=== PATIENT | female | born 1950 | race Caucasian/White ===

== ENCOUNTER → 2017-11-18 13:16 | Outpatient (CLI) | payer MEDICARE, OTHER, SELFPAY ==
--- NOTE | 2017-11-18 13:17 | DI.MRI.S_ITS ---
PROCEDURE: MR LUMBAR SPINE WO CON INDICATIONS: Scoliosis with stenosis with right lower extremity radicular TECHNIQUE: Noncontrast sagittal T1 spin echo and T2 fast echo, sagittal STIR, axial T1 and T2 fast spin echo through the lumbar spine. In cases with scoliosis, additional coronal T2 fast spin echo may be performed. COMPARISON[facility] [place], SPINE LUMB MIN 4VW, 04/08/2015, 15:17. FINDINGS: Image quality: Excellent. Alignment and Curvature: 5 lumbar type vertebral bodies are present by plain film. There is moderate leftward curvature of the lower lumbar spine moderate rightward curvature of the mid/upper lumbar spine. There is mild rightward lateral subluxation of L2 on L3 and L3 on L4. Bone Marrow: Marrow is of normal overall signal. No acute vertebral body compression fractures. There is mild reactive signal within the endplates adjacent to the L2-L3, L3-L4, and L4-L5 intervertebral discs. Spinal Cord: Conus medullaris terminates at the mid L1 level. Visualized cord demonstrates normal signal and size. Paraspinous Soft Tissues: No paravertebral masses. L1-L2: Mild disc desiccation and diffuse disc bulge. Mild facet and ligamentum flavum hypertrophy bilaterally. Mild canal stenosis. No foraminal stenosis. L2-L3: Severe disc and loss and desiccation. Mild diffuse disc bulge with superimposed left far lateral protrusion/osteophyte. Mild facet and ligamentum flavum hypertrophy bilaterally. Mild canal stenosis. Moderate left and mild right foraminal stenosis. L3-L4: Mild disc height loss. Moderate disc desiccation and moderate diffuse disc bulge. Moderate facet and ligamentum hypertrophy bilaterally. Moderate canal stenosis. Moderate right and mild left foraminal stenosis. L4-L5: Mild disc and loss and desiccation. Moderate diffuse disc bulge with superimposed small broad-based right far lateral protrusion/osteophyte. Moderate facet and ligamentum hypertrophy bilaterally. Mild canal stenosis. Moderate right and mild left foraminal stenosis. L5-S1: Mild disc desiccation and diffuse disc bulge. Mild facet and ligamentum hypertrophy. Mild canal stenosis. Mild foraminal stenosis bilaterally. IMPRESSION: 1. Spinal curvature as described above. 2. Multilevel degenerative disc and facet disease, as well as ligamentum flavum hypertrophy. 3. Multilevel canal stenoses, worst at L3-L4, where there is moderate canal stenosis present. 4. Multilevel foraminal stenoses, worst on the left at L2-L3, on the right at L3-L4, and on the right at L4-L5. Dictated by: Julio Cesar Grace M.D. on 11/18/2017 at 14:04 Approved by: Julio Cesar Grace M.D. on 11/18/2017 at 14:09
== END ==
PROVIDERS: Family Provider Family Medicine; PCP Family Medicine; Visit Provider Physical Medicine & Rehabilitation
DX: M51.16 Intervertebral disc disorders with radiculopathy, lumbar region (principal); M51.17 Intervertebral disc disorders with radiculopathy, lumbosacral region; M48.061 Spinal stenosis, lumbar region without neurogenic claudication; M41.86 Other forms of scoliosis, lumbar region
CPT/HCPCS: 72148

== ENCOUNTER → 2017-11-23 11:11 | Outpatient (CLI) | payer MEDICARE, OTHER, SELFPAY ==
--- NOTE | 2017-11-23 11:15 | DI.RAD.S_ITS ---
PROCEDURE: XR LUMBAR SPINE MIN 4V INDICATIONS: Scoliosis with stenosis with right lower extremity radicular TECHNIQUE: 5 views of the lumbar spine acquired. COMPARISON: Lumbar spine MRI from 11/18/2017. FINDINGS: Bones: 5 nonrib-bearing vertebrae are present. Curvature of the lumbar spine convex to the right centered at L2 and to the left centered at L4. Normal vertebral body heights. Multilevel degenerative change greatest at L2-3. Facet joint hypertrophy.. Soft tissues: Overlying bowel gas pattern is normal. No suspicious soft tissue calcifications. IMPRESSION: No acute fractures or dislocations. Multilevel degenerative change. Dictated by: Hiro Fierro M.D. on 11/23/2017 at 11:47 Approved by: Hiro Fierro M.D. on 11/23/2017 at 11:49
== END ==
PROVIDERS: PCP Family Medicine; Visit Provider Physical Medicine & Rehabilitation
DX: M41.26 Other idiopathic scoliosis, lumbar region (principal); M48.061 Spinal stenosis, lumbar region without neurogenic claudication; M51.36 Other intervertebral disc degeneration, lumbar region
CPT/HCPCS: 72110

== ENCOUNTER 2017-11-30 09:46 | Outpatient (CLI) | payer MEDICARE, OTHER, SELFPAY ==
[2017-11-30] VITALS (9 sets, daily range): BP systolic 103–140; BP diastolic 65–77; PULSE 73–82; RESP 14–16; TEMP 36.2; O2SAT 97–100
--- NOTE | 2017-11-30 09:47 | DI.RAD.S_ITS ---
PROCEDURE: PAIN L/S TRANSFORAMINAL INJECT INDICATIONS: SPINAL STENOSIS FINDINGS: Fluoroscopic spot filming was performed to verify placement of spinal needles at the right L4-5 level(s), as labeled on the films. Appropriate location(s) of the needle tip(s) was confirmed by injection of iodinated contrast. IMPRESSION: Successful needle tip localization for right L4-L5 transforaminal epidural steroid injection. Dictated by: Jam Fritz M.D. on 11/30/2017 at 13:14 Approved by: Jam Fritz M.D. on 11/30/2017 at 13:15
[2017-11-30] MEDS: MIDAZOLAM 5 MG/5 ML VIAL IV (10:43)
[2017-11-30] MEDS: BUPIVACAINE 0.25% (PF) VIAL 2 ML INJ (10:47)
[2017-11-30] MEDS: methylPREDNISolone acetate 80 MG/ML VIAL INJ (10:47)
[2017-11-30] MEDS: DEXAMETHASONE 10 MG/ML VIAL 20 MG INJ (10:47)
[2017-11-30] MEDS: IOPAMIDOL 15 ML VIAL 3 ML INJ (10:47)
--- NOTE | 2017-11-30 11:03 | P.PCN_ITS ---
Procedures Date/Time Date of procedure: 11/30/17 Time of procedure: 11:01 General Procedure description: PREOP DIAGNOSIS 1. FORMAINAL STENOSIS WITH LE SYMPTOMS POST OP DIAGNOSIS 1. FORMAINAL STENOSIS WITH LE SYMPTOMS PROCEDURES 1. FLUOROSCOPICALLY GUIDED CONTRAST CONTROLLED TRANSFORAMINAL EPIDURAL STEROID INJECTION - RIGHT L4/5 TFESI PHYSICIAN: Rasta Acosta DO INDICATIONS: Kunal is referred by for treatment of Foraminal Stenosis with Right LE Symptoms FINDINGS Foraminal Nerve Root Compression secondary to disc disease and facet hypertrophy DESCRIPTION OF PROCEDURE: Following denial of allergy and review of potential side effects and complications, including, but not necessarily limited to, infection, allergic reaction, local tissue breakdown, stroke, temporary or permanent nerve injury, paralysis, and possible , the patient indicated that the patient understood and agreed to proceed. An informed consent document was signed by the patient, witnessed by a nurse, and placed in the patient's chart. Additionally, other treatment options including medications, modalities, and physical therapy were reviewed with the patient. After review of previous anaesthesic history and IV conscious sedation the patient was deemed safe to proceed with todays procedure with IV conscious sedation as ASA class II designation. Safety time-out was performed to confirm patient ID, procedure to be performed and site of procedure. IV sedation was accomplished with a combination of 2mg of Versed was administered by the RN after DO order, titrated to patient comfort during the course of the procedure while the patient remained responsive to all verbal commands In the prone position following sterile prep and drape of the lumbar region, the Right L4/5 posterior neuroforamen was identified fluoroscopically. The skin was anesthetized via a 25-gauge 1.5-inch needle with 1% lidocaine solution. At this point, a 25-gauge 3.5-inch spinal needle was atraumatically introduced and advanced under fluoroscopic guidance through the posterior Right L4/5 neuroforamen to approximately the anterior aspect of the canal. Depth was confirmed on lateral view. Following negative aspiration, injection of approximately 1.5 cc of Isovue 200 under live fluoroscopy in the AP view confirmed excellent flow along the nerve root, into the epidural space without vascular or intrathecal uptake observed Radiological data, including multiple fluoroscopic views of the lumbosacral spine, reveal a spinal needle at the right L4/5 posterior neuroforamen. Subsequent views show flow of contrast material flowing superiorly and inferiorly along the nerve root confirming epidural flow. Subsequently, a test dose of 1.5 cc of 1% lidocaine solution was administered and patient was observed for two minutes for signs or symptoms of complications , including abdominal pain, shortness of breath, bilateral upper or lower extremity weakness, nausea and vomiting, prior to steroid injection. At this point, a total of 3 cc or 20 mg of dexamethasone and 80mg Depo Medrol was injected without incident. The procedure tolerated the procedure well without signs or symptoms of complications prior to transfer to the recovery area continued monitoring without incident.The patient was then transferred to the recovery area where they were observed for an appropriate time after the injection. The patient reported a VAS score of 7 prior to the procedure and a post- procedure VAS of 0. Total Fluoroscopy Time: 20.9 seconds Total Conscious Sedation Time: 24min POST OP INSTRUCTIONS The patient was provided a Pain Log to continue to record their response to the target-specific procedure prior to follow-up visit with their referring physician. Additionally, specific post-injection care instructions and a contact number to our office were provided if concerns arise regarding possible complications associated with the procedure are suspected. Rasta Acosta DO Complications: none
== END 2017-11-30 12:42 | disposition home or self-care (01) ==
LOC: RAD 09:47
PROVIDERS: PCP Family Medicine; Visit Provider Physical Medicine & Rehabilitation
DX: M51.16 Intervertebral disc disorders with radiculopathy, lumbar region (principal); M48.061 Spinal stenosis, lumbar region without neurogenic claudication
CPT/HCPCS: 64483; 99152; J1040; J1100; J2250

== ENCOUNTER → 2017-12-21 15:25 | Outpatient (CLI) | payer MEDICARE, OTHER, SELFPAY ==
--- NOTE | 2017-12-21 15:26 | DI.RAD.S_ITS ---
PROCEDURE: XR KNEE RT 3V INDICATIONS: Eval TECHNIQUE: 3 views of the knee were acquired. COMPARISON: None. FINDINGS: Bones: No fractures or dislocations. No suspicious bony lesions. Mild narrowing of the medial joint space. There is mild subchondral sclerosis and spurring Soft tissues: Small joint effusion. No suspicious soft tissue calcifications. IMPRESSION: Mild right knee joint degeneration. Dictated by: Jax Agee M.D. on 12/21/2017 at 16:56 Approved by: Jax Agee M.D. on 12/21/2017 at 16:58
== END ==
PROVIDERS: PCP Family Medicine; Visit Provider Physical Medicine & Rehabilitation
DX: M70.51 Other bursitis of knee, right knee (principal); M17.11 Unilateral primary osteoarthritis, right knee
CPT/HCPCS: 73562

== ENCOUNTER 2018-05-30 14:48 | Outpatient (CLI) | payer MEDICARE, OTHER, SELFPAY ==
[2018-05-30] VITALS (8 sets, daily range): BP systolic 107–131; BP diastolic 57–71; PULSE 73–82; RESP 14–18; TEMP 36.3; O2SAT 96–99
--- NOTE | 2018-05-30 14:52 | DI.RAD.S_ITS ---
PROCEDURE: PAIN SI JOINT INJECTION INDICATIONS: Right sacroiliac joint injection FINDINGS: Fluoroscopic spot filming was performed to verify placement of spinal needles at the right SI joint, as labeled on the films. Appropriate location(s) of the needle tip(s) was confirmed by injection of iodinated contrast. IMPRESSION: Fluoroscopy for pain management. Dictated by: Golden Rodriguez M.D. on 05/30/2018 at 16:22 Approved by: Golden Rodriguez M.D. on 05/30/2018 at 16:22
[2018-05-30] MEDS: MIDAZOLAM 5 MG/5 ML VIAL IV (15:18)
[2018-05-30] MEDS: BUPIVACAINE 0.5% (PF) VIAL 2 ML INJ (15:20)
[2018-05-30] MEDS: IOPAMIDOL 15 ML VIAL 3 ML INJ (15:20)
[2018-05-30] MEDS: BETAMETHASONE 30 MG/5 ML MDV 12 MG INJ (15:20)
--- NOTE | 2018-05-30 15:33 | P.PCN_ITS ---
Procedures Date/Time Date of procedure: 05/30/18 Time of procedure: 15:32 General Procedure description: PREOP Dx: Sacroiliac joint pain/DJD POST OP DX: Sacroiliac Joint Pain/DJD Procedures: Fluoroscopic guided contrast controlled right sacroiliac joint injection Physician: Rasta Acosta D.O. Indications: Ene is referred by Dr. Myers for treatment of right sacroiliac joint DJD Description of procedure Fluoroscopic guided, contrast controlled right sacroiliac joint injection Following denial of allergies and review of potential side effects and complications, including, but not necessarily limited to, infection, allergic r eaction, local tissue breakdown, temporary as well as permanent nerve injury, paralysis, stroke and possible , the patient indicated that they understood and agreed to proceed. An informed consent was signed by the patient, witnessed by a nurse, and placed in the patient's chart. Additionally, other treatment options including modalities, medications, and physical therapy were reviewed with the patient. After review of previous anaesthesic history and IV conscious sedation the patient was deemed safe to proceed with todays procedure with IV conscious sedation as ASA class II designation. Safety time-out was performed to confirm patient ID, procedure to be performed and site of procedure. IV sedation was accomplished with a combination of 2mg of Versed was administered by the RN aft er DO order, titrated to patient comfort during the course of the procedure while the patient remained responsive to all verbal commands In the prone position following sterile prep and drape of the pelvic region, the hyper lucency on in the inferior aspect of the sacroiliac joint was identified fluoroscopically the skin was anesthetized be a 25 gauge 1 eventual with approximately 2 cc of 1% lidocaine solution. At this point, a 22 gauge 3 in spinal needle was atraumatically introduced and advanced under fluoroscopic guidance into the inferior aspect of the right sacroiliac joint. Following negative aspiration, approximately 0.3 cc of Isovue-300 was injected confirming intra-articular placement without vascular uptake. Radiographic data, including multiple fluoroscopic views of the pelvis, reveals a spinal needle in the sacroiliac joint hyper lucent zone. Subsequent view show flow contrast tear superiorly and inferiorly within the joint capsule without vascular intrathecal uptake. At this point a total of 1 cc or 0 8 of 0.5% Marcaine was combined with 1 cc of 6 mg of betamethasone was injected without incident. The procedure tolerated the procedure well without signs or symptoms of complications prior to transfer to the recovery area continued monitoring without incident. The patient was then transferred to the recovery area with a bur observed for an appropriate time after the injection. The patient reverted a vas score of 7 prior to the procedure and postprocedure vas of 1. Total fluoroscopy time: 22.7 sec Total conscious sedation time: 24 min Postop instructions The patient was provided with a pain like to continue to record the patient's response to the target specific procedure prior to the patient's follow-up visit with the referring physician. Additionally, specific post injection care instructions and a contact number to our office were provided if concerns arise regarding the possible complications associated with procedure are suspected. Rasta Acosta D.O. Complications: none
--- NOTE | 2018-05-30 15:34 | PC.NURSE ---
ASSISTED PT OFF TABLE AND TRANSPORTING TO POST PROC AREA IN STABLE CONDITION. TURNED CARE OVER TO GERARDO WEBB, RN
--- NOTE | 2018-05-30 15:45 | PC.NURSE ---
pt returned via wheelchair post procedure. She is awake and alert and able to move from w/c to chair with standby assist. Resumed monitoring from Taylor BRISCOE.
--- NOTE | 2018-05-31 13:21 | PC.NURSE ---
Follow up call made post procedure , SI joint injection. Pt reports doing really good, her only complaint is she is tired.
== END 2018-05-30 15:58 ==
PROVIDERS: PCP Family Medicine; Visit Provider Physical Medicine & Rehabilitation
DX: M53.3 Sacrococcygeal disorders, not elsewhere classified (principal); M47.818 Spondylosis without myelopathy or radiculopathy, sacral and sacrococcygeal region; M41.20 Other idiopathic scoliosis, site unspecified; M48.061 Spinal stenosis, lumbar region without neurogenic claudication
CPT/HCPCS: 27096; 99152; J0702; J2250

== ENCOUNTER → 2018-07-19 15:32 | Outpatient (CLI) | payer MEDICARE, OTHER, SELFPAY ==
--- NOTE | 2018-07-19 | DI.MG.S_ITS ---
BILATERAL DIGITAL SCREENING MAMMOGRAM 3D/2D WITH CAD: 07/19/2018 CLINICAL: Routine screening. Comparison is made to exams dated: 07/16/2017 mammogram, 07/15/2016 mammogram, and 07/14/2015 mammogram - [facility]. The tissue of both breasts is heterogeneously dense. This may lower the sensitivity of mammography. Current study was also evaluated with a Computer Aided Detection (CAD) system. No significant masses, calcifications, or other findings are seen in either breast. There has been no significant interval change. IMPRESSION: NEGATIVE There is no mammographic evidence of malignancy. A 1 year screening mammogram is recommended. This exam was interpreted at Station ID: [id number]. NOTE: For mammograms, a report in lay terms will be sent to the patient. Approximately 15% of breast malignancies will not be visualized mammographically. In the management of a palpable breast mass, a negative mammogram must not discourage biopsy of a clinically suspicious lesion. Electronically Signed By: Arnaldo harper/trupti:07/19/2018 16:36:30 letter sent: Normal Exam ACR BI-RADS Category 1: Negative [id number]
== END ==
PROVIDERS: PCP Family Medicine; Visit Provider Family Medicine
DX: Z12.31 Encounter for screening mammogram for malignant neoplasm of breast (principal)
CPT/HCPCS: 77063; 77067

== ENCOUNTER → 2018-10-27 15:11 | Outpatient (CLI) | payer MEDICARE, OTHER, SELFPAY ==
--- NOTE | 2018-10-27 | DI.RAD.S_ITS ---
PROCEDURE: XR HAND RT MIN 3V INDICATIONS: right hand pain TECHNIQUE: 3 views of the hand(s) acquired. COMPARISON: None. FINDINGS: Bones: No fractures or dislocations. Carpal bones are normally aligned. No suspicious bony lesions. First CMC and triscaphe joint degeneration. DRUJ degeneration also noted. Soft tissues: No suspicious soft tissue calcifications. IMPRESSION: Mild first CMC and triscaphe joint degeneration Dictated by: Jax Agee M.D. on 10/27/2018 at 16:09 Approved by: Jax Agee M.D. on 10/27/2018 at 16:14
== END ==
PROVIDERS: PCP Nurse Practitioner Family; Visit Provider Nurse Practitioner Family
DX: M79.641 Pain in right hand (principal); M18.11 Unilateral primary osteoarthritis of first carpometacarpal joint, right hand; M19.031 Primary osteoarthritis, right wrist
CPT/HCPCS: 73130

== ENCOUNTER → 2019-08-13 13:58 | Outpatient (CLI) | payer MEDICARE, OTHER, SELFPAY ==
[2019-08-14 11:05] LABS: COVID19 Sendout NOT DETECTED
== END ==
PROVIDERS: PCP Nurse Practitioner Family; Visit Provider Registered Nurse
DX: Z01.818 Encounter for other preprocedural examination (principal)
CPT/HCPCS: 87635

== ENCOUNTER 2019-08-16 09:30 | Outpatient (CLI) | payer MEDICARE, OTHER, SELFPAY ==
[2019-08-16] VITALS (10 sets, daily range): BP systolic 109–141; BP diastolic 59–74; PULSE 70–86; RESP 12–16; TEMP 36.6; O2SAT 97–100
--- NOTE | 2019-08-16 09:32 | DI.RAD.S_ITS ---
PROCEDURE: PAIN SI JOINT INJECTION INDICATIONS: SPONDYLOSIS FINDINGS: Fluoroscopic spot filming was performed to verify placement of spinal needles at the inferior sacroiliac joint on the right level(s), as labeled on the films. Appropriate location(s) of the needle tip(s) was confirmed by injection of iodinated contrast. IMPRESSION: Successful needle tip localization for inferior right sacroiliac joint injection. Dictated by: Jam Fritz M.D. on 08/16/2019 at 11:25 Approved by: Jam Fritz M.D. on 08/16/2019 at 11:26
[2019-08-16] MEDS: MIDAZOLAM 5 MG/5 ML VIAL IV (10:39)
[2019-08-16] MEDS: fentaNYL 100 MCG/2 ML INJ 50 MCG IV (10:39)
[2019-08-16] MEDS: BUPIVACAINE 0.5% (PF) VIAL 2 ML INJ (10:44)
[2019-08-16] MEDS: IOPAMIDOL 15 ML VIAL 3 ML INJ (10:44)
[2019-08-16] MEDS: BETAMETHASONE 30 MG/5 ML MDV 6 MG INJ (10:45)
--- NOTE | 2019-08-16 10:47 | PC.NURSE ---
ASSISTING PT OFF TABLE AND TRANSPORTING TO POST PROC AREA IN STABLE CONDITION. PASSING RN CARE OF PT OFF TO RACHNA CALVIN.
--- NOTE | 2019-08-16 10:58 | P.PCN_ITS ---
Procedures Date/Time Date of procedure: 08/16/19 Time of procedure: 10:58 General Procedure description: PREOP Dx: Sacroiliac joint pain/DJD POST OP DX: Sacroiliac Joint Pain/DJD Procedures: Fluoroscopic guided contrast controlled right sacroiliac joint injection Physician: Rasta Acosta D.O. Indications: Ene is referred by SONDRA Almanza for treatment of right sacroiliac joint DJD Description of procedure Fluoroscopic guided, contrast controlled right sacroiliac joint injection Following review of allergies and review of potential side effects and complications, including, but not necessarily limited to, infection, allergic reaction, local tissue breakdown, temporary as well as permanent nerve injury, paralysis, stroke and possible , the patient indicated that they understood and agreed to proceed. An informed consent was signed by the patient, witnessed by a nurse, and placed in the patient's chart. Additionally, other treatment options including modalities, medications, and physical therapy were reviewed w ith the patient. After review of previous anaesthesic history and IV conscious sedation the patient was deemed safe to proceed with todays procedure with IV conscious sedation as ASA class II designation. Safety time-out was performed to confirm patient ID, procedure to be performed and site of procedure. IV sedation was accomplished with a combination of 2mg of Versed and 50mcg of Fentanyl was a dministered by the RN after DO order, titrated to patient comfort during the course of the procedure while the patient remained responsive to all verbal commands In the prone position following sterile prep and drape of the pelvic region, the hyper lucency on in the inferior aspect of the sacroiliac joint was identified fluoroscopically the skin was anesthetized be a 25 gauge 1 eventual with appr oximately 2 cc of 1% lidocaine solution. At this point, a 22 gauge 3 in spinal needle was atraumatically introduced and advanced under fluoroscopic guidance into the inferior aspect of the right sacroiliac joint. Following negative aspiration, approximately 0.3 cc of Isovue-300 was injected confirming intra- articular placement without vascular uptake. Radiographic data, including multiple fluoroscopic views of the pelvis, reveals a spinal needle in the sacroiliac joint hyper lucent zone. Subsequent view show flow contrast tear superiorly and inferiorly within the joint capsule without vascular intrathecal uptake. At this point a total of 1 cc or 0 8 of 0.5% Marcaine was combined with 1 cc of 6 mg of betamethasone was injected without incident. The procedure tolerated the procedure well without signs or symptoms of complications prior to transfer to the recovery area continued monitoring without incident. The patient was then transferred to the recovery area with a bur observed for an appropriate time after the injection. The patient reverted a vas score of 7 prior to the procedure and postprocedure vas of 1. Total fluoroscopy time: 7 sec Total conscious sedation time: 24 min Postop instructions The patient was provided with a pain like to continue to record the patient's response to the target specific procedure prior to the patient's follow-up visit with the referring physician. Additionally, specific post injection care instructions and a contact number to our office were provided if concerns arise regarding the possible complications associated with procedure are suspected. Rasta Acosta D.O. Complications: none
== END 2019-08-16 11:30 | disposition home or self-care (01) ==
PROVIDERS: PCP Nurse Practitioner Family; Referring Provider Physical Medicine & Rehabilitation; Visit Provider Physical Medicine & Rehabilitation
DX: M53.3 Sacrococcygeal disorders, not elsewhere classified (principal); M47.898 Other spondylosis, sacral and sacrococcygeal region
CPT/HCPCS: 27096; 99152; J0702; J2250; J3010

== ENCOUNTER → 2019-09-13 10:43 | Outpatient (CLI) | payer MEDICARE, OTHER, SELFPAY ==
--- NOTE | 2019-09-13 10:45 | DI.RAD.S_ITS ---
PROCEDURE: XR LUMBAR SPINE MIN 4V INDICATIONS: Scoliosis low back pain with right lower extremity pain TECHNIQUE: 5 views of the lumbar spine were acquired. COMPARISON: [facility], , XR LUMBAR SPINE MIN 4V, 11/23/2017, 10:54. FINDINGS: Bones: Dextroscoliosis is noted, which has progressed since prior study. No fracture or focal osseous destruction. Although, diagnostic study sensitivity is severely suboptimal due to advanced degenerative changes. Multilevel degenerative endplate sclerosis and spurring. Diffuse facet arthropathy. Grade 1 retrolisthesis of L2 on L3. Soft tissues: Overlying bowel gas pattern is normal. No suspicious soft tissue calcifications. Oblique images: No pars defects identified however suboptimal evaluation due to advanced degenerative change.. IMPRESSION: Progressive dextroscoliosis since 11/23/17 Severe multilevel lumbar spondylosis and facet arthropathy, progressed since the prior study.. Grade 1 retrolisthesis of L2 on L3, which has progressed since prior study. Dictated by: Jax Agee M.D. on 09/13/2019 at 13:19 Approved by: Jax Agee M.D. on 09/13/2019 at 13:21
== END ==
PROVIDERS: PCP Nurse Practitioner Family; Referring Provider Physical Medicine & Rehabilitation; Visit Provider Physical Medicine & Rehabilitation
DX: M54.5 Low back pain (principal); M47.26 Other spondylosis with radiculopathy, lumbar region; M48.061 Spinal stenosis, lumbar region without neurogenic claudication; M41.20 Other idiopathic scoliosis, site unspecified; M79.604 Pain in right leg; M43.16 Spondylolisthesis, lumbar region; R26.81 Unsteadiness on feet
CPT/HCPCS: 72110

== ENCOUNTER → 2019-11-05 08:58 | Outpatient (CLI) | payer MEDICARE, OTHER, SELFPAY ==
[2019-11-06 07:24] LABS: COVID19 Sendout Not Detected (Not Detect)
== END ==
PROVIDERS: PCP Nurse Practitioner Family; Visit Provider Physician Assistant
DX: Z11.59 Encounter for screening for other viral diseases (principal)
CPT/HCPCS: 87635

== ENCOUNTER 2019-11-08 10:33 | Outpatient (CLI) | payer MEDICARE, OTHER, SELFPAY ==
[2019-11-08] VITALS (7 sets, daily range): BP systolic 112–138; BP diastolic 62–80; PULSE 74–81; RESP 10–18; TEMP 36.1; O2SAT 94–100
--- NOTE | 2019-11-08 10:39 | DI.RAD.S_ITS ---
PROCEDURE: PAIN L/SI FACET INJ/BLK 1STL INDICATIONS: SPONDYLOSIS COMPARISON: None. FINDINGS: Fluoroscopic spot filming was performed to verify placement of spinal needles at the right L4-L5 and L5-S1 level(s), as labeled on the films. Appropriate location(s) of the needle tip(s) was confirmed by injection of iodinated contrast. IMPRESSION: Fluoroscopy for pain management. Dictated by: Golden Rodriguez M.D. on 11/08/2019 at 12:37 Approved by: Golden Rodriguez M.D. on 11/08/2019 at 12:38
--- NOTE | 2019-11-08 11:09 | PC.NURSE ---
Patient is A&O able to make needs known. Green pain log and post injection instructions reviewed. Has no questions or concerns at this time.
[2019-11-08] MEDS: BUPIVACAINE 0.25% (PF) VIAL 2 ML INJ (11:40)
[2019-11-08] MEDS: MIDAZOLAM 5 MG/5 ML VIAL IV (11:40)
[2019-11-08] MEDS: fentaNYL 100 MCG/2 ML INJ 50 MCG IV (11:40)
[2019-11-08] MEDS: IOPAMIDOL 15 ML VIAL 3 ML INJ (11:40)
[2019-11-08] MEDS: BETAMETHASONE 30 MG/5 ML MDV 12 MG INJ (11:55)
--- NOTE | 2019-11-08 11:55 | P.PCN_ITS ---
Date/Time/Diagnoses Date of procedure: 11/08/19 Time of procedure: 11:55 Pre-procedure diagnosis: 1. FACET ARTHROPATHY, 2. AXIAL LBP, 3. MULTILEVEL DDD Post-procedure diagnosis: same Procedure Notes Procedure: 1. FLUOROSCOPICALLY GUIDED CONTRAST CONTROLLED FACET JOINT INJECTIONS RIGHT L4/5, L5/S1 Indications: Ene is referred by for treatment of Axial LBP Physician: Rasta Acosta Total Fluoroscopy time (seconds): 6 Total sedation minutes: 9 Complications: none Procedure in detail & Post-procedure care: FINDINGS Multilevel Facet Arthropathy with Clinically significant axial LBP DESCRIPTION OF PROCEDURE Fluoroscopically guided, contrast-controlled right L4/5, L5/S1 facet joint injections. Following review of allergy and review of potential side effects and complications, including, but not necessarily limited to, infection, allergic reaction, local tissue breakdown, stroke, temporary or permanent nerve injury, paralysis, and possible , the patient indicated that the patient understood and agreed to proceed. An informed consent document was signed by the patient, witnessed by a nurse, and placed in the patient's chart. Additionally, other treatment options including medications, modalities, and physical therapy were reviewed with the patient. After review of previous anaesthesic history and IV conscious sedation the patient was deemed safe to proceed with today?s procedure with IV conscious sedation as ASA class II designation. Safety time-out was performed to confirm patient ID, procedure to be performed and site of procedure. IV sedation was accomplished with a combination of 2mg of Versed and 50mcg of Fentanyl was administered by the RN after DO order, titrated to patient comfort during the course of the procedure while the patient remained responsive to all verbal commands. In the prone position, following sterile prep and drape of the lumbar region, the posterior aspect of the right L4/5, L5/S1 facet joints were identified fluoroscopically. The skin was anesthetized via a 25-gauge 1.5-inch needle with 1% lidocaine solution into the corresponding facet joints. At this point, a 22- gauge 3.5-inch spinal needle was atraumatically introduced and advanced under fluoroscopic guidance into the corresponding facet joints. Following negative aspiration, injections of approximately 0.2-cc of Isovue 200 confirmed interarticular placement without vascular uptake. Radiological data, including multiple fluoroscopic views of the lumbosacral spine, reveal a spinal needle at the right L4/5, L5/S1 facet joints. Subsequent views show flow of contrast material both superiorly and inferiorly within the joint space without vascular or intrathecal uptake. At this point, a total of 0.5 cc including a mixture of 0.25cc Marcaine and 0.25cc betamethasone was injected without complication into each of the corresponding facet joints. The procedure tolerated the procedure well without signs or symptoms of complications prior to transfer to the recovery area continued monitoring without incident. The patient was then transferred to the recovery area where they were observed for an appropriate period of time after the injection. The patient reported a VAS score of 7 prior to the procedure and a post-procedure VAS of 0. POST OP INSTRUCTIONS The patient was provided a Pain Log to continue to record their response to the target-specific procedure prior to follow-up visit with their referring physician. Additionally, specific post-injection care instructions and a contact number to our office were provided if concerns arise regarding possible complications associated with the procedure are suspected.
--- NOTE | 2019-11-08 12:26 | PC.NURSE ---
pt was returned to pre proc room via wc. SBA to transfer from wc to chair, monitoring resumed by this RN
--- NOTE | 2019-11-08 12:27 | PC.NURSE ---
1149: pt tolerated procedure well, 2PA transfer from table to chair, returned to pre proc room for observation and monitoring
== END 2019-11-08 12:28 | disposition home or self-care (01) ==
LOC: RAD 10:38
PROVIDERS: PCP Family Medicine; Referring Provider Physical Medicine & Rehabilitation; Visit Provider Physical Medicine & Rehabilitation
DX: M47.816 Spondylosis without myelopathy or radiculopathy, lumbar region (principal); M47.817 Spondylosis without myelopathy or radiculopathy, lumbosacral region; M54.5 Low back pain; M51.36 Other intervertebral disc degeneration, lumbar region; M51.37 Other intervertebral disc degeneration, lumbosacral region
CPT/HCPCS: 64493; 64494; 99152; J0702; J2250; J3010

== ENCOUNTER 2020-10-09 09:45 | Outpatient (RCR) | payer MEDICARE, OTHER, SELFPAY ==
--- NOTE | 2020-04-22 16:54 | PT.OIE ---
Current Diagnoses Sacrococcygeal disorders, not elsewhere classified (04/22/20) Other dorsalgia (04/22/20) Abnormal posture (04/22/20) Weakness (04/22/20) Past Medical History (Last Reviewed 01/02/20 @ 11:45 by Rasta Acosta DO) Facet arthropathy, lumbar Past Surgical History (Last Reviewed 01/02/20 @ 11:45 by Rasta Acosta DO) Status post surgery (04/13/10) Visit Care Team Role Provider Type SONDRA Santacruz Attending Provider Advanced Hims Manager Family Provider Primary Care Provider Referring Provider Specialty: Family Practice Address: [address] [place] [address], [facility] Email: [email or web address] Physical Therapy Initial Evaluation PT-OP-A Visit Information Start: 04/22/20 08:10 Freq: Status: Active Protocol: Document 04/22/20 10:39 SAK (Rec: 04/22/20 11:35 SAK [id number]) Out-Patient Physical Therapy Visit Information Visit Information Visit Type Initial Evaluation Visit Start Time 10:38 Visit Stop Time 11:40 Total Visit Minutes 62 Visit Number 1 Evaluation Information Evaluation Date 04/22/20 PT-OP-B Current Condition Start: 04/22/20 08:10 Freq: Status: Active Protocol: Document 04/22/20 10:39 SAK (Rec: 04/22/20 11:35 SAK [id number]) Current Condition History of Current Condition Onset Date years Current Complaints pain L45 and SI joint History of Current Condition Long history of LBP and SI pain, scoliosis lumbar right convex L45, left convex upper lumber, spondylosis, spondylolisthesis L2-3, injection SI august 2019, L45 July 2019; neither helpful. Previously injections have been helpful; historically has had injections every year to 1 1/2 years to SI with good results. Denies N/T, legs giving way. Wears [place] brace when gardening but states she doesn't tend to think about using it indoors even though housework increases her pain. Reports unable to take walks anymore due to pain. Doesn't weaR any shoe or heel lift, though reports she remembers PT giving her cork for use in her shoe to even her leg length; hasn't worn for a long time. States she has started doing some exercises; pelvic tilt, lunges, leg lifts , HS stretches, but not consistent. Standing hamstring stretch painful. Can't get down to the floor or lay on her hands and knees. Sleeping generally ok. Spends a lot of time sitting due to pain after self -care and minimal housework. Always sleeps on right side, sometimes wakes in pain, other days can do an hour or two of mild activity and then has to sit rest of day. FEels heat helpful short term, hasn't tried TENS unit that she and her bought; brought to PT today. Prior Treatments and Tests Progressive dextroscoliosis since 11/23/17 Lumbar spine x-ray: Severe multilevel lumbar spondylosis and facet arthropathy, progressed since the prior study.. Grade 1 retrolisthesis of L2 on L3, which has progressed since prior study. Future Testing and Treatments Planned No appointments scheduled at this time. Prior Functional Status Baseline Function- ADL's Modified Independent Baseline Function- Mobility Modified Independent Baseline Function- Gait able to take walks Baseline Function- Work/School retired Baseline Function- Recreation/Hobbies cooking, gardening, baking Current Functional Impairments (Reported) Functional Limitations- ADL's independent but painful Functional Limitations- Mobility/Gait unable to take walks for exercise or recreation due to pain Functional Limitations- Work/School retired Functional Limitations- Recreation/ painful Hobbies Personal Factors Other Personal Factors That May Effect patient has difficult time Therapy/Recovery relaxing. PT-OP-C Subjective Start: 04/22/20 08:10 Freq: Status: Active Protocol: Document 04/22/20 10:39 SAK (Rec: 04/22/20 16:52 [facility] [id number]) OP-PT Pain Assessment Pain Assessment Grid Paper Pain Assessment Grid Completed Yes Location right SI, central lumbar spine Intensity 6 Description Aching,Pressure,Spasm,Tender, Throbbing Frequency Frequent Pain Aggravating Factors Standing,Sitting,Walking, Bending,Lifting Pain Alleviating Factors Heat,Medication,Inactivity PT-OP-F Manual Assessment Start: 04/22/20 08:10 Freq: Status: Active Protocol: Document 04/22/20 10:39 SAK (Rec: 04/22/20 16:52 [facility] [id number]) Manual Assessments Soft Tissue Assessment Soft Tissue Mobility Assessment Increased tightness bilateral lumbar and thoracic paraspinals Joint Mobility Assessment Joint Mobility Assessment lumbar not assessed, unable to lay prone, time constraints PT-OP-G Mobility & Gait Start: 04/22/20 08:10 Freq: Status: Active Protocol: Document 04/22/20 10:39 SAK (Rec: 04/22/20 16:52 SAK [id number]) OP Gait Assessment Gait Distance (Feet) 50 Assistive Devices Orthotic/Prosthetic Devices or Brace: No Factors Limiting Gait Function Factors Limiting Gait Function Pain Comments Gait Comments mild trunk lean right PT-OP-H Neuro Start: 04/22/20 08:10 Freq: Status: Active Protocol: Document 04/22/20 10:39 SAK (Rec: 04/22/20 16:52 SAK [id number]) Sensation Evaluation Gross Sensation Gross Sensation WNL PT-OP-J Posture/Palpation/Skin Start: 04/22/20 08:10 Freq: Status: Active Protocol: Document 04/22/20 10:39 SAK (Rec: 04/22/20 16:52 SAK [id number]) Posture Evaluation Position Standing Head/C-Spine Posture Forward Head T-Spine Posture Increased Kyphosis Thorax Posture (R) Prominent L-Spine Posture Rotation Right Shoulder Posture (L) Rounded,(R) Rounded Scapula Posture (L) Protracted,(R) Protracted Arm Posture (L) Internally Rotated,(R) Internally Rotated Pelvis Posture Posterior Tilted Weight Distribution Decreased Wt.Bear on (L) Palpation Assessment Location SI right Palpation Findings Tenderness PT-OP-K Range of Motion Start: 04/22/20 08:10 Freq: Status: Active Protocol: Document 04/22/20 10:39 SAK (Rec: 04/22/20 16:52 SAK [id number]) Lumbar Spine Range of Motion Lumbar Spine Active Degrees Flexion 40 Extension 0 Rotation Left 25 Rotation Right 20 Lateral Flexion Left 30 Lateral Flexion Right 35 ROM Limitations Soft Tissue Tightness,Pain Hip Goniometric Range of Motion Hip Left Testing Position Supine Flexion w/Knee Flexed 105 Straight Leg Raise 55 Extension 0 Internal Rotation 30 External Rotation 40 Right Testing Position Supine Flexion w/Knee Flexed 100 Straight Leg Raise 65 Extension 0 Internal Rotation 10 External Rotation 40 Hip ROM Limitations Hip ROM Limitations Soft Tissue Tightness,Pain Knee Goniometric Range of Motion Knee FORD Knee ROM WFL Yes Ankle and Foot Goniometric Range of Motion Ankle and Foot FORD Ankle/Foot ROM WFL Yes PT-OP-L Special Tests Start: 04/22/20 08:10 Freq: Status: Active Protocol: Document 04/22/20 10:39 SAK (Rec: 04/22/20 16:52 SAK [id number]) Special Tests Hip Special Tests Leonel Test Results positive for muscle tightness ford Straight Leg Raise Test Results negative ford ALLA Test Results negative ford PT-OP-M Strength Start: 04/22/20 08:10 Freq: Status: Active Protocol: Document 04/22/20 10:39 SAK (Rec: 04/22/20 16:52 SAK [id number]) Trunk Strength Trunk Manual Muscle Testing Testing Position Supine Flexion 3+ Fair+ Core Stabilization poor ability to activate TrA and multifidi Hip Strength Hip Manual Muscle Testing Right Flexion (L2) 4- Good- Abduction 4 Good External Rotation 4- Good- Internal Rotation 4 Good Left Flexion (L2) 3+ Fair+ Abduction 4 Good External Rotation 4- Good- Internal Rotation 4 Good Knee Strength Knee Manual Muscle Testing ford Flexion (S2) 5 Normal Extension (L3) 5 Normal Ankle/Foot Strength Ankle and Foot Manual Muscle Testing ford Dorsiflexion (L4) 5 Normal Plantarflexion (S1) 5 Normal PT-OP-Q Treatments Start: 04/22/20 08:10 Freq: Status: Active Protocol: Document 04/22/20 10:39 SAK (Rec: 04/22/20 16:52 [facility] [id number]) Self-Care/Home Management Treatment Education Patient Education Home Exercise Program,Posture Other Education educated regarding importance of considering habitual postures, positioning including bed; instructed in use of folded towel at side for support Instructed in use of TENS unit PT-OP-R Modalities Start: 04/22/20 08:10 Freq: Status: Active Protocol: Document 04/22/20 10:39 SAK (Rec: 04/22/20 16:52 SAK [id number]) Hot Pack/Cold Pack Treatment Hot Pack Location lumbosacral spine Patient Position Hooklying Treatment Duration (minutes) 15 Patient Tolerance Good PT-OP-T Assessment and Plan Start: 04/22/20 08:10 Freq: Status: Active Protocol: Document 04/22/20 10:39 SAK (Rec: 04/22/20 16:52 SAK [id number]) Physical Therapy Assessment Rehab Potential Rehabilitation Potential Good Evaluation Complexity Number of Personal Factors/Comorbidities 1-2 Number of Body Systems Impaired 3 Impairments Impairments Activity Tolerance,Pain, Posture,Strength Goals Three Impairment weakness throughout trunk Group Home Goal (LTG) Patient to be independent and compliant to HEP and demonstrate improvement in trunk strength to at least 4/5 and and demonstrate good core stabilization ability statically and dynamically with function LTG Duration 07/21/20 Two Impairment postural dysfunction with poor awareness of neutral Silver Spray Worker Goal (LTG) Patient to be independent and compliant with HEP to address postural dysfunction and demonstrate good understanding of neutral posture, and be able to self-identify her unhealthy habitual postures and positioning. LTG Duration 07/21/20 One Impairment activity intolerance with patient unable to take walks Silver Spray Worker Goal (LTG) Patient to report ability to stand and walk for at least 30 min without an increase in pain LTG Duration 07/21/20 Assessment Summary Assessment Patient presents with function -limiting pain in her right SI and bilateral lumbar spine complicated by moderate dextroscoiosis, spondylosis, facet stenosis, osteoarthritis . She demonstrates decrease in her trunk strength and significant muscle imbalances, postural dysfunction, decreased body awareness and decreased awareness of her habitual postures which may be contributory. Additionally her right LE is shorter than her left. She would benefit from physical therapy for patient education, therapeutic exercise, manual techniques, HEP instruction, modalities, manual therapy to decrease her pain and improve her quality of life. She and her recently purchased a TENS unit online but have not tried it; patient was instructed in general use and demonstrated good understnding. Moist heat was provided at end of session for pain management with good tolerance. Physical Therapy Plan Frequency and Duration Frequency of Treatment 2x/Week Duration of Treatment 12 weeks Plan of Care Start Date 04/22/20 Plan of Care End Date 07/21/20 Therapeutic Interventions Therapeutic Interventions Home Exercise Program,Joint Mobilizations Next Visit Focus/Plan Next Note Type Treatment Note Next Visit Plan Review HEP and add core strengthening, discuss habitual posturing, work on neutral alignment, core strengthening, deep breathing techniques. Modalities and manual therapy as needed.
--- NOTE | 2020-04-22 16:54 | PT.OPPOC ---
Physical, Occupational & Speech Therapy At [facility] Current Diagnoses Sacrococcygeal disorders, not elsewhere classified (04/22/20) Other dorsalgia (04/22/20) Abnormal posture (04/22/20) Weakness (04/22/20) Visit Care Team Role Provider Type SONDRA Santacruz Attending Provider Advanced Screw Machine Operator Single Spindle Family Provider Primary Care Provider Referring Provider Specialty: Family Practice Address: [address] [place] [address], [facility] [place], [address] Email: Plan Of Care PT-OP-T Assessment and Plan Start: 04/22/20 08:10 Freq: Status: Active Protocol: Document 04/22/20 10:39 SAK (Rec: 04/22/20 16:52 SAK [id number]) Physical Therapy Assessment Rehab Potential Rehabilitation Potential Good Evaluation Complexity Number of Personal Factors/Comorbidities 1-2 Number of Body Systems Impaired 3 Impairments Impairments Activity Tolerance,Pain, Posture,Strength Goals Three Impairment weakness throughout trunk Fdc Goal (LTG) Patient to be independent and compliant to HEP and demonstrate improvement in trunk strength to at least 4/5 and and demonstrate good core stabilization ability statically and dynamically with function LTG Duration 07/21/20 Two Impairment postural dysfunction with poor awareness of neutral Fdc Goal (LTG) Patient to be independent and compliant with HEP to address postural dysfunction and demonstrate good understanding of neutral posture, and be able to self-identify her unhealthy habitual postures and positioning. LTG Duration 07/21/20 One Impairment activity intolerance with patient unable to take walks Hat Liner Goal (LTG) Patient to report ability to stand and walk for at least 30 min without an increase in pain LTG Duration 07/21/20 Assessment Summary Assessment Patient presents with function -limiting pain in her right SI and bilateral lumbar spine complicated by moderate dextroscoiosis, spondylosis, facet stenosis, osteoarthritis . She demonstrates decrease in her trunk strength and significant muscle imbalances, postural dysfunction, decreased body awareness and decreased awareness of her habitual postures which may be contributory. Additionally her right LE is shorter than her left. She would benefit from physical therapy for patient education, therapeutic exercise, manual techniques, HEP instruction, modalities, manual therapy to decrease her pain and improve her quality of life. She and her recently purchased a TENS unit online but have not tried it; patient was instructed in general use and demonstrated good understnding. Moist heat was provided at end of session for pain management with good tolerance. Physical Therapy Plan Frequency and Duration Frequency of Treatment 2x/Week Duration of Treatment 12 weeks Plan of Care Start Date 04/22/20 Plan of Care End Date 07/21/20 Therapeutic Interventions Therapeutic Interventions Home Exercise Program,Joint Mobilizations Next Visit Focus/Plan Next Note Type Treatment Note Next Visit Plan Review HEP and add core strengthening, discuss habitual posturing, work on neutral alignment, core strengthening, deep breathing techniques. Modalities and manual therapy as needed. Plan of Care Dates Plan of Care Start Date 04/22/20 Plan of Care End Date 07/21/20 Electronically Signed by: Lisa Gonzalez, PT 04/22/20 [id number] Please Sign and Return: I have reviewed this Plan of Care and certify that the skilled therapy services above are required to meet the patient?s needs. Physician Signature Date Printed Name and Credentials Clinical Instructor Signature Printed Name and Credentials
--- NOTE | 2020-04-24 16:23 | PT.OTN ---
Current Diagnoses Sacrococcygeal disorders, not elsewhere classified (04/24/20) Other dorsalgia (04/24/20) Abnormal posture (04/24/20) Weakness (04/24/20) Physical Therapy Treatment Note PT-OP-A Visit Information Start: 04/22/20 08:10 Freq: Status: Active Protocol: Document 04/24/20 09:44 SAK (Rec: 04/24/20 10:31 SAK [id number]) Out-Patient Physical Therapy Visit Information Visit Information Visit Type Treatment Note Visit Note [place] pretty good after PT. Uncertain still about full use of TENS.Was able to go for 6 min walk yesterday. States she is catching herself crossing her legs and getting into odd postures that she had denied previously Visit Start Time 09:45 Visit Stop Time 10:40 Total Visit Minutes 55 Visit Number 2 Evaluation Information Evaluation Date 04/22/20 PT-OP-B Current Condition Start: 04/22/20 08:10 Freq: Status: Active Protocol: Document 04/22/20 10:39 SAK (Rec: 04/22/20 11:35 SAK [id number]) Current Condition History of Current Condition Onset Date years Current Complaints pain L45 and SI joint History of Current Condition Long history of LBP and SI pain, scoliosis lumbar right convex L45, left convex upper lumber, spondylosis, spondylolisthesis L2-3, injection SI august 2019, L45 July 2019; neither helpful. Previously injections have been helpful; historically has had injections every year to 1 1/2 years to SI with good results. Denies N/T, legs giving way. Wears [place] brace when gardening but states she doesn't tend to think about using it indoors even though housework increases her pain. Reports unable to take walks anymore due to pain. Doesn't weaR any shoe or heel lift, though reports she remembers PT giving her cork for use in her shoe to even her leg length; hasn't worn for a long time. States she has started doing some exercises; pelvic tilt, lunges, leg lifts , HS stretches, but not consistent. Standing hamstring stretch painful. Can't get down to the floor or lay on her hands and knees. Sleeping generally ok. Spends a lot of time sitting due to pain after self -care and minimal housework. Always sleeps on right side, sometimes wakes in pain, other days can do an hour or two of mild activity and then has to sit rest of day. FEels heat helpful short term, hasn't tried TENS unit that she and her bought; brought to PT today. Prior Treatments and Tests Progressive dextroscoliosis since 11/23/17 Lumbar spine x-ray: Severe multilevel lumbar spondylosis and facet arthropathy, progressed since the prior study.. Grade 1 retrolisthesis of L2 on L3, which has progressed since prior study. Future Testing and Treatments Planned No appointments scheduled at this time. Prior Functional Status Baseline Function- ADL's Modified Independent Baseline Function- Mobility Modified Independent Baseline Function- Gait able to take walks Baseline Function- Work/School retired Baseline Function- Recreation/Hobbies cooking, gardening, baking Current Functional Impairments (Reported) Functional Limitations- ADL's independent but painful Functional Limitations- Mobility/Gait unable to take walks for exercise or recreation due to pain Functional Limitations- Work/School retired Functional Limitations- Recreation/ painful Hobbies Personal Factors Other Personal Factors That May Effect patient has difficult time Therapy/Recovery relaxing. PT-OP-C Subjective Start: 04/22/20 08:10 Freq: Status: Active Protocol: Document 04/22/20 10:39 SAK (Rec: 04/22/20 16:52 [facility] [id number]) OP-PT Pain Assessment Pain Assessment Grid Paper Pain Assessment Grid Completed Yes Location right SI, central lumbar spine Intensity 6 Description Aching,Pressure,Spasm,Tender, Throbbing Frequency Frequent Pain Aggravating Factors Standing,Sitting,Walking, Bending,Lifting Pain Alleviating Factors Heat,Medication,Inactivity PT-OP-F Manual Assessment Start: 04/22/20 08:10 Freq: Status: Active Protocol: Document 04/22/20 10:39 SAK (Rec: 04/22/20 16:52 SAK [id number]) Manual Assessments Soft Tissue Assessment Soft Tissue Mobility Assessment Increased tightness bilateral lumbar and thoracic paraspinals Joint Mobility Assessment Joint Mobility Assessment lumbar not assessed, unable to lay prone, time constraints PT-OP-G Mobility & Gait Start: 04/22/20 08:10 Freq: Status: Active Protocol: Document 04/22/20 10:39 SAK (Rec: 04/22/20 16:52 SAK [id number]) OP Gait Assessment Gait Distance (Feet) 50 Assistive Devices Orthotic/Prosthetic Devices or Brace: No Factors Limiting Gait Function Factors Limiting Gait Function Pain Comments Gait Comments mild trunk lean right PT-OP-H Neuro Start: 04/22/20 08:10 Freq: Status: Active Protocol: Document 04/22/20 10:39 SAK (Rec: 04/22/20 16:52 SAK [id number]) Sensation Evaluation Gross Sensation Gross Sensation WNL PT-OP-J Posture/Palpation/Skin Start: 04/22/20 08:10 Freq: Status: Active Protocol: Document 04/22/20 10:39 SAK (Rec: 04/22/20 16:52 SAK [id number]) Posture Evaluation Position Standing Head/C-Spine Posture Forward Head T-Spine Posture Increased Kyphosis Thorax Posture (R) Prominent L-Spine Posture Rotation Right Shoulder Posture (L) Rounded,(R) Rounded Scapula Posture (L) Protracted,(R) Protracted Arm Posture (L) Internally Rotated,(R) Internally Rotated Pelvis Posture Posterior Tilted Weight Distribution Decreased Wt.Bear on (L) Palpation Assessment Location SI right Palpation Findings Tenderness PT-OP-K Range of Motion Start: 04/22/20 08:10 Freq: Status: Active Protocol: Document 04/22/20 10:39 SAK (Rec: 04/22/20 16:52 SAK [id number]) Lumbar Spine Range of Motion Lumbar Spine Active Degrees Flexion 40 Extension 0 Rotation Left 25 Rotation Right 20 Lateral Flexion Left 30 Lateral Flexion Right 35 ROM Limitations Soft Tissue Tightness,Pain Hip Goniometric Range of Motion Hip Left Testing Position Supine Flexion w/Knee Flexed 105 Straight Leg Raise 55 Extension 0 Internal Rotation 30 External Rotation 40 Right Testing Position Supine Flexion w/Knee Flexed 100 Straight Leg Raise 65 Extension 0 Internal Rotation 10 External Rotation 40 Hip ROM Limitations Hip ROM Limitations Soft Tissue Tightness,Pain Knee Goniometric Range of Motion Knee FORD Knee ROM WFL Yes Ankle and Foot Goniometric Range of Motion Ankle and Foot FORD Ankle/Foot ROM WFL Yes PT-OP-L Special Tests Start: 04/22/20 08:10 Freq: Status: Active Protocol: Document 04/22/20 10:39 SAK (Rec: 04/22/20 16:52 SAK [id number]) Special Tests Hip Special Tests Leonel Test Results positive for muscle tightness ford Straight Leg Raise Test Results negative ford ALLA Test Results negative ford PT-OP-M Strength Start: 04/22/20 08:10 Freq: Status: Active Protocol: Document 04/22/20 10:39 [facility] (Rec: 04/22/20 16:52 [facility] [id number]) Trunk Strength Trunk Manual Muscle Testing Testing Position Supine Flexion 3+ Fair+ Core Stabilization poor ability to activate TrA and multifidi Hip Strength Hip Manual Muscle Testing Right Flexion (L2) 4- Good- Abduction 4 Good External Rotation 4- Good- Internal Rotation 4 Good Left Flexion (L2) 3+ Fair+ Abduction 4 Good External Rotation 4- Good- Internal Rotation 4 Good Knee Strength Knee Manual Muscle Testing ford Flexion (S2) 5 Normal Extension (L3) 5 Normal Ankle/Foot Strength Ankle and Foot Manual Muscle Testing ford Dorsiflexion (L4) 5 Normal Plantarflexion (S1) 5 Normal PT-OP-Q Treatments Start: 04/22/20 08:10 Freq: Status: Active Protocol: Document 04/24/20 09:44 [facility] (Rec: 04/24/20 10:31 [facility] [id number]) Therapeutic Exercises Supine Exercises lateral sidebend stretch Reps/Minutes 5x arms overhead stretch Reps/Minutes 2x Comments with deep breathing supine clam Resistance L2 Theraband Reps/Minutes 5x pillow squeeze Reps/Minutes 5x TrA Reps/Minutes 5x Standing Exercises shoulder extension Equipment Used L1 TB Reps/Minutes 5x Comments verbal and manual cues for posture, scapular movement row Equipment Used L1 TB Reps/Minutes 5x Comments verbal and manual cues for posture, scapular movement Self-Care/Home Management Treatment Education Patient Education Body Mechanics,Home Exercise Program,Posture Other Education Further instruction in TENS use. Importance of deep breathing during all flexibility exercises Continued discussion of patient's postural and positioning habits. PT-OP-R Modalities Start: 04/22/20 08:10 Freq: Status: Active Protocol: Document 04/24/20 09:44 [facility] (Rec: 04/24/20 16:23 [facility] [id number]) Electric Stimulation Electric Stimulation Interferential Current (IFC) Body Location bilateral lumbar spine Duration (Minutes) 10 Intensity 8 Target/Sweep Sweep Patient Position Hooklying Combined With Heat/Cold Hot Pack PT-OP-T Assessment and Plan Start: 04/22/20 08:10 Freq: Status: Active Protocol: Document 04/24/20 09:44 MARY (Rec: 04/24/20 10:31 MARY [id number]) Physical Therapy Assessment Goals Three Impairment weakness throughout trunk Snow Technician Goal (LTG) Patient to be independent and compliant to HEP and demonstrate improvement in trunk strength to at least 4/5 and and demonstrate good core stabilization ability statically and dynamically with function LTG Duration 07/21/20 Two Impairment postural dysfunction with poor awareness of neutral Snow Technician Goal (LTG) Patient to be independent and compliant with HEP to address postural dysfunction and demonstrate good understanding of neutral posture, and be able to self-identify her unhealthy habitual postures and positioning. LTG Duration 07/21/20 One Impairment activity intolerance with patient unable to take walks Prison Goal (LTG) Patient to report ability to stand and walk for at least 30 min without an increase in pain LTG Duration 07/21/20 Physical Therapy Plan Frequency and Duration Frequency of Treatment 2x/Week Duration of Treatment 12 weeks Plan of Care Start Date 04/22/20 Plan of Care End Date 07/21/20 Therapeutic Interventions Therapeutic Interventions Home Exercise Program,Joint Mobilizations,Manual Therapy, Patient/Caregiver Education, Self-Care/Home Management,Soft Tissue Mobilization,Taping, Therapeutic Activities, Therapeutic Exercises Modalities Electric Stimulation,Hot Packs Next Visit Focus/Plan Next Note Type Treatment Note Next Visit Plan Progress core strengthening, flexibility, postural education, body mechanics education. Emphasize deep breathing.
--- NOTE | 2020-04-30 16:26 | PT.OTN ---
Current Diagnoses Sacrococcygeal disorders, not elsewhere classified (04/30/20) Other dorsalgia (04/30/20) Abnormal posture (04/30/20) Weakness (04/30/20) Physical Therapy Treatment Note PT-OP-A Visit Information Start: 04/22/20 08:10 Freq: Status: Active Protocol: Document 04/30/20 09:48 SAK (Rec: 04/30/20 10:33 SAK [id number]) Out-Patient Physical Therapy Visit Information Visit Information Visit Type Treatment Note Visit Start Time 09:45 Visit Stop Time 10:40 Total Visit Minutes 55 Visit Number 2 Evaluation Information Evaluation Date 04/22/20 PT-OP-B Current Condition Start: 04/22/20 08:10 Freq: Status: Active Protocol: Document 04/22/20 10:39 SAK (Rec: 04/22/20 11:35 SAK [id number]) Current Condition History of Current Condition Onset Date years Current Complaints pain L45 and SI joint History of Current Condition Long history of LBP and SI pain, scoliosis lumbar right convex L45, left convex upper lumber, spondylosis, spondylolisthesis L2-3, injection SI august 2019, L45 July 2019; neither helpful. Previously injections have been helpful; historically has had injections every year to 1 1/2 years to SI with good results. Denies N/T, legs giving way. Wears [place] brace when gardening but states she doesn't tend to think about using it indoors even though housework increases her pain. Reports unable to take walks anymore due to pain. Doesn't weaR any shoe or heel lift, though reports she remembers PT giving her cork for use in her shoe to even her leg length; hasn't worn for a long time. States she has started doing some exercises; pelvic tilt, lunges, leg lifts , HS stretches, but not consistent. Standing hamstring stretch painful. Can't get down to the floor or lay on her hands and knees. Sleeping generally ok. Spends a lot of time sitting due to pain after self -care and minimal housework. Always sleeps on right side, sometimes wakes in pain, other days can do an hour or two of mild activity and then has to sit rest of day. FEels heat helpful short term, hasn't tried TENS unit that she and her bought; brought to PT today. Prior Treatments and Tests Progressive dextroscoliosis since 11/23/17 Lumbar spine x-ray: Severe multilevel lumbar spondylosis and facet arthropathy, progressed since the prior study.. Grade 1 retrolisthesis of L2 on L3, which has progressed since prior study. Future Testing and Treatments Planned No appointments scheduled at this time. Prior Functional Status Baseline Function- ADL's Modified Independent Baseline Function- Mobility Modified Independent Baseline Function- Gait able to take walks Baseline Function- Work/School retired Baseline Function- Recreation/Hobbies cooking, gardening, baking Current Functional Impairments (Reported) Functional Limitations- ADL's independent but painful Functional Limitations- Mobility/Gait unable to take walks for exercise or recreation due to pain Functional Limitations- Work/School retired Functional Limitations- Recreation/ painful Hobbies Personal Factors Other Personal Factors That May Effect patient has difficult time Therapy/Recovery relaxing. PT-OP-C Subjective Start: 04/22/20 08:10 Freq: Status: Active Protocol: Document 04/30/20 09:48 SAK (Rec: 04/30/20 10:33 SAK [id number]) OP-PT Subjective Patient Comments Patient Comments Compliant to HEP, working on posture. Has a couple questions about her exercises. PT-OP-F Manual Assessment Start: 04/22/20 08:10 Freq: Status: Active Protocol: Document 04/22/20 10:39 SAK (Rec: 04/22/20 16:52 SAK [id number]) Manual Assessments Soft Tissue Assessment Soft Tissue Mobility Assessment Increased tightness bilateral lumbar and thoracic paraspinals Joint Mobility Assessment Joint Mobility Assessment lumbar not assessed, unable to lay prone, time constraints PT-OP-G Mobility & Gait Start: 04/22/20 08:10 Freq: Status: Active Protocol: Document 04/22/20 10:39 SAK (Rec: 04/22/20 16:52 SAK [id number]) OP Gait Assessment Gait Distance (Feet) 50 Assistive Devices Orthotic/Prosthetic Devices or Brace: No Factors Limiting Gait Function Factors Limiting Gait Function Pain Comments Gait Comments mild trunk lean right PT-OP-H Neuro Start: 04/22/20 08:10 Freq: Status: Active Protocol: Document 04/22/20 10:39 SAK (Rec: 04/22/20 16:52 SAK [id number]) Sensation Evaluation Gross Sensation Gross Sensation WNL PT-OP-J Posture/Palpation/Skin Start: 04/22/20 08:10 Freq: Status: Active Protocol: Document 04/22/20 10:39 SAK (Rec: 04/22/20 16:52 [facility] [id number]) Posture Evaluation Position Standing Head/C-Spine Posture Forward Head T-Spine Posture Increased Kyphosis Thorax Posture (R) Prominent L-Spine Posture Rotation Right Shoulder Posture (L) Rounded,(R) Rounded Scapula Posture (L) Protracted,(R) Protracted Arm Posture (L) Internally Rotated,(R) Internally Rotated Pelvis Posture Posterior Tilted Weight Distribution Decreased Wt.Bear on (L) Palpation Assessment Location SI right Palpation Findings Tenderness PT-OP-K Range of Motion Start: 04/22/20 08:10 Freq: Status: Active Protocol: Document 04/22/20 10:39 SAK (Rec: 04/22/20 16:52 [facility] [id number]) Lumbar Spine Range of Motion Lumbar Spine Active Degrees Flexion 40 Extension 0 Rotation Left 25 Rotation Right 20 Lateral Flexion Left 30 Lateral Flexion Right 35 ROM Limitations Soft Tissue Tightness,Pain Hip Goniometric Range of Motion Hip Left Testing Position Supine Flexion w/Knee Flexed 105 Straight Leg Raise 55 Extension 0 Internal Rotation 30 External Rotation 40 Right Testing Position Supine Flexion w/Knee Flexed 100 Straight Leg Raise 65 Extension 0 Internal Rotation 10 External Rotation 40 Hip ROM Limitations Hip ROM Limitations Soft Tissue Tightness,Pain Knee Goniometric Range of Motion Knee FORD Knee ROM WFL Yes Ankle and Foot Goniometric Range of Motion Ankle and Foot FORD Ankle/Foot ROM WFL Yes PT-OP-L Special Tests Start: 04/22/20 08:10 Freq: Status: Active Protocol: Document 04/22/20 10:39 SAK (Rec: 04/22/20 16:52 [facility] [id number]) Special Tests Hip Special Tests Leonel Test Results positive for muscle tightness ford Straight Leg Raise Test Results negative ford ALLA Test Results negative ford PT-OP-M Strength Start: 04/22/20 08:10 Freq: Status: Active Protocol: Document 04/22/20 10:39 SAK (Rec: 04/22/20 16:52 SAK [id number]) Trunk Strength Trunk Manual Muscle Testing Testing Position Supine Flexion 3+ Fair+ Core Stabilization poor ability to activate TrA and multifidi Hip Strength Hip Manual Muscle Testing Right Flexion (L2) 4- Good- Abduction 4 Good External Rotation 4- Good- Internal Rotation 4 Good Left Flexion (L2) 3+ Fair+ Abduction 4 Good External Rotation 4- Good- Internal Rotation 4 Good Knee Strength Knee Manual Muscle Testing ford Flexion (S2) 5 Normal Extension (L3) 5 Normal Ankle/Foot Strength Ankle and Foot Manual Muscle Testing ford Dorsiflexion (L4) 5 Normal Plantarflexion (S1) 5 Normal PT-OP-Q Treatments Start: 04/22/20 08:10 Freq: Status: Active Protocol: Document 04/30/20 09:48 [facility] (Rec: 04/30/20 10:33 [facility] [id number]) Cardio Equipment Recumbent Stepper (Sci-Fit) Duration (Minutes) 8 Resistance 1.5 Seat Position 10 Other cues for neutral LE alignment, core activation Therapeutic Exercises Supine Exercises bridge Reps/Minutes 5x Comments modified for smaller motion to eliminate discomfort posture press Reps/Minutes 5x lateral sidebend stretch Reps/Minutes 5x arms overhead stretch Reps/Minutes 2x Comments with deep breathing Standing Exercises sidestepping core Equipment Used L1 TB Reps/Minutes 10x each SLS Reps/Minutes 5x Comments cues for gluteal activation wall posture Reps/Minutes 5x shoulder extension Equipment Used L1 TB Reps/Minutes 5x Comments verbal and manual cues for posture, scapular movement row Equipment Used L1 TB Reps/Minutes 5x Comments verbal and manual cues for posture, scapular movement Self-Care/Home Management Treatment Education Patient Education Body Mechanics,Home Exercise Program,Posture Other Education Continued discussion of patient's postural and positioning habits. PT-OP-R Modalities Start: 04/22/20 08:10 Freq: Status: Active Protocol: Document 04/30/20 09:48 [facility] (Rec: 04/30/20 10:33 [facility] [id number]) Electric Stimulation Electric Stimulation Interferential Current (IFC) Body Location bilateral lumbar spine Duration (Minutes) 10 Intensity 8 Target/Sweep Sweep Patient Position Hooklying Combined With Heat/Cold Hot Pack PT-OP-T Assessment and Plan Start: 04/22/20 08:10 Freq: Status: Active Protocol: Document 04/30/20 09:48 [facility] (Rec: 04/30/20 10:33 [facility] [id number]) Physical Therapy Assessment Goals Three Impairment weakness throughout trunk Fdc Goal (LTG) Patient to be independent and compliant to HEP and demonstrate improvement in trunk strength to at least 4/5 and and demonstrate good core stabilization ability statically and dynamically with function LTG Duration 07/21/20 Two Impairment postural dysfunction with poor awareness of neutral Service Loss Control Consultant Goal (LTG) Patient to be independent and compliant with HEP to address postural dysfunction and demonstrate good understanding of neutral posture, and be able to self-identify her unhealthy habitual postures and positioning. LTG Duration 07/21/20 One Impairment activity intolerance with patient unable to take walks Service Loss Control Consultant Goal (LTG) Patient to report ability to stand and walk for at least 30 min without an increase in pain LTG Duration 07/21/20 Assessment Summary Assessment Patient needs cues for correct exercise performance, alignment, and muscle activation. Added wall posture and SLS to HEP. Physical Therapy Plan Frequency and Duration Frequency of Treatment 2x/Week Duration of Treatment 12 weeks Plan of Care Start Date 04/22/20 Plan of Care End Date 07/21/20 Therapeutic Interventions Therapeutic Interventions Home Exercise Program,Joint Mobilizations,Manual Therapy, Patient/Caregiver Education, Self-Care/Home Management,Soft Tissue Mobilization,Taping, Therapeutic Activities, Therapeutic Exercises Modalities Electric Stimulation,Hot Packs Next Visit Focus/Plan Next Note Type Treatment Note Next Visit Plan Continue to progress core strengthening, flexibility, postural education, body mechanics education. Emphasize deep breathing, slowing down. Add sport cord
--- NOTE | 2020-05-07 13:44 | PT.OTN ---
Current Diagnoses Sacrococcygeal disorders, not elsewhere classified (05/07/20) Other dorsalgia (05/07/20) Abnormal posture (05/07/20) Weakness (05/07/20) Physical Therapy Treatment Note PT-OP-A Visit Information Start: 04/22/20 08:10 Freq: Status: Active Protocol: Document 05/07/20 13:36 SAK (Rec: 05/07/20 13:44 SAK [id number]) Out-Patient Physical Therapy Visit Information Visit Information Visit Type Treatment Note Visit Start Time 09:45 Visit Stop Time 10:40 Total Visit Minutes 55 Visit Number 3 Evaluation Information Evaluation Date 04/22/20 PT-OP-B Current Condition Start: 04/22/20 08:10 Freq: Status: Active Protocol: Document 04/22/20 10:39 SAK (Rec: 04/22/20 11:35 SAK [id number]) Current Condition History of Current Condition Onset Date years Current Complaints pain L45 and SI joint History of Current Condition Long history of LBP and SI pain, scoliosis lumbar right convex L45, left convex upper lumber, spondylosis, spondylolisthesis L2-3, injection SI august 2019, L45 July 2019; neither helpful. Previously injections have been helpful; historically has had injections every year to 1 1/2 years to SI with good results. Denies N/T, legs giving way. Wears [place] brace when gardening but states she doesn't tend to think about using it indoors even though housework increases her pain. Reports unable to take walks anymore due to pain. Doesn't weaR any shoe or heel lift, though reports she remembers PT giving her cork for use in her shoe to even her leg length; hasn't worn for a long time. States she has started doing some exercises; pelvic tilt, lunges, leg lifts , HS stretches, but not consistent. Standing hamstring stretch painful. Can't get down to the floor or lay on her hands and knees. Sleeping generally ok. Spends a lot of time sitting due to pain after self -care and minimal housework. Always sleeps on right side, sometimes wakes in pain, other days can do an hour or two of mild activity and then has to sit rest of day. FEels heat helpful short term, hasn't tried TENS unit that she and her bought; brought to PT today. Prior Treatments and Tests Progressive dextroscoliosis since 11/23/17 Lumbar spine x-ray: Severe multilevel lumbar spondylosis and facet arthropathy, progressed since the prior study.. Grade 1 retrolisthesis of L2 on L3, which has progressed since prior study. Future Testing and Treatments Planned No appointments scheduled at this time. Prior Functional Status Baseline Function- ADL's Modified Independent Baseline Function- Mobility Modified Independent Baseline Function- Gait able to take walks Baseline Function- Work/School retired Baseline Function- Recreation/Hobbies cooking, gardening, baking Current Functional Impairments (Reported) Functional Limitations- ADL's independent but painful Functional Limitations- Mobility/Gait unable to take walks for exercise or recreation due to pain Functional Limitations- Work/School retired Functional Limitations- Recreation/ painful Hobbies Personal Factors Other Personal Factors That May Effect patient has difficult time Therapy/Recovery relaxing. PT-OP-C Subjective Start: 04/22/20 08:10 Freq: Status: Active Protocol: Document 05/07/20 13:36 SAK (Rec: 05/07/20 13:44 SAK [id number]) OP-PT Subjective Patient Comments Patient Comments Pain variable, trying to pay more attention to her posture. Reports SLS exercise is painful. Was able to walk for 17 minutes, mild pain, pleased with that progress. PT-OP-F Manual Assessment Start: 04/22/20 08:10 Freq: Status: Active Protocol: Document 04/22/20 10:39 SAK (Rec: 04/22/20 16:52 SAK [id number]) Manual Assessments Soft Tissue Assessment Soft Tissue Mobility Assessment Increased tightness bilateral lumbar and thoracic paraspinals Joint Mobility Assessment Joint Mobility Assessment lumbar not assessed, unable to lay prone, time constraints PT-OP-G Mobility & Gait Start: 04/22/20 08:10 Freq: Status: Active Protocol: Document 04/22/20 10:39 SAK (Rec: 04/22/20 16:52 SAK [id number]) OP Gait Assessment Gait Distance (Feet) 50 Assistive Devices Orthotic/Prosthetic Devices or Brace: No Factors Limiting Gait Function Factors Limiting Gait Function Pain Comments Gait Comments mild trunk lean right PT-OP-H Neuro Start: 04/22/20 08:10 Freq: Status: Active Protocol: Document 04/22/20 10:39 SAK (Rec: 04/22/20 16:52 SAK [id number]) Sensation Evaluation Gross Sensation Gross Sensation WNL PT-OP-J Posture/Palpation/Skin Start: 04/22/20 08:10 Freq: Status: Active Protocol: Document 04/22/20 10:39 SAK (Rec: 04/22/20 16:52 SAK [id number]) Posture Evaluation Position Standing Head/C-Spine Posture Forward Head T-Spine Posture Increased Kyphosis Thorax Posture (R) Prominent L-Spine Posture Rotation Right Shoulder Posture (L) Rounded,(R) Rounded Scapula Posture (L) Protracted,(R) Protracted Arm Posture (L) Internally Rotated,(R) Internally Rotated Pelvis Posture Posterior Tilted Weight Distribution Decreased Wt.Bear on (L) Palpation Assessment Location SI right Palpation Findings Tenderness PT-OP-K Range of Motion Start: 04/22/20 08:10 Freq: Status: Active Protocol: Document 04/22/20 10:39 SAK (Rec: 04/22/20 16:52 [facility] [id number]) Lumbar Spine Range of Motion Lumbar Spine Active Degrees Flexion 40 Extension 0 Rotation Left 25 Rotation Right 20 Lateral Flexion Left 30 Lateral Flexion Right 35 ROM Limitations Soft Tissue Tightness,Pain Hip Goniometric Range of Motion Hip Left Testing Position Supine Flexion w/Knee Flexed 105 Straight Leg Raise 55 Extension 0 Internal Rotation 30 External Rotation 40 Right Testing Position Supine Flexion w/Knee Flexed 100 Straight Leg Raise 65 Extension 0 Internal Rotation 10 External Rotation 40 Hip ROM Limitations Hip ROM Limitations Soft Tissue Tightness,Pain Knee Goniometric Range of Motion Knee FORD Knee ROM WFL Yes Ankle and Foot Goniometric Range of Motion Ankle and Foot FORD Ankle/Foot ROM WFL Yes PT-OP-L Special Tests Start: 04/22/20 08:10 Freq: Status: Active Protocol: Document 04/22/20 10:39 SAK (Rec: 04/22/20 16:52 SAK [id number]) Special Tests Hip Special Tests Leonel Test Results positive for muscle tightness ford Straight Leg Raise Test Results negative ford ALLA Test Results negative ford PT-OP-M Strength Start: 04/22/20 08:10 Freq: Status: Active Protocol: Document 04/22/20 10:39 SAK (Rec: 04/22/20 16:52 SAK [id number]) Trunk Strength Trunk Manual Muscle Testing Testing Position Supine Flexion 3+ Fair+ Core Stabilization poor ability to activate TrA and multifidi Hip Strength Hip Manual Muscle Testing Right Flexion (L2) 4- Good- Abduction 4 Good External Rotation 4- Good- Internal Rotation 4 Good Left Flexion (L2) 3+ Fair+ Abduction 4 Good External Rotation 4- Good- Internal Rotation 4 Good Knee Strength Knee Manual Muscle Testing ford Flexion (S2) 5 Normal Extension (L3) 5 Normal Ankle/Foot Strength Ankle and Foot Manual Muscle Testing ford Dorsiflexion (L4) 5 Normal Plantarflexion (S1) 5 Normal PT-OP-Q Treatments Start: 04/22/20 08:10 Freq: Status: Active Protocol: Document 05/07/20 13:36 [facility] (Rec: 05/07/20 13:44 [facility] [id number]) Cardio Equipment Recumbent Stepper (Sci-Fit) Duration (Minutes) 6 Resistance 1.5 Seat Position 8 Other stopped at 6 min due to c/o right SI pain Gym Equipment Therapeutic Ball LTR Exercise Details small excursion Ball Size/Color 55 cm Reps/Duration 10x Comments emphasis on core activation for movement Therapeutic Exercises Supine Exercises bridge Reps/Minutes 5x Comments modified for smaller motion to eliminate discomfort posture press Reps/Minutes 5x Comments LE's straight today lateral sidebend stretch Reps/Minutes 5x arms overhead stretch Reps/Minutes 2x Comments with deep breathing Sitting Exercises sit to stand Reps/Minutes 10x Comments emphasis on hip hinge, gluteal activation ball squeeze Reps/Minutes 10x Standing Exercises standing bal Comments feet together, EC, ephasis on core stab Self-Care/Home Management Treatment Education Patient Education Body Mechanics,Home Exercise Program,Posture PT-OP-R Modalities Start: 04/22/20 08:10 Freq: Status: Active Protocol: Document 05/07/20 13:36 [facility] (Rec: 05/07/20 13:44 [facility] [id number]) Hot Pack/Cold Pack Treatment Hot Pack Location lumbar spine Patient Position Hooklying Treatment Duration (minutes) 15 Patient Tolerance Good PT-OP-T Assessment and Plan Start: 04/22/20 08:10 Freq: Status: Active Protocol: Document 05/07/20 13:36 [facility] (Rec: 05/07/20 13:44 [facility] [id number]) Physical Therapy Assessment Rehab Potential Rehabilitation Potential Good Evaluation Complexity Number of Personal Factors/Comorbidities 1-2 Number of Body Systems Impaired 3 Impairments Impairments Activity Tolerance,Pain, Posture,Strength Goals Three Impairment weakness throughout trunk [place] Goal (LTG) Patient to be independent and compliant to HEP and demonstrate improvement in trunk strength to at least 4/5 and and demonstrate good core stabilization ability statically and dynamically with function LTG Duration 07/21/20 Two Impairment postural dysfunction with poor awareness of neutral [employer] Goal (LTG) Patient to be independent and compliant with HEP to address postural dysfunction and demonstrate good understanding of neutral posture, and be able to self-identify her unhealthy habitual postures and positioning. LTG Duration 07/21/20 One Impairment activity intolerance with patient unable to take walks [place] Goal (LTG) Patient to report ability to stand and walk for at least 30 min without an increase in pain LTG Duration 07/21/20 Assessment Summary Assessment Patient advised to discontinue SLS, do wall posture supine on bed, do ball squeeze when pain increases. Physical Therapy Plan Frequency and Duration Frequency of Treatment 2x/Week Duration of Treatment 12 weeks Plan of Care Start Date 04/22/20 Plan of Care End Date 07/21/20 Therapeutic Interventions Therapeutic Interventions Home Exercise Program,Joint Mobilizations,Manual Therapy, Patient/Caregiver Education, Self-Care/Home Management,Soft Tissue Mobilization,Taping, Therapeutic Activities, Therapeutic Exercises Modalities Electric Stimulation,Hot Packs Next Visit Focus/Plan Next Note Type Treatment Note Next Visit Plan shuttle balance for core strengthening, Sport cord (ran out of time today.)
--- NOTE | 2020-05-13 12:02 | PT.OTN ---
Current Diagnoses Sacrococcygeal disorders, not elsewhere classified (05/13/20) Other dorsalgia (05/13/20) Abnormal posture (05/13/20) Weakness (05/13/20) Physical Therapy Treatment Note PT-OP-A Visit Information Start: 04/22/20 08:10 Freq: Status: Active Protocol: Document 05/13/20 09:44 SAK (Rec: 05/13/20 10:33 SAK [id number]) Out-Patient Physical Therapy Visit Information Visit Information Visit Type Treatment Note Visit Start Time 09:45 Visit Stop Time 10:40 Total Visit Minutes 55 Visit Number 4 Evaluation Information Evaluation Date 04/22/20 Precautions Precautions scoliosis PT-OP-B Current Condition Start: 04/22/20 08:10 Freq: Status: Active Protocol: Document 04/22/20 10:39 SAK (Rec: 04/22/20 11:35 SAK [id number]) Current Condition History of Current Condition Onset Date years Current Complaints pain L45 and SI joint History of Current Condition Long history of LBP and SI pain, scoliosis lumbar right convex L45, left convex upper lumber, spondylosis, spondylolisthesis L2-3, injection SI august 2019, L45 July 2019; neither helpful. Previously injections have been helpful; historically has had injections every year to 1 1/2 years to SI with good results. Denies N/T, legs giving way. Wears [place] brace when gardening but states she doesn't tend to think about using it indoors even though housework increases her pain. Reports unable to take walks anymore due to pain. Doesn't weaR any shoe or heel lift, though reports she remembers PT giving her cork for use in her shoe to even her leg length; hasn't worn for a long time. States she has started doing some exercises; pelvic tilt, lunges, leg lifts , HS stretches, but not consistent. Standing hamstring stretch painful. Can't get down to the floor or lay on her hands and knees. Sleeping generally ok. Spends a lot of time sitting due to pain after self -care and minimal housework. Always sleeps on right side, sometimes wakes in pain, other days can do an hour or two of mild activity and then has to sit rest of day. FEels heat helpful short term, hasn't tried TENS unit that she and her bought; brought to PT today. Prior Treatments and Tests Progressive dextroscoliosis since 11/23/17 Lumbar spine x-ray: Severe multilevel lumbar spondylosis and facet arthropathy, progressed since the prior study.. Grade 1 retrolisthesis of L2 on L3, which has progressed since prior study. Future Testing and Treatments Planned No appointments scheduled at this time. Prior Functional Status Baseline Function- ADL's Modified Independent Baseline Function- Mobility Modified Independent Baseline Function- Gait able to take walks Baseline Function- Work/School retired Baseline Function- Recreation/Hobbies cooking, gardening, baking Current Functional Impairments (Reported) Functional Limitations- ADL's independent but painful Functional Limitations- Mobility/Gait unable to take walks for exercise or recreation due to pain Functional Limitations- Work/School retired Functional Limitations- Recreation/ painful Hobbies Personal Factors Other Personal Factors That May Effect patient has difficult time Therapy/Recovery relaxing. PT-OP-C Subjective Start: 04/22/20 08:10 Freq: Status: Active Protocol: Document 05/13/20 09:44 SAK (Rec: 05/13/20 10:33 SAK [id number]) OP-PT Subjective Patient Comments Patient Comments Had a bad weekend with pain, by dinner time has difficulty tolerating standing to make dinner. Has not tried wearing brace. PT-OP-F Manual Assessment Start: 04/22/20 08:10 Freq: Status: Active Protocol: Document 04/22/20 10:39 SAK (Rec: 04/22/20 16:52 SAK [id number]) Manual Assessments Soft Tissue Assessment Soft Tissue Mobility Assessment Increased tightness bilateral lumbar and thoracic paraspinals Joint Mobility Assessment Joint Mobility Assessment lumbar not assessed, unable to lay prone, time constraints PT-OP-G Mobility & Gait Start: 04/22/20 08:10 Freq: Status: Active Protocol: Document 04/22/20 10:39 SAK (Rec: 04/22/20 16:52 SAK [id number]) OP Gait Assessment Gait Distance (Feet) 50 Assistive Devices Orthotic/Prosthetic Devices or Brace: No Factors Limiting Gait Function Factors Limiting Gait Function Pain Comments Gait Comments mild trunk lean right PT-OP-H Neuro Start: 04/22/20 08:10 Freq: Status: Active Protocol: Document 04/22/20 10:39 SAK (Rec: 04/22/20 16:52 SAK [id number]) Sensation Evaluation Gross Sensation Gross Sensation WNL PT-OP-J Posture/Palpation/Skin Start: 04/22/20 08:10 Freq: Status: Active Protocol: Document 04/22/20 10:39 SAK (Rec: 04/22/20 16:52 SAK [id number]) Posture Evaluation Position Standing Head/C-Spine Posture Forward Head T-Spine Posture Increased Kyphosis Thorax Posture (R) Prominent L-Spine Posture Rotation Right Shoulder Posture (L) Rounded,(R) Rounded Scapula Posture (L) Protracted,(R) Protracted Arm Posture (L) Internally Rotated,(R) Internally Rotated Pelvis Posture Posterior Tilted Weight Distribution Decreased Wt.Bear on (L) Palpation Assessment Location SI right Palpation Findings Tenderness PT-OP-K Range of Motion Start: 04/22/20 08:10 Freq: Status: Active Protocol: Document 04/22/20 10:39 SAK (Rec: 04/22/20 16:52 [facility] [id number]) Lumbar Spine Range of Motion Lumbar Spine Active Degrees Flexion 40 Extension 0 Rotation Left 25 Rotation Right 20 Lateral Flexion Left 30 Lateral Flexion Right 35 ROM Limitations Soft Tissue Tightness,Pain Hip Goniometric Range of Motion Hip Left Testing Position Supine Flexion w/Knee Flexed 105 Straight Leg Raise 55 Extension 0 Internal Rotation 30 External Rotation 40 Right Testing Position Supine Flexion w/Knee Flexed 100 Straight Leg Raise 65 Extension 0 Internal Rotation 10 External Rotation 40 Hip ROM Limitations Hip ROM Limitations Soft Tissue Tightness,Pain Knee Goniometric Range of Motion Knee FORD Knee ROM WFL Yes Ankle and Foot Goniometric Range of Motion Ankle and Foot FORD Ankle/Foot ROM WFL Yes PT-OP-L Special Tests Start: 04/22/20 08:10 Freq: Status: Active Protocol: Document 04/22/20 10:39 SAK (Rec: 04/22/20 16:52 SAK [id number]) Special Tests Hip Special Tests Leonel Test Results positive for muscle tightness ford Straight Leg Raise Test Results negative ford ALLA Test Results negative ford PT-OP-M Strength Start: 04/22/20 08:10 Freq: Status: Active Protocol: Document 04/22/20 10:39 SAK (Rec: 04/22/20 16:52 SAK [id number]) Trunk Strength Trunk Manual Muscle Testing Testing Position Supine Flexion 3+ Fair+ Core Stabilization poor ability to activate TrA and multifidi Hip Strength Hip Manual Muscle Testing Right Flexion (L2) 4- Good- Abduction 4 Good External Rotation 4- Good- Internal Rotation 4 Good Left Flexion (L2) 3+ Fair+ Abduction 4 Good External Rotation 4- Good- Internal Rotation 4 Good Knee Strength Knee Manual Muscle Testing ford Flexion (S2) 5 Normal Extension (L3) 5 Normal Ankle/Foot Strength Ankle and Foot Manual Muscle Testing ford Dorsiflexion (L4) 5 Normal Plantarflexion (S1) 5 Normal PT-OP-Q Treatments Start: 04/22/20 08:10 Freq: Status: Active Protocol: Document 05/13/20 09:44 [facility] (Rec: 05/13/20 10:33 [facility] [id number]) Gym Equipment Shuttle Balance chains red Details bal and weight shift Comments fwd/bck tolerated well, side to side not tolerated due to SI pain Therapeutic Ball LTR Exercise Details small excursion Ball Size/Color 55 cm Reps/Duration 10x Comments emphasis on core activation for movement Therapeutic Exercises Supine Exercises posture press Reps/Minutes 10x5 Comments LE's straight Sidelying Exercises side stretch Sidelying Exercise Name on right side with pillow under right thoracolumbar spine, left UE overhead Reps/Minutes 2x30 with deep breathing Comments gentle inferior glide of pelvis Sitting Exercises figure 4 stretch Reps/Minutes 1x30 right, 2x30 left piriformis stretch Reps/Minutes 30x1 right x2 left side bend Reps/Minutes 4x5 Comments deep breathing ball squeeze Reps/Minutes 10x Standing Exercises lateral trunk flex Reps/Minutes 5x2# Manual Therapy Treatment Taping SI Comments I strip: space correction between PSIS with 75% stretch, 50% stretch around to ASIS Other Other Manual Treatments leg length check (after ther ex): equal Neuro Re-Education Treatment Movement Re-Education Movement Re-education Activities use of mirror for visual feedback Self-Care/Home Management Treatment Education Patient Education Body Mechanics,Home Exercise Program,Posture Other Education wear brace when preparing dinner or doing other physically demanding activities. Bring brace for PT evaluation. PT-OP-R Modalities Start: 04/22/20 08:10 Freq: Status: Active Protocol: Document 05/13/20 09:44 MARY (Rec: 05/13/20 12:01 [facility] [id number]) Electric Stimulation Electric Stimulation Interferential Current (IFC) Body Location bilateral lumbar spine Duration (Minutes) 10 Intensity 8 Target/Sweep Sweep Patient Position Hooklying Combined With Heat/Cold Hot Pack PT-OP-T Assessment and Plan Start: 04/22/20 08:10 Freq: Status: Active Protocol: Document 05/13/20 09:44 [facility] (Rec: 05/13/20 10:33 SAK [id number]) Physical Therapy Assessment Goals Three Impairment weakness throughout trunk [facility] Goal (LTG) Patient to be independent and compliant to HEP and demonstrate improvement in trunk strength to at least 4/5 and and demonstrate good core stabilization ability statically and dynamically with function LTG Duration 07/21/20 Two Impairment postural dysfunction with poor awareness of neutral [employer] Specialist Goal (LTG) Patient to be independent and compliant with HEP to address postural dysfunction and demonstrate good understanding of neutral posture, and be able to self-identify her unhealthy habitual postures and positioning. LTG Duration 07/21/20 One Impairment activity intolerance with patient unable to take walks [facility] Goal (LTG) Patient to report ability to stand and walk for at least 30 min without an increase in pain LTG Duration 07/21/20 Assessment Summary Assessment Right SI easily irritated, decreased in sidelying with inferior glide left onnominate . Trial kinesiotape for SI done today. Encouraged HEP 2x/ day, wear brace when preparing dinner, bring brace for PT evaluation. Physical Therapy Plan Frequency and Duration Frequency of Treatment 2x/Week Duration of Treatment 12 weeks Plan of Care Start Date 04/22/20 Plan of Care End Date 07/21/20 Therapeutic Interventions Therapeutic Interventions Home Exercise Program,Joint Mobilizations,Manual Therapy, Patient/Caregiver Education, Self-Care/Home Management,Soft Tissue Mobilization,Taping, Therapeutic Activities, Therapeutic Exercises Modalities Electric Stimulation,Hot Packs Next Visit Focus/Plan Next Note Type Treatment Note Next Visit Plan emphasis on gluteal strengthening, continued core strengthening, postural correction as able.
--- NOTE | 2020-05-15 16:53 | PT.OTN ---
Current Diagnoses Sacrococcygeal disorders, not elsewhere classified (05/15/20) Other dorsalgia (05/15/20) Abnormal posture (05/15/20) Weakness (05/15/20) Physical Therapy Treatment Note PT-OP-A Visit Information Start: 04/22/20 08:10 Freq: Status: Active Protocol: Document 05/15/20 09:49 SAK (Rec: 05/15/20 10:36 SAK [id number]) Out-Patient Physical Therapy Visit Information Visit Information Visit Type Treatment Note Visit Start Time 09:45 Visit Stop Time 10:40 Total Visit Minutes 55 Visit Number 5 PT-OP-B Current Condition Start: 04/22/20 08:10 Freq: Status: Active Protocol: Document 04/22/20 10:39 SAK (Rec: 04/22/20 11:35 SAK [id number]) Current Condition History of Current Condition Onset Date years Current Complaints pain L45 and SI joint History of Current Condition Long history of LBP and SI pain, scoliosis lumbar right convex L45, left convex upper lumber, spondylosis, spondylolisthesis L2-3, injection SI august 2019, L45 July 2019; neither helpful. Previously injections have been helpful; historically has had injections every year to 1 1/2 years to SI with good results. Denies N/T, legs giving way. Wears [place] brace when gardening but states she doesn't tend to think about using it indoors even though housework increases her pain. Reports unable to take walks anymore due to pain. Doesn't weaR any shoe or heel lift, though reports she remembers PT giving her cork for use in her shoe to even her leg length; hasn't worn for a long time. States she has started doing some exercises; pelvic tilt, lunges, leg lifts , HS stretches, but not consistent. Standing hamstring stretch painful. Can't get down to the floor or lay on her hands and knees. Sleeping generally ok. Spends a lot of time sitting due to pain after self -care and minimal housework. Always sleeps on right side, sometimes wakes in pain, other days can do an hour or two of mild activity and then has to sit rest of day. FEels heat helpful short term, hasn't tried TENS unit that she and her bought; brought to PT today. Prior Treatments and Tests Progressive dextroscoliosis since 11/23/17 Lumbar spine x-ray: Severe multilevel lumbar spondylosis and facet arthropathy, progressed since the prior study.. Grade 1 retrolisthesis of L2 on L3, which has progressed since prior study. Future Testing and Treatments Planned No appointments scheduled at this time. Prior Functional Status Baseline Function- ADL's Modified Independent Baseline Function- Mobility Modified Independent Baseline Function- Gait able to take walks Baseline Function- Work/School retired Baseline Function- Recreation/Hobbies cooking, gardening, baking Current Functional Impairments (Reported) Functional Limitations- ADL's independent but painful Functional Limitations- Mobility/Gait unable to take walks for exercise or recreation due to pain Functional Limitations- Work/School retired Functional Limitations- Recreation/ painful Hobbies Personal Factors Other Personal Factors That May Effect patient has difficult time Therapy/Recovery relaxing. PT-OP-C Subjective Start: 04/22/20 08:10 Freq: Status: Active Protocol: Document 05/15/20 09:49 SAK (Rec: 05/15/20 10:36 SAK [id number]) OP-PT Subjective Patient Comments Patient Comments Brought brace obtained about 8 months ago, hasn't been wearing much, forgets. Having a bad day today with pain, tearful. By 11:30 day of last PT treatment was hurting a lot, but states that some days experiences same thing without PT. So far nothing helpful. Stressed about falling and not doing well, had to help him more yesterday, possible reason for more pain today. PT-OP-F Manual Assessment Start: 04/22/20 08:10 Freq: Status: Active Protocol: Document 04/22/20 10:39 SAK (Rec: 04/22/20 16:52 SAK [id number]) Manual Assessments Soft Tissue Assessment Soft Tissue Mobility Assessment Increased tightness bilateral lumbar and thoracic paraspinals Joint Mobility Assessment Joint Mobility Assessment lumbar not assessed, unable to lay prone, time constraints PT-OP-G Mobility & Gait Start: 04/22/20 08:10 Freq: Status: Active Protocol: Document 04/22/20 10:39 SAK (Rec: 04/22/20 16:52 SAK [id number]) OP Gait Assessment Gait Distance (Feet) 50 Assistive Devices Orthotic/Prosthetic Devices or Brace: No Factors Limiting Gait Function Factors Limiting Gait Function Pain Comments Gait Comments mild trunk lean right PT-OP-H Neuro Start: 04/22/20 08:10 Freq: Status: Active Protocol: Document 04/22/20 10:39 SAK (Rec: 04/22/20 16:52 SAK [id number]) Sensation Evaluation Gross Sensation Gross Sensation WNL PT-OP-J Posture/Palpation/Skin Start: 04/22/20 08:10 Freq: Status: Active Protocol: Document 04/22/20 10:39 SAK (Rec: 04/22/20 16:52 SAK [id number]) Posture Evaluation Position Standing Head/C-Spine Posture Forward Head T-Spine Posture Increased Kyphosis Thorax Posture (R) Prominent L-Spine Posture Rotation Right Shoulder Posture (L) Rounded,(R) Rounded Scapula Posture (L) Protracted,(R) Protracted Arm Posture (L) Internally Rotated,(R) Internally Rotated Pelvis Posture Posterior Tilted Weight Distribution Decreased Wt.Bear on (L) Palpation Assessment Location SI right Palpation Findings Tenderness PT-OP-K Range of Motion Start: 04/22/20 08:10 Freq: Status: Active Protocol: Document 04/22/20 10:39 SAK (Rec: 04/22/20 16:52 [facility] [id number]) Lumbar Spine Range of Motion Lumbar Spine Active Degrees Flexion 40 Extension 0 Rotation Left 25 Rotation Right 20 Lateral Flexion Left 30 Lateral Flexion Right 35 ROM Limitations Soft Tissue Tightness,Pain Hip Goniometric Range of Motion Hip Left Testing Position Supine Flexion w/Knee Flexed 105 Straight Leg Raise 55 Extension 0 Internal Rotation 30 External Rotation 40 Right Testing Position Supine Flexion w/Knee Flexed 100 Straight Leg Raise 65 Extension 0 Internal Rotation 10 External Rotation 40 Hip ROM Limitations Hip ROM Limitations Soft Tissue Tightness,Pain Knee Goniometric Range of Motion Knee FORD Knee ROM WFL Yes Ankle and Foot Goniometric Range of Motion Ankle and Foot FORD Ankle/Foot ROM WFL Yes PT-OP-L Special Tests Start: 04/22/20 08:10 Freq: Status: Active Protocol: Document 04/22/20 10:39 SAK (Rec: 04/22/20 16:52 SAK [id number]) Special Tests Hip Special Tests Leonel Test Results positive for muscle tightness ford Straight Leg Raise Test Results negative ford ALLA Test Results negative ford PT-OP-M Strength Start: 04/22/20 08:10 Freq: Status: Active Protocol: Document 04/22/20 10:39 SAK (Rec: 04/22/20 16:52 SAK [id number]) Trunk Strength Trunk Manual Muscle Testing Testing Position Supine Flexion 3+ Fair+ Core Stabilization poor ability to activate TrA and multifidi Hip Strength Hip Manual Muscle Testing Right Flexion (L2) 4- Good- Abduction 4 Good External Rotation 4- Good- Internal Rotation 4 Good Left Flexion (L2) 3+ Fair+ Abduction 4 Good External Rotation 4- Good- Internal Rotation 4 Good Knee Strength Knee Manual Muscle Testing ford Flexion (S2) 5 Normal Extension (L3) 5 Normal Ankle/Foot Strength Ankle and Foot Manual Muscle Testing ford Dorsiflexion (L4) 5 Normal Plantarflexion (S1) 5 Normal PT-OP-Q Treatments Start: 04/22/20 08:10 Freq: Status: Active Protocol: Document 05/15/20 09:49 [facility] (Rec: 05/15/20 10:36 [facility] [id number]) Therapeutic Exercises Supine Exercises pec stretch Reps/Minutes 2x bridge Reps/Minutes 5x Comments modified for smaller motion to eliminate discomfort posture press Reps/Minutes 10x5 Comments LE's straight arms overhead stretch Reps/Minutes 2x Comments with deep breathing pillow squeeze Reps/Minutes 5x TrA Reps/Minutes 10x Comments with Kegel, breathing. Emphasis on doing throughout day, multiple position Manual Therapy Treatment Taping SI Comments not done; didn't find helpful Other Other Manual Treatments leg length check (after ther ex): equal Self-Care/Home Management Treatment Education Patient Education Body Mechanics,Home Exercise Program,Posture Other Education try wearing brace starting in am PT-OP-R Modalities Start: 04/22/20 08:10 Freq: Status: Active Protocol: Document 05/15/20 09:49 [facility] (Rec: 05/15/20 10:36 [facility] [id number]) Electric Stimulation Electric Stimulation Interferential Current (IFC) Body Location bilateral lumbar spine Duration (Minutes) 10 Intensity 8 Target/Sweep Sweep Patient Position Hooklying Combined With Heat/Cold Hot Pack Ultrasound Therapy Treatment right SI Treatment Duration (minutes) 8 Patient Position Sidelying Coupling Medium Ultrasound Gel Mode Setting Pulsed Duty Cycle 50% Intensity Setting (w/cm2) 1.4 Comments good tolerance PT-OP-T Assessment and Plan Start: 04/22/20 08:10 Freq: Status: Active Protocol: Document 05/15/20 09:49 MARY (Rec: 05/15/20 10:36 [facility] [id number]) Physical Therapy Assessment Goals Three Impairment weakness throughout trunk Detention Goal (LTG) Patient to be independent and compliant to HEP and demonstrate improvement in trunk strength to at least 4/5 and and demonstrate good core stabilization ability statically and dynamically with function LTG Duration 07/21/20 Two Impairment postural dysfunction with poor awareness of neutral Land Development Manager Goal (LTG) Patient to be independent and compliant with HEP to address postural dysfunction and demonstrate good understanding of neutral posture, and be able to self-identify her unhealthy habitual postures and positioning. LTG Duration 07/21/20 One Impairment activity intolerance with patient unable to take walks Detention Goal (LTG) Patient to report ability to stand and walk for at least 30 min without an increase in pain LTG Duration 07/21/20 Assessment Summary Assessment No standing exercises today, emphasis on supine core activation and stabilization, modalities for pain management . Patient reported decreased pain after treatment. Physical Therapy Plan Frequency and Duration Frequency of Treatment 2x/Week Duration of Treatment 12 weeks Plan of Care Start Date 04/22/20 Plan of Care End Date 07/21/20 Therapeutic Interventions Therapeutic Interventions Home Exercise Program,Joint Mobilizations,Manual Therapy, Patient/Caregiver Education, Self-Care/Home Management,Soft Tissue Mobilization,Taping, Therapeutic Activities, Therapeutic Exercises Modalities Electric Stimulation,Hot Packs Next Visit Focus/Plan Next Note Type Treatment Note Next Visit Plan Emphasis on core stabilizaiton supine, sidelying, and sitting
--- NOTE | 2020-05-20 09:14 | PT.OTN ---
Current Diagnoses Sacrococcygeal disorders, not elsewhere classified (05/20/20) Other dorsalgia (05/20/20) Abnormal posture (05/20/20) Weakness (05/20/20) Physical Therapy Treatment Note PT-OP-A Visit Information Start: 04/22/20 08:10 Freq: Status: Active Protocol: Document 05/20/20 08:18 SP (Rec: 05/20/20 11:24 SP [id number]) Out-Patient Physical Therapy Visit Information Visit Information Visit Type Treatment Note Visit Start Time 08:18 Visit Stop Time 09:14 Total Visit Minutes 56 Visit Number 6 Number of MOLD PARTER Visits 1 PT-OP-B Current Condition Start: 04/22/20 08:10 Freq: Status: Active Protocol: Document 04/22/20 10:39 SAK (Rec: 04/22/20 11:35 SAK [id number]) Current Condition History of Current Condition Onset Date years Current Complaints pain L45 and SI joint History of Current Condition Long history of LBP and SI pain, scoliosis lumbar right convex L45, left convex upper lumber, spondylosis, spondylolisthesis L2-3, injection SI august 2019, L45 July 2019; neither helpful. Previously injections have been helpful; historically has had injections every year to 1 1/2 years to SI with good results. Denies N/T, legs giving way. Wears [place] brace when gardening but states she doesn't tend to think about using it indoors even though housework increases her pain. Reports unable to take walks anymore due to pain. Doesn't weaR any shoe or heel lift, though reports she remembers PT giving her cork for use in her shoe to even her leg length; hasn't worn for a long time. States she has started doing some exercises; pelvic tilt, lunges, leg lifts , HS stretches, but not consistent. Standing hamstring stretch painful. Can't get down to the floor or lay on her hands and knees. Sleeping generally ok. Spends a lot of time sitting due to pain after self -care and minimal housework. Always sleeps on right side, sometimes wakes in pain, other days can do an hour or two of mild activity and then has to sit rest of day. FEels heat helpful short term, hasn't tried TENS unit that she and her bought; brought to PT today. Prior Treatments and Tests Progressive dextroscoliosis since 11/23/17 Lumbar spine x-ray: Severe multilevel lumbar spondylosis and facet arthropathy, progressed since the prior study.. Grade 1 retrolisthesis of L2 on L3, which has progressed since prior study. Future Testing and Treatments Planned No appointments scheduled at this time. Prior Functional Status Baseline Function- ADL's Modified Independent Baseline Function- Mobility Modified Independent Baseline Function- Gait able to take walks Baseline Function- Work/School retired Baseline Function- Recreation/Hobbies cooking, gardening, baking Current Functional Impairments (Reported) Functional Limitations- ADL's independent but painful Functional Limitations- Mobility/Gait unable to take walks for exercise or recreation due to pain Functional Limitations- Work/School retired Functional Limitations- Recreation/ painful Hobbies Personal Factors Other Personal Factors That May Effect patient has difficult time Therapy/Recovery relaxing. PT-OP-C Subjective Start: 04/22/20 08:10 Freq: Status: Active Protocol: Document 05/20/20 08:18 SP (Rec: 05/20/20 11:24 SP [id number]) OP-PT Subjective Patient Comments Patient Comments Pt stated doing alot better since last tx. Less pain this morning 04/06 knows it's there , using ice and heat. Walked about 17 min few days ago, has been a while. Patient Reported Progress Improving PT-OP-F Manual Assessment Start: 04/22/20 08:10 Freq: Status: Active Protocol: Document 04/22/20 10:39 SAK (Rec: 04/22/20 16:52 SAK [id number]) Manual Assessments Soft Tissue Assessment Soft Tissue Mobility Assessment Increased tightness bilateral lumbar and thoracic paraspinals Joint Mobility Assessment Joint Mobility Assessment lumbar not assessed, unable to lay prone, time constraints PT-OP-G Mobility & Gait Start: 04/22/20 08:10 Freq: Status: Active Protocol: Document 04/22/20 10:39 SAK (Rec: 04/22/20 16:52 SAK [id number]) OP Gait Assessment Gait Distance (Feet) 50 Assistive Devices Orthotic/Prosthetic Devices or Brace: No Factors Limiting Gait Function Factors Limiting Gait Function Pain Comments Gait Comments mild trunk lean right PT-OP-H Neuro Start: 04/22/20 08:10 Freq: Status: Active Protocol: Document 04/22/20 10:39 SAK (Rec: 04/22/20 16:52 SAK [id number]) Sensation Evaluation Gross Sensation Gross Sensation WNL PT-OP-J Posture/Palpation/Skin Start: 04/22/20 08:10 Freq: Status: Active Protocol: Document 04/22/20 10:39 SAK (Rec: 04/22/20 16:52 SAK [id number]) Posture Evaluation Position Standing Head/C-Spine Posture Forward Head T-Spine Posture Increased Kyphosis Thorax Posture (R) Prominent L-Spine Posture Rotation Right Shoulder Posture (L) Rounded,(R) Rounded Scapula Posture (L) Protracted,(R) Protracted Arm Posture (L) Internally Rotated,(R) Internally Rotated Pelvis Posture Posterior Tilted Weight Distribution Decreased Wt.Bear on (L) Palpation Assessment Location SI right Palpation Findings Tenderness PT-OP-K Range of Motion Start: 04/22/20 08:10 Freq: Status: Active Protocol: Document 04/22/20 10:39 SAK (Rec: 04/22/20 16:52 SAK [id number]) Lumbar Spine Range of Motion Lumbar Spine Active Degrees Flexion 40 Extension 0 Rotation Left 25 Rotation Right 20 Lateral Flexion Left 30 Lateral Flexion Right 35 ROM Limitations Soft Tissue Tightness,Pain Hip Goniometric Range of Motion Hip Left Testing Position Supine Flexion w/Knee Flexed 105 Straight Leg Raise 55 Extension 0 Internal Rotation 30 External Rotation 40 Right Testing Position Supine Flexion w/Knee Flexed 100 Straight Leg Raise 65 Extension 0 Internal Rotation 10 External Rotation 40 Hip ROM Limitations Hip ROM Limitations Soft Tissue Tightness,Pain Knee Goniometric Range of Motion Knee FORD Knee ROM WFL Yes Ankle and Foot Goniometric Range of Motion Ankle and Foot FORD Ankle/Foot ROM WFL Yes PT-OP-L Special Tests Start: 04/22/20 08:10 Freq: Status: Active Protocol: Document 04/22/20 10:39 SAK (Rec: 04/22/20 16:52 SAK [id number]) Special Tests Hip Special Tests Leonel Test Results positive for muscle tightness ford Straight Leg Raise Test Results negative ford ALLA Test Results negative ford PT-OP-M Strength Start: 04/22/20 08:10 Freq: Status: Active Protocol: Document 04/22/20 10:39 SAK (Rec: 04/22/20 16:52 SAK [id number]) Trunk Strength Trunk Manual Muscle Testing Testing Position Supine Flexion 3+ Fair+ Core Stabilization poor ability to activate TrA and multifidi Hip Strength Hip Manual Muscle Testing Right Flexion (L2) 4- Good- Abduction 4 Good External Rotation 4- Good- Internal Rotation 4 Good Left Flexion (L2) 3+ Fair+ Abduction 4 Good External Rotation 4- Good- Internal Rotation 4 Good Knee Strength Knee Manual Muscle Testing ford Flexion (S2) 5 Normal Extension (L3) 5 Normal Ankle/Foot Strength Ankle and Foot Manual Muscle Testing ford Dorsiflexion (L4) 5 Normal Plantarflexion (S1) 5 Normal PT-OP-Q Treatments Start: 04/22/20 08:10 Freq: Status: Active Protocol: Document 05/20/20 08:18 SP (Rec: 05/20/20 11:24 SP [id number]) Therapeutic Exercises Supine Exercises sciatic nerve glide Supine Exercise Name w/ ankle DF/PF Reps/Minutes 2x10 ankle pump reps and w/ range as tolerated Comments cued TA and PPT needed, relax neck/ shld pec stretch Supine Exercise Name w/ knees bent Side bilateral Resistance table Reps/Minutes 2x 30 Comments cued PPT awareness and increase range w/ tolerance bridge Supine Exercise Name good PPT Reps/Minutes 5 sec hold x10 Comments modified for smaller motion to eliminate discomfort posture press Supine Exercise Name w/ scap retraction/depression Reps/Minutes 10x5 Comments LE's straight, arms at side arms overhead stretch Side bilateral Equipment Used dowel vs none- no difference Reps/Minutes 10x10 sec Comments with deep breathing, TA/ PPT awareness TrA Reps/Minutes 10x Comments with Kegel, breathing. Emphasis on doing throughout day, multiple position Sitting Exercises HS stretch Side bilateral Reps/Minutes x30 sec Comments cued straight back sciatic nerve glide Reps/Minutes 5 reps Comments cued straight back figure 4 stretch Side bilateral Reps/Minutes 2x30 ball squeeze Reps/Minutes 10x 10 Comments good posture PT-OP-R Modalities Start: 04/22/20 08:10 Freq: Status: Active Protocol: Document 05/20/20 08:18 SP (Rec: 05/20/20 11:24 SP [id number]) Hot Pack/Cold Pack Treatment Hot Pack Location lumbar spine Patient Position Hooklying Treatment Duration (minutes) 10 Patient Tolerance Good PT-OP-T Assessment and Plan Start: 04/22/20 08:10 Freq: Status: Active Protocol: Document 05/20/20 08:18 SP (Rec: 05/20/20 11:24 SP [id number]) Physical Therapy Assessment Goals Three Impairment weakness throughout trunk Offc Spec Goal (LTG) Patient to be independent and compliant to HEP and demonstrate improvement in trunk strength to at least 4/5 and and demonstrate good core stabilization ability statically and dynamically with function LTG Duration 07/21/20 Two Impairment postural dysfunction with poor awareness of neutral Residential Goal (LTG) Patient to be independent and compliant with HEP to address postural dysfunction and demonstrate good understanding of neutral posture, and be able to self-identify her unhealthy habitual postures and positioning. LTG Duration 07/21/20 One Impairment activity intolerance with patient unable to take walks Residential Goal (LTG) Patient to report ability to stand and walk for at least 30 min without an increase in pain LTG Duration 07/21/20 Assessment Summary Assessment Pt requested to review HEP and has modified HS stretch in sitting using strap w/ LS little irritated. MOLD PARTER provided seated hip hinge HS stretch no strap and seated version of initiated sciatic nerve floss to assist decrease tingle/ pin pricks experienced lately in LS with good feedback results and demonstrated proper form post cuing and reps of tolerance. Pt verbalized understanding to add to HEP when needed, no adverse affects. Pt requested MHP end of tx and SI felt alot better when left. Physical Therapy Plan Frequency and Duration Frequency of Treatment 2x/Week Duration of Treatment 12 weeks Plan of Care Start Date 04/22/20 Plan of Care End Date 07/21/20 Therapeutic Interventions Therapeutic Interventions Home Exercise Program,Joint Mobilizations,Manual Therapy, Patient/Caregiver Education, Self-Care/Home Management,Soft Tissue Mobilization,Taping, Therapeutic Activities, Therapeutic Exercises Modalities Electric Stimulation,Hot Packs Next Visit Focus/Plan Next Note Type Treatment Note Next Visit Plan Assess response to manual, HEP review and initiated seated HS vs supine and sciatic nerve glide. Continiue per PT POC: Emphasis on core stabilizaiton supine, sidelying, and sitting
--- NOTE | 2020-05-22 11:20 | PT.OTN ---
Current Diagnoses Sacrococcygeal disorders, not elsewhere classified (05/22/20) Other dorsalgia (05/22/20) Abnormal posture (05/22/20) Weakness (05/22/20) Physical Therapy Treatment Note PT-OP-A Visit Information Start: 04/22/20 08:10 Freq: Status: Active Protocol: Document 05/22/20 10:35 LD (Rec: 05/22/20 12:05 LD [id number]) Out-Patient Physical Therapy Visit Information Visit Information Visit Type Treatment Note Visit Note ERNESTINA Billings co-led tx w/ UTILITY PORTER Kierra. Visit Start Time 10:35 Visit Stop Time 11:20 Total Visit Minutes 45 Visit Number 7 Number of UTILITY PORTER Visits 2 PT-OP-B Current Condition Start: 04/22/20 08:10 Freq: Status: Active Protocol: Document 04/22/20 10:39 SAK (Rec: 04/22/20 11:35 SAK [id number]) Current Condition History of Current Condition Onset Date years Current Complaints pain L45 and SI joint History of Current Condition Long history of LBP and SI pain, scoliosis lumbar right convex L45, left convex upper lumber, spondylosis, spondylolisthesis L2-3, injection SI august 2019, L45 July 2019; neither helpful. Previously injections have been helpful; historically has had injections every year to 1 1/2 years to SI with good results. Denies N/T, legs giving way. Wears [place] brace when gardening but states she doesn't tend to think about using it indoors even though housework increases her pain. Reports unable to take walks anymore due to pain. Doesn't weaR any shoe or heel lift, though reports she remembers PT giving her cork for use in her shoe to even her leg length; hasn't worn for a long time. States she has started doing some exercises; pelvic tilt, lunges, leg lifts , HS stretches, but not consistent. Standing hamstring stretch painful. Can't get down to the floor or lay on her hands and knees. Sleeping generally ok. Spends a lot of time sitting due to pain after self -care and minimal housework. Always sleeps on right side, sometimes wakes in pain, other days can do an hour or two of mild activity and then has to sit rest of day. FEels heat helpful short term, hasn't tried TENS unit that she and her bought; brought to PT today. Prior Treatments and Tests Progressive dextroscoliosis since 11/23/17 Lumbar spine x-ray: Severe multilevel lumbar spondylosis and facet arthropathy, progressed since the prior study.. Grade 1 retrolisthesis of L2 on L3, which has progressed since prior study. Future Testing and Treatments Planned No appointments scheduled at this time. Prior Functional Status Baseline Function- ADL's Modified Independent Baseline Function- Mobility Modified Independent Baseline Function- Gait able to take walks Baseline Function- Work/School retired Baseline Function- Recreation/Hobbies cooking, gardening, baking Current Functional Impairments (Reported) Functional Limitations- ADL's independent but painful Functional Limitations- Mobility/Gait unable to take walks for exercise or recreation due to pain Functional Limitations- Work/School retired Functional Limitations- Recreation/ painful Hobbies Personal Factors Other Personal Factors That May Effect patient has difficult time Therapy/Recovery relaxing. PT-OP-C Subjective Start: 04/22/20 08:10 Freq: Status: Active Protocol: Document 05/22/20 10:35 LD (Rec: 05/22/20 12:05 LD [id number]) OP-PT Subjective Patient Comments Patient Comments Pt reports no increasing pain today and has been performing HEP, w/ HS stretch and sciatic nerve floss when needed. Patient Reported Progress Improving PT-OP-F Manual Assessment Start: 04/22/20 08:10 Freq: Status: Active Protocol: Document 04/22/20 10:39 SAK (Rec: 04/22/20 16:52 SAK [id number]) Manual Assessments Soft Tissue Assessment Soft Tissue Mobility Assessment Increased tightness bilateral lumbar and thoracic paraspinals Joint Mobility Assessment Joint Mobility Assessment lumbar not assessed, unable to lay prone, time constraints PT-OP-G Mobility & Gait Start: 04/22/20 08:10 Freq: Status: Active Protocol: Document 04/22/20 10:39 SAK (Rec: 04/22/20 16:52 SAK [id number]) OP Gait Assessment Gait Distance (Feet) 50 Assistive Devices Orthotic/Prosthetic Devices or Brace: No Factors Limiting Gait Function Factors Limiting Gait Function Pain Comments Gait Comments mild trunk lean right PT-OP-H Neuro Start: 04/22/20 08:10 Freq: Status: Active Protocol: Document 04/22/20 10:39 SAK (Rec: 04/22/20 16:52 SAK [id number]) Sensation Evaluation Gross Sensation Gross Sensation WNL PT-OP-J Posture/Palpation/Skin Start: 04/22/20 08:10 Freq: Status: Active Protocol: Document 04/22/20 10:39 SAK (Rec: 04/22/20 16:52 SAK [id number]) Posture Evaluation Position Standing Head/C-Spine Posture Forward Head T-Spine Posture Increased Kyphosis Thorax Posture (R) Prominent L-Spine Posture Rotation Right Shoulder Posture (L) Rounded,(R) Rounded Scapula Posture (L) Protracted,(R) Protracted Arm Posture (L) Internally Rotated,(R) Internally Rotated Pelvis Posture Posterior Tilted Weight Distribution Decreased Wt.Bear on (L) Palpation Assessment Location SI right Palpation Findings Tenderness PT-OP-K Range of Motion Start: 04/22/20 08:10 Freq: Status: Active Protocol: Document 04/22/20 10:39 SAK (Rec: 04/22/20 16:52 [facility] [id number]) Lumbar Spine Range of Motion Lumbar Spine Active Degrees Flexion 40 Extension 0 Rotation Left 25 Rotation Right 20 Lateral Flexion Left 30 Lateral Flexion Right 35 ROM Limitations Soft Tissue Tightness,Pain Hip Goniometric Range of Motion Hip Left Testing Position Supine Flexion w/Knee Flexed 105 Straight Leg Raise 55 Extension 0 Internal Rotation 30 External Rotation 40 Right Testing Position Supine Flexion w/Knee Flexed 100 Straight Leg Raise 65 Extension 0 Internal Rotation 10 External Rotation 40 Hip ROM Limitations Hip ROM Limitations Soft Tissue Tightness,Pain Knee Goniometric Range of Motion Knee FORD Knee ROM WFL Yes Ankle and Foot Goniometric Range of Motion Ankle and Foot FORD Ankle/Foot ROM WFL Yes PT-OP-L Special Tests Start: 04/22/20 08:10 Freq: Status: Active Protocol: Document 04/22/20 10:39 SAK (Rec: 04/22/20 16:52 SAK [id number]) Special Tests Hip Special Tests Leonel Test Results positive for muscle tightness ford Straight Leg Raise Test Results negative ford ALLA Test Results negative ford PT-OP-M Strength Start: 04/22/20 08:10 Freq: Status: Active Protocol: Document 04/22/20 10:39 SAK (Rec: 04/22/20 16:52 SAK [id number]) Trunk Strength Trunk Manual Muscle Testing Testing Position Supine Flexion 3+ Fair+ Core Stabilization poor ability to activate TrA and multifidi Hip Strength Hip Manual Muscle Testing Right Flexion (L2) 4- Good- Abduction 4 Good External Rotation 4- Good- Internal Rotation 4 Good Left Flexion (L2) 3+ Fair+ Abduction 4 Good External Rotation 4- Good- Internal Rotation 4 Good Knee Strength Knee Manual Muscle Testing ford Flexion (S2) 5 Normal Extension (L3) 5 Normal Ankle/Foot Strength Ankle and Foot Manual Muscle Testing ford Dorsiflexion (L4) 5 Normal Plantarflexion (S1) 5 Normal PT-OP-Q Treatments Start: 04/22/20 08:10 Freq: Status: Active Protocol: Document 05/22/20 10:35 LD (Rec: 05/22/20 12:05 LD [id number]) Cardio Equipment Recumbent Elliptical (SmartProcure) Duration (Minutes) 5 Resistance 3 Seat Position 7 Other 483 SPM, 1.0 MET Therapeutic Exercises Supine Exercises pec stretch Supine Exercise Name w/ knees bent Side bilateral Resistance table Reps/Minutes 2x 30 Comments cued PPT awareness and increase range w/ tolerance bridge Supine Exercise Name good PPT Reps/Minutes 5 sec hold x10 Comments modified for smaller motion to eliminate discomfort posture press Supine Exercise Name w/ scap retraction/depression Reps/Minutes 10x5 Comments LE's straight, arms at side arms overhead stretch Side bilateral Reps/Minutes 10x10 sec Comments with deep breathing, TA/ PPT awareness TrA Reps/Minutes 10x Comments with Kegel, breathing. Emphasis on doing throughout day, multiple position Standing Exercises wall posture Reps/Minutes 3 min Comments Cued TA/PPT awareness, CS neutral shoulder extension Equipment Used L1 TB Reps/Minutes 5x Comments verbal and manual cues for posture, scapular movement row Equipment Used L1 TB Reps/Minutes 5x Comments verbal and manual cues for posture, scapular movement PT-OP-R Modalities Start: 04/22/20 08:10 Freq: Status: Active Protocol: Document 05/20/20 08:18 SP (Rec: 05/20/20 11:24 SP [id number]) Hot Pack/Cold Pack Treatment Hot Pack Location lumbar spine Patient Position Hooklying Treatment Duration (minutes) 10 Patient Tolerance Good PT-OP-T Assessment and Plan Start: 04/22/20 08:10 Freq: Status: Active Protocol: Document 05/22/20 10:35 LD (Rec: 05/22/20 12:05 LD [id number]) Physical Therapy Assessment Goals Three Impairment weakness throughout trunk Pbx Technician Goal (LTG) Patient to be independent and compliant to HEP and demonstrate improvement in trunk strength to at least 4/5 and and demonstrate good core stabilization ability statically and dynamically with function LTG Duration 07/21/20 Two Impairment postural dysfunction with poor awareness of neutral Pbx Technician Goal (LTG) Patient to be independent and compliant with HEP to address postural dysfunction and demonstrate good understanding of neutral posture, and be able to self-identify her unhealthy habitual postures and positioning. LTG Duration 07/21/20 One Impairment activity intolerance with patient unable to take walks Pbx Technician Goal (LTG) Patient to report ability to stand and walk for at least 30 min without an increase in pain LTG Duration 07/21/20 Assessment Summary Assessment Tx focus on posture and core stabilzation. Reviewed HEP, providing cues to maintain good postural alignment. Pt tolerated supine exercises well w/ good TA awarness, challenged by wall posture requiring more cues. Continue to work on wall posture next tx. No increasing pain at the end of tx. Physical Therapy Plan Frequency and Duration Frequency of Treatment 2x/Week Duration of Treatment 12 weeks Plan of Care Start Date 04/22/20 Plan of Care End Date 07/21/20 Therapeutic Interventions Therapeutic Interventions Home Exercise Program,Joint Mobilizations,Manual Therapy, Patient/Caregiver Education, Self-Care/Home Management,Soft Tissue Mobilization,Taping, Therapeutic Activities, Therapeutic Exercises Modalities Electric Stimulation,Hot Packs Next Visit Focus/Plan Next Note Type Treatment Note Next Visit Plan Assess response to HEP review. Continiue per PT POC: Emphasis on core stabilizaiton supine, sidelying, and sitting
--- NOTE | 2020-05-26 11:25 | PT.OTN ---
Current Diagnoses Sacrococcygeal disorders, not elsewhere classified (05/26/20) Other dorsalgia (05/26/20) Abnormal posture (05/26/20) Weakness (05/26/20) Physical Therapy Treatment Note PT-OP-A Visit Information Start: 04/22/20 08:10 Freq: Status: Active Protocol: Document 05/26/20 10:34 LD (Rec: 05/26/20 12:42 LD [id number]) Out-Patient Physical Therapy Visit Information Visit Information Visit Type Treatment Note Visit Note ERNESTINA Billings co-led tx w/ FLATBED STITCHER Kierra. Visit Start Time 10:34 Visit Stop Time 11:25 Total Visit Minutes 54 Visit Number 8 Number of FLATBED STITCHER Visits 3 PT-OP-B Current Condition Start: 04/22/20 08:10 Freq: Status: Active Protocol: Document 04/22/20 10:39 SAK (Rec: 04/22/20 11:35 SAK [id number]) Current Condition History of Current Condition Onset Date years Current Complaints pain L45 and SI joint History of Current Condition Long history of LBP and SI pain, scoliosis lumbar right convex L45, left convex upper lumber, spondylosis, spondylolisthesis L2-3, injection SI august 2019, L45 July 2019; neither helpful. Previously injections have been helpful; historically has had injections every year to 1 1/2 years to SI with good results. Denies N/T, legs giving way. Wears [place] brace when gardening but states she doesn't tend to think about using it indoors even though housework increases her pain. Reports unable to take walks anymore due to pain. Doesn't weaR any shoe or heel lift, though reports she remembers PT giving her cork for use in her shoe to even her leg length; hasn't worn for a long time. States she has started doing some exercises; pelvic tilt, lunges, leg lifts , HS stretches, but not consistent. Standing hamstring stretch painful. Can't get down to the floor or lay on her hands and knees. Sleeping generally ok. Spends a lot of time sitting due to pain after self -care and minimal housework. Always sleeps on right side, sometimes wakes in pain, other days can do an hour or two of mild activity and then has to sit rest of day. FEels heat helpful short term, hasn't tried TENS unit that she and her bought; brought to PT today. Prior Treatments and Tests Progressive dextroscoliosis since 11/23/17 Lumbar spine x-ray: Severe multilevel lumbar spondylosis and facet arthropathy, progressed since the prior study.. Grade 1 retrolisthesis of L2 on L3, which has progressed since prior study. Future Testing and Treatments Planned No appointments scheduled at this time. Prior Functional Status Baseline Function- ADL's Modified Independent Baseline Function- Mobility Modified Independent Baseline Function- Gait able to take walks Baseline Function- Work/School retired Baseline Function- Recreation/Hobbies cooking, gardening, baking Current Functional Impairments (Reported) Functional Limitations- ADL's independent but painful Functional Limitations- Mobility/Gait unable to take walks for exercise or recreation due to pain Functional Limitations- Work/School retired Functional Limitations- Recreation/ painful Hobbies Personal Factors Other Personal Factors That May Effect patient has difficult time Therapy/Recovery relaxing. PT-OP-C Subjective Start: 04/22/20 08:10 Freq: Status: Active Protocol: Document 05/26/20 10:34 LD (Rec: 05/26/20 12:47 LD [id number]) OP-PT Subjective Patient Comments Patient Comments Pt reports tightness in low back today, was weeding this weekend and bent over which caused pain in low back. Continued to weed by being on her knees. Pt also reported tingling in low back last night but stopped after 30 seconds. PT-OP-F Manual Assessment Start: 04/22/20 08:10 Freq: Status: Active Protocol: Document 04/22/20 10:39 SAK (Rec: 04/22/20 16:52 SAK [id number]) Manual Assessments Soft Tissue Assessment Soft Tissue Mobility Assessment Increased tightness bilateral lumbar and thoracic paraspinals Joint Mobility Assessment Joint Mobility Assessment lumbar not assessed, unable to lay prone, time constraints PT-OP-G Mobility & Gait Start: 04/22/20 08:10 Freq: Status: Active Protocol: Document 04/22/20 10:39 SAK (Rec: 04/22/20 16:52 SAK [id number]) OP Gait Assessment Gait Distance (Feet) 50 Assistive Devices Orthotic/Prosthetic Devices or Brace: No Factors Limiting Gait Function Factors Limiting Gait Function Pain Comments Gait Comments mild trunk lean right PT-OP-H Neuro Start: 04/22/20 08:10 Freq: Status: Active Protocol: Document 04/22/20 10:39 SAK (Rec: 04/22/20 16:52 SAK [id number]) Sensation Evaluation Gross Sensation Gross Sensation WNL PT-OP-J Posture/Palpation/Skin Start: 04/22/20 08:10 Freq: Status: Active Protocol: Document 04/22/20 10:39 SAK (Rec: 04/22/20 16:52 SAK [id number]) Posture Evaluation Position Standing Head/C-Spine Posture Forward Head T-Spine Posture Increased Kyphosis Thorax Posture (R) Prominent L-Spine Posture Rotation Right Shoulder Posture (L) Rounded,(R) Rounded Scapula Posture (L) Protracted,(R) Protracted Arm Posture (L) Internally Rotated,(R) Internally Rotated Pelvis Posture Posterior Tilted Weight Distribution Decreased Wt.Bear on (L) Palpation Assessment Location SI right Palpation Findings Tenderness PT-OP-K Range of Motion Start: 04/22/20 08:10 Freq: Status: Active Protocol: Document 04/22/20 10:39 SAK (Rec: 04/22/20 16:52 [facility] [id number]) Lumbar Spine Range of Motion Lumbar Spine Active Degrees Flexion 40 Extension 0 Rotation Left 25 Rotation Right 20 Lateral Flexion Left 30 Lateral Flexion Right 35 ROM Limitations Soft Tissue Tightness,Pain Hip Goniometric Range of Motion Hip Left Testing Position Supine Flexion w/Knee Flexed 105 Straight Leg Raise 55 Extension 0 Internal Rotation 30 External Rotation 40 Right Testing Position Supine Flexion w/Knee Flexed 100 Straight Leg Raise 65 Extension 0 Internal Rotation 10 External Rotation 40 Hip ROM Limitations Hip ROM Limitations Soft Tissue Tightness,Pain Knee Goniometric Range of Motion Knee FORD Knee ROM WFL Yes Ankle and Foot Goniometric Range of Motion Ankle and Foot FORD Ankle/Foot ROM WFL Yes PT-OP-L Special Tests Start: 04/22/20 08:10 Freq: Status: Active Protocol: Document 04/22/20 10:39 SAK (Rec: 04/22/20 16:52 SAK [id number]) Special Tests Hip Special Tests Leonel Test Results positive for muscle tightness ford Straight Leg Raise Test Results negative ford ALLA Test Results negative ford PT-OP-M Strength Start: 04/22/20 08:10 Freq: Status: Active Protocol: Document 04/22/20 10:39 SAK (Rec: 04/22/20 16:52 SAK [id number]) Trunk Strength Trunk Manual Muscle Testing Testing Position Supine Flexion 3+ Fair+ Core Stabilization poor ability to activate TrA and multifidi Hip Strength Hip Manual Muscle Testing Right Flexion (L2) 4- Good- Abduction 4 Good External Rotation 4- Good- Internal Rotation 4 Good Left Flexion (L2) 3+ Fair+ Abduction 4 Good External Rotation 4- Good- Internal Rotation 4 Good Knee Strength Knee Manual Muscle Testing ford Flexion (S2) 5 Normal Extension (L3) 5 Normal Ankle/Foot Strength Ankle and Foot Manual Muscle Testing ford Dorsiflexion (L4) 5 Normal Plantarflexion (S1) 5 Normal PT-OP-Q Treatments Start: 04/22/20 08:10 Freq: Status: Active Protocol: Document 05/26/20 10:34 LD (Rec: 05/26/20 12:42 LD [id number]) Cardio Equipment Recumbent Stepper (Sci-Fit) Duration (Minutes) 5 Resistance 2 Seat Position 7 Therapeutic Exercises Supine Exercises trunk rotation w/ exercise ball Side bilateral Equipment Used exercise ball Reps/Minutes 10x5 sec Comments cued for core facilitation, PPT and breathing bridge Supine Exercise Name good PPT Reps/Minutes 5 sec hold x10 Comments modified for smaller motion to eliminate discomfort posture press Supine Exercise Name w/ scap retraction/depression Reps/Minutes 10x5 Comments LE's straight, arms at side arms overhead stretch Side bilateral Reps/Minutes 10x10 sec Comments with deep breathing, TA/ PPT awareness TrA Reps/Minutes 10x Comments with Kegel, breathing. Emphasis on doing throughout day, multiple position Standing Exercises lateral trunk stretch Side bilateral Reps/Minutes 2x30 sec wall posture Standing Exercise Name Hold for now, continue w/ upper thoracic mobility. Reps/Minutes 3 min Comments Cued TA/PPT awareness, CS neutral PT-OP-R Modalities Start: 04/22/20 08:10 Freq: Status: Active Protocol: Document 05/26/20 10:34 LD (Rec: 05/26/20 12:42 LD [id number]) Hot Pack/Cold Pack Treatment Hot Pack Location lumbar spine Patient Position Hooklying Treatment Duration (minutes) 10 Patient Tolerance Good PT-OP-T Assessment and Plan Start: 04/22/20 08:10 Freq: Status: Active Protocol: Document 03/01/21 10:34 LD (Rec: 05/26/20 12:42 LD [id number]) Physical Therapy Assessment Goals Three Impairment weakness throughout trunk Senior Living Goal (LTG) Patient to be independent and compliant to HEP and demonstrate improvement in trunk strength to at least 4/5 and and demonstrate good core stabilization ability statically and dynamically with function LTG Duration 07/21/20 Two Impairment postural dysfunction with poor awareness of neutral Gizzard Puller Goal (LTG) Patient to be independent and compliant with HEP to address postural dysfunction and demonstrate good understanding of neutral posture, and be able to self-identify her unhealthy habitual postures and positioning. LTG Duration 07/21/20 One Impairment activity intolerance with patient unable to take walks Gizzard Puller Goal (LTG) Patient to report ability to stand and walk for at least 30 min without an increase in pain LTG Duration 07/21/20 Assessment Summary Assessment Pt has good awareness of core stabilization but continues to be challenged with wall posture, upper body stiffens shoulders retract and elevate causing pain in low back. Add open book exercise and gait arms swing to improve upper thoracic mobility next tx. Applied heat on lumbar spine, pt reports feels better post heat at end of tx. Physical Therapy Plan Frequency and Duration Frequency of Treatment 2x/Week Duration of Treatment 12 weeks Plan of Care Start Date 04/22/20 Plan of Care End Date 07/21/20 Therapeutic Interventions Therapeutic Interventions Home Exercise Program,Joint Mobilizations,Manual Therapy, Patient/Caregiver Education, Self-Care/Home Management,Soft Tissue Mobilization,Taping, Therapeutic Activities, Therapeutic Exercises Modalities Electric Stimulation,Hot Packs Next Visit Focus/Plan Next Note Type Treatment Note Next Visit Plan Assess response to HEP review. Add open book and gait with improved arm swing next tx to improve thoracic mobility. Continiue per PT POC: Emphasis on core stabilizaiton supine, sidelying, and sitting.
--- NOTE | 2020-05-29 13:45 | PT.OTN ---
Current Diagnoses Sacrococcygeal disorders, not elsewhere classified (05/29/20) Other dorsalgia (05/29/20) Abnormal posture (05/29/20) Weakness (05/29/20) Physical Therapy Treatment Note PT-OP-A Visit Information Start: 04/22/20 08:10 Freq: Status: Active Protocol: Document 05/29/20 08:15 SAK (Rec: 05/29/20 09:01 SAK [id number]) Out-Patient Physical Therapy Visit Information Visit Information Visit Type Treatment Note Visit Start Time 08:15 Visit Stop Time 09:11 Total Visit Minutes 60 Visit Number 8 Number of PAN PUSHER Visits 0 PT-OP-B Current Condition Start: 04/22/20 08:10 Freq: Status: Active Protocol: Document 04/22/20 10:39 SAK (Rec: 04/22/20 11:35 SAK [id number]) Current Condition History of Current Condition Onset Date years Current Complaints pain L45 and SI joint History of Current Condition Long history of LBP and SI pain, scoliosis lumbar right convex L45, left convex upper lumber, spondylosis, spondylolisthesis L2-3, injection SI august 2019, L45 July 2019; neither helpful. Previously injections have been helpful; historically has had injections every year to 1 1/2 years to SI with good results. Denies N/T, legs giving way. Wears [place] brace when gardening but states she doesn't tend to think about using it indoors even though housework increases her pain. Reports unable to take walks anymore due to pain. Doesn't weaR any shoe or heel lift, though reports she remembers PT giving her cork for use in her shoe to even her leg length; hasn't worn for a long time. States she has started doing some exercises; pelvic tilt, lunges, leg lifts , HS stretches, but not consistent. Standing hamstring stretch painful. Can't get down to the floor or lay on her hands and knees. Sleeping generally ok. Spends a lot of time sitting due to pain after self -care and minimal housework. Always sleeps on right side, sometimes wakes in pain, other days can do an hour or two of mild activity and then has to sit rest of day. FEels heat helpful short term, hasn't tried TENS unit that she and her bought; brought to PT today. Prior Treatments and Tests Progressive dextroscoliosis since 11/23/17 Lumbar spine x-ray: Severe multilevel lumbar spondylosis and facet arthropathy, progressed since the prior study.. Grade 1 retrolisthesis of L2 on L3, which has progressed since prior study. Future Testing and Treatments Planned No appointments scheduled at this time. Prior Functional Status Baseline Function- ADL's Modified Independent Baseline Function- Mobility Modified Independent Baseline Function- Gait able to take walks Baseline Function- Work/School retired Baseline Function- Recreation/Hobbies cooking, gardening, baking Current Functional Impairments (Reported) Functional Limitations- ADL's independent but painful Functional Limitations- Mobility/Gait unable to take walks for exercise or recreation due to pain Functional Limitations- Work/School retired Functional Limitations- Recreation/ painful Hobbies Personal Factors Other Personal Factors That May Effect patient has difficult time Therapy/Recovery relaxing. PT-OP-C Subjective Start: 04/22/20 08:10 Freq: Status: Active Protocol: Document 05/29/20 08:15 SAK (Rec: 05/29/20 09:01 SAK [id number]) OP-PT Subjective Patient Comments Patient Comments Overall improving, compliant to HEP, working hard on my posture. Was able to get Covid vaccination scheduled. PT-OP-F Manual Assessment Start: 04/22/20 08:10 Freq: Status: Active Protocol: Document 04/22/20 10:39 SAK (Rec: 04/22/20 16:52 SAK [id number]) Manual Assessments Soft Tissue Assessment Soft Tissue Mobility Assessment Increased tightness bilateral lumbar and thoracic paraspinals Joint Mobility Assessment Joint Mobility Assessment lumbar not assessed, unable to lay prone, time constraints PT-OP-G Mobility & Gait Start: 04/22/20 08:10 Freq: Status: Active Protocol: Document 04/22/20 10:39 SAK (Rec: 04/22/20 16:52 SAK [id number]) OP Gait Assessment Gait Distance (Feet) 50 Assistive Devices Orthotic/Prosthetic Devices or Brace: No Factors Limiting Gait Function Factors Limiting Gait Function Pain Comments Gait Comments mild trunk lean right PT-OP-H Neuro Start: 04/22/20 08:10 Freq: Status: Active Protocol: Document 04/22/20 10:39 SAK (Rec: 04/22/20 16:52 SAK [id number]) Sensation Evaluation Gross Sensation Gross Sensation WNL PT-OP-J Posture/Palpation/Skin Start: 04/22/20 08:10 Freq: Status: Active Protocol: Document 04/22/20 10:39 SAK (Rec: 04/22/20 16:52 [facility] [id number]) Posture Evaluation Position Standing Head/C-Spine Posture Forward Head T-Spine Posture Increased Kyphosis Thorax Posture (R) Prominent L-Spine Posture Rotation Right Shoulder Posture (L) Rounded,(R) Rounded Scapula Posture (L) Protracted,(R) Protracted Arm Posture (L) Internally Rotated,(R) Internally Rotated Pelvis Posture Posterior Tilted Weight Distribution Decreased Wt.Bear on (L) Palpation Assessment Location SI right Palpation Findings Tenderness PT-OP-K Range of Motion Start: 04/22/20 08:10 Freq: Status: Active Protocol: Document 04/22/20 10:39 SAK (Rec: 04/22/20 16:52 [facility] [id number]) Lumbar Spine Range of Motion Lumbar Spine Active Degrees Flexion 40 Extension 0 Rotation Left 25 Rotation Right 20 Lateral Flexion Left 30 Lateral Flexion Right 35 ROM Limitations Soft Tissue Tightness,Pain Hip Goniometric Range of Motion Hip Left Testing Position Supine Flexion w/Knee Flexed 105 Straight Leg Raise 55 Extension 0 Internal Rotation 30 External Rotation 40 Right Testing Position Supine Flexion w/Knee Flexed 100 Straight Leg Raise 65 Extension 0 Internal Rotation 10 External Rotation 40 Hip ROM Limitations Hip ROM Limitations Soft Tissue Tightness,Pain Knee Goniometric Range of Motion Knee FORD Knee ROM WFL Yes Ankle and Foot Goniometric Range of Motion Ankle and Foot FORD Ankle/Foot ROM WFL Yes PT-OP-L Special Tests Start: 04/22/20 08:10 Freq: Status: Active Protocol: Document 04/22/20 10:39 SAK (Rec: 04/22/20 16:52 [facility] [id number]) Special Tests Hip Special Tests Leonel Test Results positive for muscle tightness ford Straight Leg Raise Test Results negative ford ALLA Test Results negative ford PT-OP-M Strength Start: 04/22/20 08:10 Freq: Status: Active Protocol: Document 04/22/20 10:39 SAK (Rec: 04/22/20 16:52 SAK [id number]) Trunk Strength Trunk Manual Muscle Testing Testing Position Supine Flexion 3+ Fair+ Core Stabilization poor ability to activate TrA and multifidi Hip Strength Hip Manual Muscle Testing Right Flexion (L2) 4- Good- Abduction 4 Good External Rotation 4- Good- Internal Rotation 4 Good Left Flexion (L2) 3+ Fair+ Abduction 4 Good External Rotation 4- Good- Internal Rotation 4 Good Knee Strength Knee Manual Muscle Testing ford Flexion (S2) 5 Normal Extension (L3) 5 Normal Ankle/Foot Strength Ankle and Foot Manual Muscle Testing ford Dorsiflexion (L4) 5 Normal Plantarflexion (S1) 5 Normal PT-OP-Q Treatments Start: 04/22/20 08:10 Freq: Status: Active Protocol: Document 05/29/20 08:15 [facility] (Rec: 05/29/20 09:[address] [facility] [id number]) Cardio Equipment Recumbent Stepper (Sci-Fit) Duration (Minutes) 6 Resistance 2 Seat Position 10 Gym Equipment Sport Cord 1 Exercise Details fwd Cord/Resistance yellow Reps/Duration 6x Comments cues for core activation, postural alignment Therapeutic Exercises Sidelying Exercises open book Reps/Minutes 5x Comments segmental with deep breathing at end-range clamshell Reps/Minutes 10x Standing Exercises squat/sit to stand Equipment Used yardstick Reps/Minutes 10x Comments cues for alignment, hip hinge wall pull aways Reps/Minutes 7x wall posture Reps/Minutes 5 min Comments Cued TA/PPT awareness, CS neutral, shoulders up, down, back Self-Care/Home Management Treatment Education Patient Education Body Mechanics,Home Exercise Program,Posture Other Education body mechanics for household cleaning tasks PT-OP-R Modalities Start: 04/22/20 08:10 Freq: Status: Active Protocol: Document 05/29/20 08:15 [facility] (Rec: 05/29/20 09:01 [facility] [id number]) Hot Pack/Cold Pack Treatment Hot Pack Location lumbar spine Patient Position Hooklying Treatment Duration (minutes) 15 Patient Tolerance Good PT-OP-T Assessment and Plan Start: 04/22/20 08:10 Freq: Status: Active Protocol: Document 05/29/20 08:15 [facility] (Rec: 05/29/20 09:01 [facility] [id number]) Physical Therapy Assessment Goals Three Impairment weakness throughout trunk [place] Goal (LTG) Patient to be independent and compliant to HEP and demonstrate improvement in trunk strength to at least 4/5 and and demonstrate good core stabilization ability statically and dynamically with function LTG Duration 07/21/20 Two Impairment postural dysfunction with poor awareness of neutral [place] Goal (LTG) Patient to be independent and compliant with HEP to address postural dysfunction and demonstrate good understanding of neutral posture, and be able to self-identify her unhealthy habitual postures and positioning. LTG Duration 07/21/20 One Impairment activity intolerance with patient unable to take walks [place] Goal (LTG) Patient to report ability to stand and walk for at least 30 min without an increase in pain LTG Duration 07/21/20 Assessment Summary Assessment Improved performance with wall posture with cues to elevate, retract and depress scapulas. Good tolerance for addition of clamshell and open book. 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 Physical Therapy Plan Frequency and Duration Frequency of Treatment 2x/Week Duration of Treatment 12 weeks Plan of Care Start Date 04/22/20 Plan of Care End Date 07/21/20 Therapeutic Interventions Therapeutic Interventions Home Exercise Program,Joint Mobilizations,Manual Therapy, Patient/Caregiver Education, Self-Care/Home Management,Soft Tissue Mobilization,Taping, Therapeutic Activities, Therapeutic Exercises Modalities Electric Stimulation,Hot Packs Next Visit Focus/Plan Next Note Type Treatment Note Next Visit Plan Continue PT per POC. Review body mechanics with functional activities.
--- NOTE | 2020-06-04 16:57 | PT.OTN ---
Current Diagnoses Sacrococcygeal disorders, not elsewhere classified (06/04/20) Other dorsalgia (06/04/20) Abnormal posture (06/04/20) Weakness (06/04/20) Physical Therapy Treatment Note PT-OP-A Visit Information Start: 04/22/20 08:10 Freq: Status: Active Protocol: Document 06/04/20 11:21 SAK (Rec: 06/04/20 12:07 SAK [id number]) Out-Patient Physical Therapy Visit Information Visit Information Visit Type Treatment Note Visit Start Time 11:15 Visit Stop Time 12:15 Total Visit Minutes 60 Visit Number 9 Number of PHARMACIST AIDE Visits 0 PT-OP-B Current Condition Start: 04/22/20 08:10 Freq: Status: Active Protocol: Document 04/22/20 10:39 SAK (Rec: 04/22/20 11:35 SAK [id number]) Current Condition History of Current Condition Onset Date years Current Complaints pain L45 and SI joint History of Current Condition Long history of LBP and SI pain, scoliosis lumbar right convex L45, left convex upper lumber, spondylosis, spondylolisthesis L2-3, injection SI august 2019, L45 July 2019; neither helpful. Previously injections have been helpful; historically has had injections every year to 1 1/2 years to SI with good results. Denies N/T, legs giving way. Wears [place] brace when gardening but states she doesn't tend to think about using it indoors even though housework increases her pain. Reports unable to take walks anymore due to pain. Doesn't weaR any shoe or heel lift, though reports she remembers PT giving her cork for use in her shoe to even her leg length; hasn't worn for a long time. States she has started doing some exercises; pelvic tilt, lunges, leg lifts , HS stretches, but not consistent. Standing hamstring stretch painful. Can't get down to the floor or lay on her hands and knees. Sleeping generally ok. Spends a lot of time sitting due to pain after self -care and minimal housework. Always sleeps on right side, sometimes wakes in pain, other days can do an hour or two of mild activity and then has to sit rest of day. FEels heat helpful short term, hasn't tried TENS unit that she and her bought; brought to PT today. Prior Treatments and Tests Progressive dextroscoliosis since 11/23/17 Lumbar spine x-ray: Severe multilevel lumbar spondylosis and facet arthropathy, progressed since the prior study.. Grade 1 retrolisthesis of L2 on L3, which has progressed since prior study. Future Testing and Treatments Planned No appointments scheduled at this time. Prior Functional Status Baseline Function- ADL's Modified Independent Baseline Function- Mobility Modified Independent Baseline Function- Gait able to take walks Baseline Function- Work/School retired Baseline Function- Recreation/Hobbies cooking, gardening, baking Current Functional Impairments (Reported) Functional Limitations- ADL's independent but painful Functional Limitations- Mobility/Gait unable to take walks for exercise or recreation due to pain Functional Limitations- Work/School retired Functional Limitations- Recreation/ painful Hobbies Personal Factors Other Personal Factors That May Effect patient has difficult time Therapy/Recovery relaxing. PT-OP-C Subjective Start: 04/22/20 08:10 Freq: Status: Active Protocol: Document 06/04/20 11:21 SAK (Rec: 06/04/20 12:07 SAK [id number]) OP-PT Subjective Patient Comments Patient Comments Feeling better today than at last session. States she is focusing hard on body mechanics, correct movement, lifting. Did a little gardening yesterday. States she feels she is getting stronger. PT-OP-F Manual Assessment Start: 04/22/20 08:10 Freq: Status: Active Protocol: Document 04/22/20 10:39 SAK (Rec: 04/22/20 16:52 SAK [id number]) Manual Assessments Soft Tissue Assessment Soft Tissue Mobility Assessment Increased tightness bilateral lumbar and thoracic paraspinals Joint Mobility Assessment Joint Mobility Assessment lumbar not assessed, unable to lay prone, time constraints PT-OP-G Mobility & Gait Start: 04/22/20 08:10 Freq: Status: Active Protocol: Document 04/22/20 10:39 SAK (Rec: 04/22/20 16:52 SAK [id number]) OP Gait Assessment Gait Distance (Feet) 50 Assistive Devices Orthotic/Prosthetic Devices or Brace: No Factors Limiting Gait Function Factors Limiting Gait Function Pain Comments Gait Comments mild trunk lean right PT-OP-H Neuro Start: 04/22/20 08:10 Freq: Status: Active Protocol: Document 04/22/20 10:39 SAK (Rec: 04/22/20 16:52 SAK [id number]) Sensation Evaluation Gross Sensation Gross Sensation WNL PT-OP-J Posture/Palpation/Skin Start: 04/22/20 08:10 Freq: Status: Active Protocol: Document 04/22/20 10:39 SAK (Rec: 04/22/20 16:52 SAK [id number]) Posture Evaluation Position Standing Head/C-Spine Posture Forward Head T-Spine Posture Increased Kyphosis Thorax Posture (R) Prominent L-Spine Posture Rotation Right Shoulder Posture (L) Rounded,(R) Rounded Scapula Posture (L) Protracted,(R) Protracted Arm Posture (L) Internally Rotated,(R) Internally Rotated Pelvis Posture Posterior Tilted Weight Distribution Decreased Wt.Bear on (L) Palpation Assessment Location SI right Palpation Findings Tenderness PT-OP-K Range of Motion Start: 04/22/20 08:10 Freq: Status: Active Protocol: Document 04/22/20 10:39 SAK (Rec: 04/22/20 16:52 [facility] [id number]) Lumbar Spine Range of Motion Lumbar Spine Active Degrees Flexion 40 Extension 0 Rotation Left 25 Rotation Right 20 Lateral Flexion Left 30 Lateral Flexion Right 35 ROM Limitations Soft Tissue Tightness,Pain Hip Goniometric Range of Motion Hip Left Testing Position Supine Flexion w/Knee Flexed 105 Straight Leg Raise 55 Extension 0 Internal Rotation 30 External Rotation 40 Right Testing Position Supine Flexion w/Knee Flexed 100 Straight Leg Raise 65 Extension 0 Internal Rotation 10 External Rotation 40 Hip ROM Limitations Hip ROM Limitations Soft Tissue Tightness,Pain Knee Goniometric Range of Motion Knee FORD Knee ROM WFL Yes Ankle and Foot Goniometric Range of Motion Ankle and Foot FORD Ankle/Foot ROM WFL Yes PT-OP-L Special Tests Start: 04/22/20 08:10 Freq: Status: Active Protocol: Document 04/22/20 10:39 SAK (Rec: 04/22/20 16:52 SAK [id number]) Special Tests Hip Special Tests Leonel Test Results positive for muscle tightness ford Straight Leg Raise Test Results negative ford ALLA Test Results negative ford PT-OP-M Strength Start: 04/22/20 08:10 Freq: Status: Active Protocol: Document 04/22/20 10:39 SAK (Rec: 04/22/20 16:52 SAK [id number]) Trunk Strength Trunk Manual Muscle Testing Testing Position Supine Flexion 3+ Fair+ Core Stabilization poor ability to activate TrA and multifidi Hip Strength Hip Manual Muscle Testing Right Flexion (L2) 4- Good- Abduction 4 Good External Rotation 4- Good- Internal Rotation 4 Good Left Flexion (L2) 3+ Fair+ Abduction 4 Good External Rotation 4- Good- Internal Rotation 4 Good Knee Strength Knee Manual Muscle Testing ford Flexion (S2) 5 Normal Extension (L3) 5 Normal Ankle/Foot Strength Ankle and Foot Manual Muscle Testing ford Dorsiflexion (L4) 5 Normal Plantarflexion (S1) 5 Normal PT-OP-Q Treatments Start: 04/22/20 08:10 Freq: Status: Active Protocol: Document 06/04/20 11:21 [facility] (Rec: 06/04/20 12:07 [facility] [id number]) Gym Equipment Sport Cord 1 Exercise Details fwd, side Cord/Resistance green Reps/Duration 5x Comments cues for core activation, postural alignment Therapeutic Exercises Standing Exercises squat/sit to stand Equipment Used yardstick Reps/Minutes 10x Comments cues for alignment, hip hinge wall pull aways Reps/Minutes 10x wall posture Standing Exercise Name roll ups Reps/Minutes 5 min Comments Cued TA/PPT awareness, CS neutral, shoulders up, down, back shoulder extension Equipment Used L1 TB Reps/Minutes 10x Comments verbal and manual cues for posture, scapular movement row Equipment Used L1 TB Reps/Minutes 10x Comments verbal and manual cues for posture, scapular movement Neuro Re-Education Treatment Movement Re-Education Movement Re-education Activities Proper body mechanics and lifting techniques for gardening Self-Care/Home Management Treatment Education Patient Education Body Mechanics,Home Exercise Program,Posture Other Education body mechanics for gardening, short lever, holding close to body, weight-shifting, knee bend and hip hinge. PT-OP-R Modalities Start: 04/22/20 08:10 Freq: Status: Active Protocol: Document 06/04/20 11:21 [facility] (Rec: 06/04/20 12:07 [facility] [id number]) Hot Pack/Cold Pack Treatment Hot Pack Location lumbar spine Patient Position Hooklying Treatment Duration (minutes) 15 Patient Tolerance Good PT-OP-T Assessment and Plan Start: 04/22/20 08:10 Freq: Status: Active Protocol: Document 06/04/20 11:21 SAK (Rec: 06/04/20 12:07 SAK [id number]) Physical Therapy Assessment Goals Three Impairment weakness throughout trunk [place] Goal (LTG) Patient to be independent and compliant to HEP and demonstrate improvement in trunk strength to at least 4/5 and and demonstrate good core stabilization ability statically and dynamically with function LTG Duration 07/21/20 Two Impairment postural dysfunction with poor awareness of neutral [place] Goal (LTG) Patient to be independent and compliant with HEP to address postural dysfunction and demonstrate good understanding of neutral posture, and be able to self-identify her unhealthy habitual postures and positioning. LTG Duration 07/21/20 One Impairment activity intolerance with patient unable to take walks [place] Goal (LTG) Patient to report ability to stand and walk for at least 30 min without an increase in pain LTG Duration 07/21/20 Assessment Summary Assessment Continues to improve with body awareness and body mechanics with functional activities, responds well to cues. Able to get down to floor and up again simulating gardening, demnstrated good understanding of corrections to form Physical Therapy Plan Frequency and Duration Frequency of Treatment 2x/Week Duration of Treatment 12 weeks Plan of Care Start Date 04/22/20 Plan of Care End Date 07/21/20 Therapeutic Interventions Therapeutic Interventions Home Exercise Program,Joint Mobilizations,Manual Therapy, Patient/Caregiver Education, Self-Care/Home Management,Soft Tissue Mobilization,Taping, Therapeutic Activities, Therapeutic Exercises Modalities Electric Stimulation,Hot Packs Next Visit Focus/Plan Next Note Type Treatment Note Next Visit Plan Continue PT per POC for core strengthening and stabilization, functional retraining.
--- NOTE | 2020-06-09 16:25 | PT.OPPN ---
Current Diagnoses Sacrococcygeal disorders, not elsewhere classified (06/09/20) Other dorsalgia (06/09/20) Abnormal posture (06/09/20) Weakness (06/09/20) Physical Therapy Progress Note PT-OP-A Visit Information Start: 04/22/20 08:10 Freq: Status: Active Protocol: Document 06/09/20 09:48 SAK (Rec: 06/09/20 10:43 SAK [id number]) Out-Patient Physical Therapy Visit Information Visit Information Visit Type Treatment Note Visit Start Time 09:45 Visit Stop Time 10:45 Total Visit Minutes 60 Visit Number 12 Number of PARKING ASSISTANT Visits 0 PT-OP-B Current Condition Start: 04/22/20 08:10 Freq: Status: Active Protocol: Document 04/22/20 10:39 SAK (Rec: 04/22/20 11:35 SAK [id number]) Current Condition History of Current Condition Onset Date years Current Complaints pain L45 and SI joint History of Current Condition Long history of LBP and SI pain, scoliosis lumbar right convex L45, left convex upper lumber, spondylosis, spondylolisthesis L2-3, injection SI august 2019, L45 July 2019; neither helpful. Previously injections have been helpful; historically has had injections every year to 1 1/2 years to SI with good results. Denies N/T, legs giving way. Wears [place] brace when gardening but states she doesn't tend to think about using it indoors even though housework increases her pain. Reports unable to take walks anymore due to pain. Doesn't weaR any shoe or heel lift, though reports she remembers PT giving her cork for use in her shoe to even her leg length; hasn't worn for a long time. States she has started doing some exercises; pelvic tilt, lunges, leg lifts , HS stretches, but not consistent. Standing hamstring stretch painful. Can't get down to the floor or lay on her hands and knees. Sleeping generally ok. Spends a lot of time sitting due to pain after self -care and minimal housework. Always sleeps on right side, sometimes wakes in pain, other days can do an hour or two of mild activity and then has to sit rest of day. FEels heat helpful short term, hasn't tried TENS unit that she and her bought; brought to PT today. Prior Treatments and Tests Progressive dextroscoliosis since 11/23/17 Lumbar spine x-ray: Severe multilevel lumbar spondylosis and facet arthropathy, progressed since the prior study.. Grade 1 retrolisthesis of L2 on L3, which has progressed since prior study. Future Testing and Treatments Planned No appointments scheduled at this time. Prior Functional Status Baseline Function- ADL's Modified Independent Baseline Function- Mobility Modified Independent Baseline Function- Gait able to take walks Baseline Function- Work/School retired Baseline Function- Recreation/Hobbies cooking, gardening, baking Current Functional Impairments (Reported) Functional Limitations- ADL's independent but painful Functional Limitations- Mobility/Gait unable to take walks for exercise or recreation due to pain Functional Limitations- Work/School retired Functional Limitations- Recreation/ painful Hobbies Personal Factors Other Personal Factors That May Effect patient has difficult time Therapy/Recovery relaxing. PT-OP-C Subjective Start: 04/22/20 08:10 Freq: Status: Active Protocol: Document 06/09/20 09:48 SAK (Rec: 06/09/20 10:43 SAK [id number]) OP-PT Subjective Patient Comments Patient Comments Manly good after PT, did some gardening, reports onset of left SI pain 10/ pain, took Gabapentin, layed down. Next day didn't do much, didn't feel any better. By 2 days after able to do exercises. 3 days later, did gentle exercises. Yesterday did pretty well, on and off pain. This am left side aching. States she has been wearing the belt when gardening and doing housework. States she is trying to remember to watch body mechanics PT-OP-F Manual Assessment Start: 04/22/20 08:10 Freq: Status: Active Protocol: Document 04/22/20 10:39 SAK (Rec: 04/22/20 16:52 SAK [id number]) Manual Assessments Soft Tissue Assessment Soft Tissue Mobility Assessment Increased tightness bilateral lumbar and thoracic paraspinals Joint Mobility Assessment Joint Mobility Assessment lumbar not assessed, unable to lay prone, time constraints PT-OP-G Mobility & Gait Start: 04/22/20 08:10 Freq: Status: Active Protocol: Document 04/22/20 10:39 SAK (Rec: 04/22/20 16:52 SAK [id number]) OP Gait Assessment Gait Distance (Feet) 50 Assistive Devices Orthotic/Prosthetic Devices or Brace: No Factors Limiting Gait Function Factors Limiting Gait Function Pain Comments Gait Comments mild trunk lean right PT-OP-H Neuro Start: 04/22/20 08:10 Freq: Status: Active Protocol: Document 04/22/20 10:39 SAK (Rec: 04/22/20 16:52 SAK [id number]) Sensation Evaluation Gross Sensation Gross Sensation WNL PT-OP-J Posture/Palpation/Skin Start: 04/22/20 08:10 Freq: Status: Active Protocol: Document 04/22/20 10:39 SAK (Rec: 04/22/20 16:52 SAK [id number]) Posture Evaluation Position Standing Head/C-Spine Posture Forward Head T-Spine Posture Increased Kyphosis Thorax Posture (R) Prominent L-Spine Posture Rotation Right Shoulder Posture (L) Rounded,(R) Rounded Scapula Posture (L) Protracted,(R) Protracted Arm Posture (L) Internally Rotated,(R) Internally Rotated Pelvis Posture Posterior Tilted Weight Distribution Decreased Wt.Bear on (L) Palpation Assessment Location SI right Palpation Findings Tenderness PT-OP-K Range of Motion Start: 04/22/20 08:10 Freq: Status: Active Protocol: Document 04/22/20 10:39 SAK (Rec: 04/22/20 16:52 SAK [id number]) Lumbar Spine Range of Motion Lumbar Spine Active Degrees Flexion 40 Extension 0 Rotation Left 25 Rotation Right 20 Lateral Flexion Left 30 Lateral Flexion Right 35 ROM Limitations Soft Tissue Tightness,Pain Hip Goniometric Range of Motion Hip Measured in Degrees Left Testing Position Supine Flexion w/Knee Flexed 105 Straight Leg Raise 55 Extension 0 Internal Rotation 30 External Rotation 40 Right Testing Position Supine Flexion w/Knee Flexed 100 Straight Leg Raise 65 Extension 0 Internal Rotation 10 External Rotation 40 Hip ROM Limitations Hip ROM Limitations Soft Tissue Tightness,Pain Knee Goniometric Range of Motion Knee Measured in Degrees FORD Knee ROM WFL Yes Ankle and Foot Goniometric Range of Motion Ankle and Foot Measured in Degrees FORD Ankle/Foot ROM WFL Yes PT-OP-L Special Tests Start: 04/22/20 08:10 Freq: Status: Active Protocol: Document 04/22/20 10:39 SAK (Rec: 04/22/20 16:52 SAK [id number]) Special Tests Hip Special Tests Leonel Test Results positive for muscle tightness ford Straight Leg Raise Test Results negative ford ALLA Test Results negative ford PT-OP-M Strength Start: 04/22/20 08:10 Freq: Status: Active Protocol: Document 04/22/20 10:39 [facility] (Rec: 04/22/20 16:52 [facility] [id number]) Trunk Strength Trunk Manual Muscle Testing Testing Position Supine Flexion 3+ Fair+ Core Stabilization poor ability to activate TrA and multifidi Hip Strength Hip Manual Muscle Testing Right Flexion (L2) 4- Good- Abduction 4 Good External Rotation 4- Good- Internal Rotation 4 Good Left Flexion (L2) 3+ Fair+ Abduction 4 Good External Rotation 4- Good- Internal Rotation 4 Good Knee Strength Knee Manual Muscle Testing ford Flexion (S2) 5 Normal Extension (L3) 5 Normal Ankle/Foot Strength Ankle and Foot Manual Muscle Testing ford Dorsiflexion (L4) 5 Normal Plantarflexion (S1) 5 Normal PT-OP-T Assessment and Plan Start: 04/22/20 08:10 Freq: Status: Active Protocol: Document 06/09/20 09:48 [facility] (Rec: 06/09/20 10:43 [facility] [id number]) Physical Therapy Assessment Goals Three Impairment weakness throughout trunk [facility] Goal (LTG) Patient to be independent and compliant to HEP and demonstrate improvement in trunk strength to at least 4/5 and and demonstrate good core stabilization ability statically and dynamically with function LTG Duration 07/21/20 Two Impairment postural dysfunction with poor awareness of neutral [facility] Goal (LTG) Patient to be independent and compliant with HEP to address postural dysfunction and demonstrate good understanding of neutral posture, and be able to self-identify her unhealthy habitual postures and positioning. LTG Duration 07/21/20 One Impairment activity intolerance with patient unable to take walks Explosive Operator Goal (LTG) Patient to report ability to stand and walk for at least 30 min without an increase in pain LTG Duration 07/21/20 Assessment Summary Assessment Patient frustrated with how easily her pain is exacerbated , wants to be able to take walks and do more activity. Demonstrated good understanding of modification of ther ex depending on symptoms. Instructed to try heat in am as well as after activity (doesn't tolerate ice ), and do stretching after activity or when feeling sore. Physical Therapy Plan Frequency and Duration Frequency of Treatment 2x/Week Duration of Treatment 12 weeks Plan of Care Start Date 04/22/20 Plan of Care End Date 07/21/20 Therapeutic Interventions Therapeutic Interventions Home Exercise Program,Joint Mobilizations,Manual Therapy, Patient/Caregiver Education, Self-Care/Home Management,Soft Tissue Mobilization,Taping, Therapeutic Activities, Therapeutic Exercises Modalities Electric Stimulation,Hot Packs Next Visit Focus/Plan Next Note Type Treatment Note Next Visit Plan Pelvic realignment exercises, begin with sport cord. Recheck leg length.
--- NOTE | 2020-06-11 16:42 | PT.OTN ---
Current Diagnoses Sacrococcygeal disorders, not elsewhere classified (06/11/20) Other dorsalgia (06/11/20) Abnormal posture (06/11/20) Weakness (06/11/20) Physical Therapy Treatment Note PT-OP-A Visit Information Start: 04/22/20 08:10 Freq: Status: Active Protocol: Document 06/11/20 11:14 SAK (Rec: 06/11/20 12:03 SAK [id number]) Out-Patient Physical Therapy Visit Information Visit Information Visit Type Treatment Note Visit Start Time 11:15 Visit Stop Time 12:02 Total Visit Minutes 47 Visit Number 13 Number of TEACHERS' ASSISTANT Visits 0 PT-OP-B Current Condition Start: 04/22/20 08:10 Freq: Status: Active Protocol: Document 04/22/20 10:39 SAK (Rec: 04/22/20 11:35 SAK [id number]) Current Condition History of Current Condition Onset Date years Current Complaints pain L45 and SI joint History of Current Condition Long history of LBP and SI pain, scoliosis lumbar right convex L45, left convex upper lumber, spondylosis, spondylolisthesis L2-3, injection SI august 2019, L45 July 2019; neither helpful. Previously injections have been helpful; historically has had injections every year to 1 1/2 years to SI with good results. Denies N/T, legs giving way. Wears [place] brace when gardening but states she doesn't tend to think about using it indoors even though housework increases her pain. Reports unable to take walks anymore due to pain. Doesn't weaR any shoe or heel lift, though reports she remembers PT giving her cork for use in her shoe to even her leg length; hasn't worn for a long time. States she has started doing some exercises; pelvic tilt, lunges, leg lifts , HS stretches, but not consistent. Standing hamstring stretch painful. Can't get down to the floor or lay on her hands and knees. Sleeping generally ok. Spends a lot of time sitting due to pain after self -care and minimal housework. Always sleeps on right side, sometimes wakes in pain, other days can do an hour or two of mild activity and then has to sit rest of day. FEels heat helpful short term, hasn't tried TENS unit that she and her bought; brought to PT today. Prior Treatments and Tests Progressive dextroscoliosis since 11/23/17 Lumbar spine x-ray: Severe multilevel lumbar spondylosis and facet arthropathy, progressed since the prior study.. Grade 1 retrolisthesis of L2 on L3, which has progressed since prior study. Future Testing and Treatments Planned No appointments scheduled at this time. Prior Functional Status Baseline Function- ADL's Modified Independent Baseline Function- Mobility Modified Independent Baseline Function- Gait able to take walks Baseline Function- Work/School retired Baseline Function- Recreation/Hobbies cooking, gardening, baking Current Functional Impairments (Reported) Functional Limitations- ADL's independent but painful Functional Limitations- Mobility/Gait unable to take walks for exercise or recreation due to pain Functional Limitations- Work/School retired Functional Limitations- Recreation/ painful Hobbies Personal Factors Other Personal Factors That May Effect patient has difficult time Therapy/Recovery relaxing. PT-OP-C Subjective Start: 04/22/20 08:10 Freq: Status: Active Protocol: Document 06/11/20 11:14 [facility] (Rec: 06/11/20 12:03 [facility] [id number]) OP-PT Subjective Patient Comments Patient Comments States took PT advice, to rest a little more often and stretch when sore. Success good after last PT session, best day in awhile yesterday, able to do more including walked on treadmill for 7 min. PT-OP-F Manual Assessment Start: 04/22/20 08:10 Freq: Status: Active Protocol: Document 04/22/20 10:39 SAK (Rec: 04/22/20 16:52 [facility] [id number]) Manual Assessments Soft Tissue Assessment Soft Tissue Mobility Assessment Increased tightness bilateral lumbar and thoracic paraspinals Joint Mobility Assessment Joint Mobility Assessment lumbar not assessed, unable to lay prone, time constraints PT-OP-G Mobility & Gait Start: 04/22/20 08:10 Freq: Status: Active Protocol: Document 04/22/20 10:39 SAK (Rec: 04/22/20 16:52 [facility] [id number]) OP Gait Assessment Gait Distance (Feet) 50 Assistive Devices Orthotic/Prosthetic Devices or Brace: No Factors Limiting Gait Function Factors Limiting Gait Function Pain Comments Gait Comments mild trunk lean right PT-OP-H Neuro Start: 04/22/20 08:10 Freq: Status: Active Protocol: Document 04/22/20 10:39 SAK (Rec: 04/22/20 16:52 SAK [id number]) Sensation Evaluation Gross Sensation Gross Sensation WNL PT-OP-J Posture/Palpation/Skin Start: 04/22/20 08:10 Freq: Status: Active Protocol: Document 04/22/20 10:39 SAK (Rec: 04/22/20 16:52 SAK [id number]) Posture Evaluation Position Standing Head/C-Spine Posture Forward Head T-Spine Posture Increased Kyphosis Thorax Posture (R) Prominent L-Spine Posture Rotation Right Shoulder Posture (L) Rounded,(R) Rounded Scapula Posture (L) Protracted,(R) Protracted Arm Posture (L) Internally Rotated,(R) Internally Rotated Pelvis Posture Posterior Tilted Weight Distribution Decreased Wt.Bear on (L) Palpation Assessment Location SI right Palpation Findings Tenderness PT-OP-K Range of Motion Start: 04/22/20 08:10 Freq: Status: Active Protocol: Document 04/22/20 10:39 SAK (Rec: 04/22/20 16:52 SAK [id number]) Lumbar Spine Range of Motion Lumbar Spine Active Degrees Flexion 40 Extension 0 Rotation Left 25 Rotation Right 20 Lateral Flexion Left 30 Lateral Flexion Right 35 ROM Limitations Soft Tissue Tightness,Pain Hip Goniometric Range of Motion Hip Left Testing Position Supine Flexion w/Knee Flexed 105 Straight Leg Raise 55 Extension 0 Internal Rotation 30 External Rotation 40 Right Testing Position Supine Flexion w/Knee Flexed 100 Straight Leg Raise 65 Extension 0 Internal Rotation 10 External Rotation 40 Hip ROM Limitations Hip ROM Limitations Soft Tissue Tightness,Pain Knee Goniometric Range of Motion Knee FORD Knee ROM WFL Yes Ankle and Foot Goniometric Range of Motion Ankle and Foot FORD Ankle/Foot ROM WFL Yes PT-OP-L Special Tests Start: 04/22/20 08:10 Freq: Status: Active Protocol: Document 04/22/20 10:39 SAK (Rec: 04/22/20 16:52 SAK [id number]) Special Tests Hip Special Tests Leonel Test Results positive for muscle tightness ford Straight Leg Raise Test Results negative ford ALLA Test Results negative ford PT-OP-M Strength Start: 04/22/20 08:10 Freq: Status: Active Protocol: Document 04/22/20 10:39 SAK (Rec: 04/22/20 16:52 SAK [id number]) Trunk Strength Trunk Manual Muscle Testing Testing Position Supine Flexion 3+ Fair+ Core Stabilization poor ability to activate TrA and multifidi Hip Strength Hip Manual Muscle Testing Right Flexion (L2) 4- Good- Abduction 4 Good External Rotation 4- Good- Internal Rotation 4 Good Left Flexion (L2) 3+ Fair+ Abduction 4 Good External Rotation 4- Good- Internal Rotation 4 Good Knee Strength Knee Manual Muscle Testing ford Flexion (S2) 5 Normal Extension (L3) 5 Normal Ankle/Foot Strength Ankle and Foot Manual Muscle Testing ford Dorsiflexion (L4) 5 Normal Plantarflexion (S1) 5 Normal PT-OP-Q Treatments Start: 04/22/20 08:10 Freq: Status: Active Protocol: Document 06/11/20 11:14 MARY (Rec: 06/11/20 12:03 [facility] [id number]) Cardio Equipment Recumbent Stepper (Sci-Fit) Duration (Minutes) 8 Resistance 2 Seat Position 10 Gym Equipment Sport Cord 1 Exercise Details fwd, side, backward Cord/Resistance green Reps/Duration 5x Comments cues for core activation, postural alignment including foot alignment. Therapeutic Exercises Supine Exercises pelvic realignment series Supine Exercise Name ball squeeze, single leg pelvis lift, press hold ex leg at 90/90 Reps/Minutes 5x ea Sitting Exercises HS stretch Side bilateral Reps/Minutes x30 sec Comments cued straight back figure 4 stretch Side bilateral Reps/Minutes 2x30 Standing Exercises squat/sit to stand Equipment Used yardstick Reps/Minutes 10x Comments cues for alignment, hip hinge wall pull aways Reps/Minutes 10x wall posture Standing Exercise Name roll ups Reps/Minutes 5 min Comments Cued TA/PPT awareness, CS neutral, shoulders up, down, back Neuro Re-Education Treatment Movement Re-Education Movement Re-education Activities Proper body mechanics and lifting techniques for gardening; further review Self-Care/Home Management Treatment Education Patient Education Body Mechanics,Home Exercise Program,Posture PT-OP-R Modalities Start: 04/22/20 08:10 Freq: Status: Active Protocol: Document 06/11/20 11:14 [facility] (Rec: 06/11/20 12:03 [facility] [id number]) Hot Pack/Cold Pack Treatment Hot Pack Comments refused due to time constraints PT-OP-T Assessment and Plan Start: 04/22/20 08:10 Freq: Status: Active Protocol: Document 06/11/20 11:14 [facility] (Rec: 06/11/20 16:39 [facility] [id number]) Physical Therapy Assessment Goals Three Impairment weakness throughout trunk Special Education Instructor Goal (LTG) Patient to be independent and compliant to HEP and demonstrate improvement in trunk strength to at least 4/5 and and demonstrate good core stabilization ability statically and dynamically with function 06/09/20: Goal progress LTG Duration 07/21/20 Two Impairment postural dysfunction with poor awareness of neutral [facility] Goal (LTG) Patient to be independent and compliant with HEP to address postural dysfunction and demonstrate good understanding of neutral posture, and be able to self-identify her unhealthy habitual postures and positioning. 06/09/20: goal progress, has tendency still to have increased weight-bearing left, trunk lean right LTG Duration 07/21/20 One Impairment activity intolerance with patient unable to take walks Special Education Instructor Goal (LTG) Patient to report ability to stand and walk for at least 30 min without an increase in pain 06/09/20: minimal goal progress at this time per patient report LTG Duration 07/21/20 Assessment Summary Assessment Patient with less pain today, though SI still very irritable . Was able to walk x 7 min on treadmill with min to no increase in pain. Good compliance to modification of activity and use of heat and stretching throughout day as recommended. Fair tolerance to pelvic realignment exercises, instructed to discontinue if painful. Patient to continue with HEP and self-care and return for follow-up appointment in 3-4 weeks. Demonstrates good understanding of HEP and body mechanics and posture principles. Physical Therapy Plan Frequency and Duration Frequency of Treatment 2x/Week Duration of Treatment 12 weeks Plan of Care Start Date 04/22/20 Plan of Care End Date 07/21/20 Therapeutic Interventions Therapeutic Interventions Home Exercise Program,Joint Mobilizations,Manual Therapy, Patient/Caregiver Education, Self-Care/Home Management,Soft Tissue Mobilization,Taping, Therapeutic Activities, Therapeutic Exercises Modalities Electric Stimulation,Hot Packs Next Visit Focus/Plan Next Note Type Re-Evaluation Next Visit Plan See patient for follow-up appointment in 3-4 weeks to assess progress and compliance and determine need for any further PT.
--- NOTE | 2020-07-03 17:16 | PT.OTN ---
Current Diagnoses Sacrococcygeal disorders, not elsewhere classified (07/03/20) Other dorsalgia (07/03/20) Abnormal posture (07/03/20) Weakness (07/03/20) Physical Therapy Treatment Note PT-OP-A Visit Information Start: 04/22/20 08:10 Freq: Status: Active Protocol: Document 07/03/20 08:14 SAK (Rec: 07/07/20 17:16 SAK [id number]) Out-Patient Physical Therapy Visit Information Visit Information Visit Type Treatment Note Visit Start Time 08:15 Visit Stop Time 09:15 Total Visit Minutes 60 Visit Number 14 Number of EDGE BONDER Visits 0 PT-OP-B Current Condition Start: 04/22/20 08:10 Freq: Status: Active Protocol: Document 04/22/20 10:39 SAK (Rec: 04/22/20 11:35 SAK [id number]) Current Condition History of Current Condition Onset Date years Current Complaints pain L45 and SI joint History of Current Condition Long history of LBP and SI pain, scoliosis lumbar right convex L45, left convex upper lumber, spondylosis, spondylolisthesis L2-3, injection SI august 2019, L45 July 2019; neither helpful. Previously injections have been helpful; historically has had injections every year to 1 1/2 years to SI with good results. Denies N/T, legs giving way. Wears [place] brace when gardening but states she doesn't tend to think about using it indoors even though housework increases her pain. Reports unable to take walks anymore due to pain. Doesn't weaR any shoe or heel lift, though reports she remembers PT giving her cork for use in her shoe to even her leg length; hasn't worn for a long time. States she has started doing some exercises; pelvic tilt, lunges, leg lifts , HS stretches, but not consistent. Standing hamstring stretch painful. Can't get down to the floor or lay on her hands and knees. Sleeping generally ok. Spends a lot of time sitting due to pain after self -care and minimal housework. Always sleeps on right side, sometimes wakes in pain, other days can do an hour or two of mild activity and then has to sit rest of day. FEels heat helpful short term, hasn't tried TENS unit that she and her bought; brought to PT today. Prior Treatments and Tests Progressive dextroscoliosis since 11/23/17 Lumbar spine x-ray: Severe multilevel lumbar spondylosis and facet arthropathy, progressed since the prior study.. Grade 1 retrolisthesis of L2 on L3, which has progressed since prior study. Future Testing and Treatments Planned No appointments scheduled at this time. Prior Functional Status Baseline Function- ADL's Modified Independent Baseline Function- Mobility Modified Independent Baseline Function- Gait able to take walks Baseline Function- Work/School retired Baseline Function- Recreation/Hobbies cooking, gardening, baking Current Functional Impairments (Reported) Functional Limitations- ADL's independent but painful Functional Limitations- Mobility/Gait unable to take walks for exercise or recreation due to pain Functional Limitations- Work/School retired Functional Limitations- Recreation/ painful Hobbies Personal Factors Other Personal Factors That May Effect patient has difficult time Therapy/Recovery relaxing. PT-OP-C Subjective Start: 04/22/20 08:10 Freq: Status: Active Protocol: Document 07/03/20 08:17 SAK (Rec: 07/03/20 09:01 [facility] [id number]) OP-PT Subjective Patient Comments Patient Comments Good in am, trying to wear SI belt more, use heat, modify activity. Still 3-4 days where nothing helps. About the same frequency of bad days, still uncertain what causes the increase in pain. Had one walk for 17 minutes. Went to orthodox, uncomfortable chairs PT-OP-F Manual Assessment Start: 04/22/20 08:10 Freq: Status: Active Protocol: Document 04/22/20 10:39 SAK (Rec: 04/22/20 16:52 [facility] [id number]) Manual Assessments Soft Tissue Assessment Soft Tissue Mobility Assessment Increased tightness bilateral lumbar and thoracic paraspinals Joint Mobility Assessment Joint Mobility Assessment lumbar not assessed, unable to lay prone, time constraints PT-OP-G Mobility & Gait Start: 04/22/20 08:10 Freq: Status: Active Protocol: Document 04/22/20 10:39 SAK (Rec: 04/22/20 16:52 [facility] [id number]) OP Gait Assessment Gait Distance (Feet) 50 Assistive Devices Orthotic/Prosthetic Devices or Brace: No Factors Limiting Gait Function Factors Limiting Gait Function Pain Comments Gait Comments mild trunk lean right PT-OP-H Neuro Start: 04/22/20 08:10 Freq: Status: Active Protocol: Document 04/22/20 10:39 SAK (Rec: 04/22/20 16:52 SAK [id number]) Sensation Evaluation Gross Sensation Gross Sensation WNL PT-OP-J Posture/Palpation/Skin Start: 04/22/20 08:10 Freq: Status: Active Protocol: Document 04/22/20 10:39 SAK (Rec: 04/22/20 16:52 SAK [id number]) Posture Evaluation Position Standing Head/C-Spine Posture Forward Head T-Spine Posture Increased Kyphosis Thorax Posture (R) Prominent L-Spine Posture Rotation Right Shoulder Posture (L) Rounded,(R) Rounded Scapula Posture (L) Protracted,(R) Protracted Arm Posture (L) Internally Rotated,(R) Internally Rotated Pelvis Posture Posterior Tilted Weight Distribution Decreased Wt.Bear on (L) Palpation Assessment Location SI right Palpation Findings Tenderness PT-OP-K Range of Motion Start: 04/22/20 08:10 Freq: Status: Active Protocol: Document 04/22/20 10:39 SAK (Rec: 04/22/20 16:52 [facility] [id number]) Lumbar Spine Range of Motion Lumbar Spine Active Degrees Flexion 40 Extension 0 Rotation Left 25 Rotation Right 20 Lateral Flexion Left 30 Lateral Flexion Right 35 ROM Limitations Soft Tissue Tightness,Pain Hip Goniometric Range of Motion Hip Left Testing Position Supine Flexion w/Knee Flexed 105 Straight Leg Raise 55 Extension 0 Internal Rotation 30 External Rotation 40 Right Testing Position Supine Flexion w/Knee Flexed 100 Straight Leg Raise 65 Extension 0 Internal Rotation 10 External Rotation 40 Hip ROM Limitations Hip ROM Limitations Soft Tissue Tightness,Pain Knee Goniometric Range of Motion Knee FORD Knee ROM WFL Yes Ankle and Foot Goniometric Range of Motion Ankle and Foot FORD Ankle/Foot ROM WFL Yes PT-OP-L Special Tests Start: 04/22/20 08:10 Freq: Status: Active Protocol: Document 04/22/20 10:39 SAK (Rec: 04/22/20 16:52 SAK [id number]) Special Tests Hip Special Tests Leonel Test Results positive for muscle tightness ford Straight Leg Raise Test Results negative ford ALLA Test Results negative ford PT-OP-M Strength Start: 04/22/20 08:10 Freq: Status: Active Protocol: Document 04/22/20 10:39 SAK (Rec: 04/22/20 16:52 [facility] [id number]) Trunk Strength Trunk Manual Muscle Testing Testing Position Supine Flexion 3+ Fair+ Core Stabilization poor ability to activate TrA and multifidi Hip Strength Hip Manual Muscle Testing Right Flexion (L2) 4- Good- Abduction 4 Good External Rotation 4- Good- Internal Rotation 4 Good Left Flexion (L2) 3+ Fair+ Abduction 4 Good External Rotation 4- Good- Internal Rotation 4 Good Knee Strength Knee Manual Muscle Testing ford Flexion (S2) 5 Normal Extension (L3) 5 Normal Ankle/Foot Strength Ankle and Foot Manual Muscle Testing ford Dorsiflexion (L4) 5 Normal Plantarflexion (S1) 5 Normal PT-OP-Q Treatments Start: 04/22/20 08:10 Freq: Status: Active Protocol: Document 07/03/20 08:17 [facility] (Rec: 07/03/20 09:01 [facility] [id number]) Gym Equipment Sport Cord 1 Exercise Details fwd Cord/Resistance green Reps/Duration 5x Comments cues for core activation, postural alignment including foot alignment. Therapeutic Exercises Supine Exercises pelvic realignment series Supine Exercise Name ball squeeze, single leg pelvis lift, press hold ex leg at 90/90 Reps/Minutes 5x ea trunk rotation w/ exercise ball Side bilateral Equipment Used exercise ball Reps/Minutes 10x5 sec Comments cued for core facilitation, PPT and breathing Sitting Exercises HS stretch Side bilateral Reps/Minutes x30 sec Comments cued straight back figure 4 stretch Side bilateral Reps/Minutes 2x30 Standing Exercises squat/sit to stand Equipment Used yardstick Reps/Minutes 10x Comments cues for alignment, hip hinge wall posture Standing Exercise Name roll ups Reps/Minutes 5 min Comments Cued TA/PPT awareness, CS neutral, shoulders up, down, back Self-Care/Home Management Treatment Education Patient Education Body Mechanics,Home Exercise Program,Pain Management, Posture Other Education option for doing many ther ex sitting instead of standing if needed including wall pull aways in chair if not tolerating standing well. PT-OP-R Modalities Start: 04/22/20 08:10 Freq: Status: Active Protocol: Document 07/03/20 08:14 [facility] (Rec: 07/07/20 17:16 [facility] [id number]) Hot Pack/Cold Pack Treatment Hot Pack Location lumbar spine Patient Position Hooklying Treatment Duration (minutes) 15 Patient Tolerance Good PT-OP-T Assessment and Plan Start: 04/22/20 08:10 Freq: Status: Active Protocol: Document 07/03/20 08:17 MARY (Rec: 07/03/20 09:01 [facility] [id number]) Physical Therapy Assessment Goals Three Impairment weakness throughout trunk Lymphedema Therapist Goal (LTG) Patient to be independent and compliant to HEP and demonstrate improvement in trunk strength to at least 4/5 and and demonstrate good core stabilization ability statically and dynamically with function 06/09/20: Goal progress LTG Duration 07/21/20 Two Impairment postural dysfunction with poor awareness of neutral Lymphedema Therapist Goal (LTG) Patient to be independent and compliant with HEP to address postural dysfunction and demonstrate good understanding of neutral posture, and be able to self-identify her unhealthy habitual postures and positioning. 06/09/20: goal progress, has tendency still to have increased weight-bearing left, trunk lean right LTG Duration 07/21/20 One Impairment activity intolerance with patient unable to take walks Lymphedema Therapist Goal (LTG) Patient to report ability to stand and walk for at least 30 min without an increase in pain 06/09/20: minimal goal progress at this time per patient report LTG Duration 07/21/20 Assessment Summary Assessment Patient highly compliant to HEP, demonstrating some functional improvements and is demonstrating improved awareness of postural alignment and postural habits. Progress is slow due to severity of scoliosis and and compensatory movements and positioning. Patient highly motivated and has potential for further improvement. Physical Therapy Plan Frequency and Duration Frequency of Treatment 2x/Week Duration of Treatment 12 weeks Plan of Care Start Date 04/22/20 Plan of Care End Date 07/21/20 Therapeutic Interventions Therapeutic Interventions Home Exercise Program,Joint Mobilizations,Manual Therapy, Patient/Caregiver Education, Self-Care/Home Management,Soft Tissue Mobilization,Taping, Therapeutic Activities, Therapeutic Exercises Modalities Electric Stimulation,Hot Packs Next Visit Focus/Plan Next Note Type Treatment Note Next Visit Plan Core strengthening as tolerated in all positions, functional standing and walking ex as tolerated.
--- NOTE | 2020-07-08 16:13 | PT.OTN ---
Current Diagnoses Sacrococcygeal disorders, not elsewhere classified (07/08/20) Other dorsalgia (07/08/20) Abnormal posture (07/08/20) Weakness (07/08/20) Physical Therapy Treatment Note PT-OP-A Visit Information Start: 04/22/20 08:10 Freq: Status: Active Protocol: Document 07/08/20 15:12 SAK (Rec: 07/08/20 16:13 SAK [id number]) Out-Patient Physical Therapy Visit Information Visit Information Visit Type Treatment Note Visit Start Time 15:15 Visit Stop Time 16:01 Total Visit Minutes 46 Visit Number 15 Number of DIRECTOR INSTITUTION Visits 0 PT-OP-B Current Condition Start: 04/22/20 08:10 Freq: Status: Active Protocol: Document 04/22/20 10:39 SAK (Rec: 04/22/20 11:35 SAK [id number]) Current Condition History of Current Condition Onset Date years Current Complaints pain L45 and SI joint History of Current Condition Long history of LBP and SI pain, scoliosis lumbar right convex L45, left convex upper lumber, spondylosis, spondylolisthesis L2-3, injection SI august 2019, L45 July 2019; neither helpful. Previously injections have been helpful; historically has had injections every year to 1 1/2 years to SI with good results. Denies N/T, legs giving way. Wears [place] brace when gardening but states she doesn't tend to think about using it indoors even though housework increases her pain. Reports unable to take walks anymore due to pain. Doesn't weaR any shoe or heel lift, though reports she remembers PT giving her cork for use in her shoe to even her leg length; hasn't worn for a long time. States she has started doing some exercises; pelvic tilt, lunges, leg lifts , HS stretches, but not consistent. Standing hamstring stretch painful. Can't get down to the floor or lay on her hands and knees. Sleeping generally ok. Spends a lot of time sitting due to pain after self -care and minimal housework. Always sleeps on right side, sometimes wakes in pain, other days can do an hour or two of mild activity and then has to sit rest of day. FEels heat helpful short term, hasn't tried TENS unit that she and her bought; brought to PT today. Prior Treatments and Tests Progressive dextroscoliosis since 11/23/17 Lumbar spine x-ray: Severe multilevel lumbar spondylosis and facet arthropathy, progressed since the prior study.. Grade 1 retrolisthesis of L2 on L3, which has progressed since prior study. Future Testing and Treatments Planned No appointments scheduled at this time. Prior Functional Status Baseline Function- ADL's Modified Independent Baseline Function- Mobility Modified Independent Baseline Function- Gait able to take walks Baseline Function- Work/School retired Baseline Function- Recreation/Hobbies cooking, gardening, baking Current Functional Impairments (Reported) Functional Limitations- ADL's independent but painful Functional Limitations- Mobility/Gait unable to take walks for exercise or recreation due to pain Functional Limitations- Work/School retired Functional Limitations- Recreation/ painful Hobbies Personal Factors Other Personal Factors That May Effect patient has difficult time Therapy/Recovery relaxing. PT-OP-C Subjective Start: 04/22/20 08:10 Freq: Status: Active Protocol: Document 07/08/20 15:12 SAK (Rec: 07/08/20 16:13 SAK [id number]) OP-PT Subjective Patient Comments Patient Comments No big changes, supine exercise getting easier PT-OP-F Manual Assessment Start: 04/22/20 08:10 Freq: Status: Active Protocol: Document 04/22/20 10:39 SAK (Rec: 04/22/20 16:52 SAK [id number]) Manual Assessments Soft Tissue Assessment Soft Tissue Mobility Assessment Increased tightness bilateral lumbar and thoracic paraspinals Joint Mobility Assessment Joint Mobility Assessment lumbar not assessed, unable to lay prone, time constraints PT-OP-G Mobility & Gait Start: 04/22/20 08:10 Freq: Status: Active Protocol: Document 04/22/20 10:39 SAK (Rec: 04/22/20 16:52 SAK [id number]) OP Gait Assessment Gait Distance (Feet) 50 Assistive Devices Orthotic/Prosthetic Devices or Brace: No Factors Limiting Gait Function Factors Limiting Gait Function Pain Comments Gait Comments mild trunk lean right PT-OP-H Neuro Start: 04/22/20 08:10 Freq: Status: Active Protocol: Document 04/22/20 10:39 SAK (Rec: 04/22/20 16:52 SAK [id number]) Sensation Evaluation Gross Sensation Gross Sensation WNL PT-OP-J Posture/Palpation/Skin Start: 04/22/20 08:10 Freq: Status: Active Protocol: Document 04/22/20 10:39 SAK (Rec: 04/22/20 16:52 SAK [id number]) Posture Evaluation Position Standing Head/C-Spine Posture Forward Head T-Spine Posture Increased Kyphosis Thorax Posture (R) Prominent L-Spine Posture Rotation Right Shoulder Posture (L) Rounded,(R) Rounded Scapula Posture (L) Protracted,(R) Protracted Arm Posture (L) Internally Rotated,(R) Internally Rotated Pelvis Posture Posterior Tilted Weight Distribution Decreased Wt.Bear on (L) Palpation Assessment Location SI right Palpation Findings Tenderness PT-OP-K Range of Motion Start: 04/22/20 08:10 Freq: Status: Active Protocol: Document 04/22/20 10:39 SAK (Rec: 04/22/20 16:52 SAK [id number]) Lumbar Spine Range of Motion Lumbar Spine Active Degrees Flexion 40 Extension 0 Rotation Left 25 Rotation Right 20 Lateral Flexion Left 30 Lateral Flexion Right 35 ROM Limitations Soft Tissue Tightness,Pain Hip Goniometric Range of Motion Hip Left Testing Position Supine Flexion w/Knee Flexed 105 Straight Leg Raise 55 Extension 0 Internal Rotation 30 External Rotation 40 Right Testing Position Supine Flexion w/Knee Flexed 100 Straight Leg Raise 65 Extension 0 Internal Rotation 10 External Rotation 40 Hip ROM Limitations Hip ROM Limitations Soft Tissue Tightness,Pain Knee Goniometric Range of Motion Knee FORD Knee ROM WFL Yes Ankle and Foot Goniometric Range of Motion Ankle and Foot FORD Ankle/Foot ROM WFL Yes PT-OP-L Special Tests Start: 04/22/20 08:10 Freq: Status: Active Protocol: Document 04/22/20 10:39 SAK (Rec: 04/22/20 16:52 SAK [id number]) Special Tests Hip Special Tests Leonel Test Results positive for muscle tightness ford Straight Leg Raise Test Results negative ford ALLA Test Results negative ford PT-OP-M Strength Start: 04/22/20 08:10 Freq: Status: Active Protocol: Document 04/22/20 10:39 SAK (Rec: 04/22/20 16:52 SAK [id number]) Trunk Strength Trunk Manual Muscle Testing Testing Position Supine Flexion 3+ Fair+ Core Stabilization poor ability to activate TrA and multifidi Hip Strength Hip Manual Muscle Testing Right Flexion (L2) 4- Good- Abduction 4 Good External Rotation 4- Good- Internal Rotation 4 Good Left Flexion (L2) 3+ Fair+ Abduction 4 Good External Rotation 4- Good- Internal Rotation 4 Good Knee Strength Knee Manual Muscle Testing ford Flexion (S2) 5 Normal Extension (L3) 5 Normal Ankle/Foot Strength Ankle and Foot Manual Muscle Testing ford Dorsiflexion (L4) 5 Normal Plantarflexion (S1) 5 Normal PT-OP-Q Treatments Start: 04/22/20 08:10 Freq: Status: Active Protocol: Document 07/08/20 15:12 [facility] (Rec: 07/08/20 16:13 [facility] [id number]) Gym Equipment Sport Cord 1 Exercise Details fwd Cord/Resistance green Reps/Duration 5x Comments cues for core activation, postural alignment including foot alignment. Also end- range weight shifts with gluteal activation Therapeutic Exercises Supine Exercises crunch Reps/Minutes 10x Comments hands behind head supine bent knee lowering Reps/Minutes 10x Comments small movement, cues for core activation supine bent knee march Reps/Minutes 10x Comments cues for core activation postural isometric Reps/Minutes 5x Comments manual cues for shoulder depression and retraction, abdominal corseting pelvic realignment series Supine Exercise Name ball squeeze, single leg pelvis lift, press hold ex leg at 90/90 Reps/Minutes 5x ea bridge Reps/Minutes 5 sec hold x10 Comments modified for smaller motion to eliminate discomfort supine clam Resistance L2 Theraband Reps/Minutes 5x Comments ford and unil Sidelying Exercises hip abduction Reps/Minutes 10x Comments both legs straight, cues for core stab clamshell Reps/Minutes 10x Comments cues for core stab, no body rotation Sitting Exercises HS stretch Side bilateral Reps/Minutes x30 sec Comments cued straight back figure 4 stretch Side bilateral Reps/Minutes 2x30 Standing Exercises squat/sit to stand Reps/Minutes 10x Comments cues for alignment, hip hinge PT-OP-R Modalities Start: 04/22/20 08:10 Freq: Status: Active Protocol: Document 07/08/20 15:12 [facility] (Rec: 07/08/20 16:13 [facility] [id number]) Hot Pack/Cold Pack Treatment Hot Pack Comments refused due to time constraints PT-OP-T Assessment and Plan Start: 04/22/20 08:10 Freq: Status: Active Protocol: Document 07/08/20 15:12 SAK (Rec: 07/08/20 16:13 [facility] [id number]) Physical Therapy Assessment Goals Three Impairment weakness throughout trunk Residential Goal (LTG) Patient to be independent and compliant to HEP and demonstrate improvement in trunk strength to at least 4/5 and and demonstrate good core stabilization ability statically and dynamically with function 06/09/20: Goal progress LTG Duration 07/21/20 Two Impairment postural dysfunction with poor awareness of neutral Residential Goal (LTG) Patient to be independent and compliant with HEP to address postural dysfunction and demonstrate good understanding of neutral posture, and be able to self-identify her unhealthy habitual postures and positioning. 06/09/20: goal progress, has tendency still to have increased weight-bearing left, trunk lean right LTG Duration 07/21/20 One Impairment activity intolerance with patient unable to take walks [employer] Goal (LTG) Patient to report ability to stand and walk for at least 30 min without an increase in pain 06/09/20: minimal goal progress at this time per patient report LTG Duration 07/21/20 Progress Towards Goals Progress Towards Goals Progressing Toward Goals Assessment Summary Assessment Good tolerance for supine and sidelying ther ex with mod cues for technique, denied pain after. Onset of pain with sport cord activities. Physical Therapy Plan Frequency and Duration Frequency of Treatment 2x/Week Duration of Treatment 12 weeks Plan of Care Start Date 04/22/20 Plan of Care End Date 07/21/20 Therapeutic Interventions Therapeutic Interventions Home Exercise Program,Joint Mobilizations,Manual Therapy, Patient/Caregiver Education, Self-Care/Home Management,Soft Tissue Mobilization,Taping, Therapeutic Activities, Therapeutic Exercises Modalities Electric Stimulation,Hot Packs Next Visit Focus/Plan Next Note Type Treatment Note Next Visit Plan Core strengthening as tolerated in all positions, functional standing and walking ex as tolerated.
--- NOTE | 2020-07-10 10:20 | PT.OTN ---
Current Diagnoses Sacrococcygeal disorders, not elsewhere classified (07/10/20) Other dorsalgia (07/10/20) Abnormal posture (07/10/20) Weakness (07/10/20) Physical Therapy Treatment Note PT-OP-A Visit Information Start: 04/22/20 08:10 Freq: Status: Active Protocol: Document 07/10/20 08:17 SAK (Rec: 07/10/20 09:01 SAK [id number]) Out-Patient Physical Therapy Visit Information Visit Information Visit Type Treatment Note Visit Start Time 08:15 Visit Stop Time 16:01 Total Visit Minutes 46 Visit Number 15 Number of CORONER/MEDICAL EXAMINER Visits 0 PT-OP-B Current Condition Start: 04/22/20 08:10 Freq: Status: Active Protocol: Document 04/22/20 10:39 SAK (Rec: 04/22/20 11:35 SAK [id number]) Current Condition History of Current Condition Onset Date years Current Complaints pain L45 and SI joint History of Current Condition Long history of LBP and SI pain, scoliosis lumbar right convex L45, left convex upper lumber, spondylosis, spondylolisthesis L2-3, injection SI august 2019, L45 July 2019; neither helpful. Previously injections have been helpful; historically has had injections every year to 1 1/2 years to SI with good results. Denies N/T, legs giving way. Wears [place] brace when gardening but states she doesn't tend to think about using it indoors even though housework increases her pain. Reports unable to take walks anymore due to pain. Doesn't weaR any shoe or heel lift, though reports she remembers PT giving her cork for use in her shoe to even her leg length; hasn't worn for a long time. States she has started doing some exercises; pelvic tilt, lunges, leg lifts , HS stretches, but not consistent. Standing hamstring stretch painful. Can't get down to the floor or lay on her hands and knees. Sleeping generally ok. Spends a lot of time sitting due to pain after self -care and minimal housework. Always sleeps on right side, sometimes wakes in pain, other days can do an hour or two of mild activity and then has to sit rest of day. FEels heat helpful short term, hasn't tried TENS unit that she and her bought; brought to PT today. Prior Treatments and Tests Progressive dextroscoliosis since 11/23/17 Lumbar spine x-ray: Severe multilevel lumbar spondylosis and facet arthropathy, progressed since the prior study.. Grade 1 retrolisthesis of L2 on L3, which has progressed since prior study. Future Testing and Treatments Planned No appointments scheduled at this time. Prior Functional Status Baseline Function- ADL's Modified Independent Baseline Function- Mobility Modified Independent Baseline Function- Gait able to take walks Baseline Function- Work/School retired Baseline Function- Recreation/Hobbies cooking, gardening, baking Current Functional Impairments (Reported) Functional Limitations- ADL's independent but painful Functional Limitations- Mobility/Gait unable to take walks for exercise or recreation due to pain Functional Limitations- Work/School retired Functional Limitations- Recreation/ painful Hobbies Personal Factors Other Personal Factors That May Effect patient has difficult time Therapy/Recovery relaxing. PT-OP-C Subjective Start: 04/22/20 08:10 Freq: Status: Active Protocol: Document 07/10/20 08:17 SAK (Rec: 07/10/20 09:01 [facility] [id number]) OP-PT Subjective Patient Comments Patient Comments [place] ok for about 30 min after last PT session, then reports increase in pain requiring rest and heat. Yesterday didn 't do too much, except stood to do some cutting, [facility] Reports had difficult time walking at [facility]. Wore SI belt. PT-OP-F Manual Assessment Start: 04/22/20 08:10 Freq: Status: Active Protocol: Document 04/22/20 10:39 SAK (Rec: 04/22/20 16:52 [facility] [id number]) Manual Assessments Soft Tissue Assessment Soft Tissue Mobility Assessment Increased tightness bilateral lumbar and thoracic paraspinals Joint Mobility Assessment Joint Mobility Assessment lumbar not assessed, unable to lay prone, time constraints PT-OP-G Mobility & Gait Start: 04/22/20 08:10 Freq: Status: Active Protocol: Document 04/22/20 10:39 SAK (Rec: 04/22/20 16:52 [facility] [id number]) OP Gait Assessment Gait Distance (Feet) 50 Assistive Devices Orthotic/Prosthetic Devices or Brace: No Factors Limiting Gait Function Factors Limiting Gait Function Pain Comments Gait Comments mild trunk lean right PT-OP-H Neuro Start: 04/22/20 08:10 Freq: Status: Active Protocol: Document 04/22/20 10:39 SAK (Rec: 04/22/20 16:52 SAK [id number]) Sensation Evaluation Gross Sensation Gross Sensation WNL PT-OP-J Posture/Palpation/Skin Start: 04/22/20 08:10 Freq: Status: Active Protocol: Document 04/22/20 10:39 SAK (Rec: 04/22/20 16:52 SAK [id number]) Posture Evaluation Position Standing Head/C-Spine Posture Forward Head T-Spine Posture Increased Kyphosis Thorax Posture (R) Prominent L-Spine Posture Rotation Right Shoulder Posture (L) Rounded,(R) Rounded Scapula Posture (L) Protracted,(R) Protracted Arm Posture (L) Internally Rotated,(R) Internally Rotated Pelvis Posture Posterior Tilted Weight Distribution Decreased Wt.Bear on (L) Palpation Assessment Location SI right Palpation Findings Tenderness PT-OP-K Range of Motion Start: 04/22/20 08:10 Freq: Status: Active Protocol: Document 04/22/20 10:39 SAK (Rec: 04/22/20 16:52 [facility] [id number]) Lumbar Spine Range of Motion Lumbar Spine Active Degrees Flexion 40 Extension 0 Rotation Left 25 Rotation Right 20 Lateral Flexion Left 30 Lateral Flexion Right 35 ROM Limitations Soft Tissue Tightness,Pain Hip Goniometric Range of Motion Hip Left Testing Position Supine Flexion w/Knee Flexed 105 Straight Leg Raise 55 Extension 0 Internal Rotation 30 External Rotation 40 Right Testing Position Supine Flexion w/Knee Flexed 100 Straight Leg Raise 65 Extension 0 Internal Rotation 10 External Rotation 40 Hip ROM Limitations Hip ROM Limitations Soft Tissue Tightness,Pain Knee Goniometric Range of Motion Knee FORD Knee ROM WFL Yes Ankle and Foot Goniometric Range of Motion Ankle and Foot FORD Ankle/Foot ROM WFL Yes PT-OP-L Special Tests Start: 04/22/20 08:10 Freq: Status: Active Protocol: Document 04/22/20 10:39 SAK (Rec: 04/22/20 16:52 SAK [id number]) Special Tests Hip Special Tests Leonel Test Results positive for muscle tightness ford Straight Leg Raise Test Results negative ford ALLA Test Results negative ford PT-OP-M Strength Start: 04/22/20 08:10 Freq: Status: Active Protocol: Document 04/22/20 10:39 SAK (Rec: 04/22/20 16:52 [facility] [id number]) Trunk Strength Trunk Manual Muscle Testing Testing Position Supine Flexion 3+ Fair+ Core Stabilization poor ability to activate TrA and multifidi Hip Strength Hip Manual Muscle Testing Right Flexion (L2) 4- Good- Abduction 4 Good External Rotation 4- Good- Internal Rotation 4 Good Left Flexion (L2) 3+ Fair+ Abduction 4 Good External Rotation 4- Good- Internal Rotation 4 Good Knee Strength Knee Manual Muscle Testing ford Flexion (S2) 5 Normal Extension (L3) 5 Normal Ankle/Foot Strength Ankle and Foot Manual Muscle Testing ford Dorsiflexion (L4) 5 Normal Plantarflexion (S1) 5 Normal PT-OP-Q Treatments Start: 04/22/20 08:10 Freq: Status: Active Protocol: Document 07/10/20 08:17 [facility] (Rec: 07/10/20 09:01 [facility] [id number]) Therapeutic Exercises Supine Exercises crunch Reps/Minutes 10x Comments hands behind head, cues for small movement, core activation postural isometric Reps/Minutes 5x Comments manual cues for shoulder depression and retraction, abdominal corseting bridge Reps/Minutes 5 sec hold x10 supine clam Resistance L2 Theraband Reps/Minutes 5x Comments ford pillow squeeze Reps/Minutes 5x TrA Reps/Minutes 10x Comments with Kegel, breathing. Emphasis on doing throughout day, multiple position Sitting Exercises shoulder extension Resistance L2 TB Reps/Minutes 10x row Resistance L2 TB Reps/Minutes 10x Self-Care/Home Management Treatment Education Patient Education Body Mechanics,Home Exercise Program,Pain Management, Posture Other Education trial less unilateral LE ex today, emphasis on core stabilization with symetrical alignment. Encouraged increased use of heat, try ice, wear SI belt, use TENS unit. PT-OP-R Modalities Start: 04/22/20 08:10 Freq: Status: Active Protocol: Document 07/10/20 08:17 [facility] (Rec: 07/10/20 09:01 [facility] [id number]) Hot Pack/Cold Pack Treatment Hot Pack Location lumbar spine Treatment Duration (minutes) 15 Comments 90/90 position PT-OP-T Assessment and Plan Start: 04/22/20 08:10 Freq: Status: Active Protocol: Document 07/10/20 08:17 [facility] (Rec: 07/10/20 09:01 [facility] [id number]) Physical Therapy Assessment Goals Three Impairment weakness throughout trunk Purse Framer Goal (LTG) Patient to be independent and compliant to HEP and demonstrate improvement in trunk strength to at least 4/5 and and demonstrate good core stabilization ability statically and dynamically with function 06/09/20: Goal progress LTG Duration 07/21/20 Two Impairment postural dysfunction with poor awareness of neutral Purse Framer Goal (LTG) Patient to be independent and compliant with HEP to address postural dysfunction and demonstrate good understanding of neutral posture, and be able to self-identify her unhealthy habitual postures and positioning. 06/09/20: goal progress, has tendency still to have increased weight-bearing left, trunk lean right LTG Duration 07/21/20 One Impairment activity intolerance with patient unable to take walks [facility] Goal (LTG) Patient to report ability to stand and walk for at least 30 min without an increase in pain 06/09/20: minimal goal progress at this time per patient report LTG Duration 07/21/20 Assessment Summary Assessment No sport cord or recumbant elliptical. Focus today on sitting and supine exercise in symmetrical alignment with emphasis on core stab to see if better tolerated. Patient instructed to try ice or heat, TENS, and SI belt more at home. Trial 90/90 position during moist heat today. Physical Therapy Plan Frequency and Duration Frequency of Treatment 2x/Week Duration of Treatment 12 weeks Plan of Care Start Date 04/22/20 Plan of Care End Date 07/21/20 Therapeutic Interventions Therapeutic Interventions Home Exercise Program,Joint Mobilizations,Manual Therapy, Patient/Caregiver Education, Self-Care/Home Management,Soft Tissue Mobilization,Taping, Therapeutic Activities, Therapeutic Exercises Modalities Electric Stimulation,Hot Packs Next Visit Focus/Plan Next Note Type Treatment Note Next Visit Plan Assess response to today's treatment, and patient compliance to use of ice and heat, SI belt, modified ther ex, TENS.
--- NOTE | 2020-07-14 17:12 | PT.OTN ---
Current Diagnoses Sacrococcygeal disorders, not elsewhere classified (07/14/20) Other dorsalgia (07/14/20) Abnormal posture (07/14/20) Weakness (07/14/20) Physical Therapy Treatment Note PT-OP-A Visit Information Start: 04/22/20 08:10 Freq: Status: Active Protocol: Document 07/14/20 16:03 SAK (Rec: 07/14/20 17:12 SAK [id number]) Out-Patient Physical Therapy Visit Information Visit Information Visit Type Treatment Note Visit Start Time 16:01 Visit Stop Time 17:01 Total Visit Minutes 60 Visit Number 17 Number of YARD SPOTTER Visits 0 PT-OP-B Current Condition Start: 04/22/20 08:10 Freq: Status: Active Protocol: Document 04/22/20 10:39 SAK (Rec: 04/22/20 11:35 SAK [id number]) Current Condition History of Current Condition Onset Date years Current Complaints pain L45 and SI joint History of Current Condition Long history of LBP and SI pain, scoliosis lumbar right convex L45, left convex upper lumber, spondylosis, spondylolisthesis L2-3, injection SI august 2019, L45 July 2019; neither helpful. Previously injections have been helpful; historically has had injections every year to 1 1/2 years to SI with good results. Denies N/T, legs giving way. Wears [place] brace when gardening but states she doesn't tend to think about using it indoors even though housework increases her pain. Reports unable to take walks anymore due to pain. Doesn't weaR any shoe or heel lift, though reports she remembers PT giving her cork for use in her shoe to even her leg length; hasn't worn for a long time. States she has started doing some exercises; pelvic tilt, lunges, leg lifts , HS stretches, but not consistent. Standing hamstring stretch painful. Can't get down to the floor or lay on her hands and knees. Sleeping generally ok. Spends a lot of time sitting due to pain after self -care and minimal housework. Always sleeps on right side, sometimes wakes in pain, other days can do an hour or two of mild activity and then has to sit rest of day. FEels heat helpful short term, hasn't tried TENS unit that she and her bought; brought to PT today. Prior Treatments and Tests Progressive dextroscoliosis since 11/23/17 Lumbar spine x-ray: Severe multilevel lumbar spondylosis and facet arthropathy, progressed since the prior study.. Grade 1 retrolisthesis of L2 on L3, which has progressed since prior study. Future Testing and Treatments Planned No appointments scheduled at this time. Prior Functional Status Baseline Function- ADL's Modified Independent Baseline Function- Mobility Modified Independent Baseline Function- Gait able to take walks Baseline Function- Work/School retired Baseline Function- Recreation/Hobbies cooking, gardening, baking Current Functional Impairments (Reported) Functional Limitations- ADL's independent but painful Functional Limitations- Mobility/Gait unable to take walks for exercise or recreation due to pain Functional Limitations- Work/School retired Functional Limitations- Recreation/ painful Hobbies Personal Factors Other Personal Factors That May Effect patient has difficult time Therapy/Recovery relaxing. PT-OP-C Subjective Start: 04/22/20 08:10 Freq: Status: Active Protocol: Document 07/14/20 16:03 [facility] (Rec: 07/14/20 17:12 [facility] [id number]) OP-PT Subjective Patient Comments Patient Comments Patient reports felt better after last session; good tolerance. Had massage later in day of last PT session and had increase in pain after that. Pain currently 2-3/10, did some yardwork. Not too bad. Has some qluestions about HEP. PT-OP-F Manual Assessment Start: 04/22/20 08:10 Freq: Status: Active Protocol: Document 04/22/20 10:39 [facility] (Rec: 04/22/20 16:52 [facility] [id number]) Manual Assessments Soft Tissue Assessment Soft Tissue Mobility Assessment Increased tightness bilateral lumbar and thoracic paraspinals Joint Mobility Assessment Joint Mobility Assessment lumbar not assessed, unable to lay prone, time constraints PT-OP-G Mobility & Gait Start: 04/22/20 08:10 Freq: Status: Active Protocol: Document 04/22/20 10:39 [facility] (Rec: 04/22/20 16:52 [facility] [id number]) OP Gait Assessment Gait Distance (Feet) 50 Assistive Devices Orthotic/Prosthetic Devices or Brace: No Factors Limiting Gait Function Factors Limiting Gait Function Pain Comments Gait Comments mild trunk lean right PT-OP-H Neuro Start: 04/22/20 08:10 Freq: Status: Active Protocol: Document 04/22/20 10:39 SAK (Rec: 04/22/20 16:52 SAK [id number]) Sensation Evaluation Gross Sensation Gross Sensation WNL PT-OP-J Posture/Palpation/Skin Start: 04/22/20 08:10 Freq: Status: Active Protocol: Document 04/22/20 10:39 SAK (Rec: 04/22/20 16:52 SAK [id number]) Posture Evaluation Position Standing Head/C-Spine Posture Forward Head T-Spine Posture Increased Kyphosis Thorax Posture (R) Prominent L-Spine Posture Rotation Right Shoulder Posture (L) Rounded,(R) Rounded Scapula Posture (L) Protracted,(R) Protracted Arm Posture (L) Internally Rotated,(R) Internally Rotated Pelvis Posture Posterior Tilted Weight Distribution Decreased Wt.Bear on (L) Palpation Assessment Location SI right Palpation Findings Tenderness PT-OP-K Range of Motion Start: 04/22/20 08:10 Freq: Status: Active Protocol: Document 04/22/20 10:39 SAK (Rec: 04/22/20 16:52 SAK [id number]) Lumbar Spine Range of Motion Lumbar Spine Active Degrees Flexion 40 Extension 0 Rotation Left 25 Rotation Right 20 Lateral Flexion Left 30 Lateral Flexion Right 35 ROM Limitations Soft Tissue Tightness,Pain Hip Goniometric Range of Motion Hip Left Testing Position Supine Flexion w/Knee Flexed 105 Straight Leg Raise 55 Extension 0 Internal Rotation 30 External Rotation 40 Right Testing Position Supine Flexion w/Knee Flexed 100 Straight Leg Raise 65 Extension 0 Internal Rotation 10 External Rotation 40 Hip ROM Limitations Hip ROM Limitations Soft Tissue Tightness,Pain Knee Goniometric Range of Motion Knee FORD Knee ROM WFL Yes Ankle and Foot Goniometric Range of Motion Ankle and Foot FORD Ankle/Foot ROM WFL Yes PT-OP-L Special Tests Start: 04/22/20 08:10 Freq: Status: Active Protocol: Document 04/22/20 10:39 SAK (Rec: 04/22/20 16:52 SAK [id number]) Special Tests Hip Special Tests Leonel Test Results positive for muscle tightness ford Straight Leg Raise Test Results negative ford ALLA Test Results negative ford PT-OP-M Strength Start: 04/22/20 08:10 Freq: Status: Active Protocol: Document 04/22/20 10:39 SAK (Rec: 04/22/20 16:52 [facility] [id number]) Trunk Strength Trunk Manual Muscle Testing Testing Position Supine Flexion 3+ Fair+ Core Stabilization poor ability to activate TrA and multifidi Hip Strength Hip Manual Muscle Testing Right Flexion (L2) 4- Good- Abduction 4 Good External Rotation 4- Good- Internal Rotation 4 Good Left Flexion (L2) 3+ Fair+ Abduction 4 Good External Rotation 4- Good- Internal Rotation 4 Good Knee Strength Knee Manual Muscle Testing ford Flexion (S2) 5 Normal Extension (L3) 5 Normal Ankle/Foot Strength Ankle and Foot Manual Muscle Testing ford Dorsiflexion (L4) 5 Normal Plantarflexion (S1) 5 Normal PT-OP-Q Treatments Start: 04/22/20 08:10 Freq: Status: Active Protocol: Document 07/14/20 16:03 [facility] (Rec: 07/14/20 17:12 [facility] [id number]) Therapeutic Exercises Supine Exercises crunch Reps/Minutes 10x Comments hands behind head, cues for small movement, core activation supine bent knee lowering Reps/Minutes 10x Comments small movement, cues for core activation supine bent knee march Reps/Minutes 10x Comments cues for core activation postural isometric Reps/Minutes 5x Comments manual cues for shoulder depression and retraction, abdominal corseting pec stretch Supine Exercise Name w/ knees bent Side bilateral Resistance table Reps/Minutes 2x 30 Comments cued PPT awareness and increase range w/ tolerance bridge Reps/Minutes 5 sec hold x10 lateral sidebend stretch Reps/Minutes 3x10 Sitting Exercises posture correction and isometric Resistance manual Comments mirror for visual feedback, some with eyes closed Self-Care/Home Management Treatment Education Patient Education Body Mechanics,Home Exercise Program,Pain Management, Posture PT-OP-R Modalities Start: 04/22/20 08:10 Freq: Status: Active Protocol: Document 07/14/20 16:03 [facility] (Rec: 07/14/20 17:12 [facility] [id number]) Hot Pack/Cold Pack Treatment Hot Pack Location lumbar spine Treatment Duration (minutes) 15 Comments 90/90 position PT-OP-T Assessment and Plan Start: 04/22/20 08:10 Freq: Status: Active Protocol: Document 07/14/20 16:03 [facility] (Rec: 07/14/20 17:12 [facility] [id number]) Physical Therapy Assessment Goals Three Impairment weakness throughout trunk Typecasting Machine Operator Goal (LTG) Patient to be independent and compliant to HEP and demonstrate improvement in trunk strength to at least 4/5 and and demonstrate good core stabilization ability statically and dynamically with function 06/09/20: Goal progress LTG Duration 07/21/20 Two Impairment postural dysfunction with poor awareness of neutral Typecasting Machine Operator Goal (LTG) Patient to be independent and compliant with HEP to address postural dysfunction and demonstrate good understanding of neutral posture, and be able to self-identify her unhealthy habitual postures and positioning. 06/09/20: goal progress, has tendency still to have increased weight-bearing left, trunk lean right LTG Duration 07/21/20 One Impairment activity intolerance with patient unable to take walks Typecasting Machine Operator Goal (LTG) Patient to report ability to stand and walk for at least 30 min without an increase in pain 06/09/20: minimal goal progress at this time per patient report LTG Duration 07/21/20 Assessment Summary Assessment Patient demonstrating improvement in postural alignment and technique with HEP. Needed occasional cues for postural correction of habitual left sidebending of head and trunk into left lumbar convexity Physical Therapy Plan Frequency and Duration Frequency of Treatment 2x/Week Duration of Treatment 12 weeks Plan of Care Start Date 04/22/20 Plan of Care End Date 07/21/20 Therapeutic Interventions Therapeutic Interventions Home Exercise Program,Joint Mobilizations,Manual Therapy, Patient/Caregiver Education, Self-Care/Home Management,Soft Tissue Mobilization,Taping, Therapeutic Activities, Therapeutic Exercises Modalities Electric Stimulation,Hot Packs Next Visit Focus/Plan Next Note Type Treatment Note Next Visit Plan Anticipate next visit last session, review HEP, answer further questions, give information on progressing HEP as tolerates.
--- NOTE | 2020-07-16 16:53 | PT.OTN ---
Current Diagnoses Sacrococcygeal disorders, not elsewhere classified (07/16/20) Other dorsalgia (07/16/20) Abnormal posture (07/16/20) Weakness (07/16/20) Physical Therapy Treatment Note PT-OP-A Visit Information Start: 04/22/20 08:10 Freq: Status: Active Protocol: Document 07/16/20 11:16 SAK (Rec: 07/16/20 12:07 SAK [id number]) Out-Patient Physical Therapy Visit Information Visit Information Visit Type Treatment Note Visit Start Time 11:17 Visit Stop Time 12:17 Total Visit Minutes 60 Visit Number 18 Number of WOOD PATTERNMAKER Visits 0 PT-OP-B Current Condition Start: 04/22/20 08:10 Freq: Status: Active Protocol: Document 04/22/20 10:39 SAK (Rec: 04/22/20 11:35 SAK [id number]) Current Condition History of Current Condition Onset Date years Current Complaints pain L45 and SI joint History of Current Condition Long history of LBP and SI pain, scoliosis lumbar right convex L45, left convex upper lumber, spondylosis, spondylolisthesis L2-3, injection SI august 2019, L45 July 2019; neither helpful. Previously injections have been helpful; historically has had injections every year to 1 1/2 years to SI with good results. Denies N/T, legs giving way. Wears [place] brace when gardening but states she doesn't tend to think about using it indoors even though housework increases her pain. Reports unable to take walks anymore due to pain. Doesn't weaR any shoe or heel lift, though reports she remembers PT giving her cork for use in her shoe to even her leg length; hasn't worn for a long time. States she has started doing some exercises; pelvic tilt, lunges, leg lifts , HS stretches, but not consistent. Standing hamstring stretch painful. Can't get down to the floor or lay on her hands and knees. Sleeping generally ok. Spends a lot of time sitting due to pain after self -care and minimal housework. Always sleeps on right side, sometimes wakes in pain, other days can do an hour or two of mild activity and then has to sit rest of day. FEels heat helpful short term, hasn't tried TENS unit that she and her bought; brought to PT today. Prior Treatments and Tests Progressive dextroscoliosis since 11/23/17 Lumbar spine x-ray: Severe multilevel lumbar spondylosis and facet arthropathy, progressed since the prior study.. Grade 1 retrolisthesis of L2 on L3, which has progressed since prior study. Future Testing and Treatments Planned No appointments scheduled at this time. Prior Functional Status Baseline Function- ADL's Modified Independent Baseline Function- Mobility Modified Independent Baseline Function- Gait able to take walks Baseline Function- Work/School retired Baseline Function- Recreation/Hobbies cooking, gardening, baking Current Functional Impairments (Reported) Functional Limitations- ADL's independent but painful Functional Limitations- Mobility/Gait unable to take walks for exercise or recreation due to pain Functional Limitations- Work/School retired Functional Limitations- Recreation/ painful Hobbies Personal Factors Other Personal Factors That May Effect patient has difficult time Therapy/Recovery relaxing. PT-OP-C Subjective Start: 04/22/20 08:10 Freq: Status: Active Protocol: Document 07/16/20 11:16 SAK (Rec: 07/16/20 12:07 SAK [id number]) OP-PT Subjective Patient Comments Patient Comments Painful after got home fron last PT session. Tried to go for a walk this am but after 4 min right side pain increasd in SI. Able to vacuum carefully this am without an increase in pain. PT-OP-F Manual Assessment Start: 04/22/20 08:10 Freq: Status: Active Protocol: Document 04/22/20 10:39 SAK (Rec: 04/22/20 16:52 SAK [id number]) Manual Assessments Soft Tissue Assessment Soft Tissue Mobility Assessment Increased tightness bilateral lumbar and thoracic paraspinals Joint Mobility Assessment Joint Mobility Assessment lumbar not assessed, unable to lay prone, time constraints PT-OP-G Mobility & Gait Start: 04/22/20 08:10 Freq: Status: Active Protocol: Document 04/22/20 10:39 SAK (Rec: 04/22/20 16:52 SAK [id number]) OP Gait Assessment Gait Distance (Feet) 50 Assistive Devices Orthotic/Prosthetic Devices or Brace: No Factors Limiting Gait Function Factors Limiting Gait Function Pain Comments Gait Comments mild trunk lean right PT-OP-H Neuro Start: 04/22/20 08:10 Freq: Status: Active Protocol: Document 04/22/20 10:39 SAK (Rec: 04/22/20 16:52 SAK [id number]) Sensation Evaluation Gross Sensation Gross Sensation WNL PT-OP-J Posture/Palpation/Skin Start: 04/22/20 08:10 Freq: Status: Active Protocol: Document 04/22/20 10:39 SAK (Rec: 04/22/20 16:52 SAK [id number]) Posture Evaluation Position Standing Head/C-Spine Posture Forward Head T-Spine Posture Increased Kyphosis Thorax Posture (R) Prominent L-Spine Posture Rotation Right Shoulder Posture (L) Rounded,(R) Rounded Scapula Posture (L) Protracted,(R) Protracted Arm Posture (L) Internally Rotated,(R) Internally Rotated Pelvis Posture Posterior Tilted Weight Distribution Decreased Wt.Bear on (L) Palpation Assessment Location SI right Palpation Findings Tenderness PT-OP-K Range of Motion Start: 04/22/20 08:10 Freq: Status: Active Protocol: Document 04/22/20 10:39 SAK (Rec: 04/22/20 16:52 [facility] [id number]) Lumbar Spine Range of Motion Lumbar Spine Active Degrees Flexion 40 Extension 0 Rotation Left 25 Rotation Right 20 Lateral Flexion Left 30 Lateral Flexion Right 35 ROM Limitations Soft Tissue Tightness,Pain Hip Goniometric Range of Motion Hip Left Testing Position Supine Flexion w/Knee Flexed 105 Straight Leg Raise 55 Extension 0 Internal Rotation 30 External Rotation 40 Right Testing Position Supine Flexion w/Knee Flexed 100 Straight Leg Raise 65 Extension 0 Internal Rotation 10 External Rotation 40 Hip ROM Limitations Hip ROM Limitations Soft Tissue Tightness,Pain Knee Goniometric Range of Motion Knee FORD Knee ROM WFL Yes Ankle and Foot Goniometric Range of Motion Ankle and Foot FORD Ankle/Foot ROM WFL Yes PT-OP-L Special Tests Start: 04/22/20 08:10 Freq: Status: Active Protocol: Document 04/22/20 10:39 SAK (Rec: 04/22/20 16:52 SAK [id number]) Special Tests Hip Special Tests Leonel Test Results positive for muscle tightness ford Straight Leg Raise Test Results negative ford ALLA Test Results negative ford PT-OP-M Strength Start: 04/22/20 08:10 Freq: Status: Active Protocol: Document 04/22/20 10:39 SAK (Rec: 04/22/20 16:52 SAK [id number]) Trunk Strength Trunk Manual Muscle Testing Testing Position Supine Flexion 3+ Fair+ Core Stabilization poor ability to activate TrA and multifidi Hip Strength Hip Manual Muscle Testing Right Flexion (L2) 4- Good- Abduction 4 Good External Rotation 4- Good- Internal Rotation 4 Good Left Flexion (L2) 3+ Fair+ Abduction 4 Good External Rotation 4- Good- Internal Rotation 4 Good Knee Strength Knee Manual Muscle Testing ford Flexion (S2) 5 Normal Extension (L3) 5 Normal Ankle/Foot Strength Ankle and Foot Manual Muscle Testing ford Dorsiflexion (L4) 5 Normal Plantarflexion (S1) 5 Normal PT-OP-Q Treatments Start: 04/22/20 08:10 Freq: Status: Active Protocol: Document 07/16/20 11:17 SAK (Rec: 07/16/20 16:53 [facility] [id number]) Self-Care/Home Management Treatment Education Patient Education Body Mechanics,Home Exercise Program,Pain Management, Posture,Safety Other Education HEP, rest in 90/90 position, use of heat, wear SI belt during activity, be aware of and correct habitual positioning and movement patterns which included today more observation of right LE and left head and trunk sidebending during discussion with patient , self gentle spinal alignment correction and stretch in sitting. [place] agreement for patient to return to PT in 3 weeks to assess progress, further PT if indicated which may include more manual techniques and seeing women's health PT. PT-OP-R Modalities Start: 04/22/20 08:10 Freq: Status: Active Protocol: Document 07/16/20 11:17 SAK (Rec: 07/16/20 16:53 [facility] [id number]) Hot Pack/Cold Pack Treatment Hot Pack Location lumbar spine Treatment Duration (minutes) 15 Comments 90/90 position PT-OP-T Assessment and Plan Start: 04/22/20 08:10 Freq: Status: Active Protocol: Document 07/16/20 11:16 SAK (Rec: 07/16/20 12:07 [facility] [id number]) Physical Therapy Assessment Goals Three Impairment weakness throughout trunk Care Home Goal (LTG) Patient to be independent and compliant to HEP and demonstrate improvement in trunk strength to at least 4/5 and and demonstrate good core stabilization ability statically and dynamically with function 06/09/20: Goal progress LTG Duration 07/21/20 Two Impairment postural dysfunction with poor awareness of neutral Care Home Goal (LTG) Patient to be independent and compliant with HEP to address postural dysfunction and demonstrate good understanding of neutral posture, and be able to self-identify her unhealthy habitual postures and positioning. 06/09/20: goal progress, has tendency still to have increased weight-bearing left, trunk lean right LTG Duration 07/21/20 One Impairment activity intolerance with patient unable to take walks Care Home Goal (LTG) Patient to report ability to stand and walk for at least 30 min without an increase in pain 06/09/20: minimal goal progress at this time per patient report LTG Duration 07/21/20 Assessment Summary Assessment Today's visit spent with patient education regarding activity modification, further education on her observed habitual postures and movements which may be contributory to her pain , emphasized use of heat, SI belt, doing HEP, working stretches into her day, activation of core with all activities. Her pain continues to be variable, related to activity. She is improving with her performance of HEP, and core activation and stabilization. Her scoliosis contributes highly to her postural asymmetry both statically and dynamically. She demonstrates improved understanding of importance of posture and correct muscle activation. At this time we have decided to have her continue HEP independently for 3 weeks then return for follow-up appointments. May consider increase in manual techniques and further progression of her HEP at that time depending on progress with home management. Physical Therapy Plan Frequency and Duration Frequency of Treatment 2x/Week Duration of Treatment 12 weeks Plan of Care Start Date 04/22/20 Plan of Care End Date 07/21/20 Therapeutic Interventions Therapeutic Interventions Home Exercise Program,Joint Mobilizations,Manual Therapy, Patient/Caregiver Education, Self-Care/Home Management,Soft Tissue Mobilization,Taping, Therapeutic Activities, Therapeutic Exercises Modalities Electric Stimulation,Hot Packs Next Visit Focus/Plan Next Note Type Treatment Note Next Visit Plan Follow-up in 3 weeks. Progression and modification of HEP and self management as needed. Manual techniques for SI.
--- NOTE | 2020-07-16 16:59 | PT.OPPOC ---
Physical, Occupational & Speech Therapy At [facility] Current Diagnoses Sacrococcygeal disorders, not elsewhere classified (07/16/20) Other dorsalgia (07/16/20) Abnormal posture (07/16/20) Weakness (07/16/20) Visit Care Team Role Provider Type SONDRA Santacruz Attending Provider Advanced Process Artist Family Provider Primary Care Provider Referring Provider Specialty: Family Practice Address: [address] [place] [address], [facility] [place], [address] Email: [email or web address] Plan Of Care PT-OP-T Assessment and Plan Start: 04/22/20 08:10 Freq: Status: Active Protocol: Document 07/16/20 11:16 SAK (Rec: 07/16/20 12:07 SAK [id number]) Physical Therapy Assessment Goals Three Impairment weakness throughout trunk Plastic Surgery Nurse Goal (LTG) Patient to be independent and compliant to HEP and demonstrate improvement in trunk strength to at least 4/5 and and demonstrate good core stabilization ability statically and dynamically with function 06/09/20: Goal progress 07/16/20: improving strength, compliant to HEP LTG Duration 07/21/20 Two Impairment postural dysfunction with poor awareness of neutral Plastic Surgery Nurse Goal (LTG) Patient to be independent and compliant with HEP to address postural dysfunction and demonstrate good understanding of neutral posture, and be able to self-identify her unhealthy habitual postures and positioning. 06/09/20: goal progress, has tendency still to have increased weight-bearing left, trunk lean right LTG Duration 07/21/20 One Impairment activity intolerance with patient unable to take walks [facility]dc Goal (LTG) Patient to report ability to stand and walk for at least 30 min without an increase in pain 06/09/20: minimal goal progress at this time per patient report LTG Duration 07/21/20 Assessment Summary Assessment Today's visit spent with patient education regarding activity modification, further education on her observed habitual postures and movements which may be contributory to her pain , emphasized use of heat, SI belt, doing HEP, working stretches into her day, activation of core with all activities. Her pain continues to be variable, related to activity. She is improving with her performance of HEP, and core activation and stabilization. Her scoliosis contributes highly to her postural asymmetry both statically and dynamically. She demonstrates improved understanding of importance of posture and correct muscle activation. At this time we have decided to have her continue HEP independently for 3 weeks then return for follow-up appointments. May consider increase in manual techniques and further progression of her HEP at that time depending on progress with home management. Physical Therapy Plan Frequency and Duration Frequency of Treatment 2x/Week Duration of Treatment 12 weeks Plan of Care Start Date 07/16/20 Plan of Care End Date 09/14/20 Therapeutic Interventions Therapeutic Interventions Home Exercise Program,Joint Mobilizations,Manual Therapy, Patient/Caregiver Education, Self-Care/Home Management,Soft Tissue Mobilization,Taping, Therapeutic Activities, Therapeutic Exercises Modalities Electric Stimulation,Hot Packs ,Iontophoresis,Ultrasound Next Visit Focus/Plan Next Note Type Treatment Note Next Visit Plan Follow-up in 3 weeks. Progression and modification of HEP and self management as needed. Manual techniques for SI. Plan of Care Dates Plan of Care Start Date 07/16/20 Plan of Care End Date 09/14/20 Electronically Signed by: Lisa Gonzalez, PT 07/16/20 2398 Please Sign and Return: I have reviewed this Plan of Care and certify that the skilled therapy services above are required to meet the patient?s needs. Physician Signature Date Printed Name and Credentials Clinical Instructor Signature Printed Name and Credentials
--- NOTE | 2020-07-16 16:59 | PT.OTRE ---
Current Diagnoses Sacrococcygeal disorders, not elsewhere classified (07/16/20) Other dorsalgia (07/16/20) Abnormal posture (07/16/20) Weakness (07/16/20) Past Medical History (Last Reviewed 01/02/20 @ 11:45 by Rasta Acosta DO) Facet arthropathy, lumbar Surgical History (Last Reviewed 01/02/20 @ 11:45 by Rasta Acosta DO) Status post surgery (04/13/10) Visit Care Team Role Provider Type SONDRA Santacruz Attending Provider Advanced [facility] Family Provider Primary Care Provider Referring Provider Specialty: Family Practice Address: [address] [place] [address], [facility] Email: [email or web address] Physical Therapy Re-Evaluation PT-OP-A Visit Information Start: 04/22/20 08:10 Freq: Status: Active Protocol: Document 07/16/20 11:16 SAK (Rec: 07/16/20 12:07 SAK [id number]) Out-Patient Physical Therapy Visit Information Visit Information Visit Type Treatment Note Visit Start Time 11:17 Visit Stop Time 12:17 Total Visit Minutes 60 Visit Number 18 Number of YOUTUBER Visits 0 PT-OP-B Current Condition Start: 04/22/20 08:10 Freq: Status: Active Protocol: Document 04/22/20 10:39 SAK (Rec: 04/22/20 11:35 SAK [id number]) Current Condition History of Current Condition Onset Date years Current Complaints pain L45 and SI joint History of Current Condition Long history of LBP and SI pain, scoliosis lumbar right convex L45, left convex upper lumber, spondylosis, spondylolisthesis L2-3, injection SI august 2019, L45 July 2019; neither helpful. Previously injections have been helpful; historically has had injections every year to 1 1/2 years to SI with good results. Denies N/T, legs giving way. Wears [place] brace when gardening but states she doesn't tend to think about using it indoors even though housework increases her pain. Reports unable to take walks anymore due to pain. Doesn't weaR any shoe or heel lift, though reports she remembers PT giving her cork for use in her shoe to even her leg length; hasn't worn for a long time. States she has started doing some exercises; pelvic tilt, lunges, leg lifts , HS stretches, but not consistent. Standing hamstring stretch painful. Can't get down to the floor or lay on her hands and knees. Sleeping generally ok. Spends a lot of time sitting due to pain after self -care and minimal housework. Always sleeps on right side, sometimes wakes in pain, other days can do an hour or two of mild activity and then has to sit rest of day. FEels heat helpful short term, hasn't tried TENS unit that she and her bought; brought to PT today. Prior Treatments and Tests Progressive dextroscoliosis since 11/23/17 Lumbar spine x-ray: Severe multilevel lumbar spondylosis and facet arthropathy, progressed since the prior study.. Grade 1 retrolisthesis of L2 on L3, which has progressed since prior study. Future Testing and Treatments Planned No appointments scheduled at this time. Prior Functional Status Baseline Function- ADL's Modified Independent Baseline Function- Mobility Modified Independent Baseline Function- Gait able to take walks Baseline Function- Work/School retired Baseline Function- Recreation/Hobbies cooking, gardening, baking Current Functional Impairments (Reported) Functional Limitations- ADL's independent but painful Functional Limitations- Mobility/Gait unable to take walks for exercise or recreation due to pain Functional Limitations- Work/School retired Functional Limitations- Recreation/ painful Hobbies Personal Factors Other Personal Factors That May Effect patient has difficult time Therapy/Recovery relaxing. PT-OP-C Subjective Start: 04/22/20 08:10 Freq: Status: Active Protocol: Document 07/16/20 11:16 SAK (Rec: 07/16/20 12:07 [facility] [id number]) OP-PT Subjective Patient Comments Patient Comments Painful after got home fron last PT session. Tried to go for a walk this am but after 4 min right side pain increasd in SI. Able to vacuum carefully this am without an increase in pain. PT-OP-F Manual Assessment Start: 04/22/20 08:10 Freq: Status: Active Protocol: Document 04/22/20 10:39 SAK (Rec: 04/22/20 16:52 SAK [id number]) Manual Assessments Soft Tissue Assessment Soft Tissue Mobility Assessment Increased tightness bilateral lumbar and thoracic paraspinals Joint Mobility Assessment Joint Mobility Assessment lumbar not assessed, unable to lay prone, time constraints PT-OP-G Mobility & Gait Start: 04/22/20 08:10 Freq: Status: Active Protocol: Document 04/22/20 10:39 SAK (Rec: 04/22/20 16:52 SAK [id number]) OP Gait Assessment Gait Distance (Feet) 50 Assistive Devices Orthotic/Prosthetic Devices or Brace: No Factors Limiting Gait Function Factors Limiting Gait Function Pain Comments Gait Comments mild trunk lean right PT-OP-H Neuro Start: 04/22/20 08:10 Freq: Status: Active Protocol: Document 04/22/20 10:39 SAK (Rec: 04/22/20 16:52 SAK [id number]) Sensation Evaluation Gross Sensation Gross Sensation WNL PT-OP-J Posture/Palpation/Skin Start: 04/22/20 08:10 Freq: Status: Active Protocol: Document 04/22/20 10:39 SAK (Rec: 04/22/20 16:52 SAK [id number]) Posture Evaluation Position Standing Head/C-Spine Posture Forward Head T-Spine Posture Increased Kyphosis Thorax Posture (R) Prominent L-Spine Posture Rotation Right Shoulder Posture (L) Rounded,(R) Rounded Scapula Posture (L) Protracted,(R) Protracted Arm Posture (L) Internally Rotated,(R) Internally Rotated Pelvis Posture Posterior Tilted Weight Distribution Decreased Wt.Bear on (L) Palpation Assessment Location SI right Palpation Findings Tenderness PT-OP-K Range of Motion Start: 04/22/20 08:10 Freq: Status: Active Protocol: Document 04/22/20 10:39 SAK (Rec: 04/22/20 16:52 SAK [id number]) Lumbar Spine Range of Motion Lumbar Spine Active Degrees Flexion 40 Extension 0 Rotation Left 25 Rotation Right 20 Lateral Flexion Left 30 Lateral Flexion Right 35 ROM Limitations Soft Tissue Tightness,Pain Hip Goniometric Range of Motion Hip Measured in Degrees Left Testing Position Supine Flexion w/Knee Flexed 105 Straight Leg Raise 55 Extension 0 Internal Rotation 30 External Rotation 40 Right Testing Position Supine Flexion w/Knee Flexed 100 Straight Leg Raise 65 Extension 0 Internal Rotation 10 External Rotation 40 Hip ROM Limitations Hip ROM Limitations Soft Tissue Tightness,Pain Knee Goniometric Range of Motion Knee Measured in Degrees FORD Knee ROM WFL Yes Ankle and Foot Goniometric Range of Motion Ankle and Foot Measured in Degrees FORD Ankle/Foot ROM WFL Yes PT-OP-L Special Tests Start: 04/22/20 08:10 Freq: Status: Active Protocol: Document 04/22/20 10:39 SAK (Rec: 04/22/20 16:52 [facility] [id number]) Special Tests Hip Special Tests Leonel Test Results positive for muscle tightness ford Straight Leg Raise Test Results negative ford ALLA Test Results negative ford PT-OP-M Strength Start: 04/22/20 08:10 Freq: Status: Active Protocol: Document 04/22/20 10:39 SAK (Rec: 04/22/20 16:52 [facility] [id number]) Trunk Strength Trunk Manual Muscle Testing Testing Position Supine Flexion 3+ Fair+ Core Stabilization poor ability to activate TrA and multifidi Hip Strength Hip Manual Muscle Testing Right Flexion (L2) 4- Good- Abduction 4 Good External Rotation 4- Good- Internal Rotation 4 Good Left Flexion (L2) 3+ Fair+ Abduction 4 Good External Rotation 4- Good- Internal Rotation 4 Good Knee Strength Knee Manual Muscle Testing ford Flexion (S2) 5 Normal Extension (L3) 5 Normal Ankle/Foot Strength Ankle and Foot Manual Muscle Testing ford Dorsiflexion (L4) 5 Normal Plantarflexion (S1) 5 Normal PT-OP-Q Treatments Start: 04/22/20 08:10 Freq: Status: Active Protocol: Document 07/16/20 11:17 [facility] (Rec: 07/16/20 16:53 [facility] [id number]) Self-Care/Home Management Treatment Education Patient Education Body Mechanics,Home Exercise Program,Pain Management, Posture,Safety Other Education HEP, rest in 90/90 position, use of heat, wear SI belt during activity, be aware of and correct habitual positioning and movement patterns which included today more observation of right LE and left head and trunk sidebending during discussion with patient , self gentle spinal alignment correction and stretch in sitting. Gustine agreement for patient to return to PT in 3 weeks to assess progress, further PT if indicated which may include more manual techniques and seeing women's health PT. PT-OP-R Modalities Start: 04/22/20 08:10 Freq: Status: Active Protocol: Document 07/16/20 11:17 [facility] (Rec: 07/16/20 16:53 [facility] [id number]) Hot Pack/Cold Pack Treatment Hot Pack Location lumbar spine Treatment Duration (minutes) 15 Comments 90/90 position PT-OP-T Assessment and Plan Start: 04/22/20 08:10 Freq: Status: Active Protocol: Document 07/16/20 11:16 MARY (Rec: 07/16/20 12:07 MARY [id number]) Physical Therapy Assessment Goals Three Impairment weakness throughout trunk Wood Finisher Goal (LTG) Patient to be independent and compliant to HEP and demonstrate improvement in trunk strength to at least 4/5 and and demonstrate good core stabilization ability statically and dynamically with function 06/09/20: Goal progress 07/16/20: improving strength, compliant to HEP LTG Duration 07/21/20 Two Impairment postural dysfunction with poor awareness of neutral Wood Finisher Goal (LTG) Patient to be independent and compliant with HEP to address postural dysfunction and demonstrate good understanding of neutral posture, and be able to self-identify her unhealthy habitual postures and positioning. 06/09/20: goal progress, has tendency still to have increased weight-bearing left, trunk lean right LTG Duration 07/21/20 One Impairment activity intolerance with patient unable to take walks Residential Goal (LTG) Patient to report ability to stand and walk for at least 30 min without an increase in pain 06/09/20: minimal goal progress at this time per patient report LTG Duration 07/21/20 Assessment Summary Assessment Today's visit spent with patient education regarding activity modification, further education on her observed habitual postures and movements which may be contributory to her pain , emphasized use of heat, SI belt, doing HEP, working stretches into her day, activation of core with all activities. Her pain continues to be variable, related to activity. She is improving with her performance of HEP, and core activation and stabilization. Her scoliosis contributes highly to her postural asymmetry both statically and dynamically. She demonstrates improved understanding of importance of posture and correct muscle activation. At this time we have decided to have her continue HEP independently for 3 weeks then return for follow-up appointments. May consider increase in manual techniques and further progression of her HEP at that time depending on progress with home management. Physical Therapy Plan Frequency and Duration Frequency of Treatment 2x/Week Duration of Treatment 12 weeks Plan of Care Start Date 07/16/20 Plan of Care End Date 09/14/20 Therapeutic Interventions Therapeutic Interventions Home Exercise Program,Joint Mobilizations,Manual Therapy, Patient/Caregiver Education, Self-Care/Home Management,Soft Tissue Mobilization,Taping, Therapeutic Activities, Therapeutic Exercises Modalities Electric Stimulation,Hot Packs ,Iontophoresis,Ultrasound Next Visit Focus/Plan Next Note Type Treatment Note Next Visit Plan Follow-up in 3 weeks. Progression and modification of HEP and self management as needed. Manual techniques for SI.
--- NOTE | 2020-08-11 16:38 | PT.OTN ---
Current Diagnoses Sacrococcygeal disorders, not elsewhere classified (08/11/20) Other dorsalgia (08/11/20) Abnormal posture (08/11/20) Weakness (08/11/20) Physical Therapy Treatment Note PT-OP-A Visit Information Start: 04/22/20 08:10 Freq: Status: Active Protocol: Document 08/11/20 16:18 SAK (Rec: 08/11/20 16:38 SAK [id number]) Out-Patient Physical Therapy Visit Information Visit Information Visit Type Treatment Note Visit Start Time 15:24 Visit Stop Time 16:16 Total Visit Minutes 54 Visit Number 19 Precautions Precautions scoliosis PT-OP-B Current Condition Start: 04/22/20 08:10 Freq: Status: Active Protocol: Document 04/22/20 10:39 SAK (Rec: 04/22/20 11:35 SAK [id number]) Current Condition History of Current Condition Onset Date years Current Complaints pain L45 and SI joint History of Current Condition Long history of LBP and SI pain, scoliosis lumbar right convex L45, left convex upper lumber, spondylosis, spondylolisthesis L2-3, injection SI august 2019, L45 July 2019; neither helpful. Previously injections have been helpful; historically has had injections every year to 1 1/2 years to SI with good results. Denies N/T, legs giving way. Wears [place] brace when gardening but states she doesn't tend to think about using it indoors even though housework increases her pain. Reports unable to take walks anymore due to pain. Doesn't weaR any shoe or heel lift, though reports she remembers PT giving her cork for use in her shoe to even her leg length; hasn't worn for a long time. States she has started doing some exercises; pelvic tilt, lunges, leg lifts , HS stretches, but not consistent. Standing hamstring stretch painful. Can't get down to the floor or lay on her hands and knees. Sleeping generally ok. Spends a lot of time sitting due to pain after self -care and minimal housework. Always sleeps on right side, sometimes wakes in pain, other days can do an hour or two of mild activity and then has to sit rest of day. FEels heat helpful short term, hasn't tried TENS unit that she and her bought; brought to PT today. Prior Treatments and Tests Progressive dextroscoliosis since 11/23/17 Lumbar spine x-ray: Severe multilevel lumbar spondylosis and facet arthropathy, progressed since the prior study.. Grade 1 retrolisthesis of L2 on L3, which has progressed since prior study. Future Testing and Treatments Planned No appointments scheduled at this time. Prior Functional Status Baseline Function- ADL's Modified Independent Baseline Function- Mobility Modified Independent Baseline Function- Gait able to take walks Baseline Function- Work/School retired Baseline Function- Recreation/Hobbies cooking, gardening, baking Current Functional Impairments (Reported) Functional Limitations- ADL's independent but painful Functional Limitations- Mobility/Gait unable to take walks for exercise or recreation due to pain Functional Limitations- Work/School retired Functional Limitations- Recreation/ painful Hobbies Personal Factors Other Personal Factors That May Effect patient has difficult time Therapy/Recovery relaxing. PT-OP-C Subjective Start: 04/22/20 08:10 Freq: Status: Active Protocol: Document 08/11/20 16:18 [facility] (Rec: 08/11/20 16:38 [facility] [id number]) OP-PT Subjective Patient Comments Patient Comments Patient she was able to go for 18 min walk recently, afterwards pain increased and she wasn't able to get it under control the rest of the day. Pain continues to be variable, she is trying to pace her activity more as recommended and do HEP and use heat. Has worn SI belt some. PT-OP-F Manual Assessment Start: 04/22/20 08:10 Freq: Status: Active Protocol: Document 04/22/20 10:39 SAK (Rec: 04/22/20 16:52 [facility] [id number]) Manual Assessments Soft Tissue Assessment Soft Tissue Mobility Assessment Increased tightness bilateral lumbar and thoracic paraspinals Joint Mobility Assessment Joint Mobility Assessment lumbar not assessed, unable to lay prone, time constraints PT-OP-G Mobility & Gait Start: 04/22/20 08:10 Freq: Status: Active Protocol: Document 04/22/20 10:39 SAK (Rec: 04/22/20 16:52 [facility] [id number]) OP Gait Assessment Gait Distance (Feet) 50 Assistive Devices Orthotic/Prosthetic Devices or Brace: No Factors Limiting Gait Function Factors Limiting Gait Function Pain Comments Gait Comments mild trunk lean right PT-OP-H Neuro Start: 04/22/20 08:10 Freq: Status: Active Protocol: Document 04/22/20 10:39 SAK (Rec: 04/22/20 16:52 SAK [id number]) Sensation Evaluation Gross Sensation Gross Sensation WNL PT-OP-J Posture/Palpation/Skin Start: 04/22/20 08:10 Freq: Status: Active Protocol: Document 04/22/20 10:39 SAK (Rec: 04/22/20 16:52 SAK [id number]) Posture Evaluation Position Standing Head/C-Spine Posture Forward Head T-Spine Posture Increased Kyphosis Thorax Posture (R) Prominent L-Spine Posture Rotation Right Shoulder Posture (L) Rounded,(R) Rounded Scapula Posture (L) Protracted,(R) Protracted Arm Posture (L) Internally Rotated,(R) Internally Rotated Pelvis Posture Posterior Tilted Weight Distribution Decreased Wt.Bear on (L) Palpation Assessment Location SI right Palpation Findings Tenderness PT-OP-K Range of Motion Start: 04/22/20 08:10 Freq: Status: Active Protocol: Document 04/22/20 10:39 SAK (Rec: 04/22/20 16:52 [facility] [id number]) Lumbar Spine Range of Motion Lumbar Spine Active Degrees Flexion 40 Extension 0 Rotation Left 25 Rotation Right 20 Lateral Flexion Left 30 Lateral Flexion Right 35 ROM Limitations Soft Tissue Tightness,Pain Hip Goniometric Range of Motion Hip Left Testing Position Supine Flexion w/Knee Flexed 105 Straight Leg Raise 55 Extension 0 Internal Rotation 30 External Rotation 40 Right Testing Position Supine Flexion w/Knee Flexed 100 Straight Leg Raise 65 Extension 0 Internal Rotation 10 External Rotation 40 Hip ROM Limitations Hip ROM Limitations Soft Tissue Tightness,Pain Knee Goniometric Range of Motion Knee FORD Knee ROM WFL Yes Ankle and Foot Goniometric Range of Motion Ankle and Foot FORD Ankle/Foot ROM WFL Yes PT-OP-L Special Tests Start: 04/22/20 08:10 Freq: Status: Active Protocol: Document 04/22/20 10:39 SAK (Rec: 04/22/20 16:52 SAK [id number]) Special Tests Hip Special Tests Leonel Test Results positive for muscle tightness ford Straight Leg Raise Test Results negative ford ALLA Test Results negative ford PT-OP-M Strength Start: 04/22/20 08:10 Freq: Status: Active Protocol: Document 04/22/20 10:39 SAK (Rec: 04/22/20 16:52 [facility] [id number]) Trunk Strength Trunk Manual Muscle Testing Testing Position Supine Flexion 3+ Fair+ Core Stabilization poor ability to activate TrA and multifidi Hip Strength Hip Manual Muscle Testing Right Flexion (L2) 4- Good- Abduction 4 Good External Rotation 4- Good- Internal Rotation 4 Good Left Flexion (L2) 3+ Fair+ Abduction 4 Good External Rotation 4- Good- Internal Rotation 4 Good Knee Strength Knee Manual Muscle Testing ford Flexion (S2) 5 Normal Extension (L3) 5 Normal Ankle/Foot Strength Ankle and Foot Manual Muscle Testing ford Dorsiflexion (L4) 5 Normal Plantarflexion (S1) 5 Normal PT-OP-Q Treatments Start: 04/22/20 08:10 Freq: Status: Active Protocol: Document 08/11/20 16:18 [facility] (Rec: 08/11/20 16:33 [facility] [id number]) Therapeutic Exercises Supine Exercises crunch Reps/Minutes 10x Comments hands behind head, cues for small movement, core activation supine bent knee march Reps/Minutes 10x Comments cues for core activation postural isometric Reps/Minutes 5x Comments manual cues for shoulder depression and retraction, abdominal corseting pelvic realignment series Supine Exercise Name ball squeeze, single leg pelvis lift, press hold ex leg at 90/90 Reps/Minutes 5x ea supine clam Resistance L2 Theraband Reps/Minutes 10x Comments ford only, unil painful pillow squeeze Equipment Used towel roll Reps/Minutes 10x Comments patient in 90/90 position Self-Care/Home Management Treatment Education Patient Education Body Mechanics,Home Exercise Program,Pain Management, Posture,Safety Other Education HEP, rest in 90/90 position, use of heat, wear SI belt during activity, be aware of and correct habitual positioning and movement patterns. Cued for asymmetrical muscle activation patterns with HEP. PT-OP-R Modalities Start: 04/22/20 08:10 Freq: Status: Active Protocol: Document 08/11/20 16:18 [facility] (Rec: 08/11/20 16:33 [facility] [id number]) Hot Pack/Cold Pack Treatment Hot Pack Location lumbar spine Treatment Duration (minutes) 15 Comments 90/90 position (during self-care education and HEP review/instruction) PT-OP-T Assessment and Plan Start: 04/22/20 08:10 Freq: Status: Active Protocol: Document 08/11/20 16:18 [facility] (Rec: 08/11/20 16:33 [facility] [id number]) Physical Therapy Assessment Goals Three Impairment weakness throughout trunk Snf Goal (LTG) Patient to be independent and compliant to HEP and demonstrate improvement in trunk strength to at least 4/5 and and demonstrate good core stabilization ability statically and dynamically with function 06/09/20: Goal progress 07/16/20: improving strength, compliant to HEP LTG Duration 07/21/20 Two Impairment postural dysfunction with poor awareness of neutral Snf Goal (LTG) Patient to be independent and compliant with HEP to address postural dysfunction and demonstrate good understanding of neutral posture, and be able to self-identify her unhealthy habitual postures and positioning. 06/09/20: goal progress, has tendency still to have increased weight-bearing left, trunk lean right LTG Duration 07/21/20 One Impairment activity intolerance with patient unable to take walks Snf Goal (LTG) Patient to report ability to stand and walk for at least 30 min without an increase in pain 06/09/20: minimal goal progress at this time per patient report LTG Duration 07/21/20 Assessment Summary Assessment Further patient education regarding pacing of activity and self-management when symptoms are exacerbated, continued emphasis on habitual movements and postures. Patient came in with pain / cause uncertain. Patient put on moist heat in 90/90 position initially during patient education, HEP was reviewed with correction for asymmetrical muscle activation and cues to pull rib-cage in during postural isometric. At end of session patient reported feeling no pain. She appears to be highly compliant to her HEP, but tends to push too hard and also was activating left hip adductors more than right with ball squeeze, and left hip extensors more than right with gluteal set; able to correct to symmetrical with cues. Only supine exercises done today; may benefit from review of standing and sitting exercises as well. Recommended previously patient may benefit from seeing women 's health PT to see if pelvic muscle asymmetry possibly contributing to her symptoms; patient has scheduled 2 visits with Honey Vazquez next week and we will then determine need for further PT. Physical Therapy Plan Frequency and Duration Frequency of Treatment 2x/Week Duration of Treatment 12 weeks Plan of Care Start Date 07/16/20 Plan of Care End Date 09/14/20 Therapeutic Interventions Therapeutic Interventions Home Exercise Program,Joint Mobilizations,Manual Therapy, Patient/Caregiver Education, Self-Care/Home Management,Soft Tissue Mobilization,Taping, Therapeutic Activities, Therapeutic Exercises Modalities Electric Stimulation,Hot Packs ,Iontophoresis,Ultrasound Next Visit Focus/Plan Next Note Type Treatment Note Next Visit Plan Patient to see women's health PT for next 2 sessions for further assessment and treatment for her chronic LB and SI pain.
--- NOTE | 2020-08-20 13:12 | PT.OTN ---
Current Diagnoses Sacrococcygeal disorders, not elsewhere classified (08/20/20) Other dorsalgia (08/20/20) Abnormal posture (08/20/20) Weakness (08/20/20) Physical Therapy Treatment Note PT-OP-A Visit Information Start: 04/22/20 08:10 Freq: Status: Active Protocol: Document 08/20/20 11:20 [facility] (Rec: 08/20/20 11:30 [facility] [id number]) Out-Patient Physical Therapy Visit Information Visit Information Visit Type Treatment Note Visit Start Time 11:15 Visit Stop Time 12:00 Total Visit Minutes 45 Visit Number 20 Number of ACUTE SPECIALIST Visits 0 PT-OP-B Current Condition Start: 04/22/20 08:10 Freq: Status: Active Protocol: Document 04/22/20 10:39 SAK (Rec: 04/22/20 11:35 SAK [id number]) Current Condition History of Current Condition Onset Date years Current Complaints pain L45 and SI joint History of Current Condition Long history of LBP and SI pain, scoliosis lumbar right convex L45, left convex upper lumber, spondylosis, spondylolisthesis L2-3, injection SI august 2019, L45 July 2019; neither helpful. Previously injections have been helpful; historically has had injections every year to 1 1/2 years to SI with good results. Denies N/T, legs giving way. Wears [place] brace when gardening but states she doesn't tend to think about using it indoors even though housework increases her pain. Reports unable to take walks anymore due to pain. Doesn't weaR any shoe or heel lift, though reports she remembers PT giving her cork for use in her shoe to even her leg length; hasn't worn for a long time. States she has started doing some exercises; pelvic tilt, lunges, leg lifts , HS stretches, but not consistent. Standing hamstring stretch painful. Can't get down to the floor or lay on her hands and knees. Sleeping generally ok. Spends a lot of time sitting due to pain after self -care and minimal housework. Always sleeps on right side, sometimes wakes in pain, other days can do an hour or two of mild activity and then has to sit rest of day. FEels heat helpful short term, hasn't tried TENS unit that she and her bought; brought to PT today. Prior Treatments and Tests Progressive dextroscoliosis since 11/23/17 Lumbar spine x-ray: Severe multilevel lumbar spondylosis and facet arthropathy, progressed since the prior study.. Grade 1 retrolisthesis of L2 on L3, which has progressed since prior study. Future Testing and Treatments Planned No appointments scheduled at this time. Prior Functional Status Baseline Function- ADL's Modified Independent Baseline Function- Mobility Modified Independent Baseline Function- Gait able to take walks Baseline Function- Work/School retired Baseline Function- Recreation/Hobbies cooking, gardening, baking Current Functional Impairments (Reported) Functional Limitations- ADL's independent but painful Functional Limitations- Mobility/Gait unable to take walks for exercise or recreation due to pain Functional Limitations- Work/School retired Functional Limitations- Recreation/ painful Hobbies Personal Factors Other Personal Factors That May Effect patient has difficult time Therapy/Recovery relaxing. PT-OP-C Subjective Start: 04/22/20 08:10 Freq: Status: Active Protocol: Document 08/20/20 11:20 [facility] (Rec: 08/20/20 11:30 [facility] [id number]) OP-PT Subjective Patient Comments Patient Comments pt reports her SI joint is better and she finally feels like she is getting stronger. Up until yesterday she couldn't stand to get her pants on. Today it feels getter, she went for a walk for 20 minutes she states her pain is a 2/10 now after her walk. SHe does her stretches every morning. She denies any complaints of urinary leakage, she does have occasional bowel symptoms. Patient Reported Progress Improving PT-OP-F Manual Assessment Start: 04/22/20 08:10 Freq: Status: Active Protocol: Document 04/22/20 10:39 SAK (Rec: 04/22/20 16:52 SAK [id number]) Manual Assessments Soft Tissue Assessment Soft Tissue Mobility Assessment Increased tightness bilateral lumbar and thoracic paraspinals Joint Mobility Assessment Joint Mobility Assessment lumbar not assessed, unable to lay prone, time constraints PT-OP-G Mobility & Gait Start: 04/22/20 08:10 Freq: Status: Active Protocol: Document 04/22/20 10:39 SAK (Rec: 04/22/20 16:52 SAK [id number]) OP Gait Assessment Gait Distance (Feet) 50 Assistive Devices Orthotic/Prosthetic Devices or Brace: No Factors Limiting Gait Function Factors Limiting Gait Function Pain Comments Gait Comments mild trunk lean right PT-OP-H Neuro Start: 04/22/20 08:10 Freq: Status: Active Protocol: Document 04/22/20 10:39 SAK (Rec: 04/22/20 16:52 SAK [id number]) Sensation Evaluation Gross Sensation Gross Sensation WNL PT-OP-J Posture/Palpation/Skin Start: 04/22/20 08:10 Freq: Status: Active Protocol: Document 04/22/20 10:39 SAK (Rec: 04/22/20 16:52 SAK [id number]) Posture Evaluation Position Standing Head/C-Spine Posture Forward Head T-Spine Posture Increased Kyphosis Thorax Posture (R) Prominent L-Spine Posture Rotation Right Shoulder Posture (L) Rounded,(R) Rounded Scapula Posture (L) Protracted,(R) Protracted Arm Posture (L) Internally Rotated,(R) Internally Rotated Pelvis Posture Posterior Tilted Weight Distribution Decreased Wt.Bear on (L) Palpation Assessment Location SI right Palpation Findings Tenderness PT-OP-K Range of Motion Start: 04/22/20 08:10 Freq: Status: Active Protocol: Document 04/22/20 10:39 SAK (Rec: 04/22/20 16:52 SAK [id number]) Lumbar Spine Range of Motion Lumbar Spine Active Degrees Flexion 40 Extension 0 Rotation Left 25 Rotation Right 20 Lateral Flexion Left 30 Lateral Flexion Right 35 ROM Limitations Soft Tissue Tightness,Pain Hip Goniometric Range of Motion Hip Left Testing Position Supine Flexion w/Knee Flexed 105 Straight Leg Raise 55 Extension 0 Internal Rotation 30 External Rotation 40 Right Testing Position Supine Flexion w/Knee Flexed 100 Straight Leg Raise 65 Extension 0 Internal Rotation 10 External Rotation 40 Hip ROM Limitations Hip ROM Limitations Soft Tissue Tightness,Pain Knee Goniometric Range of Motion Knee FORD Knee ROM WFL Yes Ankle and Foot Goniometric Range of Motion Ankle and Foot FORD Ankle/Foot ROM WFL Yes PT-OP-L Special Tests Start: 04/22/20 08:10 Freq: Status: Active Protocol: Document 04/22/20 10:39 SAK (Rec: 04/22/20 16:52 SAK [id number]) Special Tests Hip Special Tests Leonel Test Results positive for muscle tightness ford Straight Leg Raise Test Results negative ford ALLA Test Results negative ford PT-OP-M Strength Start: 04/22/20 08:10 Freq: Status: Active Protocol: Document 04/22/20 10:39 SAK (Rec: 04/22/20 16:52 SAK [id number]) Trunk Strength Trunk Manual Muscle Testing Testing Position Supine Flexion 3+ Fair+ Core Stabilization poor ability to activate TrA and multifidi Hip Strength Hip Manual Muscle Testing Right Flexion (L2) 4- Good- Abduction 4 Good External Rotation 4- Good- Internal Rotation 4 Good Left Flexion (L2) 3+ Fair+ Abduction 4 Good External Rotation 4- Good- Internal Rotation 4 Good Knee Strength Knee Manual Muscle Testing ford Flexion (S2) 5 Normal Extension (L3) 5 Normal Ankle/Foot Strength Ankle and Foot Manual Muscle Testing ford Dorsiflexion (L4) 5 Normal Plantarflexion (S1) 5 Normal PT-OP-Q Treatments Start: 04/22/20 08:10 Freq: Status: Active Protocol: Document 08/20/20 11:15 [facility] (Rec: 08/20/20 13:12 [facility] [id number]) Therapeutic Exercises Supine Exercises wind shield wipers Reps/Minutes x 10 reps pelvic floor muscle isolation Reps/Minutes 10 reps holding 5 seconds each Comments pelvic floor muscle isolation TrA Comments worked on TA isolations Other Exercises modified irasema pose Reps/Minutes 2 reps holding 30-60 seconds Comments use pillows under bum cat cow Reps/Minutes x 10 PT-OP-R Modalities Start: 04/22/20 08:10 Freq: Status: Active Protocol: Document 08/11/20 16:18 SAK (Rec: 08/11/20 16:33 [facility] [id number]) Hot Pack/Cold Pack Treatment Hot Pack Location lumbar spine Treatment Duration (minutes) 15 Comments 90/90 position (during self-care education and HEP review/instruction) PT-OP-T Assessment and Plan Start: 04/22/20 08:10 Freq: Status: Active Protocol: Document 08/20/20 11:15 [facility] (Rec: 08/20/20 13:12 [facility] [id number]) Physical Therapy Assessment Assessment Summary Assessment pt was shown today how to activate her pelvic floor and she did really well with this. She is realizing the importance of both her core exercises as well as stretches for her SI joint. Her right low back is much more guarded compared to her left due to her scoloisis. I did try getting her into a modified irasema pose today to see if we could stretch this out some and she seemed to respond well to this. Will see pt for one additional visit to review exercises Physical Therapy Plan Frequency and Duration Frequency of Treatment 2x/Week Duration of Treatment 12 weeks Plan of Care Start Date 07/16/20 Plan of Care End Date 09/14/20 Therapeutic Interventions Therapeutic Interventions Home Exercise Program,Joint Mobilizations,Manual Therapy, Patient/Caregiver Education, Self-Care/Home Management,Soft Tissue Mobilization,Taping, Therapeutic Activities, Therapeutic Exercises Modalities Electric Stimulation,Hot Packs ,Iontophoresis,Ultrasound Next Visit Focus/Plan Next Note Type Treatment Note Next Visit Plan pt to be seen again for pelvic floor stabilization and to have exercises reviewed from this visit today
--- NOTE | 2020-08-28 10:03 | PT.OTN ---
Current Diagnoses Sacrococcygeal disorders, not elsewhere classified (08/28/20) Other dorsalgia (08/28/20) Abnormal posture (08/28/20) Weakness (08/28/20) Physical Therapy Treatment Note PT-OP-A Visit Information Start: 04/22/20 08:10 Freq: Status: Active Protocol: Document 08/28/20 09:00 [facility] (Rec: 08/28/20 09:08 [facility] [id number]) Out-Patient Physical Therapy Visit Information Visit Information Visit Type Progress Note Visit Start Time 09:00 Visit Stop Time 09:45 Total Visit Minutes 45 Visit Number 21 Number of SPECIAL AGENT Visits 0 PT-OP-B Current Condition Start: 04/22/20 08:10 Freq: Status: Active Protocol: Document 04/22/20 10:39 SAK (Rec: 04/22/20 11:35 SAK [id number]) Current Condition History of Current Condition Onset Date years Current Complaints pain L45 and SI joint History of Current Condition Long history of LBP and SI pain, scoliosis lumbar right convex L45, left convex upper lumber, spondylosis, spondylolisthesis L2-3, injection SI august 2019, L45 July 2019; neither helpful. Previously injections have been helpful; historically has had injections every year to 1 1/2 years to SI with good results. Denies N/T, legs giving way. Wears [place] brace when gardening but states she doesn't tend to think about using it indoors even though housework increases her pain. Reports unable to take walks anymore due to pain. Doesn't weaR any shoe or heel lift, though reports she remembers PT giving her cork for use in her shoe to even her leg length; hasn't worn for a long time. States she has started doing some exercises; pelvic tilt, lunges, leg lifts , HS stretches, but not consistent. Standing hamstring stretch painful. Can't get down to the floor or lay on her hands and knees. Sleeping generally ok. Spends a lot of time sitting due to pain after self -care and minimal housework. Always sleeps on right side, sometimes wakes in pain, other days can do an hour or two of mild activity and then has to sit rest of day. FEels heat helpful short term, hasn't tried TENS unit that she and her bought; brought to PT today. Prior Treatments and Tests Progressive dextroscoliosis since 11/23/17 Lumbar spine x-ray: Severe multilevel lumbar spondylosis and facet arthropathy, progressed since the prior study.. Grade 1 retrolisthesis of L2 on L3, which has progressed since prior study. Future Testing and Treatments Planned No appointments scheduled at this time. Prior Functional Status Baseline Function- ADL's Modified Independent Baseline Function- Mobility Modified Independent Baseline Function- Gait able to take walks Baseline Function- Work/School retired Baseline Function- Recreation/Hobbies cooking, gardening, baking Current Functional Impairments (Reported) Functional Limitations- ADL's independent but painful Functional Limitations- Mobility/Gait unable to take walks for exercise or recreation due to pain Functional Limitations- Work/School retired Functional Limitations- Recreation/ painful Hobbies Personal Factors Other Personal Factors That May Effect patient has difficult time Therapy/Recovery relaxing. PT-OP-C Subjective Start: 04/22/20 08:10 Freq: Status: Active Protocol: Document 08/28/20 09:00 [facility] (Rec: 08/28/20 09:08 [facility] [id number]) OP-PT Subjective Patient Comments Patient Comments pt reports her left SI wants to act up again, her right side is pretty much the same. She was able to work out side the last two days. She still gets flared up easily as Tuesday she lifted some yard chairs and then next day was really sore. She is working on her exercises and reports they do help to calm it down once tight Patient Reported Progress Same PT-OP-F Manual Assessment Start: 04/22/20 08:10 Freq: Status: Active Protocol: Document 04/22/20 10:39 SAK (Rec: 04/22/20 16:52 SAK [id number]) Manual Assessments Soft Tissue Assessment Soft Tissue Mobility Assessment Increased tightness bilateral lumbar and thoracic paraspinals Joint Mobility Assessment Joint Mobility Assessment lumbar not assessed, unable to lay prone, time constraints PT-OP-G Mobility & Gait Start: 04/22/20 08:10 Freq: Status: Active Protocol: Document 04/22/20 10:39 SAK (Rec: 04/22/20 16:52 SAK [id number]) OP Gait Assessment Gait Distance (Feet) 50 Assistive Devices Orthotic/Prosthetic Devices or Brace: No Factors Limiting Gait Function Factors Limiting Gait Function Pain Comments Gait Comments mild trunk lean right PT-OP-H Neuro Start: 04/22/20 08:10 Freq: Status: Active Protocol: Document 04/22/20 10:39 SAK (Rec: 04/22/20 16:52 SAK [id number]) Sensation Evaluation Gross Sensation Gross Sensation WNL PT-OP-J Posture/Palpation/Skin Start: 04/22/20 08:10 Freq: Status: Active Protocol: Document 04/22/20 10:39 [facility]AK (Rec: 04/22/20 16:52 SAK [id number]) Posture Evaluation Position Standing Head/C-Spine Posture Forward Head T-Spine Posture Increased Kyphosis Thorax Posture (R) Prominent L-Spine Posture Rotation Right Shoulder Posture (L) Rounded,(R) Rounded Scapula Posture (L) Protracted,(R) Protracted Arm Posture (L) Internally Rotated,(R) Internally Rotated Pelvis Posture Posterior Tilted Weight Distribution Decreased Wt.Bear on (L) Palpation Assessment Location SI right Palpation Findings Tenderness PT-OP-K Range of Motion Start: 04/22/20 08:10 Freq: Status: Active Protocol: Document 04/22/20 10:39 SAK (Rec: 04/22/20 16:52 [facility] [id number]) Lumbar Spine Range of Motion Lumbar Spine Active Degrees Flexion 40 Extension 0 Rotation Left 25 Rotation Right 20 Lateral Flexion Left 30 Lateral Flexion Right 35 ROM Limitations Soft Tissue Tightness,Pain Hip Goniometric Range of Motion Hip Left Testing Position Supine Flexion w/Knee Flexed 105 Straight Leg Raise 55 Extension 0 Internal Rotation 30 External Rotation 40 Right Testing Position Supine Flexion w/Knee Flexed 100 Straight Leg Raise 65 Extension 0 Internal Rotation 10 External Rotation 40 Hip ROM Limitations Hip ROM Limitations Soft Tissue Tightness,Pain Knee Goniometric Range of Motion Knee FORD Knee ROM WFL Yes Ankle and Foot Goniometric Range of Motion Ankle and Foot FORD Ankle/Foot ROM WFL Yes PT-OP-L Special Tests Start: 04/22/20 08:10 Freq: Status: Active Protocol: Document 04/22/20 10:39 SAK (Rec: 04/22/20 16:52 SAK [id number]) Special Tests Hip Special Tests Leonel Test Results positive for muscle tightness ford Straight Leg Raise Test Results negative ford ALLA Test Results negative ford PT-OP-M Strength Start: 04/22/20 08:10 Freq: Status: Active Protocol: Document 04/22/20 10:39 SAK (Rec: 04/22/20 16:52 SAK [id number]) Trunk Strength Trunk Manual Muscle Testing Testing Position Supine Flexion 3+ Fair+ Core Stabilization poor ability to activate TrA and multifidi Hip Strength Hip Manual Muscle Testing Right Flexion (L2) 4- Good- Abduction 4 Good External Rotation 4- Good- Internal Rotation 4 Good Left Flexion (L2) 3+ Fair+ Abduction 4 Good External Rotation 4- Good- Internal Rotation 4 Good Knee Strength Knee Manual Muscle Testing ford Flexion (S2) 5 Normal Extension (L3) 5 Normal Ankle/Foot Strength Ankle and Foot Manual Muscle Testing ford Dorsiflexion (L4) 5 Normal Plantarflexion (S1) 5 Normal PT-OP-Q Treatments Start: 04/22/20 08:10 Freq: Status: Active Protocol: Document 08/28/20 09:00 [facility] (Rec: 08/28/20 09:43 [facility] [id number]) Therapeutic Exercises Supine Exercises wind shield wipers Reps/Minutes x 10 reps pelvic floor muscle isolation Reps/Minutes 10 reps holding 5 seconds each Comments pelvic floor muscle isolation Other Exercises modified irasema pose Reps/Minutes 2 reps holding 30-60 seconds Comments use pillows under bum cat cow Reps/Minutes x 10 Manual Therapy Treatment Soft Tissue Mobilization lumbar paraspinals MFR Body Location MFR lumbar paraspinals Comments prone on the body pillow PT-OP-R Modalities Start: 04/22/20 08:10 Freq: Status: Active Protocol: Document 08/11/20 16:18 [facility] (Rec: 08/11/20 16:33 [facility] [id number]) Hot Pack/Cold Pack Treatment Hot Pack Location lumbar spine Treatment Duration (minutes) 15 Comments 90/90 position (during self-care education and HEP review/instruction) PT-OP-T Assessment and Plan Start: 04/22/20 08:10 Freq: Status: Active Protocol: Document 08/28/20 09:00 [facility] (Rec: 08/28/20 10:02 [facility] [id number]) Physical Therapy Assessment Goals Three Impairment weakness throughout trunk Director Of Hotel Goal (LTG) Patient to be independent and compliant to HEP and demonstrate improvement in trunk strength to at least 4/5 and and demonstrate good core stabilization ability statically and dynamically with function 06/09/20: Goal progress 08/28/20: improving strength, compliant to HEP LTG Duration 10/22/20 Two Impairment postural dysfunction with poor awareness of neutral [facility] Goal (LTG) Patient to be independent and compliant with HEP to address postural dysfunction and demonstrate good understanding of neutral posture, and be able to self-identify her unhealthy habitual postures and positioning. 08/28/20: good goal progress LTG Duration 10/22/20 One Impairment activity intolerance with patient unable to take walks [facility] Goal (LTG) Patient to report ability to stand and walk for at least 30 min without an increase in pain 08/28/20: good goal progress at this time as pt is walking 2- 3 days per week now LTG Duration 10/22/20 Assessment Summary Assessment Today I worked on soft tissue release first prior to exercises and this did help Ene to find her inner core muscles better than when her back is tight. She is able to tolerate modified irasema pose and stretches for her low back with modifications. Today was Ene's last scheduled visit however she would benefit from a recheck in 4-6 weeks to review her HEP with the new stretches and stabilization exercises added in last visit. Physical Therapy Plan Frequency and Duration Frequency of Treatment 1x/Week Duration of Treatment 8 Plan of Care Start Date 08/28/20 Plan of Care End Date 10/30/20 Therapeutic Interventions Therapeutic Interventions Home Exercise Program,Joint Mobilizations,Manual Therapy, Patient/Caregiver Education, Self-Care/Home Management,Soft Tissue Mobilization,Taping, Therapeutic Activities, Therapeutic Exercises Modalities Electric Stimulation,Hot Packs ,Iontophoresis,Ultrasound Next Visit Focus/Plan Next Note Type Treatment Note Next Visit Plan pt to be seen again for pelvic floor stabilization and to have exercises reviewed from this visit today
--- NOTE | 2020-08-28 10:03 | PT.OPPOC ---
Physical, Occupational & Speech Therapy At [facility] Current Diagnoses Sacrococcygeal disorders, not elsewhere classified (08/28/20) Other dorsalgia (08/28/20) Abnormal posture (08/28/20) Weakness (08/28/20) Visit Care Team Role Provider Type SONDRA Santacruz Attending Provider Advanced Space Control Supervisor Family Provider Primary Care Provider Referring Provider Specialty: Family Practice Address: [address] [place] [address], [facility] [place], [address] Email: Plan Of Care PT-OP-T Assessment and Plan Start: 04/22/20 08:10 Freq: Status: Active Protocol: Document 08/28/20 09:00 [facility] (Rec: 08/28/20 10:02 [facility] [id number]) Physical Therapy Assessment Goals Three Impairment weakness throughout trunk Skilled Nursing Goal (LTG) Patient to be independent and compliant to HEP and demonstrate improvement in trunk strength to at least 4/5 and and demonstrate good core stabilization ability statically and dynamically with function 06/09/20: Goal progress 08/28/20: improving strength, compliant to HEP LTG Duration 10/22/20 Two Impairment postural dysfunction with poor awareness of neutral [employer] Installer Goal (LTG) Patient to be independent and compliant with HEP to address postural dysfunction and demonstrate good understanding of neutral posture, and be able to self-identify her unhealthy habitual postures and positioning. 08/28/20: good goal progress LTG Duration 10/22/20 One Impairment activity intolerance with patient unable to take walks [employer] Hydrant Installer Goal (LTG) Patient to report ability to stand and walk for at least 30 min without an increase in pain 08/28/20: good goal progress at this time as pt is walking 2- 3 days per week now LTG Duration 10/22/20 Assessment Summary Assessment Today I worked on soft tissue release first prior to exercises and this did help Ene to find her inner core muscles better than when her back is tight. She is able to tolerate modified child's pose and stretches for her low back with modifications. Today was Ene's last scheduled visit however she would benefit from a recheck in 4-6 weeks to review her HEP with the new stretches and stabilization exercises added in last visit. Physical Therapy Plan Frequency and Duration Frequency of Treatment 1x/Week Duration of Treatment 8 Plan of Care Start Date 08/28/20 Plan of Care End Date 10/30/20 Therapeutic Interventions Therapeutic Interventions Home Exercise Program,Joint Mobilizations,Manual Therapy, Patient/Caregiver Education, Self-Care/Home Management,Soft Tissue Mobilization,Taping, Therapeutic Activities, Therapeutic Exercises Modalities Electric Stimulation,Hot Packs ,Iontophoresis,Ultrasound Next Visit Focus/Plan Next Note Type Treatment Note Next Visit Plan pt to be seen again for pelvic floor stabilization and to have exercises reviewed from this visit today Plan of Care Dates Plan of Care Start Date 08/28/20 Plan of Care End Date 10/30/20 Electronically Signed by: Honey Vazquez, PT 08/28/20 1003 Please Sign and Return: I have reviewed this Plan of Care and certify that the skilled therapy services above are required to meet the patient?s needs. Physician Signature Date Printed Name and Credentials Clinical Instructor Signature Printed Name and Credentials
--- NOTE | 2020-10-09 13:09 | PT.OTN ---
Current Diagnoses Sacrococcygeal disorders, not elsewhere classified (10/09/20) Other dorsalgia (10/09/20) Abnormal posture (10/09/20) Weakness (10/09/20) Physical Therapy Treatment Note PT-OP-A Visit Information Start: 04/22/20 08:10 Freq: Status: Active Protocol: Document 10/09/20 09:50 [facility] (Rec: 10/09/20 10:37 [facility] [id number]) Out-Patient Physical Therapy Visit Information Visit Information Visit Type Treatment Note Visit Start Time 09:50 Visit Stop Time 10:30 Total Visit Minutes 40 Visit Number 22 Number of ANALYSIS EVALUATOR Visits 0 PT-OP-B Current Condition Start: 04/22/20 08:10 Freq: Status: Active Protocol: Document 04/22/20 10:39 SAK (Rec: 04/22/20 11:35 SAK [id number]) Current Condition History of Current Condition Onset Date years Current Complaints pain L45 and SI joint History of Current Condition Long history of LBP and SI pain, scoliosis lumbar right convex L45, left convex upper lumber, spondylosis, spondylolisthesis L2-3, injection SI august 2019, L45 July 2019; neither helpful. Previously injections have been helpful; historically has had injections every year to 1 1/2 years to SI with good results. Denies N/T, legs giving way. Wears [place] brace when gardening but states she doesn't tend to think about using it indoors even though housework increases her pain. Reports unable to take walks anymore due to pain. Doesn't weaR any shoe or heel lift, though reports she remembers PT giving her cork for use in her shoe to even her leg length; hasn't worn for a long time. States she has started doing some exercises; pelvic tilt, lunges, leg lifts , HS stretches, but not consistent. Standing hamstring stretch painful. Can't get down to the floor or lay on her hands and knees. Sleeping generally ok. Spends a lot of time sitting due to pain after self -care and minimal housework. Always sleeps on right side, sometimes wakes in pain, other days can do an hour or two of mild activity and then has to sit rest of day. FEels heat helpful short term, hasn't tried TENS unit that she and her bought; brought to PT today. Prior Treatments and Tests Progressive dextroscoliosis since 11/23/17 Lumbar spine x-ray: Severe multilevel lumbar spondylosis and facet arthropathy, progressed since the prior study.. Grade 1 retrolisthesis of L2 on L3, which has progressed since prior study. Future Testing and Treatments Planned No appointments scheduled at this time. Prior Functional Status Baseline Function- ADL's Modified Independent Baseline Function- Mobility Modified Independent Baseline Function- Gait able to take walks Baseline Function- Work/School retired Baseline Function- Recreation/Hobbies cooking, gardening, baking Current Functional Impairments (Reported) Functional Limitations- ADL's independent but painful Functional Limitations- Mobility/Gait unable to take walks for exercise or recreation due to pain Functional Limitations- Work/School retired Functional Limitations- Recreation/ painful Hobbies Personal Factors Other Personal Factors That May Effect patient has difficult time Therapy/Recovery relaxing. PT-OP-C Subjective Start: 04/22/20 08:10 Freq: Status: Active Protocol: Document 10/09/20 09:50 [facility] (Rec: 10/09/20 10:37 [facility] [id number]) OP-PT Subjective Patient Comments Patient Comments t reports the stretches are doing fine, she has difficulty with the diaphragmatic breathing and windshield wipers. She gets a injection the 23 of October. She still is not walking but overall is doing a little better. PT-OP-F Manual Assessment Start: 04/22/20 08:10 Freq: Status: Active Protocol: Document 04/22/20 10:39 SAK (Rec: 04/22/20 16:52 SAK [id number]) Manual Assessments Soft Tissue Assessment Soft Tissue Mobility Assessment Increased tightness bilateral lumbar and thoracic paraspinals Joint Mobility Assessment Joint Mobility Assessment lumbar not assessed, unable to lay prone, time constraints PT-OP-G Mobility & Gait Start: 04/22/20 08:10 Freq: Status: Active Protocol: Document 04/22/20 10:39 SAK (Rec: 04/22/20 16:52 SAK [id number]) OP Gait Assessment Gait Distance (Feet) 50 Assistive Devices Orthotic/Prosthetic Devices or Brace: No Factors Limiting Gait Function Factors Limiting Gait Function Pain Comments Gait Comments mild trunk lean right PT-OP-H Neuro Start: 04/22/20 08:10 Freq: Status: Active Protocol: Document 04/22/20 10:39 SAK (Rec: 04/22/20 16:52 SAK [id number]) Sensation Evaluation Gross Sensation Gross Sensation WNL PT-OP-J Posture/Palpation/Skin Start: 04/22/20 08:10 Freq: Status: Active Protocol: Document 04/22/20 10:39 SAK (Rec: 04/22/20 16:52 SAK [id number]) Posture Evaluation Position Standing Head/C-Spine Posture Forward Head T-Spine Posture Increased Kyphosis Thorax Posture (R) Prominent L-Spine Posture Rotation Right Shoulder Posture (L) Rounded,(R) Rounded Scapula Posture (L) Protracted,(R) Protracted Arm Posture (L) Internally Rotated,(R) Internally Rotated Pelvis Posture Posterior Tilted Weight Distribution Decreased Wt.Bear on (L) Palpation Assessment Location SI right Palpation Findings Tenderness PT-OP-K Range of Motion Start: 04/22/20 08:10 Freq: Status: Active Protocol: Document 04/22/20 10:39 SAK (Rec: 04/22/20 16:52 [facility] [id number]) Lumbar Spine Range of Motion Lumbar Spine Active Degrees Flexion 40 Extension 0 Rotation Left 25 Rotation Right 20 Lateral Flexion Left 30 Lateral Flexion Right 35 ROM Limitations Soft Tissue Tightness,Pain Hip Goniometric Range of Motion Hip Left Testing Position Supine Flexion w/Knee Flexed 105 Straight Leg Raise 55 Extension 0 Internal Rotation 30 External Rotation 40 Right Testing Position Supine Flexion w/Knee Flexed 100 Straight Leg Raise 65 Extension 0 Internal Rotation 10 External Rotation 40 Hip ROM Limitations Hip ROM Limitations Soft Tissue Tightness,Pain Knee Goniometric Range of Motion Knee FORD Knee ROM WFL Yes Ankle and Foot Goniometric Range of Motion Ankle and Foot FORD Ankle/Foot ROM WFL Yes PT-OP-L Special Tests Start: 04/22/20 08:10 Freq: Status: Active Protocol: Document 04/22/20 10:39 SAK (Rec: 04/22/20 16:52 SAK [id number]) Special Tests Hip Special Tests Leonel Test Results positive for muscle tightness ford Straight Leg Raise Test Results negative ford ALLA Test Results negative ford PT-OP-M Strength Start: 04/22/20 08:10 Freq: Status: Active Protocol: Document 04/22/20 10:39 SAK (Rec: 04/22/20 16:52 SAK [id number]) Trunk Strength Trunk Manual Muscle Testing Testing Position Supine Flexion 3+ Fair+ Core Stabilization poor ability to activate TrA and multifidi Hip Strength Hip Manual Muscle Testing Right Flexion (L2) 4- Good- Abduction 4 Good External Rotation 4- Good- Internal Rotation 4 Good Left Flexion (L2) 3+ Fair+ Abduction 4 Good External Rotation 4- Good- Internal Rotation 4 Good Knee Strength Knee Manual Muscle Testing ford Flexion (S2) 5 Normal Extension (L3) 5 Normal Ankle/Foot Strength Ankle and Foot Manual Muscle Testing ford Dorsiflexion (L4) 5 Normal Plantarflexion (S1) 5 Normal PT-OP-Q Treatments Start: 04/22/20 08:10 Freq: Status: Active Protocol: Document 10/09/20 09:50 AMH (Rec: 10/09/20 10:37 AMH [id number]) Therapeutic Exercises Supine Exercises wind shield wipers Reps/Minutes x 10 reps pelvic floor muscle isolation Reps/Minutes 10 reps holding 5 seconds each Comments pelvic floor muscle isolation crunch Reps/Minutes 10x Comments hands behind head, cues for small movement, core activation supine bent knee lowering Reps/Minutes 10x Comments small movement, cues for core activation supine bent knee march Reps/Minutes 10x Comments cues for core activation postural isometric Reps/Minutes 5x Comments manual cues for shoulder depression and retraction, abdominal corseting pelvic realignment series Supine Exercise Name ball squeeze, single leg pelvis lift, press hold ex leg at 90/90 Reps/Minutes 5x ea trunk rotation w/ exercise ball Side bilateral Equipment Used exercise ball Reps/Minutes 10x5 sec Comments cued for core facilitation, PPT and breathing sciatic nerve glide Supine Exercise Name w/ ankle DF/PF Reps/Minutes 2x10 ankle pump reps and w/ range as tolerated Comments cued TA and PPT needed, relax neck/ shld pec stretch Supine Exercise Name w/ knees bent Side bilateral Resistance table Reps/Minutes 2x 30 Comments cued PPT awareness and increase range w/ tolerance bridge Reps/Minutes 5 sec hold x10 posture press Supine Exercise Name w/ scap retraction/depression Reps/Minutes 10x5 Comments LE's straight, arms at side lateral sidebend stretch Reps/Minutes 3x10 arms overhead stretch Side bilateral Reps/Minutes 10x10 sec Comments with deep breathing, TA/ PPT awareness supine clam Resistance L2 Theraband Reps/Minutes 10x Comments ford only, unil painful pillow squeeze Equipment Used towel roll Reps/Minutes 10x Comments patient in 90/90 position TrA Comments worked on TA isolations PT-OP-R Modalities Start: 04/22/20 08:10 Freq: Status: Active Protocol: Document 08/11/20 16:18 SAK (Rec: 08/11/20 16:33 SAK [id number]) Hot Pack/Cold Pack Treatment Hot Pack Location lumbar spine Treatment Duration (minutes) 15 Comments 90/90 position (during self-care education and HEP review/instruction) PT-OP-T Assessment and Plan Start: 04/22/20 08:10 Freq: Status: Active Protocol: Document 10/09/20 13:07 AMH (Rec: 10/09/20 13:08 AMH [id number]) Physical Therapy Assessment Assessment Summary Assessment pt had her last visit today in PT. She has been working hard on her exercises and is doing a little better. She has a injection scheduled the end of September. At this point she is I with her HEP and will be discharged from PT Physical Therapy Plan Discharge Physical Therapy Discharge Reasons No Longer Attending PT
== END 2020-10-09 13:19 | disposition home or self-care (01) ==
LOC: PHYS 09:45
PROVIDERS: Family Provider Internal Medicine; PCP Internal Medicine; Referring Provider Internal Medicine; Visit Provider Internal Medicine
DX: M54.89 Other dorsalgia (principal); M53.3 Sacrococcygeal disorders, not elsewhere classified; R53.1 Weakness; R29.3 Abnormal posture
CPT/HCPCS: 97010; 97014; 97035; 97110; 97140; 97162; 97530; 97535; G0283

== ENCOUNTER → 2020-10-15 09:38 | Outpatient (CLI) | payer MEDICARE, OTHER, SELFPAY | PROVIDERS: Family Provider Internal Medicine; PCP Internal Medicine; Referring Provider Internal Medicine; Visit Provider Internal Medicine | DX: Z78.0 Asymptomatic menopausal state (principal); M85.852 Other specified disorders of bone density and structure, left thigh; M85.851 Other specified disorders of bone density and structure, right thigh | CPT/HCPCS: 77080 ==

== ENCOUNTER → 2020-10-21 08:21 | Outpatient (CLI) | payer MEDICARE, OTHER, SELFPAY ==
[2020-10-21 11:33] LABS: COVID19 -Nasal RAPID Negative (Negative)
== END ==
PROVIDERS: Family Provider Internal Medicine; PCP Internal Medicine; Visit Provider Physical Medicine & Rehabilitation
DX: Z20.822 Contact with and (suspected) exposure to COVID-19 (principal)
CPT/HCPCS: 87635; C9803

== ENCOUNTER 2020-10-23 10:43 | Outpatient (CLI) | payer MEDICARE, OTHER, SELFPAY ==
[2020-10-23] VITALS (9 sets, daily range): BP systolic 108–146; BP diastolic 61–77; PULSE 72–90; RESP 13–22; TEMP 35.9; O2SAT 94–100
--- NOTE | 2020-10-23 10:44 | DI.RAD.S_ITS ---
PROCEDURE: PAIN L INTERLAMINAR/CAUDAL INJ INDICATIONS: SPONDYLOSIS COMPARISON: None. FINDINGS: Fluoroscopic spot filming was performed to verify placement of spinal needles at the L2-L3 level(s), as labeled on the films. Appropriate location(s) of the needle tip(s) was confirmed by injection of iodinated contrast. Dictated by: Jax Agee M.D. on 10/23/2020 at 14:16 Approved by: Jax Agee M.D. on 10/23/2020 at 14:16
[2020-10-23] MEDS: MIDAZOLAM 5 MG/5 ML VIAL IV (11:51)
[2020-10-23] MEDS: fentaNYL 100 MCG/2 ML INJ 50 MCG IV (11:51)
[2020-10-23] MEDS: IOPAMIDOL 15 ML VIAL 3 ML INJ (11:54)
[2020-10-23] MEDS: BUPIVACAINE 0.25% (PF) VIAL 2 ML INJ (11:54)
[2020-10-23] MEDS: BETAMETHASONE 30 MG/5 ML MDV 6 MG INJ (11:54)
[2020-10-23] MEDS: DEXAMETHASONE 10 MG/ML VIAL 20 MG INJ (11:55)
--- NOTE | 2020-10-23 12:03 | P.PCN_ITS ---
Date/Time/Diagnoses Date of procedure: 10/23/20 Time of procedure: 12:03 Pre-procedure diagnosis: 1. HNP WITH RADICULAR FEATURES, 2. MULTILEVEL CENTRAL STENOSIS, Post-procedure diagnosis: same Procedure Notes Procedure: 1. FLUOROSCOPICALLY GUIDED CONTRAST CONTROLLED INTERLAMINAR EPIDURAL STEROID INJECTION - L2/3 Indications: Ene is referred by SONDRA Ernst for treatment of Bilateral Foraminal Stenosis L>R LE symptoms. Physician: Rasta Acosta Total Fluoroscopy time (seconds): 8 Total sedation minutes: 9 Complications: none Procedure in detail & Post-procedure care: FINDINGS Multilevel Central Spinal Stenosis with Nerve Root Compression DESCRIPTION OF PROCEDURE Fluoroscopically guided, contrast-controlled L2/3 translaminar epidural steroid injection. Following review of allergy and review of potential side effects and complications, including, but not necessarily limited to, infection, allergic reaction, local tissue breakdown, temporary as well as permanent nerve injury, paralysis, stroke and possible , the patient indicated that the patient understood and agreed to proceed. An informed consent document was signed by the patient, witnessed by a nurse, and placed in the patient's chart. Additionally, other treatment options including modalities, medications, and physical therapy were reviewed with the patient. After review of previous anaesthesic history and IV conscious sedation the patient was deemed safe to proceed with today?s procedure with IV conscious sedation as ASA class II designation. Safety time-out was performed to confirm patient ID, procedure to be performed and site of procedure. IV sedation was accomplished with a combination of 2mg Versed and 50mcg of Fentanyl administered by the RN after DO order, titrated to patient comfort during the course of the procedure while the patient remained responsive to all verbal commands. In the prone position, following sterile prep and drape of the lumbar region,the L2/3 translaminar space was identified fluoroscopically. The skin was anesthetized via a 25-gauge, 1.5-inch needle with 1% lidocaine solution. At this point, a 22-gauge short bevel spinal needle was atraumatically introduced and advanced under fluoroscopic guidance into the region of the L2/3 translaminar space. Depth was confirmed on lateral view. Radiological data, including multiple fluoroscopic views of the lumbar spine, reveal a spinal needle at the L2/3 translaminar space. Lateral views then show placement of the needle in the epidural space. Subsequent views show contrast material flowing superiorly and inferiorly in the epidural space. No vascular or intrathecal uptake is observed. At this point, using loss of resistance technique with saline and air, the epidural space was entered. This was confirmed following negative aspiration with injection of approximately 1.5 cc of Isovue 200, showing excellent epidural flow without vascular or intrathecal uptake. At this point, 1 cc of 1% lidocaine solution combined with 3cc or 20mg of dexamethasone and 6mg of betamethasone was injected without incident. The patient tolerated the procedure well without signs or symptoms of complic ations prior to transfer to the recovery area continued monitoring without incident. The patient was then transferred to the recovery area where they were observed for an appropriate period of time after the injection. The patient reported a VAS score of 6 prior to the procedure and a post-procedure VAS of 0. POST OP INSTRUCTIONS The patient was provided a Pain Log to continue to record their response to the target-specific procedure prior to follow-up visit with their referring physician. Additionally, specific post-injection care instructions and a contact number to our office were provided if concerns arise regarding possible complications associated with the procedure are suspected.
== END 2020-10-23 12:36 | disposition home or self-care (01) ==
LOC: RAD 10:44
PROVIDERS: Family Provider Internal Medicine; PCP Internal Medicine; Referring Provider Physical Medicine & Rehabilitation; Visit Provider Physical Medicine & Rehabilitation
DX: M51.16 Intervertebral disc disorders with radiculopathy, lumbar region (principal); M48.061 Spinal stenosis, lumbar region without neurogenic claudication
CPT/HCPCS: 62323; J0702; J1100; J2250; J3010

== ENCOUNTER → 2020-11-15 08:57 | Outpatient (CLI) | payer MEDICARE, OTHER, SELFPAY ==
--- NOTE | 2020-11-15 08:58 | DI.MG.S_ITS ---
BILATERAL DIGITAL SCREENING MAMMOGRAM 3D/2D WITH CAD: 11/15/2020 CLINICAL: Routine screening. Comparison is made to exams dated: 07/19/2018 mammogram, 07/16/2017 mammogram, and 07/15/2016 mammogram - [facility]. The tissue of both breasts is heterogeneously dense. This may lower the sensitivity of mammography. Current study was also evaluated with a Computer Aided Detection (CAD) system. No significant masses, calcifications, or other findings are seen in either breast. There has been no significant interval change. IMPRESSION: NEGATIVE There is no mammographic evidence of malignancy. A 1 year screening mammogram is recommended. This exam was interpreted at Station ID: [id number]. NOTE: For mammograms, a report in lay terms will be sent to the patient. Approximately 15% of breast malignancies will not be visualized mammographically. In the management of a palpable breast mass, a negative mammogram must not discourage biopsy of a clinically suspicious lesion. Electronically Signed By: Shari spaulding/trupti:11/17/2020 08:51:08 letter sent: Normal Exam ACR BI-RADS Category 1: Negative [id number]
== END ==
PROVIDERS: Family Provider Internal Medicine; PCP Internal Medicine; Referring Provider Internal Medicine; Visit Provider Internal Medicine
DX: Z12.31 Encounter for screening mammogram for malignant neoplasm of breast (principal)
CPT/HCPCS: 77063; 77067

== ENCOUNTER → 2020-12-02 08:50 | Outpatient (CLI) | payer MEDICARE, OTHER, SELFPAY ==
[2020-12-02 11:36] LABS: COVID19 -Nasal RAPID Negative (Negative)
== END ==
PROVIDERS: Family Provider Internal Medicine; PCP Internal Medicine; Visit Provider Physical Medicine & Rehabilitation
DX: Z20.822 Contact with and (suspected) exposure to COVID-19 (principal)
CPT/HCPCS: 87635; C9803

== ENCOUNTER 2020-12-04 12:58 | Outpatient (CLI) | payer MEDICARE, OTHER, SELFPAY ==
[2020-12-04] VITALS (8 sets, daily range): BP systolic 111–145; BP diastolic 57–71; PULSE 78–96; RESP 11–20; TEMP 36.9; O2SAT 95–100
--- NOTE | 2020-12-04 13:02 | DI.RAD.S_ITS ---
PROCEDURE: PAIN L/SI FACET INJ/BLK 1STL INDICATIONS: SPONDYLOSIS COMPARISON: [facility], , PAIN L/SI FACET INJ/BLK 1STL, 11/08/2019, 10:36. FINDINGS: Fluoroscopic spot filming was performed to verify placement of spinal needles at the L2-L3 and L3-L4 level(s), as labeled on the films. Appropriate location(s) of the needle tip(s) was confirmed by injection of iodinated contrast. IMPRESSION: Intraprocedural examination within normal limits. Dictated by: Roberto Steele M.D. on 12/04/2020 at 13:43 Approved by: Roberto Steele M.D. on 12/04/2020 at 13:43
[2020-12-04] MEDS: MIDAZOLAM 5 MG/5 ML VIAL IV (13:47)
[2020-12-04] MEDS: fentaNYL 100 MCG/2 ML INJ 50 MCG IV (13:47)
[2020-12-04] MEDS: BUPIVACAINE 0.5% (PF) VIAL 2 ML INJ (13:52)
[2020-12-04] MEDS: IOPAMIDOL 15 ML VIAL 3 ML INJ (13:52)
[2020-12-04] MEDS: BETAMETHASONE 30 MG/5 ML MDV 12 MG INJ (13:53)
--- NOTE | 2020-12-04 14:01 | P.PCN_ITS ---
Date/Time/Diagnoses Date of procedure: 12/04/20 Time of procedure: 14:01 Pre-procedure diagnosis: 1. FACET ARTHROPATHY, 2. AXIAL LBP, 3. MULTILEVEL DDD Post-procedure diagnosis: same Procedure Notes Procedure: 1. FLUOROSCOPICALLY GUIDED CONTRAST CONTROLLED FACET JOINT INJECTIONS RIGHT L2/3, L3/4 Indications: Ene is referred by SONDRA Ernst for treatment of Axial LBP Physician: Rasta Acosta Total Fluoroscopy time (seconds): 7 Total sedation minutes: 10 Complications: none Procedure in detail & Post-procedure care: FINDINGS Multilevel Facet Arthropathy with Clinically significant axial LBP DESCRIPTION OF PROCEDURE Fluoroscopically guided, contrast-controlled right L2/3, L3/4 facet joint injections. Following review of allergy and review of potential side effects and complications, including, but not necessarily limited to, infection, allergic reaction, local tissue breakdown, stroke, temporary or permanent nerve injury, paralysis, and possible , the patient indicated that the patient understood and agreed to proceed. An informed consent document was signed by the patient, witnessed by a nurse, and placed in the patient's chart. Additionally, other treatment options including medications, modalities, and physical therapy were reviewed with the patient. After review of previous anaesthesic history and IV conscious sedation the patient was deemed safe to proceed with today?s procedure with IV conscious sedation as ASA class II designation. Safety time-out was performed to confirm patient ID, procedure to be performed and site of procedure. IV sedation was accomplished with a combination of 2mg of Versed and 50mcg of Fentanyl administered by the RN after DO order, titrated to patient comfort during the course of the procedure while the patient remained responsive to all verbal commands. In the prone position, following sterile prep and drape of the lumbar region, the posterior aspect of the right L2/3, L3/4 facet joints were identified fluoroscopically. The skin was anesthetized via a 25-gauge 1.5-inch needle with 1% lidocaine solution into the corresponding facet joints. At this point, a 22- gauge 3.5-inch spinal needle was atraumatically introduced and advanced under fluoroscopic guidance into the corresponding facet joints. Following negative aspiration, injections of approximately 0.2-cc of Isovue 200 confirmed interart icular placement without vascular uptake. Radiological data, including multiple fluoroscopic views of the lumbosacral spine, reveal a spinal needle at the right L2/3, L3/4 facet joints. Subsequent views show flow of contrast material both superiorly and inferiorly within the joint space without vascular or intrathecal uptake. At this point, a total of 0.5cc including a mixture of 0.25 cc Marcaine and 0.25cc betamethasone was injected without complication into each of the corresponding facet joints. The patient tolerated the procedure well without signs or symptoms of complications prior to transfer to the recovery area for further monitoring. The patient was then transferred to the recovery area where they were observed for an appropriate period of time after the injection. The patient reported a VAS score of 7 prior to the procedure and a post-procedure VAS of 0. POST OP INSTRUCTIONS The patient was provided a Pain Log to continue to record their response to the target-specific procedure prior to follow-up visit with their referring physician. Additionally, specific post-injection care instructions and a contact number to our office were provided if concerns arise regarding possible complications associated with the procedure are suspected.
== END 2020-12-04 14:30 | disposition home or self-care (01) ==
PROVIDERS: Family Provider Internal Medicine; PCP Internal Medicine; Referring Provider Physical Medicine & Rehabilitation; Visit Provider Physical Medicine & Rehabilitation
DX: M47.816 Spondylosis without myelopathy or radiculopathy, lumbar region (principal); M51.36 Other intervertebral disc degeneration, lumbar region; M54.5 Low back pain
CPT/HCPCS: 64493; 64494; 99152; J0702; J2250; J3010

== ENCOUNTER → 2021-01-06 09:59 | Outpatient (CLI) | payer MEDICARE, OTHER, SELFPAY ==
--- NOTE | 2021-01-06 10:00 | DI.RAD.S_ITS ---
PROCEDURE: XR LUMBAR SPINE MIN 4V INDICATIONS: BACK PAIN TECHNIQUE: 5 views of the lumbar spine were acquired, including bilateral oblique views. COMPARISON: [facility], CR, XR LUMBAR SPINE MIN 4V, 09/13/2019, 10:45. FINDINGS: Bones: 5 nonrib-bearing vertebrae are present. There is rightward scoliotic curvature with apex L1-2. Multilevel disc space narrowing most severe at L2-3 is present. Multilevel foraminal narrowing is present severe at L4-5, L5-S1, moderate at L1-L2, L3-4. Multilevel facet hypertrophy is present. No vertebral body compression fractures. No suspicious bony lesions. Soft tissues: Overlying bowel gas pattern is normal. No suspicious soft tissue calcifications. Oblique images: No pars defects. IMPRESSION: Multilevel disc and foraminal narrowing as above, progressive compared to prior exam. Further evaluation with MRI is recommended. Dictated by: Marci Mckinnon M.D. on 01/06/2021 at 11:41 Approved by: Marci Mckinnon M.D. on 01/06/2021 at 11:55
== END ==
PROVIDERS: Family Provider Internal Medicine; PCP Internal Medicine; Referring Provider Physical Medicine & Rehabilitation; Visit Provider Physical Medicine & Rehabilitation
DX: M54.17 Radiculopathy, lumbosacral region (principal); M48.061 Spinal stenosis, lumbar region without neurogenic claudication; M48.07 Spinal stenosis, lumbosacral region
CPT/HCPCS: 72110

== ENCOUNTER → 2021-01-13 08:40 | Outpatient (CLI) | payer MEDICARE, OTHER, SELFPAY ==
[2021-01-13 16:03] LABS: COVID19 -Nasal RAPID Negative (Negative)
== END ==
PROVIDERS: Family Provider Internal Medicine; PCP Internal Medicine; Visit Provider Physical Medicine & Rehabilitation
DX: Z20.822 Contact with and (suspected) exposure to COVID-19 (principal)
CPT/HCPCS: 87635; C9803

== ENCOUNTER 2021-01-15 09:52 | Outpatient (CLI) | payer MEDICARE, OTHER, SELFPAY ==
[2021-01-15] VITALS (8 sets, daily range): BP systolic 113–155; BP diastolic 58–79; PULSE 84–91; RESP 12–20; TEMP 37.1; O2SAT 97–100
--- NOTE | 2021-01-15 09:54 | DI.RAD.S_ITS ---
PROCEDURE: PAIN L/SI FACET INJ/BLK 1STL INDICATIONS: SPONDYLOSIS COMPARISON: [facility], XA, PAIN L/SI FACET INJ/BLK 1STL, 12/04/2020, 13:53. FINDINGS: Fluoroscopic spot filming was performed to verify placement of spinal needles at the right L2-L3, L3-L4, L4-L5, L5-S1 and S1-S2 level(s), as labeled on the films. Appropriate location(s) of the needle tip(s) was confirmed by injection of iodinated contrast. IMPRESSION: Access needles in appropriate location for right L2, L3, L4, L5 and S1 medial nerve branch block. Dictated by: Katia Anderson MD, PhD on 01/15/2021 at 12:37 Approved by: Katia Anderson MD, PhD on 01/15/2021 at 12:38
[2021-01-15] MEDS: MIDAZOLAM 5 MG/5 ML VIAL IV (10:45)
[2021-01-15] MEDS: fentaNYL 100 MCG/2 ML INJ (10:45)
[2021-01-15] MEDS: IOPAMIDOL 15 ML VIAL INJ (10:49)
[2021-01-15] MEDS: BUPIVACAINE 0.5% (PF) VIAL 30 ML (10:49)
[2021-01-15] MEDS: LIDOCAINE 1% 20 ML 10 ML INJ (10:53)
--- NOTE | 2021-01-15 11:08 | PM.PROC.IR.1 ---
Date/Time/Diagnoses Date of procedure: 01/15/21 Time of procedure: 11:09 Pre-procedure diagnosis: 1. FACET ARTHROPATHY Post-procedure diagnosis: same Procedure Notes Procedure: 1. Right L2, L3, L4, L5 and S1 MB BLOCKS Indications: Ene is referred by SONDRA Ernst for treatment of Right Axial LBP. Physician: Rasta Acosta Total Fluoroscopy time (seconds): 6 Total sedation minutes: 13 Complications: none Procedure in detail & Post-procedure care: DESCRIPTION OF PROCEDURE Fluoroscopically guided, contrast-controlled right L2, L3, L4, L5 and S1 medial branch blocks with 0.5cc of 0.5% Marcaine. Following review of allergy and review of potential side effects and complications, including, but not necessarily limited to, infection, allergic reaction, local tissue breakdown, nerve injury, paralysis, stroke and possible , the patient indicated that the patient understood and agreed to proceed. An informed consent document was signed by the patient, witnessed by a nurse, and placed in the patient's chart. After review of previous anaesthesic history and IV conscious sedation the patient was deemed safe to proceed with today?s procedure with IV conscious sedation as ASA class II designation. Safety time-out was performed to confirm patient ID, procedure to be performed and site of procedure. IV sedation was accomplished with a combination of 2mg of Versed and 50mcg of Fentanyl was administered by the RN after DO order, titrated to patient comfort during the course of the procedure while the patient remained responsive to all verbal commands In the prone position, following sterile prep and drape of the lumbar region, the right L2, L3, L4, L5 and S1 anatomical location of the medial branch of the dorsal ramus was identified fluoroscopically. Subsequently an anesthetic skin wheal using 1% lidocaine solution was initiated at each of the anatomical spots. Subsequently then a 22-gauge 3.5-inch spinal needle was atraumatically introduced and advanced under fluoroscopic guidance at each of the corresponding sites at the right L2, L3, L4, L5 and S1 MB. After negative aspiration, 0.2 cc of Isovue 200 was injected, confirming placement without vascular or intrathecal uptake. Subsequently then 0.5 cc of 0.5% Marcaine solution was injected at each of the corresponding sites at the right L2, L3, L4, L5 and S1 medial branch locations. The patient tolerated the procedure well without signs or symptoms of complications. The procedure tolerated the procedure well without signs or symptoms of complications prior to transfer to the recovery area continued monitoring without incident. Post-procedure, the patient was monitored initiating provocative activities to measure the amount of relief from block of the facetogenic pain. The patient reported a VAS of 7 prior to the procedure and a post-procedure VAS of 1. It has been a pleasure to assist in the diagnostic and therapeutic care of your patient. POST OP INSTRUCTIONS The patient was provided with a Pain Log to complete over the next several hours and subsequent days prior to the patient's follow up with the ordering physician. 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 The patient is aware, was provided, once again, with a Pain Log and will follow up with the referring physician for review and clinical correlation.
== END 2021-01-15 11:20 | disposition home or self-care (01) ==
LOC: RAD 09:53
PROVIDERS: Family Provider Internal Medicine; PCP Internal Medicine; Referring Provider Physical Medicine & Rehabilitation; Visit Provider Physical Medicine & Rehabilitation
DX: M47.816 Spondylosis without myelopathy or radiculopathy, lumbar region (principal); M47.817 Spondylosis without myelopathy or radiculopathy, lumbosacral region; M54.59 Other low back pain
CPT/HCPCS: 64493; 64494; 64495; 99152; J2250; J3010

== ENCOUNTER → 2021-03-30 10:54 | Outpatient (CLI) | payer MEDICARE, OTHER, SELFPAY ==
[2021-03-30 13:49] LABS: COVID19 -Nasal RAPID Negative (Negative)
== END ==
PROVIDERS: Family Provider Internal Medicine; PCP Internal Medicine; Referring Provider Physical Medicine & Rehabilitation; Visit Provider Physical Medicine & Rehabilitation
DX: Z20.822 Contact with and (suspected) exposure to COVID-19 (principal)
CPT/HCPCS: 87635; C9803

== ENCOUNTER 2021-03-31 10:45 | Outpatient (CLI) | payer MEDICARE, OTHER, SELFPAY ==
[2021-03-31] VITALS (11 sets, daily range): BP systolic 117–151; BP diastolic 58–78; PULSE 82–92; RESP 10–17; TEMP 36.8; O2SAT 96–100
--- NOTE | 2021-03-31 10:47 | DI.RAD.S_ITS ---
PROCEDURE: PAIN L/S MED/LAT N RFA INDICATIONS: SPONDYLOSIS COMPARISON: [facility], , PAIN L/SI FACET INJ/BLK 1STL, 01/15/2021, 10:51. FINDINGS: Fluoroscopic spot filming was performed to verify placement of spinal needles on the right at the L2, L3, L4, L5, and S1 levels as labeled on the films. IMPRESSION: Intraprocedural examination within normal limits. Dictated by: Roberto Steele M.D. on 03/31/2021 at 12:51 Approved by: Roberto Steele M.D. on 03/31/2021 at 12:52
[2021-03-31] MEDS: MIDAZOLAM 5 MG/5 ML VIAL IV (12:00)
[2021-03-31] MEDS: fentaNYL 100 MCG/2 ML INJ 50 MCG IV (12:00)
[2021-03-31] MEDS: BUPIVACAINE 0.5% (PF) VIAL 5 ML INJ (12:07)
[2021-03-31] MEDS: LIDOCAINE 1% 20 ML INJ (12:07)
--- NOTE | 2021-03-31 12:48 | P.PCN_ITS ---
Date/Time/Diagnoses Date of procedure: 03/31/21 Time of procedure: 12:48 Pre-procedure diagnosis: 1. RECALCITRANT FACET ARTHROPATHY Post-procedure diagnosis: same Procedure Notes Procedure: 1. RIGHT L2, L3, L4 AND L5 MEDIAL BRANCH RADIOFREQUENCY NEUROTOMY AND RIGHT S1 DORSAL RAMUS BRANCH RADIOFREQUENCY NEUROTOMY Indications: Ene is referred by SONDRA Ernst for treatment of facet arthropathy. Physician: Rasta Acosta Total Fluoroscopy time (seconds): 20 Total sedation minutes: 33 Complications: none Procedure in detail & Post-procedure care: DESCRIPTION OF PROCEDURE Right L2, L3, L4 and L5 medial branch radiofrequency neurotomy and right S1 dorsal ramus branch radiofrequency neurotomy under fluoroscopy with conscious sedation. The patient is well known to this clinic having undergone previous facet injections with good but temporary relief. The patient has experienced appropriate, concordant relief with previous facet and median branch blocks but the patient's pain has been recalcitrant to further conservative measures. Therefore, based upon the patient's relief and persistent symptoms, the patient is considered an appropriate candidate for facet rhizotomy. All of the patient's questions regarding the risks versus benefits of the procedure, including, but not limited to, bleeding, infection, temporary as well as lasting nerve injury, paralysis, stroke, and , as well treatment alternatives were answered to satisfaction. After review of previous anaesthesic history and IV conscious sedation the patient was deemed safe to proceed with today?s procedure with IV conscious sedation as ASA class II designation. Safety time-out was performed to confirm patient ID, procedure to be performed and site of procedure. IV sedation was accomplished with a combination of 3mg of Versed and 50mcg of Fentanyl was administered by the RN after DO order, titrated to patient comfort during the course of the procedure while the patient remained responsive to all verbal commands. After obtaining informed consent, denial of pertinent drug allergies, as well as being made aware of the potential risks of bleeding, infection, spinal cord trauma, paralysis, temporary and permanent nerve damage, seizure, stroke, and possible , the patient was brought to the fluoroscopy suite and positioned prone on the fluoroscopy table. The lumbar region was prepped with Betadine and covered with a fenestrated drape in the usual sterile fashion. Appropriate monitors applied including pulse oximeter, pulse, and blood pressure for regular monitoring throughout the procedure. After local infiltration using 1% lidocaine, under fluoroscopic guidance, a 10- cm RF insulated needle with a 10-mm active tip was positioned parallel to the junction of the right sacral ala and the superior articulating process where the S1 dorsal ramus resides. Needle placement was confirmed with sensory stimulation at 50 Hz, with motor stimulation of .5v on the right which produced local stimulation without radicular component. The stimulation was then increased to 2v with, once again, only local multifidus stimulation without radicular component. This was then followed by two discreet lesions performed at 80 degrees Celsius for 90 seconds each. The needle was then removed and the identical procedure was performed along the length of the right L5 medial branch with motor stimulation at .7v on the right. The identical procedure was once again performed along the length of the right L4 medial branch with motor stimulation of .7v on the right. The identical procedure was once again performed along the length of the right L3 medial branch with motor stimulation of .5v on the right. The identical procedure was once again performed along the length of the right L2 medial branch with motor stimulation of .6v on the right The patient tolerated the procedure well without signs or symptoms of complications prior to transfer to the recovery area continued monitoring without incident. The patient was then transferred to the recovery area where they were observed for an appropriate period of time after the injection. The patient was then transferred to the recovery area where they were observed for an appropriate period of time after the injection. The patient reported a VAS score of 8 prior to the procedure and a post- procedure VAS of 0. POST OP INSTRUCTIONS The patient was provided a Pain Log to continue to record the patient's response to the target-specific procedure prior to the patient's follow-up visit with the referring physician. Additionally, specific post-injection care instructions and a contact number to our office were provided if concerns arise regarding possible complications associated with the procedure are suspected.
== END 2021-03-31 12:50 | disposition home or self-care (01) ==
LOC: RAD 10:46
PROVIDERS: Family Provider Internal Medicine; PCP Internal Medicine; Referring Provider Physical Medicine & Rehabilitation; Visit Provider Physical Medicine & Rehabilitation
DX: M47.816 Spondylosis without myelopathy or radiculopathy, lumbar region (principal); M47.817 Spondylosis without myelopathy or radiculopathy, lumbosacral region
CPT/HCPCS: 64635; 64636; 99152; 99153; J2250; J3010

== ENCOUNTER → 2021-05-13 11:00 | Outpatient (CLI) | payer MEDICARE, OTHER, SELFPAY ==
[2021-05-13 13:25] LABS: COVID19 -Nasal RAPID Negative (Negative)
== END ==
PROVIDERS: Family Provider Internal Medicine; PCP Internal Medicine; Visit Provider Physical Medicine & Rehabilitation
DX: Z20.822 Contact with and (suspected) exposure to COVID-19 (principal); M47.816 Spondylosis without myelopathy or radiculopathy, lumbar region; R26.81 Unsteadiness on feet; M99.04 Segmental and somatic dysfunction of sacral region; M48.061 Spinal stenosis, lumbar region without neurogenic claudication; M41.20 Other idiopathic scoliosis, site unspecified
CPT/HCPCS: 87635; 99214

== ENCOUNTER 2021-05-14 07:30 | Outpatient (CLI) | payer MEDICARE, OTHER, SELFPAY ==
[2021-05-14] VITALS (8 sets, daily range): BP systolic 112–159; BP diastolic 55–72; PULSE 74–86; RESP 12–19; TEMP 37.1; O2SAT 94–100
--- NOTE | 2021-05-14 08:05 | DI.RAD.S_ITS ---
PROCEDURE: PAIN SI JOINT INJECTION INDICATIONS: SACROILIAC DISORDER COMPARISON: [facility], , PAIN SI JOINT INJECTION, 08/16/2019, 9:40. FINDINGS: On these intraprocedural images, there is a spinal needle seen overlying the inferior aspect of the right sacroiliac joint. Appropriate position of the tip of the needle was confirmed by injection of a small amount of iodinated contrast. IMPRESSION: Successful sacroiliac joint injection. Dictated by: Roberto Setele M.D. on 05/14/2021 at 8:54 Approved by: Roberto Steele M.D. on 05/14/2021 at 8:54
[2021-05-14] MEDS: fentaNYL 100 MCG/2 ML INJ 50 MCG IV (08:34)
[2021-05-14] MEDS: MIDAZOLAM 5 MG/5 ML VIAL IV (08:34)
[2021-05-14] MEDS: IOPAMIDOL 15 ML VIAL 3 ML INJ (08:36)
[2021-05-14] MEDS: BETAMETHASONE 30 MG/5 ML MDV 12 MG INJ (08:36)
[2021-05-14] MEDS: BUPIVACAINE 0.5% (PF) VIAL 2 ML INJ (08:37)
--- NOTE | 2021-05-14 08:49 | PM.PROC.IR.1 ---
Date/Time/Diagnoses Date of procedure: 05/14/21 Time of procedure: 08:49 Pre-procedure diagnosis: Sacroiliac joint pain/DJD This procedure is found to meet the Governor's proclamation 20-24.2 regarding non urgent procedures. This patient meets multiple criteria for the procedure including continuing or worsening of significant or severe pain, combined with further deterioration of the patient's condition or overall health as well as delay in treatment would be expected to result in less positive ultimate medical outcome. Therefore the decision to perform the procedure in an outpatient hospital setting is found to be in accordance with guidelines of the proclamation. Post-procedure diagnosis: same Procedure Notes Procedure: Fluoroscopically guided contrast controlled right sacroiliac joint injection Indications: Ene is referred by for treatment of right sacroiliac joint DJD Physician: Rasta Acosta Total Fluoroscopy time (seconds): 10 Total sedation minutes: 11 Complications: none Procedure in detail & Post-procedure care: DESCRIPTION OF PROCEDURE Fluoroscopically guided, contrast controlled right sacroiliac joint injection Following review of allergies and review of potential side effects and complications, including, but not necessarily limited to, infection, allergic reaction, local tissue breakdown, temporary as well as permanent nerve injury, paralysis, stroke and possible , the patient indicated that they understood and agreed to proceed. An informed consent was signed by the patient, witnessed by a nurse, and placed in the patient's chart. Additionally, other treatment options including modalities, medications, and physical therapy were reviewed with the patient. After review of previous anaesthesic history and IV conscious sedation the patient was deemed safe to proceed with today?s procedure with IV conscious sedation as ASA class II designation. Safety time-out was performed to confirm patient ID, procedure to be performed and site of procedure. IV sedation was accomplished with a combination of 2mg of Versed and 50mcg of Fentanyl was administered by the RN after DO order, titrated to patient comfort during the course of the procedure while the patient remained responsive to all verbal commands In the prone position following sterile prep and drape of the pelvic region, the hyper lucency on in the inferior aspect of the sacroiliac joint was identified fluoroscopically the skin was anesthetized be a 25 gauge 1 eventual with approximately 2 cc of 1% lidocaine solution. At this point, a 22 gauge 3 in spinal needle was atraumatically introduced and advanced under fluoroscopic guidance into the inferior aspect of the right sacroiliac joint. Following negative aspiration, approximately 0.3cc of Isovue-300 was injected confirming intra-articular placement without vascular uptake. Radiographic data, including multiple fluoroscopic views of the pelvis, reveals a spinal needle in the sacroiliac joint hyper lucent zone. Subsequent view show flow contrast tear superiorly and inferiorly within the joint capsule without vascular intrathecal uptake. At this point a total of 1 of 0.5% Marcaine was combined with 1cc of 6 mg of betamethasone was injected without incident. The procedure tolerated the procedure well without signs or symptoms of complications prior to transfer to the recovery area continued monitoring without incident. The patient was then transferred to the recovery area with a bur observed for an appropriate time after the injection. The patient reverted a vas score of 7 prior to the procedure and post-procedure vas of 1. POSTOP INSTRUCTIONS The patient was provided with a pain like to continue to record the patient's response to the target specific procedure prior to the patient's follow-up visit with the referring physician. Additionally, specific post injection care instructions and a contact number to our office were provided if concerns arise regarding the possible complications associated with procedure are suspected.
== END 2021-05-14 09:07 | disposition home or self-care (01) ==
LOC: RAD 07:32
PROVIDERS: Family Provider Internal Medicine; PCP Internal Medicine; Referring Provider Physical Medicine & Rehabilitation; Visit Provider Physical Medicine & Rehabilitation
DX: M53.3 Sacrococcygeal disorders, not elsewhere classified (principal); M46.1 Sacroiliitis, not elsewhere classified
CPT/HCPCS: 27096; 99152; J0702; J2250; J3010

== ENCOUNTER → 2021-08-13 13:11 | Outpatient (CLI) | payer MEDICARE, OTHER, SELFPAY ==
--- NOTE | 2021-08-13 13:14 | DI.MRI.S_ITS ---
PROCEDURE: MR LUMBAR SPINE WO CON INDICATIONS: scoliosis TECHNIQUE: Noncontrast sagittal T1 spin echo and T2 fast echo, sagittal STIR, and T2 fast spin echo through the lumbar spine. In cases with scoliosis, additional coronal T2 fast spin echo may be performed. COMPARISON: [facility], MR, MR LUMBAR SPINE WO CON, 11/18/2017, 13:30. FINDINGS: Image quality: Excellent. Alignment and Curvature: Convex right thoracolumbar scoliosis present. Bone Marrow: Marrow is of normal overall signal. No acute vertebral body compression fractures. Spinal Cord: Conus medullaris terminates at the L1 level. Visualized cord demonstrates normal signal and size. Paraspinous Soft Tissues: No paravertebral masses. T12-L1: Disc space narrowing present. Hypertrophic facet joints noted. No central stenosis. No foraminal stenosis. L1-L2: Normal appearance. L2-L3: Disc space narrowing and circumferential disc bulge with hypertrophic facet joints and ligamentum flavum laxity results in moderate central stenosis. Severe left and moderate right foraminal stenosis. L3-L4: Disc space narrowing and circumferential disc bulge with hypertrophic facet joints and ligamentum flavum laxity results in severe central stenosis. There is severe right and moderate left foraminal stenosis. L4-L5: Disc space narrowing and circumferential disc bulge with hypertrophic facet joints results in moderate to severe central stenosis. Severe right and moderate left foraminal stenosis. L5-S1: Disc space narrowing and circumferential disc bulge with hypertrophic facet joints results in mild central stenosis. No foraminal stenosis. IMPRESSION: 1. Multilevel degenerative disc disease, arthropathy and thoracolumbar dextroscoliosis results in varying degrees of central and foraminal stenosis including severe central and right foraminal stenosis at L3-4 Approved by: Blayne Jarvis M.D. on 08/13/2021 at 15:38
--- NOTE | 2021-08-13 13:14 | DI.RAD.S_ITS ---
PROCEDURE: XR LUMBAR SPINE MIN 4V INDICATIONS: scoliosis TECHNIQUE: 5 views of the lumbar spine were acquired, including bilateral oblique views. COMPARISON: None. FINDINGS: Bones: 5 nonrib-bearing vertebrae are present. There is 6 millimeters of L1-L2 retrolisthesis. There is severe convex right thoracolumbar spine scoliosis. No vertebral body compression fractures. No suspicious bony lesions. Moderate L2-L3 and L3-L4 degenerative disc disease. Mild L1-L2 , L4-L5 and L5-S1 degenerative disc disease. Moderate L2-L3, L3-L4 and L4-L5 facet arthropathy. Mild L5-S1 facet arthropathy. Soft tissues: Overlying bowel gas pattern is normal. No suspicious soft tissue calcifications. Oblique images: No pars defects. IMPRESSION: 1. Multilevel degenerative disc disease. 2. Multilevel facet arthropathy. 3. No fracture. No acute osseous lesion. If symptoms and/or clinical suspicion for pathology persists, evaluation with MRI should be considered for further assessment. 4. Convex right scoliosis. Dictated by: Katia Anderson MD, PhD on 08/13/2021 at 16:02 Approved by: Katia Anderson MD, PhD on 08/13/2021 at 16:04
== END ==
PROVIDERS: Family Provider Internal Medicine; PCP Internal Medicine; Referring Provider Physical Medicine & Rehabilitation; Visit Provider Physical Medicine & Rehabilitation
DX: M48.061 Spinal stenosis, lumbar region without neurogenic claudication (principal); M51.36 Other intervertebral disc degeneration, lumbar region; M51.37 Other intervertebral disc degeneration, lumbosacral region; M47.816 Spondylosis without myelopathy or radiculopathy, lumbar region; M47.817 Spondylosis without myelopathy or radiculopathy, lumbosacral region; M41.85 Other forms of scoliosis, thoracolumbar region
CPT/HCPCS: 72110; 72148

== ENCOUNTER → 2021-11-26 15:16 | Outpatient (CLI) | payer MEDICARE, OTHER, SELFPAY ==
--- NOTE | 2021-11-26 15:18 | DI.MG.S_ITS ---
BILATERAL DIGITAL SCREENING MAMMOGRAM 3D/2D WITH CAD: 11/26/2021 CLINICAL: Routine screening. Comparison is made to exams dated: 11/15/2020 mammogram, 07/19/2018 mammogram, and 07/16/2017 mammogram - [facility]. Both breasts are heterogeneously dense, which may obscure small masses (category c / 51-75% glandular tissue). Current study was also evaluated with a Computer Aided Detection (CAD) system. No significant masses, calcifications, or other findings are seen in either breast. There has been no significant interval change. IMPRESSION: NEGATIVE There is no mammographic evidence of malignancy. A 1 year screening mammogram is recommended. Based on the Tyrer Cuzick model (a risk assessment model) the patient's lifetime risk is 7.1% and her 10 year risk is 5.8%. According to the ACR, ACS, and NCCN guidelines, an annual breast MRI exam along with mammogram is recommended if the patient's lifetime risk is 20% or greater. This exam was interpreted at Station ID: [id number]. NOTE: For mammograms, a report in lay terms will be sent to the patient. Approximately 15% of breast malignancies will not be visualized mammographically. In the management of a palpable breast mass, a negative mammogram must not discourage biopsy of a clinically suspicious lesion. Electronically Signed By: Avtar Camp M.D., jr/trupti:11/27/2021 15:12:21 letter sent: Normal Exam ACR BI-RADS Category 1: Negative [id number]
== END ==
PROVIDERS: Family Provider Internal Medicine; PCP Internal Medicine; Referring Provider Internal Medicine; Visit Provider Internal Medicine
DX: Z12.31 Encounter for screening mammogram for malignant neoplasm of breast (principal)
CPT/HCPCS: 77063; 77067

== ENCOUNTER 2022-05-20 07:30 | Outpatient (CLI) | payer MEDICARE, OTHER, SELFPAY ==
[2022-05-20] VITALS (9 sets, daily range): BP systolic 105–150; BP diastolic 54–71; PULSE 74–81; RESP 12–19; O2SAT 97–99
--- NOTE | 2022-05-20 07:32 | DI.RAD.S_ITS ---
PROCEDURE: PAIN L/S TRANSFORAMINAL INJECT INDICATIONS: SPONDYLOSIS COMPARISON: , , PAIN L/S TRANSFORAMINAL INJECT, 11/30/2017, 10:48. FINDINGS: 4 images. Fluoroscopic spot filming was performed to verify placement of spinal needles at the right L3-L4 transforaminal level(s), as labeled on the films. Appropriate location(s) of the needle tip(s) was confirmed by injection of iodinated contrast. IMPRESSION: Intraoperative guidance provided. Dictated by: Jordin Iqbal M.D. on 05/20/2022 at 10:39 Approved by: Jordin Iqbal M.D. on 05/20/2022 at 10:40
[2022-05-20] MEDS: MIDAZOLAM 2 MG/2 ML VIAL IV (08:18)
[2022-05-20] MEDS: IOPAMIDOL 15 ML VIAL 3 ML INJ (08:23)
[2022-05-20] MEDS: BETAMETHASONE 30 MG/5 ML MDV 6 MG INJ (08:23)
[2022-05-20] MEDS: BUPIVACAINE 0.25% (PF) VIAL 2 ML INJ (08:23)
[2022-05-20] MEDS: DEXAMETHASONE 10 MG/ML VIAL 20 MG INJ (08:24)
--- NOTE | 2022-05-20 08:35 | P.PCN_ITS ---
Date/Time/Diagnoses Date of procedure: 05/20/22 Time of procedure: 08:35 Pre-procedure diagnosis: 1. FORAMINAL STENOSIS WITH LE SYMPTOMS Post-procedure diagnosis: same Procedure Notes Procedure: 1. FLUOROSCOPICALLY GUIDED CONTRAST CONTROLLED TRANSFORAMINAL EPIDURAL STEROID INJECTION - RIGHT L3/4 TFESI Indications: Lianne is referred by Dr. Ernst for treatment of Foraminal Stenosis with right LE Symptoms Physician: Rasta Acosta Total Fluoroscopy time (seconds): 10 Total sedation minutes: 14 Complications: none Procedure in detail & Post-procedure care: FINDINGS Foraminal Nerve Root Compression secondary to disc disease and facet hypertrophy DESCRIPTION OF PROCEDURE Following review of allergy and review of potential side effects and complications, including, but not necessarily limited to, infection, allergic reaction, local tissue breakdown, stroke, temporary or permanent nerve injury, paralysis, and possible , the patient indicated that the patient understood and agreed to proceed. An informed consent document was signed by the patient, witnessed by a nurse, and placed in the patient's chart. Additionally, other treatment options including medications, modalities, and physical therapy were reviewed with the patient. After review of previous anaesthesic history and IV conscious sedation the patient was deemed safe to proceed with today?s procedure with IV conscious sedation as ASA class II designation. Safety time-out was performed to confirm patient ID, procedure to be performed and site of procedure. IV sedation was accomplished with a combination of 2mg of Versed was administered by the RN after DO order, titrated to patient comfort during the course of the procedure while the patient remained responsive to all verbal commands In the prone position following sterile prep and drape of the lumbar region, the right L3/4 posterior neuroforamen was identified fluoroscopically. The skin was anesthetized via a 25-gauge 1.5-inch needle with 1% lidocaine solution. At this point, a 25-gauge 3.5-inch spinal needle was atraumatically introduced and advanced under fluoroscopic guidance through the posterior right L3/4 neuroforamen to approximately the anterior aspect of the canal. Depth was confirmed on lateral view. Following negative aspiration, injection of approximately 1.5 cc of Isovue 200 under live fluoroscopy in the AP view conf irmed excellent flow along the nerve root, into the epidural space without vascular or intrathecal uptake observed Radiological data, including multiple fluoroscopic views of the lumbosacral spine, reveal a spinal needle at the right L3/4 posterior neuroforamen. Subsequent views show flow of contrast material flowing superiorly and inferiorly along the nerve root confirming epidural flow. Subsequently, a test dose of 1.5 cc of 1% lidocaine solution was administered and patient was observed for two minutes for signs or symptoms of complications, including abdominal pain, shortness of breath, bilateral upper or lower extremity weakness, nausea and vomiting, prior to steroid injection. At this point, a total of 4cc or 20mg of dexamethasone and 12mg of betamethasone was injected without incident. The patient tolerated the procedure well without signs or symptoms of complications prior to transfer to the recovery area continued monitoring without incident. The patient was then transferred to the recovery area where they were observed for an appropriate time after the injection. The patient reported a VAS score of 7 prior to the procedure and a post-procedure VAS of 0. POST OP INSTRUCTIONS The patient was provided a Pain Log to continue to record their response to the target-specific procedure prior to follow-up visit with their referring ph ysician. Additionally, specific post-injection care instructions and a contact number to our office were provided if concerns arise regarding possible complications associated with the procedure are suspected.
== END 2022-05-20 09:13 | disposition home or self-care (01) ==
LOC: RAD 07:31
PROVIDERS: Family Provider Internal Medicine; PCP Internal Medicine; Referring Provider Physical Medicine & Rehabilitation; Visit Provider Physical Medicine & Rehabilitation
DX: M48.061 Spinal stenosis, lumbar region without neurogenic claudication (principal); M51.16 Intervertebral disc disorders with radiculopathy, lumbar region
CPT/HCPCS: 64483; 99152; J0702; J1100; J2250; J3490

== ENCOUNTER 2022-06-30 09:00 | Outpatient (RCR) | payer MEDICARE, OTHER, SELFPAY ==
--- NOTE | 2022-01-07 14:57 | PT.OIE ---
Current Diagnoses Sacrococcygeal disorders, not elsewhere classified (01/07/22) Past Medical History (Last Reviewed 08/03/21 @ 09:49 by Rasta Acosta DO) Facet arthropathy, lumbar Past Surgical History (Last Reviewed 08/03/21 @ 09:49 by Rasta Acosta DO) Status post surgery (04/13/10) Visit Care Team Role Provider Type SONDRA Santacruz Attending Provider Advanced Observation Assistant Family Provider Primary Care Provider Referring Provider Specialty: Family Practice Address: [address] [place] [address], [facility] Email: [email or web address] Physical Therapy Initial Evaluation PT-OP-A Visit Information Start: 01/07/22 11:58 Freq: Status: Active Protocol: Document 01/07/22 13:51 [facility] (Rec: 01/07/22 14:31 [facility]AK [id number]) Out-Patient Physical Therapy Visit Information Visit Information Visit Type Initial Evaluation Visit Note 3 wks post-op SI fusion Visit Start Time 13:50 Visit Stop Time 14:30 Total Visit Minutes 40 Visit Number 1 Evaluation Information Evaluation Date 01/07/22 Precautions Precautions No precautions given by physician, patient reports he said you will know. Stairs allowable at 2 wks post-op PT-OP-B Current Condition Start: 01/07/22 11:58 Freq: Status: Active Protocol: Document 01/07/22 13:51 [facility] (Rec: 01/07/22 14:31 [facility] [id number]) Current Condition History of Current Condition Onset Date 12/15/21 Current Complaints pain right thigh and SI s/p fusion right SI History of Current Condition fusion right SI in [place], patient reports no pins or screws needed, no op report available. aching right anterior thigh and buttock. No precautions given. Prior to surgery doing HEP, since surgery just walking. Has been doing stairs per doctor approval after 2 weeks, though some soreness Has been using walker today didn't use walker, feels just a little unsteady. Icing several times per day. 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 Except for stairs only walking on level surfaces Functional Limitations- Work/School retired Functional Limitations- Recreation/ hasn't been gardening Hobbies PT-OP-C Subjective Start: 01/07/22 11:58 Freq: Status: Active Protocol: Document 01/07/22 13:51 [facility] (Rec: 01/11/22 08:58 [facility] [id number]) Patient Questionnaires ABC- Activity Specific Balance Confidence Scale ABC Functional Impairment 80 to <100% Impaired (Score 1- 20) Oswestry Low Back Index Oswestry Score 50 PT-OP-F Manual Assessment Start: 01/07/22 11:58 Freq: Status: Active Protocol: Document 01/07/22 13:51 [facility] (Rec: 01/11/22 14:57 [facility] [id number]) Manual Assessments Soft Tissue Assessment Soft Tissue Mobility Assessment decrease in soft tissue mobility hugo lumbar paraspinals, right piriformis, incision. PT-OP-G Mobility & Gait Start: 01/07/22 11:58 Freq: Status: Active Protocol: Document 01/07/22 13:51 [facility] (Rec: 01/11/22 14:57 [facility] [id number]) OP Gait Assessment Gait Gait Assistance Required: Independent Assistive Devices Assistive Device Straight Cane,Front Wheeled Walker Orthotic/Prosthetic Devices or Brace: No Gait Deviations General Gait Pattern Antalgic,Decreased Stride Length Factors Limiting Gait Function Factors Limiting Gait Function Decreased Strength,Pain PT-OP-H Neuro Start: 01/07/22 11:58 Freq: Status: Active Protocol: Document 01/07/22 13:51 [facility] (Rec: 01/11/22 14:57 [facility] [id number]) Sensation Evaluation Gross Sensation Gross Sensation Left LE Impaired Sensation Description Paresthesia PT-OP-J Posture/Palpation/Skin Start: 01/07/22 11:58 Freq: Status: Active Protocol: Document 01/07/22 13:51 [facility] (Rec: 01/11/22 14:57 [facility] [id number]) Posture Evaluation Position Standing Head/C-Spine Posture Forward Head T-Spine Posture Flexible Scoliosis on (L), Flexible Scoliosis on (R) L-Spine Posture Decreased Lordosis Shoulder Posture (L) Rounded,(R) Rounded Scapula Posture (L) Protracted,(R) Protracted Arm Posture (L) Internally Rotated,(R) Internally Rotated Pelvis Posture Posterior Tilted Weight Distribution Weight Shifted Left Skin Assessment Incisional Assessment Incision Appearance/Comments as above PT-OP-K Range of Motion Start: 01/07/22 11:58 Freq: Status: Active Protocol: Document 01/07/22 13:51 [facility] (Rec: 01/11/22 14:57 [facility] [id number]) Hip Goniometric Range of Motion Hip ROM Limitations Comments WFL, no formal testing due to recent surgery PT-OP-M Strength Start: 01/07/22 11:58 Freq: Status: Active Protocol: Document 01/07/22 13:51 [facility] (Rec: 01/11/22 14:57 [facility] [id number]) Trunk Strength Trunk Manual Muscle Testing Comments not assessed due to recent surgery Hip Strength Hip Manual Muscle Testing hugo Comments no MMT due to recent surgery Knee Strength Knee Manual Muscle Testing hugo Comments no MMT due to recent surgery, has full AROM Ankle/Foot Strength Ankle and Foot Manual Muscle Testing hugo Comments has full active ROM, No MMT due to recent surgery PT-OP-Q Treatments Start: 01/07/22 11:58 Freq: Status: Active Protocol: Document 01/07/22 13:51 [facility] (Rec: 01/11/22 14:57 [facility] [id number]) Self-Care/Home Management Treatment Education Patient Education Fall Risk,Home Exercise Program,Pain Management, Posture PT-OP-T Assessment and Plan Start: 01/07/22 11:58 Freq: Status: Active Protocol: Document 01/07/22 13:51 [facility] (Rec: 01/07/22 17:08 [facility] [id number]) Physical Therapy Assessment Evaluation Complexity Number of Personal Factors/Comorbidities 1-2 Number of Body Systems Impaired 3 Clinical Presentation at Evaluation Stable Impairments Impairments Activity Tolerance,Gait,Pain, Strength Goals Three Impairment weakness Impairment weakness core and hip musculature, requires use of UE's for sit to stand Short Term Goal (STG) Instruct patient in progressive HEP for purposes of core and hip muscle strengthening for SI support and improved functional mobility STG Duration 02/25/22 Caregivers Non Medical Goal (LTG) Patient to be independent and compliant to HEP for purposes of strengthening and core stabilization. Functionally will be able to transition sit to stand x 5 times without use of UE's without an increase in pain LTG Duration 04/04/21 Two Impairment pain Impairment pain right SI and anterior thigh 4/10 consistently taking Tylenol and Alleve Short Term Goal (STG) Improve patient pain to no greater than 2/10 while taking pain medication STG Duration 02/25/22 Penitentiary Goal (LTG) Improve patient's pain to no greater than 2/10 without pain medication LTG Duration 04/04/21 One Impairment activity tolerance Impairment Oswestry disability index score 50% Short Term Goal (STG) Oswestry disability index score improved to no greater than 30% as measure of improved activity tolerance STG Duration 02/25/22 Penitentiary Goal (LTG) Improve Oswestry disability index score to no greater than 15% as measure of improved activity tolerance and return to prior level of function LTG Duration 04/04/21 Assessment Summary Assessment Patient presents to PT 3 wks s /p right SI fusion reporting decrease in SI pain since surgery, at 4/10 level at this time, taking regular Tylenol and Alleve as instructed. She has anterior right thigh pain which was not present prior to surgery. Has not done any exercises besides walking on level surfaces and has been using front wheeled walker with good tolerance, though ambulating without device to PT today with mild antalgic gait. Incision healing well without signs or symptoms of infection. Patient would benefit from PT for gentle strengtheing, gait training, manual techniques including scar massage and MFR due to tightness in piriformis, ITband and quad on right, as well as modalities PRN. Physical Therapy Plan Frequency and Duration Frequency of Treatment 2x/Week Duration of treatment (weeks) 12 Plan of Care Start Date 01/07/22 Plan of Care End Date 04/04/22 Therapeutic Interventions Therapeutic Interventions Gait Training,Home Exercise Program,Manual Therapy,Patient /Caregiver Education,Self-Care /Home Management,Soft Tissue Mobilization,Taping, Therapeutic Activities, Therapeutic Exercises Modalities Cold Pack/Ice Massage,Electric Stimulation,Hot Packs, Iontophoresis Next Visit Focus/Plan Next Note Type Treatment Note Next Visit Plan Gentle ther ex for core and LE strengtheing, gait training. Manual therapy to improve scar mobility and decrease muscle tightness. Modalities PRN pain.
--- NOTE | 2022-01-07 14:57 | PT.OPPOC ---
Physical, Occupational & Speech Therapy At [facility] Current Diagnoses Sacrococcygeal disorders, not elsewhere classified (01/07/22) Visit Care Team Role Provider Type SONDRA Santacruz Attending Provider Advanced School Bus Inspector Family Provider Primary Care Provider Referring Provider Specialty: Family Practice Address: [address] [place] [address], [id number] Email: Plan Of Care PT-OP-T Assessment and Plan Start: 01/07/22 11:58 Freq: Status: Active Protocol: Document 01/07/22 13:51 [facility] (Rec: 01/07/22 17:08 [facility] [id number]) Physical Therapy Assessment Evaluation Complexity Number of Personal Factors/Comorbidities 1-2 Number of Body Systems Impaired 3 Clinical Presentation at Evaluation Stable Impairments Impairments Activity Tolerance,Gait,Pain, Strength Goals Three Impairment weakness Impairment weakness core and hip musculature, requires use of UE's for sit to stand Short Term Goal (STG) Instruct patient in progressive HEP for purposes of core and hip muscle strengthening for SI support and improved functional mobility STG Duration 02/25/22 Skilled Nursing Goal (LTG) Patient to be independent and compliant to HEP for purposes of strengthening and core stabilization. Functionally will be able to transition sit to stand x 5 times without use of UE's without an increase in pain LTG Duration 04/04/21 Two Impairment pain Impairment pain right SI and anterior thigh 4/10 consistently taking Tylenol and Alleve Short Term Goal (STG) Improve patient pain to no greater than 2/10 while taking pain medication STG Duration 02/25/22 Skilled Nursing Goal (LTG) Improve patient's pain to no greater than 2/10 without pain medication LTG Duration 04/04/21 One Impairment activity tolerance Impairment Oswestry disability index score 50% Short Term Goal (STG) Oswestry disability index score improved to no greater than 30% as measure of improved activity tolerance STG Duration 02/25/22 Stereotyper Goal (LTG) Improve Oswestry disability index score to no greater than 15% as measure of improved activity tolerance and return to prior level of function LTG Duration 04/04/21 Assessment Summary Assessment Patient presents to PT 3 wks s /p right SI fusion reporting decrease in SI pain since surgery, at 4/10 level at this time, taking regular Tylenol and Alleve as instructed. She has anterior right thigh pain which was not present prior to surgery. Has not done any exercises besides walking on level surfaces and has been using front wheeled walker with good tolerance, though ambulating without device to PT today with mild antalgic gait. Incision healing well without signs or symptoms of infection. Patient would benefit from PT for gentle strengtheing, gait training, manual techniques including scar massage and MFR due to tightness in piriformis, ITband and quad on right, as well as modalities PRN. Physical Therapy Plan Frequency and Duration Frequency of Treatment 2x/Week Duration of treatment (weeks) 12 Plan of Care Start Date 01/07/22 Plan of Care End Date 04/04/22 Therapeutic Interventions Therapeutic Interventions Gait Training,Home Exercise Program,Manual Therapy,Patient /Caregiver Education,Self-Care /Home Management,Soft Tissue Mobilization,Taping, Therapeutic Activities, Therapeutic Exercises Modalities Cold Pack/Ice Massage,Electric Stimulation,Hot Packs, Iontophoresis Next Visit Focus/Plan Next Note Type Treatment Note Next Visit Plan Gentle ther ex for core and LE strengtheing, gait training. Manual therapy to improve scar mobility and decrease muscle tightness. Modalities PRN pain. Plan of Care Dates Plan of Care Start Date 01/07/22 Plan of Care End Date 04/04/22 Electronically Signed by: Lisa Gonzalez, PT 01/11/22 9139 If you are in agreement with this Plan of Care, please return a signed and dated copy. I have reviewed this Plan of Care and certify that the skilled therapy services above are required to meet the patient?s needs. Physician Signature Date Printed Name and Credentials Clinical Instructor Signature Printed Name and Credentials
--- NOTE | 2022-01-26 11:47 | PT.OTN ---
Current Diagnoses Sacrococcygeal disorders, not elsewhere classified (01/26/22) Physical Therapy Treatment Note PT-OP-A Visit Information Start: 01/07/22 11:58 Freq: Status: Active Protocol: Document 01/26/22 08:59 [facility] (Rec: 01/26/22 09:50 [facility] [id number]) Out-Patient Physical Therapy Visit Information Visit Information Visit Type Treatment Note Visit Note 5 weeks post-op Visit Start Time 09:00 Visit Stop Time 09:41 Total Visit Minutes 41 Visit Number 2 Precautions Precautions No precautions given by physician, patient reports he said you will know. Stairs allowable at 2 wks post-op PT-OP-B Current Condition Start: 01/07/22 11:58 Freq: Status: Active Protocol: Document 01/26/22 08:59 [facility] (Rec: 01/26/22 09:50 [facility] [id number]) Current Condition History of Current Condition Onset Date 12/15/21 Current Complaints pain right thigh and SI s/p fusion right SI History of Current Condition fusion right SI in [place], patient reports no pins or screws needed, no op report available. aching right anterior thigh and buttock. No precautions given. Prior to surgery doing HEP, since surgery just walking. Has been doing stairs per doctor approval after 2 weeks, though some soreness Has been using walker today didn't use walker, feels just a little unsteady. Icing several times per day. Has not done any exercises Future Testing and Treatments Planned returns to surgeon for f/u in approx 6 weeks Treatment Goals Patient/Caregiver Goals Regain strength, be able to return to usual activity level PT-OP-C Subjective Start: 01/07/22 11:58 Freq: Status: Active Protocol: Document 01/26/22 08:59 [facility] (Rec: 01/26/22 09:50 [facility] [id number]) OP-PT Subjective Patient Comments Patient Comments [place] ok after PT, has done HEP . [place] she went backward Tuesday and Tuesday, iced, took Alleve, had to lay down both days. Had massage on Tuesday, wondered if that increased her pain. Yesterday better and today better 2/10 pain. Not doing log roll or using pillows for bed positioning. PT-OP-F Manual Assessment Start: 01/07/22 11:58 Freq: Status: Active Protocol: Document 01/07/22 13:51 [facility] (Rec: 01/11/22 14:57 [facility] [id number]) Manual Assessments Soft Tissue Assessment Soft Tissue Mobility Assessment decrease in soft tissue mobility hugo lumbar paraspinals, right piriformis, incision. PT-OP-G Mobility & Gait Start: 01/07/22 11:58 Freq: Status: Active Protocol: Document 01/07/22 13:51 [facility] (Rec: 01/11/22 14:57 [facility] [id number]) OP Gait Assessment Gait Gait Assistance Required: Independent Assistive Devices Assistive Device Straight Cane,Front Wheeled Walker Orthotic/Prosthetic Devices or Brace: No Gait Deviations General Gait Pattern Antalgic,Decreased Stride Length Factors Limiting Gait Function Factors Limiting Gait Function Decreased Strength,Pain PT-OP-H Neuro Start: 01/07/22 11:58 Freq: Status: Active Protocol: Document 01/07/22 13:51 [facility] (Rec: 01/11/22 14:57 [facility] [id number]) Sensation Evaluation Gross Sensation Gross Sensation Left LE Impaired Sensation Description Paresthesia PT-OP-J Posture/Palpation/Skin Start: 01/07/22 11:58 Freq: Status: Active Protocol: Document 01/07/22 13:51 [facility] (Rec: 01/11/22 14:57 [facility] [id number]) Posture Evaluation Position Standing Head/C-Spine Posture Forward Head T-Spine Posture Flexible Scoliosis on (L), Flexible Scoliosis on (R) L-Spine Posture Decreased Lordosis Shoulder Posture (L) Rounded,(R) Rounded Scapula Posture (L) Protracted,(R) Protracted Arm Posture (L) Internally Rotated,(R) Internally Rotated Pelvis Posture Posterior Tilted Weight Distribution Weight Shifted Left Skin Assessment Incisional Assessment Incision Appearance/Comments as above PT-OP-K Range of Motion Start: 01/07/22 11:58 Freq: Status: Active Protocol: Document 01/07/22 13:51 [facility] (Rec: 01/11/22 14:57 [facility] [id number]) Hip Goniometric Range of Motion Hip ROM Limitations Comments WFL, no formal testing due to recent surgery PT-OP-M Strength Start: 01/07/22 11:58 Freq: Status: Active Protocol: Document 01/07/22 13:51 [facility] (Rec: 01/11/22 14:57 [facility] [id number]) Trunk Strength Trunk Manual Muscle Testing Comments not assessed due to recent surgery Hip Strength Hip Manual Muscle Testing hugo Comments no MMT due to recent surgery Knee Strength Knee Manual Muscle Testing hugo Comments no MMT due to recent surgery, has full AROM Ankle/Foot Strength Ankle and Foot Manual Muscle Testing hugo Comments has full active ROM, No MMT due to recent surgery PT-OP-Q Treatments Start: 01/07/22 11:58 Freq: Status: Active Protocol: Document 01/26/22 08:59 [facility] (Rec: 01/26/22 09:50 [facility] [id number]) Therapeutic Exercises Supine Exercises posture press Reps/Minutes 10x hip ab/ER Supine Exercise Name HEP Comments cues for pain-free ball squeeze Supine Exercise Name HEP Comments cues for pain-free gluteal set Reps/Minutes 10x Comments verbal and tactile cues TrA Reps/Minutes 5x Comments verbal and tactile cues Therapeutic Activity Therapeutic Activity log roll Reps/Minutes 2 min Comments verbal and tactile cues Self-Care/Home Management Treatment Education Other Education logroll for in and out of bed bed positioning 90/90 positioning for decompress spine don't push into pain with exercises slow down movements, prepare with core PT-OP-T Assessment and Plan Start: 01/07/22 11:58 Freq: Status: Active Protocol: Document 01/26/22 08:59 [facility] (Rec: 01/26/22 09:50 [facility] [id number]) Physical Therapy Assessment Goals Three Impairment weakness Impairment weakness core and hip musculature, requires use of UE's for sit to stand Short Term Goal (STG) Instruct patient in progressive HEP for purposes of core and hip muscle strengthening for SI support and improved functional mobility STG Duration 02/25/22 Dry Cleaning Attendant Goal (LTG) Patient to be independent and compliant to HEP for purposes of strengthening and core stabilization. Functionally will be able to transition sit to stand x 5 times without use of UE's without an increase in pain LTG Duration 04/04/21 Two Impairment pain Impairment pain right SI and anterior thigh 4/10 consistently taking Tylenol and Alleve Short Term Goal (STG) Improve patient pain to no greater than 2/10 while taking pain medication STG Duration 02/25/22 [facility] Goal (LTG) Improve patient's pain to no greater than 2/10 without pain medication LTG Duration 04/04/21 One Impairment activity tolerance Impairment Oswestry disability index score 50% Short Term Goal (STG) Oswestry disability index score improved to no greater than 30% as measure of improved activity tolerance STG Duration 02/25/22 [facility] Goal (LTG) Improve Oswestry disability index score to no greater than 15% as measure of improved activity tolerance and return to prior level of function LTG Duration 04/04/21 Assessment Summary Assessment Patient has had an increase in pain since having massage therapy 4 days ago, some better yesterday and today. HEP was reviewed with emphasis on core activitation prior to any movements and to slow down movements. Instructed in bed positioning with HO given and patient verbalizing improved comfort with BENJI technique Physical Therapy Plan Frequency and Duration Frequency of Treatment 2x/Week Duration of treatment (weeks) 12 Plan of Care Start Date 01/07/22 Plan of Care End Date 04/04/22 Therapeutic Interventions Therapeutic Interventions Gait Training,Home Exercise Program,Manual Therapy,Patient /Caregiver Education,Self-Care /Home Management,Soft Tissue Mobilization,Taping, Therapeutic Activities, Therapeutic Exercises Modalities Cold Pack/Ice Massage,Electric Stimulation,Hot Packs, Iontophoresis Next Visit Focus/Plan Next Note Type Treatment Note Next Visit Plan Review HEP, logroll, core activation. progress into functional positions and activities.
--- NOTE | 2022-02-03 10:30 | PT.OTN ---
Current Diagnoses Sacrococcygeal disorders, not elsewhere classified (02/03/22) Physical Therapy Treatment Note PT-OP-A Visit Information Start: 01/07/22 11:58 Freq: Status: Active Protocol: Document 02/03/22 09:32 TS (Rec: 02/03/22 10:29 TS [id number]) Out-Patient Physical Therapy Visit Information Visit Information Visit Type Treatment Note Visit Note SPTA Sarthak lead treatment, LIBRARY MEDIA TECHNICIAN supervised and directed. Visit Start Time 09:46 Visit Stop Time 10:30 Total Visit Minutes 44 Visit Number 3 Number of LIBRARY MEDIA TECHNICIAN Visits 1 PT-OP-B Current Condition Start: 01/07/22 11:58 Freq: Status: Active Protocol: Document 01/26/22 08:59 SAK (Rec: 01/26/22 09:50 SAK [id number]) Current Condition History of Current Condition Onset Date 12/15/21 Current Complaints pain right thigh and SI s/p fusion right SI History of Current Condition fusion right SI in [place], patient reports no pins or screws needed, no op report available. aching right anterior thigh and buttock. No precautions given. Prior to surgery doing HEP, since surgery just walking. Has been doing stairs per doctor approval after 2 weeks, though some soreness Has been using walker today didn't use walker, feels just a little unsteady. Icing several times per day. Has not done any exercises Future Testing and Treatments Planned returns to surgeon for f/u in approx 6 weeks Treatment Goals Patient/Caregiver Goals Regain strength, be able to return to usual activity level PT-OP-C Subjective Start: 01/07/22 11:58 Freq: Status: Active Protocol: Document 02/03/22 09:32 TS (Rec: 02/03/22 10:29 TS [id number]) OP-PT Subjective Patient Comments Patient Comments PT reports she feels good in the morning but pn increases as day goes by. Sitting aggravates her symptoms. Reports pn is 2/10 on R side. PT-OP-F Manual Assessment Start: 01/07/22 11:58 Freq: Status: Active Protocol: Document 01/07/22 13:51 SAK (Rec: 01/11/22 14:57 SAK [id number]) Manual Assessments Soft Tissue Assessment Soft Tissue Mobility Assessment decrease in soft tissue mobility hugo lumbar paraspinals, right piriformis, incision. PT-OP-G Mobility & Gait Start: 10/13/22 11:58 Freq: Status: Active Protocol: Document 01/07/22 13:51 [facility] (Rec: 01/11/22 14:57 [facility] [id number]) OP Gait Assessment Gait Gait Assistance Required: Independent Assistive Devices Assistive Device Straight Cane,Front Wheeled Walker Orthotic/Prosthetic Devices or Brace: No Gait Deviations General Gait Pattern Antalgic,Decreased Stride Length Factors Limiting Gait Function Factors Limiting Gait Function Decreased Strength,Pain PT-OP-H Neuro Start: 01/07/22 11:58 Freq: Status: Active Protocol: Document 01/07/22 13:51 [facility] (Rec: 01/11/22 14:57 [facility] [id number]) Sensation Evaluation Gross Sensation Gross Sensation Left LE Impaired Sensation Description Paresthesia PT-OP-J Posture/Palpation/Skin Start: 01/07/22 11:58 Freq: Status: Active Protocol: Document 01/07/22 13:51 [facility] (Rec: 01/11/22 14:57 [facility] [id number]) Posture Evaluation Position Standing Head/C-Spine Posture Forward Head T-Spine Posture Flexible Scoliosis on (L), Flexible Scoliosis on (R) L-Spine Posture Decreased Lordosis Shoulder Posture (L) Rounded,(R) Rounded Scapula Posture (L) Protracted,(R) Protracted Arm Posture (L) Internally Rotated,(R) Internally Rotated Pelvis Posture Posterior Tilted Weight Distribution Weight Shifted Left Skin Assessment Incisional Assessment Incision Appearance/Comments as above PT-OP-K Range of Motion Start: 01/07/22 11:58 Freq: Status: Active Protocol: Document 01/07/22 13:51 [facility] (Rec: 01/11/22 14:57 [facility] [id number]) Hip Goniometric Range of Motion Hip ROM Limitations Comments WFL, no formal testing due to recent surgery PT-OP-M Strength Start: 01/07/22 11:58 Freq: Status: Active Protocol: Document 01/07/22 13:51 [facility] (Rec: 01/11/22 14:57 [facility] [id number]) Trunk Strength Trunk Manual Muscle Testing Comments not assessed due to recent surgery Hip Strength Hip Manual Muscle Testing hugo Comments no MMT due to recent surgery Knee Strength Knee Manual Muscle Testing hugo Comments no MMT due to recent surgery, has full AROM Ankle/Foot Strength Ankle and Foot Manual Muscle Testing hugo Comments has full active ROM, No MMT due to recent surgery PT-OP-Q Treatments Start: 01/07/22 11:58 Freq: Status: Active Protocol: Document 02/03/22 09:32 TS (Rec: 02/03/22 10:29 TS [id number]) Therapeutic Exercises Supine Exercises Piriformis stretch Side bilateral Reps/Minutes 1x30 Comments Feels a good stretch. Cues to bring knee closer to chest ITB Stretch w/ strap Supine Exercise Name Added to HEP Side bilateral Equipment Used Strap Reps/Minutes 2x30 Comments Feeling a good stretch. Cues to keep foot straight. HS stretch w/ strap Supine Exercise Name Added HEP Side bilateral Reps/Minutes 2x30 Comments Sitting stretch was difficult. Feels stronger stretch w strap in supine Bridge Supine Exercise Name NPT Equipment Used Mat table Reps/Minutes 2x10 Comments Cues for pain free range, minimal lift in hips. posture press Reps/Minutes 10x Comments Good carryover of form, self- cues. Sitting Exercises Sit to Stands Sitting Exercise Name Added to HEP Equipment Used Mesh chair Reps/Minutes 2x10 Comments Pt required max cues for hip hinge, weight shift forward. Arms in front. Hip Abd/ER Sitting Exercise Name Sitting clamshell Side bilateral Equipment Used LVL 1 TB Reps/Minutes 1x10 (5 sec x 10 next treatment) Comments Good recall from previous session Ball squeeze Sitting Exercise Name Addcutor ball squeeze Equipment Used Blue Bounce Ball Reps/Minutes 1x10 Comments Good form, vladimir-cues for core act Other Exercises Cat Camel Other Exercise Name NPT Equipment Used Mat Table Reps/Minutes 1x10 Comments Cues for sequencing PT-OP-T Assessment and Plan Start: 01/07/22 11:58 Freq: Status: Active Protocol: Document 02/03/22 09:32 TS (Rec: 02/03/22 10:29 TS [id number]) Physical Therapy Assessment Goals Three Impairment weakness Impairment weakness core and hip musculature, requires use of UE's for sit to stand Short Term Goal (STG) Instruct patient in progressive HEP for purposes of core and hip muscle strengthening for SI support and improved functional mobility STG Duration 02/25/22 Snf Goal (LTG) Patient to be independent and compliant to HEP for purposes of strengthening and core stabilization. Functionally will be able to transition sit to stand x 5 times without use of UE's without an increase in pain LTG Duration 04/04/21 Two Impairment pain Impairment pain right SI and anterior thigh 4/10 consistently taking Tylenol and Alleve Short Term Goal (STG) Improve patient pain to no greater than 2/10 while taking pain medication STG Duration 02/25/22 Snf Goal (LTG) Improve patient's pain to no greater than 2/10 without pain medication LTG Duration 04/04/21 One Impairment activity tolerance Impairment Oswestry disability index score 50% Short Term Goal (STG) Oswestry disability index score improved to no greater than 30% as measure of improved activity tolerance STG Duration 02/25/22 Business Affairs Manager Goal (LTG) Improve Oswestry disability index score to no greater than 15% as measure of improved activity tolerance and return to prior level of function LTG Duration 04/04/21 Assessment Summary Assessment Pt asked many good questions throughout tx and demonstrates good carryover of HEP. Pt required Max cues for sit to stands sequencing initally and progressed her form by end of session. Pt will benefit from continued intervention to progress strength in LEs and proper sequencing of sit to stands. Physical Therapy Plan Frequency and Duration Frequency of Treatment 2x/Week Duration of treatment (weeks) 12 Plan of Care Start Date 01/07/22 Plan of Care End Date 04/04/22 Therapeutic Interventions Therapeutic Interventions Gait Training,Home Exercise Program,Manual Therapy,Patient /Caregiver Education,Self-Care /Home Management,Soft Tissue Mobilization,Taping, Therapeutic Activities, Therapeutic Exercises Modalities Cold Pack/Ice Massage,Electric Stimulation,Hot Packs, Iontophoresis Next Visit Focus/Plan Next Note Type Treatment Note Next Visit Plan Next session review HEP updates from today's session, adductor ball squeeze 5 sec hold, assess sit to stand sequencing. Add cat camel/ bridge for HEP and handouts. Continue progression into functional positioning and activities.
--- NOTE | 2022-02-05 13:45 | PT.OTN ---
Current Diagnoses Sacrococcygeal disorders, not elsewhere classified (02/05/22) Physical Therapy Treatment Note PT-OP-A Visit Information Start: 01/07/22 11:58 Freq: Status: Active Protocol: Document 02/05/22 12:50 TS (Rec: 02/05/22 14:21 TS [id number]) Out-Patient Physical Therapy Visit Information Visit Information Visit Type Treatment Note Visit Note SPTA Sarthak lead treatment, FAMILY RESOURCE SPECIALIST supervised and directed. Visit Start Time 13:00 Visit Stop Time 13:45 Total Visit Minutes 45 Visit Number 4 Number of FAMILY RESOURCE SPECIALIST Visits 2 PT-OP-B Current Condition Start: 01/07/22 11:58 Freq: Status: Active Protocol: Document 01/26/22 08:59 SAK (Rec: 01/26/22 09:50 SAK [id number]) Current Condition History of Current Condition Onset Date 12/15/21 Current Complaints pain right thigh and SI s/p fusion right SI History of Current Condition fusion right SI in [place], patient reports no pins or screws needed, no op report available. aching right anterior thigh and buttock. No precautions given. Prior to surgery doing HEP, since surgery just walking. Has been doing stairs per doctor approval after 2 weeks, though some soreness Has been using walker today didn't use walker, feels just a little unsteady. Icing several times per day. Has not done any exercises Future Testing and Treatments Planned returns to surgeon for f/u in approx 6 weeks Treatment Goals Patient/Caregiver Goals Regain strength, be able to return to usual activity level PT-OP-C Subjective Start: 01/07/22 11:58 Freq: Status: Active Protocol: Document 02/05/22 12:50 TS (Rec: 02/05/22 14:21 TS [id number]) OP-PT Subjective Patient Comments Patient Comments Pt reports she is feeling good today and was able to do some ADL's around the house today without pain, felt a little sore after last session. Is compliant with her HEP. PT-OP-F Manual Assessment Start: 01/07/22 11:58 Freq: Status: Active Protocol: Document 01/07/22 13:51 SAK (Rec: 01/11/22 14:57 SAK [id number]) Manual Assessments Soft Tissue Assessment Soft Tissue Mobility Assessment decrease in soft tissue mobility hugo lumbar paraspinals, right piriformis, incision. PT-OP-G Mobility & Gait Start: 01/07/22 11:58 Freq: Status: Active Protocol: Document 01/07/22 13:51 [facility] (Rec: 01/11/22 14:57 [facility] [id number]) OP Gait Assessment Gait Gait Assistance Required: Independent Assistive Devices Assistive Device Straight Cane,Front Wheeled Walker Orthotic/Prosthetic Devices or Brace: No Gait Deviations General Gait Pattern Antalgic,Decreased Stride Length Factors Limiting Gait Function Factors Limiting Gait Function Decreased Strength,Pain PT-OP-H Neuro Start: 01/07/22 11:58 Freq: Status: Active Protocol: Document 01/07/22 13:51 [facility] (Rec: 01/11/22 14:57 [facility] [id number]) Sensation Evaluation Gross Sensation Gross Sensation Left LE Impaired Sensation Description Paresthesia PT-OP-J Posture/Palpation/Skin Start: 01/07/22 11:58 Freq: Status: Active Protocol: Document 01/07/22 13:51 [facility] (Rec: 01/11/22 14:57 [facility] [id number]) Posture Evaluation Position Standing Head/C-Spine Posture Forward Head T-Spine Posture Flexible Scoliosis on (L), Flexible Scoliosis on (R) L-Spine Posture Decreased Lordosis Shoulder Posture (L) Rounded,(R) Rounded Scapula Posture (L) Protracted,(R) Protracted Arm Posture (L) Internally Rotated,(R) Internally Rotated Pelvis Posture Posterior Tilted Weight Distribution Weight Shifted Left Skin Assessment Incisional Assessment Incision Appearance/Comments as above PT-OP-K Range of Motion Start: 01/07/22 11:58 Freq: Status: Active Protocol: Document 01/07/22 13:51 [facility] (Rec: 01/11/22 14:57 [facility] [id number]) Hip Goniometric Range of Motion Hip ROM Limitations Comments WFL, no formal testing due to recent surgery PT-OP-M Strength Start: 01/07/22 11:58 Freq: Status: Active Protocol: Document 01/07/22 13:51 [facility] (Rec: 01/11/22 14:57 [facility] [id number]) Trunk Strength Trunk Manual Muscle Testing Comments not assessed due to recent surgery Hip Strength Hip Manual Muscle Testing hugo Comments no MMT due to recent surgery Knee Strength Knee Manual Muscle Testing hugo Comments no MMT due to recent surgery, has full AROM Ankle/Foot Strength Ankle and Foot Manual Muscle Testing hugo Comments has full active ROM, No MMT due to recent surgery PT-OP-Q Treatments Start: 01/07/22 11:58 Freq: Status: Active Protocol: Document 02/05/22 12:50 TS (Rec: 02/05/22 14:21 TS [id number]) Therapeutic Exercises Supine Exercises Piriformis stretch Side bilateral Reps/Minutes 2x30 Comments Feels a good stretch. Cues to bring knee closer to chest ITB Stretch w/ strap Side bilateral Equipment Used TB Reps/Minutes 1x30 Comments Prefers to use TB because that 's what she has at home HS stretch w/ strap Side bilateral Reps/Minutes 1x30 Comments Prefers to use TB. Bridge Supine Exercise Name Added to HEP Equipment Used Mat table Reps/Minutes 1x10, 1x10 5 sec hold Comments Cues for pain free range, tactile cues for hip lift Sitting Exercises Sit to Stands Equipment Used Mat table Reps/Minutes 2x10 Comments verbal and tactile cues for hip hinge and ecc control. Hip Abd/ER Sitting Exercise Name Single leg clamshell Side bilateral Equipment Used LVL 2 TB Reps/Minutes 1x10 ea Comments Cues for posture Ball squeeze Sitting Exercise Name Adductor ball squeeze Equipment Used Blue Bounce Ball Reps/Minutes 1x10 5 sec holds Comments Good form, vladimir-cues for core act Standing Exercises Multifidus Standing Exercise Name in PT Equipment Used Wall support Reps/Minutes 1x10 Comments SI pain on R side. Revisit in quadruped Other Exercises Cat Camel Other Exercise Name added to HEP Equipment Used Mat Table Reps/Minutes 1x10 Comments Good carryover from previous treatment PT-OP-T Assessment and Plan Start: 01/07/22 11:58 Freq: Status: Active Protocol: Document 02/05/22 12:50 TS (Rec: 02/05/22 14:21 TS [id number]) Physical Therapy Assessment Goals Three Impairment weakness Impairment weakness core and hip musculature, requires use of UE's for sit to stand Short Term Goal (STG) Instruct patient in progressive HEP for purposes of core and hip muscle strengthening for SI support and improved functional mobility STG Duration 02/25/22 Associate Professor Of Literacy Goal (LTG) Patient to be independent and compliant to HEP for purposes of strengthening and core stabilization. Functionally will be able to transition sit to stand x 5 times without use of UE's without an increase in pain LTG Duration 04/04/21 Two Impairment pain Impairment pain right SI and anterior thigh 4/10 consistently taking Tylenol and Alleve Short Term Goal (STG) Improve patient pain to no greater than 2/10 while taking pain medication STG Duration 02/25/22 Detention Goal (LTG) Improve patient's pain to no greater than 2/10 without pain medication LTG Duration 04/04/21 One Impairment activity tolerance Impairment Oswestry disability index score 50% Short Term Goal (STG) Oswestry disability index score improved to no greater than 30% as measure of improved activity tolerance STG Duration 02/25/22 Detention Goal (LTG) Improve Oswestry disability index score to no greater than 15% as measure of improved activity tolerance and return to prior level of function LTG Duration 04/04/21 Assessment Summary Assessment Pt progressed her clamshells to single leg iso with lvl 2 tb, adductor ball squeeze to 5 sec holds. Continues to require verbal and tactile cues for hip hinge and ecc control during sit to stands. She had some discomfort in SI joint with multifidi ex on her R side, will reassess in quadruped next treatment. Pt will continue to benefit from intervention to improve strength and functional mobility. Physical Therapy Plan Frequency and Duration Frequency of Treatment 2x/Week Duration of treatment (weeks) 12 Plan of Care Start Date 01/07/22 Plan of Care End Date 04/04/22 Therapeutic Interventions Therapeutic Interventions Gait Training,Home Exercise Program,Manual Therapy,Patient /Caregiver Education,Self-Care /Home Management,Soft Tissue Mobilization,Taping, Therapeutic Activities, Therapeutic Exercises Modalities Cold Pack/Ice Massage,Electric Stimulation,Hot Packs, Iontophoresis Next Visit Focus/Plan Next Note Type Treatment Note Next Visit Plan Next treatment assess multifidi ex, bridge with 5 sec hold, sit to stand form. Progress to functional positions and balance training .
--- NOTE | 2022-02-09 09:48 | PT.OTN ---
Current Diagnoses Sacrococcygeal disorders, not elsewhere classified (02/09/22) Physical Therapy Treatment Note PT-OP-A Visit Information Start: 01/07/22 11:58 Freq: Status: Active Protocol: Document 02/09/22 09:02 [facility] (Rec: 02/09/22 09:48 [facility] [id number]) Out-Patient Physical Therapy Visit Information Visit Information Visit Type Treatment Note Visit Start Time 09:00 Total Visit Minutes 45 Visit Number 5 Number of CATCHER FILTER TIP Visits 0 PT-OP-B Current Condition Start: 01/07/22 11:58 Freq: Status: Active Protocol: Document 01/26/22 08:59 [facility] (Rec: 01/26/22 09:50 [facility] [id number]) Current Condition History of Current Condition Onset Date 12/15/21 Current Complaints pain right thigh and SI s/p fusion right SI History of Current Condition fusion right SI in [place], patient reports no pins or screws needed, no op report available. aching right anterior thigh and buttock. No precautions given. Prior to surgery doing HEP, since surgery just walking. Has been doing stairs per doctor approval after 2 weeks, though some soreness Has been using walker today didn't use walker, feels just a little unsteady. Icing several times per day. Has not done any exercises Future Testing and Treatments Planned returns to surgeon for f/u in approx 6 weeks Treatment Goals Patient/Caregiver Goals Regain strength, be able to return to usual activity level PT-OP-C Subjective Start: 01/07/22 11:58 Freq: Status: Active Protocol: Document 02/09/22 09:02 [facility] (Rec: 02/09/22 09:48 [facility] [id number]) OP-PT Subjective Patient Comments Patient Comments Got down to floor this am to do a couple ex because bed too soft. Last Tuesday was best day she has had since surgery, started aching by about 5:00. Tuesday not the best day, but made cookies and hurt afterward PT-OP-F Manual Assessment Start: 01/07/22 11:58 Freq: Status: Active Protocol: Document 01/07/22 13:51 [facility] (Rec: 01/11/22 14:57 [facility] [id number]) Manual Assessments Soft Tissue Assessment Soft Tissue Mobility Assessment decrease in soft tissue mobility uhgo lumbar paraspinals, right piriformis, incision. PT-OP-G Mobility & Gait Start: 01/07/22 11:58 Freq: Status: Active Protocol: Document 01/07/22 13:51 [facility] (Rec: 01/11/22 14:57 [facility] [id number]) OP Gait Assessment Gait Gait Assistance Required: Independent Assistive Devices Assistive Device Straight Cane,Front Wheeled Walker Orthotic/Prosthetic Devices or Brace: No Gait Deviations General Gait Pattern Antalgic,Decreased Stride Length Factors Limiting Gait Function Factors Limiting Gait Function Decreased Strength,Pain PT-OP-H Neuro Start: 01/07/22 11:58 Freq: Status: Active Protocol: Document 01/07/22 13:51 [facility] (Rec: 01/11/22 14:57 [facility] [id number]) Sensation Evaluation Gross Sensation Gross Sensation Left LE Impaired Sensation Description Paresthesia PT-OP-J Posture/Palpation/Skin Start: 01/07/22 11:58 Freq: Status: Active Protocol: Document 01/07/22 13:51 [facility] (Rec: 01/11/22 14:57 [facility] [id number]) Posture Evaluation Position Standing Head/C-Spine Posture Forward Head T-Spine Posture Flexible Scoliosis on (L), Flexible Scoliosis on (R) L-Spine Posture Decreased Lordosis Shoulder Posture (L) Rounded,(R) Rounded Scapula Posture (L) Protracted,(R) Protracted Arm Posture (L) Internally Rotated,(R) Internally Rotated Pelvis Posture Posterior Tilted Weight Distribution Weight Shifted Left Skin Assessment Incisional Assessment Incision Appearance/Comments as above PT-OP-K Range of Motion Start: 01/07/22 11:58 Freq: Status: Active Protocol: Document 01/07/22 13:51 [facility] (Rec: 01/11/22 14:57 [facility] [id number]) Hip Goniometric Range of Motion Hip ROM Limitations Comments WFL, no formal testing due to recent surgery PT-OP-M Strength Start: 01/07/22 11:58 Freq: Status: Active Protocol: Document 01/07/22 13:51 [facility] (Rec: 01/11/22 14:57 [facility] [id number]) Trunk Strength Trunk Manual Muscle Testing Comments not assessed due to recent surgery Hip Strength Hip Manual Muscle Testing hugo Comments no MMT due to recent surgery Knee Strength Knee Manual Muscle Testing hugo Comments no MMT due to recent surgery, has full AROM Ankle/Foot Strength Ankle and Foot Manual Muscle Testing hugo Comments has full active ROM, No MMT due to recent surgery PT-OP-Q Treatments Start: 01/07/22 11:58 Freq: Status: Active Protocol: Document 02/09/22 09:02 [facility] (Rec: 02/09/22 09:48 [facility] [id number]) Therapeutic Exercises Supine Exercises march Reps/Minutes 10x2, 5sec hold Comments cues for core activation and push down through opp foot Piriformis stretch Side bilateral Reps/Minutes 2x30 Comments Feels a good stretch. Cues to bring knee closer to chest HS stretch w/ strap Side bilateral Reps/Minutes 1x30 Comments no strap, did with ankle df/pf Bridge Equipment Used Mat table Reps/Minutes 1x10 10sec hold Comments Cues for pain free range, tactile cues for hip lift posture press Equipment Used yoga mat on floor Reps/Minutes 10x Comments cues for knitting lower ribcage down, pull sides of yoga mat with hands Prone Exercises Quadriped hip ext Comments verbal and tactile cues, unable to do without compensation Sidelying Exercises clamshell Reps/Minutes 10x5 Comments cues for core activation, small movement, don't roll back. Sitting Exercises seated on No Paper Just Vapor Sitting Exercise Name bal, heel raises, LAQ Comments cues for neutral posture and core activation Other Exercises Cat Camel Equipment Used yoga mat Reps/Minutes 1x10 Comments Good carryover from previous treatment Therapeutic Activity Therapeutic Activity log roll Reps/Minutes 2x Comments verbal and tactile cues PT-OP-T Assessment and Plan Start: 01/07/22 11:58 Freq: Status: Active Protocol: Document 02/09/22 09:02 [facility] (Rec: 02/09/22 09:48 [facility] [id number]) Physical Therapy Assessment Goals Three Impairment weakness Impairment weakness core and hip musculature, requires use of UE's for sit to stand Short Term Goal (STG) Instruct patient in progressive HEP for purposes of core and hip muscle strengthening for SI support and improved functional mobility STG Duration 02/25/22 [facility] Goal (LTG) Patient to be independent and compliant to HEP for purposes of strengthening and core stabilization. Functionally will be able to transition sit to stand x 5 times without use of UE's without an increase in pain LTG Duration 04/04/21 Two Impairment pain Impairment pain right SI and anterior thigh 4/10 consistently taking Tylenol and Alleve Short Term Goal (STG) Improve patient pain to no greater than 2/10 while taking pain medication STG Duration 02/25/22 [facility] Goal (LTG) Improve patient's pain to no greater than 2/10 without pain medication LTG Duration 04/04/21 One Impairment activity tolerance Impairment Oswestry disability index score 50% Short Term Goal (STG) Oswestry disability index score improved to no greater than 30% as measure of improved activity tolerance STG Duration 02/25/22 Hammer Runner Goal (LTG) Improve Oswestry disability index score to no greater than 15% as measure of improved activity tolerance and return to prior level of function LTG Duration 04/04/21 Assessment Summary Assessment Patient unable to do quadriped multifidi without excess compensation. Good form for getting on and off floor so PT approved patient doing HEP on floor now. Progressed clam to sidelying with good form noted. Physical Therapy Plan Frequency and Duration Frequency of Treatment 2x/Week Duration of treatment (weeks) 12 Plan of Care Start Date 01/07/22 Plan of Care End Date 04/04/22 Therapeutic Interventions Therapeutic Interventions Gait Training,Home Exercise Program,Manual Therapy,Patient /Caregiver Education,Self-Care /Home Management,Soft Tissue Mobilization,Taping, Therapeutic Activities, Therapeutic Exercises Modalities Cold Pack/Ice Massage,Electric Stimulation,Hot Packs, Iontophoresis Next Visit Focus/Plan Next Note Type Treatment Note Next Visit Plan Next treatment assess response to doing ex on floor, progress supine may and add to HEP if able to do without compensation. Also add sidelying clam to HEP
--- NOTE | 2022-02-11 09:58 | PT.OTN ---
Current Diagnoses Sacrococcygeal disorders, not elsewhere classified (02/11/22) Physical Therapy Treatment Note PT-OP-A Visit Information Start: 01/07/22 11:58 Freq: Status: Active Protocol: Document 02/11/22 09:05 [facility] (Rec: 02/11/22 09:48 [facility] [id number]) Out-Patient Physical Therapy Visit Information Visit Information Visit Type Treatment Note Visit Start Time 09:00 Visit Stop Time 09:45 Total Visit Minutes 45 Visit Number 6 Number of CLIENT CARE REPRESENTATIVE Visits 0 PT-OP-B Current Condition Start: 01/07/22 11:58 Freq: Status: Active Protocol: Document 01/26/22 08:59 [facility] (Rec: 01/26/22 09:50 [facility] [id number]) Current Condition History of Current Condition Onset Date 12/15/21 Current Complaints pain right thigh and SI s/p fusion right SI History of Current Condition fusion right SI in [place], patient reports no pins or screws needed, no op report available. aching right anterior thigh and buttock. No precautions given. Prior to surgery doing HEP, since surgery just walking. Has been doing stairs per doctor approval after 2 weeks, though some soreness Has been using walker today didn't use walker, feels just a little unsteady. Icing several times per day. Has not done any exercises Future Testing and Treatments Planned returns to surgeon for f/u in approx 6 weeks Treatment Goals Patient/Caregiver Goals Regain strength, be able to return to usual activity level PT-OP-C Subjective Start: 01/07/22 11:58 Freq: Status: Active Protocol: Document 02/11/22 09:05 [facility] (Rec: 02/11/22 09:48 [facility] [id number]) OP-PT Subjective Patient Comments Patient Comments Was able to go to grocery store yesterday, no increase in pain. Pain mild most of the time, worse as day progresses. Usually lays down around 2:00, sometimes needs to do sooner. PT-OP-F Manual Assessment Start: 01/07/22 11:58 Freq: Status: Active Protocol: Document 01/07/22 13:51 [facility] (Rec: 01/11/22 14:57 [facility] [id number]) Manual Assessments Soft Tissue Assessment Soft Tissue Mobility Assessment decrease in soft tissue mobility hugo lumbar paraspinals, right piriformis, incision. PT-OP-G Mobility & Gait Start: 01/07/22 11:58 Freq: Status: Active Protocol: Document 01/07/22 13:51 [facility] (Rec: 01/11/22 14:57 [facility] [id number]) OP Gait Assessment Gait Gait Assistance Required: Independent Assistive Devices Assistive Device Straight Cane,Front Wheeled Walker Orthotic/Prosthetic Devices or Brace: No Gait Deviations General Gait Pattern Antalgic,Decreased Stride Length Factors Limiting Gait Function Factors Limiting Gait Function Decreased Strength,Pain PT-OP-H Neuro Start: 01/07/22 11:58 Freq: Status: Active Protocol: Document 01/07/22 13:51 [facility] (Rec: 01/11/22 14:57 [facility] [id number]) Sensation Evaluation Gross Sensation Gross Sensation Left LE Impaired Sensation Description Paresthesia PT-OP-J Posture/Palpation/Skin Start: 01/07/22 11:58 Freq: Status: Active Protocol: Document 01/07/22 13:51 [facility] (Rec: 01/11/22 14:57 [facility] [id number]) Posture Evaluation Position Standing Head/C-Spine Posture Forward Head T-Spine Posture Flexible Scoliosis on (L), Flexible Scoliosis on (R) L-Spine Posture Decreased Lordosis Shoulder Posture (L) Rounded,(R) Rounded Scapula Posture (L) Protracted,(R) Protracted Arm Posture (L) Internally Rotated,(R) Internally Rotated Pelvis Posture Posterior Tilted Weight Distribution Weight Shifted Left Skin Assessment Incisional Assessment Incision Appearance/Comments as above PT-OP-K Range of Motion Start: 01/07/22 11:58 Freq: Status: Active Protocol: Document 01/07/22 13:51 [facility] (Rec: 01/11/22 14:57 [facility] [id number]) Hip Goniometric Range of Motion Hip ROM Limitations Comments WFL, no formal testing due to recent surgery PT-OP-M Strength Start: 01/07/22 11:58 Freq: Status: Active Protocol: Document 01/07/22 13:51 [facility] (Rec: 01/11/22 14:57 [facility] [id number]) Trunk Strength Trunk Manual Muscle Testing Comments not assessed due to recent surgery Hip Strength Hip Manual Muscle Testing hugo Comments no MMT due to recent surgery Knee Strength Knee Manual Muscle Testing hugo Comments no MMT due to recent surgery, has full AROM Ankle/Foot Strength Ankle and Foot Manual Muscle Testing hugo Comments has full active ROM, No MMT due to recent surgery PT-OP-Q Treatments Start: 01/07/22 11:58 Freq: Status: Active Protocol: Document 02/11/22 09:05 [facility] (Rec: 02/11/22 09:48 [facility] [id number]) Therapeutic Exercises Supine Exercises pec stretch Reps/Minutes 2x30 T crunch Reps/Minutes 10x Comments cues for core activation first may Reps/Minutes 10x2, 5sec hold Comments cues for core activation and push down through opp foot Bridge Equipment Used Mat table Reps/Minutes 1x10 10sec hold Comments Cues for pain free range, tactile cues for hip lift posture press Equipment Used mat table Reps/Minutes 10x Comments cues for knitting lower ribcage down Sidelying Exercises roll side to side Sidelying Exercise Name isometric core engagement, isontonic Reps/Minutes 10 min Comments cues for core engagement, legs together as able, log roll Sitting Exercises sit to stand Reps/Minutes 6x Comments cues to vary foot position, not always with right LE in front as is habit lumbar stretch Reps/Minutes 1x10 Comments gentle Standing Exercises counter stretch Reps/Minutes 2x30 Comments cues for gentle, flat spine PT-OP-T Assessment and Plan Start: 01/07/22 11:58 Freq: Status: Active Protocol: Document 02/11/22 09:05 [facility] (Rec: 02/11/22 09:48 [facility] [id number]) Physical Therapy Assessment Goals Three Impairment weakness Impairment weakness core and hip musculature, requires use of UE's for sit to stand Short Term Goal (STG) Instruct patient in progressive HEP for purposes of core and hip muscle strengthening for SI support and improved functional mobility STG Duration 02/25/22 [facility] Goal (LTG) Patient to be independent and compliant to HEP for purposes of strengthening and core stabilization. Functionally will be able to transition sit to stand x 5 times without use of UE's without an increase in pain LTG Duration 04/04/21 Two Impairment pain Impairment pain right SI and anterior thigh 4/10 consistently taking Tylenol and Alleve Short Term Goal (STG) Improve patient pain to no greater than 2/10 while taking pain medication STG Duration 02/25/22 Onyx Chip Terrazzo Worker Goal (LTG) Improve patient's pain to no greater than 2/10 without pain medication LTG Duration 04/04/21 One Impairment activity tolerance Impairment Oswestry disability index score 50% Short Term Goal (STG) Oswestry disability index score improved to no greater than 30% as measure of improved activity tolerance STG Duration 02/25/22 Onyx Chip Terrazzo Worker Goal (LTG) Improve Oswestry disability index score to no greater than 15% as measure of improved activity tolerance and return to prior level of function LTG Duration 04/04/21 Assessment Summary Assessment Patient needed moderate cues for correct logroll especially to left, difficulty with core engagement, tends to lead with legs and twist. Improved understanding after instruction and practice. Physical Therapy Plan Frequency and Duration Frequency of Treatment 2x/Week Duration of treatment (weeks) 12 Plan of Care Start Date 01/07/22 Plan of Care End Date 04/04/22 Therapeutic Interventions Therapeutic Interventions Gait Training,Home Exercise Program,Manual Therapy,Patient /Caregiver Education,Self-Care /Home Management,Soft Tissue Mobilization,Taping, Therapeutic Activities, Therapeutic Exercises Modalities Cold Pack/Ice Massage,Electric Stimulation,Hot Packs, Iontophoresis Next Visit Focus/Plan Next Note Type Treatment Note Next Visit Plan reassess rolling, quadriped exercises. consider sport cord to focus on core and gluteal activation with gait
--- NOTE | 2022-02-16 09:45 | PT.OTN ---
Current Diagnoses Sacrococcygeal disorders, not elsewhere classified (02/16/22) Physical Therapy Treatment Note PT-OP-A Visit Information Start: 01/07/22 11:58 Freq: Status: Active Protocol: Document 02/16/22 09:02 [facility] (Rec: 02/16/22 09:43 [facility] [id number]) Out-Patient Physical Therapy Visit Information Visit Information Visit Type Treatment Note Visit Note 2 months + 2 days post-op Visit Start Time 09:02 Visit Stop Time 09:45 Total Visit Minutes 45 Visit Number 7 Number of DIRECTOR OF SEARCH ENGINE OPTIMIZATION Visits 0 PT-OP-B Current Condition Start: 01/07/22 11:58 Freq: Status: Active Protocol: Document 01/26/22 08:59 [facility] (Rec: 01/26/22 09:50 [facility] [id number]) Current Condition History of Current Condition Onset Date 12/15/21 Current Complaints pain right thigh and SI s/p fusion right SI History of Current Condition fusion right SI in [place], patient reports no pins or screws needed, no op report available. aching right anterior thigh and buttock. No precautions given. Prior to surgery doing HEP, since surgery just walking. Has been doing stairs per doctor approval after 2 weeks, though some soreness Has been using walker today didn't use walker, feels just a little unsteady. Icing several times per day. Has not done any exercises Future Testing and Treatments Planned returns to surgeon for f/u in approx 6 weeks Treatment Goals Patient/Caregiver Goals Regain strength, be able to return to usual activity level PT-OP-C Subjective Start: 01/07/22 11:58 Freq: Status: Active Protocol: Document 02/16/22 09:02 [facility] (Rec: 02/16/22 09:43 [facility] [id number]) OP-PT Subjective Patient Comments Patient Comments Had massage yesterday, some increase in discomfort. Tuesday had good day, went with friend to [place], stood a lot, went to lunch, sat on hard chair, increase in pain after. PT-OP-F Manual Assessment Start: 01/07/22 11:58 Freq: Status: Active Protocol: Document 01/07/22 13:51 [facility] (Rec: 01/11/22 14:57 [facility] [id number]) Manual Assessments Soft Tissue Assessment Soft Tissue Mobility Assessment decrease in soft tissue mobility hugo lumbar paraspinals, right piriformis, incision. PT-OP-G Mobility & Gait Start: 01/07/22 11:58 Freq: Status: Active Protocol: Document 01/07/22 13:51 [facility] (Rec: 01/11/22 14:57 [facility] [id number]) OP Gait Assessment Gait Gait Assistance Required: Independent Assistive Devices Assistive Device Straight Cane,Front Wheeled Walker Orthotic/Prosthetic Devices or Brace: No Gait Deviations General Gait Pattern Antalgic,Decreased Stride Length Factors Limiting Gait Function Factors Limiting Gait Function Decreased Strength,Pain PT-OP-H Neuro Start: 01/07/22 11:58 Freq: Status: Active Protocol: Document 01/07/22 13:51 [facility] (Rec: 01/11/22 14:57 [facility] [id number]) Sensation Evaluation Gross Sensation Gross Sensation Left LE Impaired Sensation Description Paresthesia PT-OP-J Posture/Palpation/Skin Start: 01/07/22 11:58 Freq: Status: Active Protocol: Document 01/07/22 13:51 [facility] (Rec: 01/11/22 14:57 [facility] [id number]) Posture Evaluation Position Standing Head/C-Spine Posture Forward Head T-Spine Posture Flexible Scoliosis on (L), Flexible Scoliosis on (R) L-Spine Posture Decreased Lordosis Shoulder Posture (L) Rounded,(R) Rounded Scapula Posture (L) Protracted,(R) Protracted Arm Posture (L) Internally Rotated,(R) Internally Rotated Pelvis Posture Posterior Tilted Weight Distribution Weight Shifted Left Skin Assessment Incisional Assessment Incision Appearance/Comments as above PT-OP-K Range of Motion Start: 01/07/22 11:58 Freq: Status: Active Protocol: Document 01/07/22 13:51 [facility] (Rec: 01/11/22 14:57 [facility] [id number]) Hip Goniometric Range of Motion Hip ROM Limitations Comments WFL, no formal testing due to recent surgery PT-OP-M Strength Start: 01/07/22 11:58 Freq: Status: Active Protocol: Document 01/07/22 13:51 [facility] (Rec: 01/11/22 14:57 [facility] [id number]) Trunk Strength Trunk Manual Muscle Testing Comments not assessed due to recent surgery Hip Strength Hip Manual Muscle Testing hugo Comments no MMT due to recent surgery Knee Strength Knee Manual Muscle Testing hugo Comments no MMT due to recent surgery, has full AROM Ankle/Foot Strength Ankle and Foot Manual Muscle Testing hugo Comments has full active ROM, No MMT due to recent surgery PT-OP-Q Treatments Start: 01/07/22 11:58 Freq: Status: Active Protocol: Document 02/16/22 09:02 [facility] (Rec: 02/16/22 09:43 [facility] [id number]) Therapeutic Exercises Supine Exercises LTR Reps/Minutes 10x Comments cues for core activation, small motion crunch Reps/Minutes 10x Comments cues for core activation first may Supine Exercise Name progressed to leg straightening and lowering Reps/Minutes 10x2, 5sec hold Comments cues for core activation and push down through opp foot Bridge Equipment Used Mat table Reps/Minutes 1x10 10sec hold Comments Cues for pain free range, tactile cues for hip lift posture press Equipment Used mat table Reps/Minutes 10x Comments cues for knitting lower ribcage down Sitting Exercises lateral trunk stretch Reps/Minutes 3x10 lumbar stretch Reps/Minutes 2x10 Comments gentle, breathe into the tight spots Standing Exercises Multifidus Equipment Used at bar Reps/Minutes 1x10 Comments cues for pain-free mo ement Therapeutic Activity Therapeutic Activity log roll Reps/Minutes 3x each side Comments verbal and tactile cues Self-Care/Home Management Treatment Education Patient Education Fall Risk,Home Exercise Program,Pain Management, Posture Other Education Exercises that can be done in sitting when out to perform when feeling uncomfortable: glut set, towel squeeze, forward bent l/s stretch in chair. PT-OP-T Assessment and Plan Start: 01/07/22 11:58 Freq: Status: Active Protocol: Document 02/16/22 09:02 [facility] (Rec: 02/16/22 09:43 [facility] [id number]) Physical Therapy Assessment Goals Three Impairment weakness Impairment weakness core and hip musculature, requires use of UE's for sit to stand Short Term Goal (STG) Instruct patient in progressive HEP for purposes of core and hip muscle strengthening for SI support and improved functional mobility STG Duration 02/25/22 Senior Financial Reporting Accountant Goal (LTG) Patient to be independent and compliant to HEP for purposes of strengthening and core stabilization. Functionally will be able to transition sit to stand x 5 times without use of UE's without an increase in pain LTG Duration 04/04/21 Two Impairment pain Impairment pain right SI and anterior thigh 4/10 consistently taking Tylenol and Alleve Short Term Goal (STG) Improve patient pain to no greater than 2/10 while taking pain medication STG Duration 02/25/22 Senior Financial Reporting Accountant Goal (LTG) Improve patient's pain to no greater than 2/10 without pain medication LTG Duration 04/04/21 One Impairment activity tolerance Impairment Oswestry disability index score 50% Short Term Goal (STG) Oswestry disability index score improved to no greater than 30% as measure of improved activity tolerance STG Duration 02/25/22 [facility] Goal (LTG) Improve Oswestry disability index score to no greater than 15% as measure of improved activity tolerance and return to prior level of function LTG Duration 04/04/21 Assessment Summary Assessment Patient needed education regarding what she can do when hurting but out in the community. Improved tolerance ffor standing multifidi ex with cues for decreased ROM. added supine ex with LE's on therapy ball: LTR, roll out, HS set/heel dig. Physical Therapy Plan Frequency and Duration Frequency of Treatment 2x/Week Duration of treatment (weeks) 12 Plan of Care Start Date 01/07/22 Plan of Care End Date 04/04/22 Therapeutic Interventions Therapeutic Interventions Gait Training,Home Exercise Program,Manual Therapy,Patient /Caregiver Education,Self-Care /Home Management,Soft Tissue Mobilization,Taping, Therapeutic Activities, Therapeutic Exercises Modalities Cold Pack/Ice Massage,Electric Stimulation,Hot Packs, Iontophoresis Next Visit Focus/Plan Next Note Type Treatment Note Next Visit Plan quadriped exercises. consider sport cord to focus on core and gluteal activation with gait
--- NOTE | 2022-02-23 16:26 | PT.OTN ---
Current Diagnoses Sacrococcygeal disorders, not elsewhere classified (02/23/22) Physical Therapy Treatment Note PT-OP-A Visit Information Start: 01/07/22 11:58 Freq: Status: Active Protocol: Document 02/23/22 09:01 [facility] (Rec: 02/23/22 09:46 [facility] [id number]) Out-Patient Physical Therapy Visit Information Visit Information Visit Type Treatment Note Visit Start Time 09:01 Visit Stop Time 09:46 Total Visit Minutes 45 Visit Number 8 PT-OP-B Current Condition Start: 01/07/22 11:58 Freq: Status: Active Protocol: Document 02/23/22 09:01 [facility] (Rec: 02/23/22 09:46 [facility] [id number]) Current Condition History of Current Condition Onset Date 12/15/21 Current Complaints pain right thigh and SI s/p fusion right SI History of Current Condition fusion right SI in [place], patient reports no pins or screws needed, no op report available. aching right anterior thigh and buttock. No precautions given. Prior to surgery doing HEP, since surgery just walking. Has been doing stairs per doctor approval after 2 weeks, though some soreness Has been using walker today didn't use walker, feels just a little unsteady. Icing several times per day. Has not done any exercises Future Testing and Treatments Planned returns to surgeon for f/u in approx 6 weeks PT-OP-C Subjective Start: 01/07/22 11:58 Freq: Status: Active Protocol: Document 02/23/22 09:01 [facility] (Rec: 02/23/22 09:46 [facility] [id number]) OP-PT Subjective Patient Comments Patient Comments Hard day on due to long day, different surfaces. Today pretty good so far, but by afternoon more sore/painful typically PT-OP-F Manual Assessment Start: 01/07/22 11:58 Freq: Status: Active Protocol: Document 01/07/22 13:51 [facility] (Rec: 01/11/22 14:57 [facility] [id number]) Manual Assessments Soft Tissue Assessment Soft Tissue Mobility Assessment decrease in soft tissue mobility hugo lumbar paraspinals, right piriformis, incision. PT-OP-G Mobility & Gait Start: 01/07/22 11:58 Freq: Status: Active Protocol: Document 01/07/22 13:51 [facility] (Rec: 01/11/22 14:57 [facility] [id number]) OP Gait Assessment Gait Gait Assistance Required: Independent Assistive Devices Assistive Device Straight Cane,Front Wheeled Walker Orthotic/Prosthetic Devices or Brace: No Gait Deviations General Gait Pattern Antalgic,Decreased Stride Length Factors Limiting Gait Function Factors Limiting Gait Function Decreased Strength,Pain PT-OP-H Neuro Start: 01/07/22 11:58 Freq: Status: Active Protocol: Document 01/07/22 13:51 [facility] (Rec: 01/11/22 14:57 [facility] [id number]) Sensation Evaluation Gross Sensation Gross Sensation Left LE Impaired Sensation Description Paresthesia PT-OP-J Posture/Palpation/Skin Start: 01/07/22 11:58 Freq: Status: Active Protocol: Document 01/07/22 13:51 [facility] (Rec: 01/11/22 14:57 [facility] [id number]) Posture Evaluation Position Standing Head/C-Spine Posture Forward Head T-Spine Posture Flexible Scoliosis on (L), Flexible Scoliosis on (R) L-Spine Posture Decreased Lordosis Shoulder Posture (L) Rounded,(R) Rounded Scapula Posture (L) Protracted,(R) Protracted Arm Posture (L) Internally Rotated,(R) Internally Rotated Pelvis Posture Posterior Tilted Weight Distribution Weight Shifted Left Skin Assessment Incisional Assessment Incision Appearance/Comments as above PT-OP-K Range of Motion Start: 01/07/22 11:58 Freq: Status: Active Protocol: Document 01/07/22 13:51 [facility] (Rec: 01/11/22 14:57 [facility] [id number]) Hip Goniometric Range of Motion Hip ROM Limitations Comments WFL, no formal testing due to recent surgery PT-OP-M Strength Start: 01/07/22 11:58 Freq: Status: Active Protocol: Document 01/07/22 13:51 [facility] (Rec: 01/11/22 14:57 [facility] [id number]) Trunk Strength Trunk Manual Muscle Testing Comments not assessed due to recent surgery Hip Strength Hip Manual Muscle Testing hugo Comments no MMT due to recent surgery Knee Strength Knee Manual Muscle Testing hugo Comments no MMT due to recent surgery, has full AROM Ankle/Foot Strength Ankle and Foot Manual Muscle Testing hugo Comments has full active ROM, No MMT due to recent surgery PT-OP-Q Treatments Start: 01/07/22 11:58 Freq: Status: Active Protocol: Document 02/23/22 09:01 [facility] (Rec: 02/23/22 09:46 [facility] [id number]) Cardio Equipment Treadmill Speed 1.5-1.7 Incline 0 Other cues for postural alignment and core stabilization Gym Equipment Shuttle Recovery Bilateral Squats Resistance 50 Shuttle Recovery Platform Stable Reps/Time cues for neutral LE's, gluteal activation Therapeutic Exercises Supine Exercises HS stretch Reps/Minutes 2x30 SKTC Reps/Minutes 2x Bridge Equipment Used Mat table Reps/Minutes 1x10 10sec hold Comments Cues for pain free range, tactile cues for hip lift Sitting Exercises seated on [email or web address] Sitting Exercise Name bal EO, EC Comments cues for neutral posture and core activation Self-Care/Home Management Treatment Education Patient Education Home Exercise Program,Pain Management,Posture PT-OP-T Assessment and Plan Start: 01/07/22 11:58 Freq: Status: Active Protocol: Document 02/23/22 09:01 [facility] (Rec: 02/23/22 09:46 [facility] [id number]) Physical Therapy Assessment Goals Three Impairment weakness Impairment weakness core and hip musculature, requires use of UE's for sit to stand Short Term Goal (STG) Instruct patient in progressive HEP for purposes of core and hip muscle strengthening for SI support and improved functional mobility STG Duration 02/25/22 [facility] Goal (LTG) Patient to be independent and compliant to HEP for purposes of strengthening and core stabilization. Functionally will be able to transition sit to stand x 5 times without use of UE's without an increase in pain LTG Duration 04/04/21 Two Impairment pain Impairment pain right SI and anterior thigh 4/10 consistently taking Tylenol and Alleve Short Term Goal (STG) Improve patient pain to no greater than 2/10 while taking pain medication STG Duration 02/25/22 [facility] Goal (LTG) Improve patient's pain to no greater than 2/10 without pain medication LTG Duration 04/04/21 One Impairment activity tolerance Impairment Oswestry disability index score 50% Short Term Goal (STG) Oswestry disability index score improved to no greater than 30% as measure of improved activity tolerance STG Duration 02/25/22 [facility] Goal (LTG) Improve Oswestry disability index score to no greater than 15% as measure of improved activity tolerance and return to prior level of function LTG Duration 04/04/21 Assessment Summary Assessment Patient able to progress to treadmill and addition of shuttle leg press today and sport cord; will decrease resistance on sport cord to L1 . . Ended with DLS seated on [employer] in prep for sitting on therapy ball. At end of session patient c/o tightness and some achiness, didn't have time to stay for moist heat but encouraged to use at home. Physical Therapy Plan Frequency and Duration Frequency of Treatment 2x/Week Duration of treatment (weeks) 12 Plan of Care Start Date 01/07/22 Plan of Care End Date 04/04/22 Therapeutic Interventions Therapeutic Interventions Gait Training,Home Exercise Program,Manual Therapy,Patient /Caregiver Education,Self-Care /Home Management,Soft Tissue Mobilization,Taping, Therapeutic Activities, Therapeutic Exercises Modalities Cold Pack/Ice Massage,Electric Stimulation,Hot Packs, Iontophoresis Next Visit Focus/Plan Next Note Type Treatment Note Next Visit Plan quadriped exercises, decrease resistance on sport cord to L1 . Assess response to treadmill and whether patient did at home. Continue progression of core stab, functional retraining.
--- NOTE | 2022-02-25 09:50 | PT.OTN ---
Current Diagnoses Sacrococcygeal disorders, not elsewhere classified (02/25/22) Physical Therapy Treatment Note PT-OP-A Visit Information Start: 01/07/22 11:58 Freq: Status: Active Protocol: Document 02/25/22 09:01 [facility] (Rec: 02/25/22 09:48 [facility] [id number]) Out-Patient Physical Therapy Visit Information Visit Information Visit Type Treatment Note Visit Start Time 09:01 Visit Stop Time 09:55 Total Visit Minutes 54 Visit Number 9 PT-OP-B Current Condition Start: 01/07/22 11:58 Freq: Status: Active Protocol: Document 02/25/22 09:01 [facility] (Rec: 02/25/22 09:48 [facility] [id number]) Current Condition History of Current Condition Onset Date 12/15/21 Current Complaints pain right thigh and SI s/p fusion right SI History of Current Condition fusion right SI in [place], patient reports no pins or screws needed, no op report available. aching right anterior thigh and buttock. No precautions given. Prior to surgery doing HEP, since surgery just walking. Has been doing stairs per doctor approval after 2 weeks, though some soreness Has been using walker today didn't use walker, feels just a little unsteady. Icing several times per day. Has not done any exercises Future Testing and Treatments Planned returns to surgeon for f/u in approx 6 weeks PT-OP-C Subjective Start: 01/07/22 11:58 Freq: Status: Active Protocol: Document 02/25/22 09:01 [facility] (Rec: 02/25/22 09:48 [facility] [id number]) OP-PT Subjective Patient Comments Patient Comments Maybe overdid it at PT , more sore. Tried to upright a plant that had tipped over, increased walking on incline, did laundry. Did heat, didn't try ice. PT-OP-F Manual Assessment Start: 01/07/22 11:58 Freq: Status: Active Protocol: Document 01/07/22 13:51 [facility] (Rec: 01/11/22 14:57 [facility] [id number]) Manual Assessments Soft Tissue Assessment Soft Tissue Mobility Assessment decrease in soft tissue mobility hugo lumbar paraspinals, right piriformis, incision. PT-OP-G Mobility & Gait Start: 01/07/22 11:58 Freq: Status: Active Protocol: Document 01/07/22 13:51 [facility] (Rec: 01/11/22 14:57 [facility] [id number]) OP Gait Assessment Gait Gait Assistance Required: Independent Assistive Devices Assistive Device Straight Cane,Front Wheeled Walker Orthotic/Prosthetic Devices or Brace: No Gait Deviations General Gait Pattern Antalgic,Decreased Stride Length Factors Limiting Gait Function Factors Limiting Gait Function Decreased Strength,Pain PT-OP-H Neuro Start: 01/07/22 11:58 Freq: Status: Active Protocol: Document 01/07/22 13:51 [facility] (Rec: 01/11/22 14:57 [facility] [id number]) Sensation Evaluation Gross Sensation Gross Sensation Left LE Impaired Sensation Description Paresthesia PT-OP-J Posture/Palpation/Skin Start: 01/07/22 11:58 Freq: Status: Active Protocol: Document 01/07/22 13:51 [facility] (Rec: 01/11/22 14:57 [facility] [id number]) Posture Evaluation Position Standing Head/C-Spine Posture Forward Head T-Spine Posture Flexible Scoliosis on (L), Flexible Scoliosis on (R) L-Spine Posture Decreased Lordosis Shoulder Posture (L) Rounded,(R) Rounded Scapula Posture (L) Protracted,(R) Protracted Arm Posture (L) Internally Rotated,(R) Internally Rotated Pelvis Posture Posterior Tilted Weight Distribution Weight Shifted Left Skin Assessment Incisional Assessment Incision Appearance/Comments as above PT-OP-K Range of Motion Start: 01/07/22 11:58 Freq: Status: Active Protocol: Document 01/07/22 13:51 [facility] (Rec: 01/11/22 14:57 [facility] [id number]) Hip Goniometric Range of Motion Hip ROM Limitations Comments WFL, no formal testing due to recent surgery PT-OP-M Strength Start: 01/07/22 11:58 Freq: Status: Active Protocol: Document 01/07/22 13:51 [facility] (Rec: 01/11/22 14:57 [facility] [id number]) Trunk Strength Trunk Manual Muscle Testing Comments not assessed due to recent surgery Hip Strength Hip Manual Muscle Testing hugo Comments no MMT due to recent surgery Knee Strength Knee Manual Muscle Testing hugo Comments no MMT due to recent surgery, has full AROM Ankle/Foot Strength Ankle and Foot Manual Muscle Testing hugo Comments has full active ROM, No MMT due to recent surgery PT-OP-Q Treatments Start: 01/07/22 11:58 Freq: Status: Active Protocol: Document 12/01/22 09:01 [facility] (Rec: 02/25/22 09:48 [facility] [id number]) Cardio Equipment Treadmill Duration (Minutes) 8 Speed 1.5-1.7 Incline 0 Other cues for postural alignment and core stabilization, gluteal activation Gym Equipment Shuttle Recovery Bilateral Squats Details cues for neutral LE's, gluteal activation Resistance 50 Shuttle Recovery Platform Stable Reps/Time 10x Therapeutic Exercises Supine Exercises HS stretch Reps/Minutes 2x30 SKTC Reps/Minutes 2x Standing Exercises wt shift Standing Exercise Name fwd/bck Reps/Minutes 10x ea Comments cues for gluteal activation glut set Standing Exercise Name hugo and unil Reps/Minutes 10x ea Self-Care/Home Management Treatment Education Patient Education Home Exercise Program,Pain Management,Posture PT-OP-R Modalities Start: 01/07/22 11:58 Freq: Status: Active Protocol: Document 02/25/22 09:01 [facility] (Rec: 02/25/22 09:49 [facility] [id number]) Hot Pack/Cold Pack Treatment ice Location l/s Patient Position Supine Treatment Duration (minutes) 10 Patient Tolerance Good Comments during supine ex Hot Pack Location lumbar spine Treatment Duration (minutes) 10 Patient Tolerance Good Comments 90/90 position PT-OP-T Assessment and Plan Start: 01/07/22 11:58 Freq: Status: Active Protocol: Document 02/25/22 09:01 [facility] (Rec: 02/25/22 09:48 [facility] [id number]) Physical Therapy Assessment Goals Three Impairment weakness Impairment weakness core and hip musculature, requires use of UE's for sit to stand Short Term Goal (STG) Instruct patient in progressive HEP for purposes of core and hip muscle strengthening for SI support and improved functional mobility STG Duration 02/25/22 Shade Bander Goal (LTG) Patient to be independent and compliant to HEP for purposes of strengthening and core stabilization. Functionally will be able to transition sit to stand x 5 times without use of UE's without an increase in pain LTG Duration 04/04/21 Two Impairment pain Impairment pain right SI and anterior thigh 4/10 consistently taking Tylenol and Alleve Short Term Goal (STG) Improve patient pain to no greater than 2/10 while taking pain medication STG Duration 02/25/22 Detention Goal (LTG) Improve patient's pain to no greater than 2/10 without pain medication LTG Duration 04/04/21 One Impairment activity tolerance Impairment Oswestry disability index score 50% Short Term Goal (STG) Oswestry disability index score improved to no greater than 30% as measure of improved activity tolerance STG Duration 02/25/22 Shade Bander Goal (LTG) Improve Oswestry disability index score to no greater than 15% as measure of improved activity tolerance and return to prior level of function LTG Duration 04/04/21 Assessment Summary Assessment Emphasis on unilateral gluteal activation as patient has difficulty with activation on right; during treadmill, with standing weight shift, standing, supine with march. Improving awareness. Physical Therapy Plan Frequency and Duration Frequency of Treatment 2x/Week Duration of treatment (weeks) 12 Plan of Care Start Date 01/07/22 Plan of Care End Date 04/04/22 Therapeutic Interventions Therapeutic Interventions Gait Training,Home Exercise Program,Manual Therapy,Patient /Caregiver Education,Self-Care /Home Management,Soft Tissue Mobilization,Taping, Therapeutic Activities, Therapeutic Exercises Modalities Cold Pack/Ice Massage,Electric Stimulation,Hot Packs, Iontophoresis Next Visit Focus/Plan Next Note Type Treatment Note Next Visit Plan quadriped exercises, decrease resistance on sport cord to L1 . Continue progression of core stab, gluteal strengthening, functional retraining.
--- NOTE | 2022-03-02 16:24 | PT.OTN ---
Current Diagnoses Sacrococcygeal disorders, not elsewhere classified (03/02/22) Physical Therapy Treatment Note PT-OP-A Visit Information Start: 01/07/22 11:58 Freq: Status: Active Protocol: Document 03/02/22 09:49 [facility] (Rec: 03/02/22 10:41 [facility] [id number]) Out-Patient Physical Therapy Visit Information Visit Information Visit Type Treatment Note Visit Start Time 09:48 Visit Stop Time 10:46 Total Visit Minutes 58 Visit Number 10 PT-OP-B Current Condition Start: 01/07/22 11:58 Freq: Status: Active Protocol: Document 03/02/22 09:49 [facility] (Rec: 03/02/22 10:41 [facility] [id number]) Current Condition History of Current Condition Onset Date 12/15/21 Current Complaints pain right thigh and SI s/p fusion right SI History of Current Condition fusion right SI in [place], patient reports no pins or screws needed, no op report available. aching right anterior thigh and buttock. No precautions given. Prior to surgery doing HEP, since surgery just walking. Has been doing stairs per doctor approval after 2 weeks, though some soreness Has been using walker today didn't use walker, feels just a little unsteady. Icing several times per day. Has not done any exercises Future Testing and Treatments Planned returns to surgeon for f/u in approx 6 weeks PT-OP-C Subjective Start: 01/07/22 11:58 Freq: Status: Active Protocol: Document 03/02/22 09:49 [facility] (Rec: 03/02/22 10:41 [facility] [id number]) OP-PT Subjective Patient Comments Patient Comments Still bothers her toward evening. Went to baby shower, had difficulty with sitting prolonged, also following education to 90/90 positioning . Frustrated she can't go through a whole day without pain, though pain less than before surgery. Improving awareness of gluteals and body mechanics. forgot to try wearing SI belt at home when doing prolonged standing or walking. PT-OP-F Manual Assessment Start: 01/07/22 11:58 Freq: Status: Active Protocol: Document 01/07/22 13:51 [facility] (Rec: 01/11/22 14:57 [facility] [id number]) Manual Assessments Soft Tissue Assessment Soft Tissue Mobility Assessment decrease in soft tissue mobility hugo lumbar paraspinals, right piriformis, incision. PT-OP-G Mobility & Gait Start: 01/07/22 11:58 Freq: Status: Active Protocol: Document 01/07/22 13:51 [facility] (Rec: 01/11/22 14:57 [facility] [id number]) OP Gait Assessment Gait Gait Assistance Required: Independent Assistive Devices Assistive Device Straight Cane,Front Wheeled Walker Orthotic/Prosthetic Devices or Brace: No Gait Deviations General Gait Pattern Antalgic,Decreased Stride Length Factors Limiting Gait Function Factors Limiting Gait Function Decreased Strength,Pain PT-OP-H Neuro Start: 01/07/22 11:58 Freq: Status: Active Protocol: Document 01/07/22 13:51 [facility] (Rec: 01/11/22 14:57 [facility] [id number]) Sensation Evaluation Gross Sensation Gross Sensation Left LE Impaired Sensation Description Paresthesia PT-OP-J Posture/Palpation/Skin Start: 01/07/22 11:58 Freq: Status: Active Protocol: Document 01/07/22 13:51 [facility] (Rec: 01/11/22 14:57 [facility] [id number]) Posture Evaluation Position Standing Head/C-Spine Posture Forward Head T-Spine Posture Flexible Scoliosis on (L), Flexible Scoliosis on (R) L-Spine Posture Decreased Lordosis Shoulder Posture (L) Rounded,(R) Rounded Scapula Posture (L) Protracted,(R) Protracted Arm Posture (L) Internally Rotated,(R) Internally Rotated Pelvis Posture Posterior Tilted Weight Distribution Weight Shifted Left Skin Assessment Incisional Assessment Incision Appearance/Comments as above PT-OP-K Range of Motion Start: 01/07/22 11:58 Freq: Status: Active Protocol: Document 01/07/22 13:51 [facility] (Rec: 01/11/22 14:57 [facility] [id number]) Hip Goniometric Range of Motion Hip ROM Limitations Comments WFL, no formal testing due to recent surgery PT-OP-M Strength Start: 01/07/22 11:58 Freq: Status: Active Protocol: Document 01/07/22 13:51 [facility] (Rec: 01/11/22 14:57 [facility] [id number]) Trunk Strength Trunk Manual Muscle Testing Comments not assessed due to recent surgery Hip Strength Hip Manual Muscle Testing hugo Comments no MMT due to recent surgery Knee Strength Knee Manual Muscle Testing hugo Comments no MMT due to recent surgery, has full AROM Ankle/Foot Strength Ankle and Foot Manual Muscle Testing hugo Comments has full active ROM, No MMT due to recent surgery PT-OP-Q Treatments Start: 01/07/22 11:58 Freq: Status: Active Protocol: Document 03/02/22 09:49 [facility] (Rec: 03/02/22 10:41 [facility] [id number]) Cardio Equipment Treadmill Duration (Minutes) 8 Speed 1.5-1.7 Incline 0 Other elastic strap at SI Gym Equipment Sport Cord 1 Exercise Details fwd Cord/Resistance yellow Reps/Duration 6x Comments cues for core activation, postural alignment including foot alignment. Also end- range weight shifts with gluteal activation Therapeutic Exercises Supine Exercises posture press Equipment Used mat table Reps/Minutes 10x Comments cues for knitting lower ribcage down Sitting Exercises lumbar stretch Reps/Minutes 2x10 Comments gentle, breathe into the tight spots Ball squeeze Sitting Exercise Name Adductor ball squeeze Equipment Used Blue Bounce Ball Reps/Minutes 1x10 5 sec holds Comments Good form, vladimir-cues for core act Standing Exercises wt shift Standing Exercise Name fwd/bck Reps/Minutes 10x ea Comments cues for gluteal activation glut set Standing Exercise Name hugo and unil Reps/Minutes 10x ea Comments less response on right PT-OP-R Modalities Start: 01/07/22 11:58 Freq: Status: Active Protocol: Document 03/02/22 09:49 [facility] (Rec: 03/02/22 16:19 [facility] [id number]) Hot Pack/Cold Pack Treatment Hot Pack Location lumbar spine Treatment Duration (minutes) 10 Patient Tolerance Good Comments 90/90 position PT-OP-T Assessment and Plan Start: 01/07/22 11:58 Freq: Status: Active Protocol: Document 03/02/22 09:49 [facility] (Rec: 03/02/22 10:41 [facility] [id number]) Physical Therapy Assessment Goals Three Impairment weakness Impairment weakness core and hip musculature, requires use of UE's for sit to stand Short Term Goal (STG) Instruct patient in progressive HEP for purposes of core and hip muscle strengthening for SI support and improved functional mobility STG Duration 02/25/22 [employer] Goal (LTG) Patient to be independent and compliant to HEP for purposes of strengthening and core stabilization. Functionally will be able to transition sit to stand x 5 times without use of UE's without an increase in pain LTG Duration 04/04/21 Two Impairment pain Impairment pain right SI and anterior thigh 4/10 consistently taking Tylenol and Alleve Short Term Goal (STG) Improve patient pain to no greater than 2/10 while taking pain medication STG Duration 02/25/22 Correction Goal (LTG) Improve patient's pain to no greater than 2/10 without pain medication LTG Duration 04/04/21 One Impairment activity tolerance Impairment Oswestry disability index score 50% Short Term Goal (STG) Oswestry disability index score improved to no greater than 30% as measure of improved activity tolerance STG Duration 02/25/22 Correction Goal (LTG) Improve Oswestry disability index score to no greater than 15% as measure of improved activity tolerance and return to prior level of function LTG Duration 04/04/21 Assessment Summary Assessment Continue with emphasis on core stab, unil gluteal activation due to dec response on right. Patient frustrated by some persistent pain and by her difficulty in activating right gluteals especially unil. Appears to benefit from elastic strap at SI and encouraged to try her SI strap at home with prolonged standing and walking. Physical Therapy Plan Frequency and Duration Frequency of Treatment 2x/Week Duration of treatment (weeks) 12 Plan of Care Start Date 01/07/22 Plan of Care End Date 04/04/22 Therapeutic Interventions Therapeutic Interventions Gait Training,Home Exercise Program,Manual Therapy,Patient /Caregiver Education,Self-Care /Home Management,Soft Tissue Mobilization,Taping, Therapeutic Activities, Therapeutic Exercises Modalities Cold Pack/Ice Massage,Electric Stimulation,Hot Packs, Iontophoresis Next Visit Focus/Plan Next Note Type Treatment Note Next Visit Plan Quadriped ex, review clamshell for add to HEP. Continue ex for gluteal activation
--- NOTE | 2022-03-02 16:28 | PT.OPPN ---
Current Diagnoses Sacrococcygeal disorders, not elsewhere classified (03/02/22) Physical Therapy Progress Note PT-OP-A Visit Information Start: 01/07/22 11:58 Freq: Status: Active Protocol: Document 03/02/22 09:49 SAK (Rec: 03/02/22 10:41 [facility] [id number]) Out-Patient Physical Therapy Visit Information Visit Information Visit Type Treatment Note Visit Start Time 09:48 Visit Stop Time 10:46 Total Visit Minutes 58 Visit Number 10 PT-OP-B Current Condition Start: 01/07/22 11:58 Freq: Status: Active Protocol: Document 03/02/22 09:49 SAK (Rec: 03/02/22 10:41 [facility] [id number]) Current Condition History of Current Condition Onset Date 12/15/21 Current Complaints pain right thigh and SI s/p fusion right SI History of Current Condition fusion right SI in [place], patient reports no pins or screws needed, no op report available. aching right anterior thigh and buttock. No precautions given. Prior to surgery doing HEP, since surgery just walking. Has been doing stairs per doctor approval after 2 weeks, though some soreness Has been using walker today didn't use walker, feels just a little unsteady. Icing several times per day. Has not done any exercises Future Testing and Treatments Planned returns to surgeon for f/u in approx 6 weeks PT-OP-C Subjective Start: 01/07/22 11:58 Freq: Status: Active Protocol: Document 03/02/22 09:49 SAK (Rec: 03/02/22 10:41 [facility] [id number]) OP-PT Subjective Patient Comments Patient Comments Still bothers her toward evening. Went to baby shower, had difficulty with sitting prolonged, also following education to 90/90 positioning . Frustrated she can't go through a whole day without pain, though pain less than before surgery. Improving awareness of gluteals and body mechanics. forgot to try wearing SI belt at home when doing prolonged standing or walking. PT-OP-F Manual Assessment Start: 01/07/22 11:58 Freq: Status: Active Protocol: Document 01/07/22 13:51 SAK (Rec: 01/11/22 14:57 SAK [id number]) Manual Assessments Soft Tissue Assessment Soft Tissue Mobility Assessment decrease in soft tissue mobility hugo lumbar paraspinals, right piriformis, incision. PT-OP-G Mobility & Gait Start: 01/07/22 11:58 Freq: Status: Active Protocol: Document 01/07/22 13:51 [facility] (Rec: 01/11/22 14:57 [facility] [id number]) OP Gait Assessment Gait Gait Assistance Required: Independent Assistive Devices Assistive Device Straight Cane,Front Wheeled Walker Orthotic/Prosthetic Devices or Brace: No Gait Deviations General Gait Pattern Antalgic,Decreased Stride Length Factors Limiting Gait Function Factors Limiting Gait Function Decreased Strength,Pain PT-OP-H Neuro Start: 01/07/22 11:58 Freq: Status: Active Protocol: Document 01/07/22 13:51 [facility] (Rec: 01/11/22 14:57 [facility] [id number]) Sensation Evaluation Gross Sensation Gross Sensation Left LE Impaired Sensation Description Paresthesia PT-OP-J Posture/Palpation/Skin Start: 01/07/22 11:58 Freq: Status: Active Protocol: Document 01/07/22 13:51 [facility] (Rec: 01/11/22 14:57 [facility] [id number]) Posture Evaluation Position Standing Head/C-Spine Posture Forward Head T-Spine Posture Flexible Scoliosis on (L), Flexible Scoliosis on (R) L-Spine Posture Decreased Lordosis Shoulder Posture (L) Rounded,(R) Rounded Scapula Posture (L) Protracted,(R) Protracted Arm Posture (L) Internally Rotated,(R) Internally Rotated Pelvis Posture Posterior Tilted Weight Distribution Weight Shifted Left Skin Assessment Incisional Assessment Incision Appearance/Comments as above PT-OP-K Range of Motion Start: 01/07/22 11:58 Freq: Status: Active Protocol: Document 01/07/22 13:51 [facility] (Rec: 01/11/22 14:57 [facility] [id number]) Hip Goniometric Range of Motion Hip ROM Limitations Comments WFL, no formal testing due to recent surgery PT-OP-M Strength Start: 01/07/22 11:58 Freq: Status: Active Protocol: Document 01/07/22 13:51 [facility] (Rec: 01/11/22 14:57 [facility] [id number]) Trunk Strength Trunk Manual Muscle Testing Comments not assessed due to recent surgery Hip Strength Hip Manual Muscle Testing hugo Comments no MMT due to recent surgery Knee Strength Knee Manual Muscle Testing hugo Comments no MMT due to recent surgery, has full AROM Ankle/Foot Strength Ankle and Foot Manual Muscle Testing hugo Comments has full active ROM, No MMT due to recent surgery PT-OP-T Assessment and Plan Start: 01/07/22 11:58 Freq: Status: Active Protocol: Document 03/02/22 09:49 MARY (Rec: 03/02/22 10:41 [facility] [id number]) Physical Therapy Assessment Goals Three Impairment weakness Impairment weakness core and hip musculature, requires use of UE's for sit to stand Short Term Goal (STG) Instruct patient in progressive HEP for purposes of core and hip muscle strengthening for SI support and improved functional mobility STG Duration 02/25/22 Nursing Home Goal (LTG) Patient to be independent and compliant to HEP for purposes of strengthening and core stabilization. Functionally will be able to transition sit to stand x 5 times without use of UE's without an increase in pain LTG Duration 04/04/21 Two Impairment pain Impairment pain right SI and anterior thigh 4/10 consistently taking Tylenol and Alleve Short Term Goal (STG) Improve patient pain to no greater than 2/10 while taking pain medication STG Duration 02/25/22 Nursing Home Goal (LTG) Improve patient's pain to no greater than 2/10 without pain medication LTG Duration 04/04/21 One Impairment activity tolerance Impairment Oswestry disability index score 50% Short Term Goal (STG) Oswestry disability index score improved to no greater than 30% as measure of improved activity tolerance STG Duration 02/25/22 Nursing Home Goal (LTG) Improve Oswestry disability index score to no greater than 15% as measure of improved activity tolerance and return to prior level of function LTG Duration 04/04/21 Assessment Summary Assessment Continue with emphasis on core stab, unil gluteal activation due to dec response on right. Patient frustrated by some persistent pain and by her difficulty in activating right gluteals especially unil. Appears to benefit from elastic strap at SI and encouraged to try her SI strap at home with prolonged standing and walking. Physical Therapy Plan Frequency and Duration Frequency of Treatment 2x/Week Duration of treatment (weeks) 12 Plan of Care Start Date 01/07/22 Plan of Care End Date 04/04/22 Therapeutic Interventions Therapeutic Interventions Gait Training,Home Exercise Program,Manual Therapy,Patient /Caregiver Education,Self-Care /Home Management,Soft Tissue Mobilization,Taping, Therapeutic Activities, Therapeutic Exercises Modalities Cold Pack/Ice Massage,Electric Stimulation,Hot Packs, Iontophoresis Next Visit Focus/Plan Next Note Type Treatment Note Next Visit Plan Quadriped ex, review clamshell for add to HEP. Continue ex for gluteal activation
--- NOTE | 2022-03-04 16:41 | PT.OTN ---
Current Diagnoses Sacrococcygeal disorders, not elsewhere classified (03/04/22) Physical Therapy Treatment Note PT-OP-A Visit Information Start: 01/07/22 11:58 Freq: Status: Active Protocol: Document 03/04/22 10:33 SAK (Rec: 03/04/22 11:16 [facility] [id number]) Out-Patient Physical Therapy Visit Information Visit Information Visit Type Treatment Note Visit Start Time 10:34 Visit Stop Time 11:28 Total Visit Minutes 54 Visit Number 11 Evaluation Information Evaluation Date 01/07/22 PT-OP-B Current Condition Start: 01/07/22 11:58 Freq: Status: Active Protocol: Document 03/04/22 10:33 SAK (Rec: 03/04/22 11:16 [facility] [id number]) Current Condition History of Current Condition Onset Date 12/15/21 Current Complaints pain right thigh and SI s/p fusion right SI History of Current Condition fusion right SI in [place], patient reports no pins or screws needed, no op report available. aching right anterior thigh and buttock. No precautions given. Prior to surgery doing HEP, since surgery just walking. Has been doing stairs per doctor approval after 2 weeks, though some soreness Has been using walker today didn't use walker, feels just a little unsteady. Icing several times per day. Has not done any exercises Future Testing and Treatments Planned returns to surgeon for f/u in approx 6 weeks PT-OP-C Subjective Start: 01/07/22 11:58 Freq: Status: Active Protocol: Document 03/04/22 10:33 SAK (Rec: 03/04/22 11:16 [facility] [id number]) OP-PT Subjective Patient Comments Patient Comments Pain 1-2 currently, used heat this am. Went shopping yesterday, difficulty standing in line due to increase in pain, tried shifting weight, putting one foot up, no place to sit or stretch. Ok when got back to the car. Didn't wear SI belt as recommended. PT-OP-F Manual Assessment Start: 01/07/22 11:58 Freq: Status: Active Protocol: Document 01/07/22 13:51 SAK (Rec: 01/11/22 14:57 SAK [id number]) Manual Assessments Soft Tissue Assessment Soft Tissue Mobility Assessment decrease in soft tissue mobility hugo lumbar paraspinals, right piriformis, incision. PT-OP-G Mobility & Gait Start: 01/07/22 11:58 Freq: Status: Active Protocol: Document 01/07/22 13:51 [facility] (Rec: 01/11/22 14:57 [facility] [id number]) OP Gait Assessment Gait Gait Assistance Required: Independent Assistive Devices Assistive Device Straight Cane,Front Wheeled Walker Orthotic/Prosthetic Devices or Brace: No Gait Deviations General Gait Pattern Antalgic,Decreased Stride Length Factors Limiting Gait Function Factors Limiting Gait Function Decreased Strength,Pain PT-OP-H Neuro Start: 01/07/22 11:58 Freq: Status: Active Protocol: Document 01/07/22 13:51 [facility] (Rec: 01/11/22 14:57 [facility] [id number]) Sensation Evaluation Gross Sensation Gross Sensation Left LE Impaired Sensation Description Paresthesia PT-OP-J Posture/Palpation/Skin Start: 01/07/22 11:58 Freq: Status: Active Protocol: Document 01/07/22 13:51 [facility] (Rec: 01/11/22 14:57 [facility] [id number]) Posture Evaluation Position Standing Head/C-Spine Posture Forward Head T-Spine Posture Flexible Scoliosis on (L), Flexible Scoliosis on (R) L-Spine Posture Decreased Lordosis Shoulder Posture (L) Rounded,(R) Rounded Scapula Posture (L) Protracted,(R) Protracted Arm Posture (L) Internally Rotated,(R) Internally Rotated Pelvis Posture Posterior Tilted Weight Distribution Weight Shifted Left Skin Assessment Incisional Assessment Incision Appearance/Comments as above PT-OP-K Range of Motion Start: 01/07/22 11:58 Freq: Status: Active Protocol: Document 01/07/22 13:51 [facility] (Rec: 01/11/22 14:57 [facility] [id number]) Hip Goniometric Range of Motion Hip ROM Limitations Comments WFL, no formal testing due to recent surgery PT-OP-M Strength Start: 01/07/22 11:58 Freq: Status: Active Protocol: Document 01/07/22 13:51 [facility] (Rec: 01/11/22 14:57 [facility] [id number]) Trunk Strength Trunk Manual Muscle Testing Comments not assessed due to recent surgery Hip Strength Hip Manual Muscle Testing hugo Comments no MMT due to recent surgery Knee Strength Knee Manual Muscle Testing hugo Comments no MMT due to recent surgery, has full AROM Ankle/Foot Strength Ankle and Foot Manual Muscle Testing hugo Comments has full active ROM, No MMT due to recent surgery PT-OP-Q Treatments Start: 01/07/22 11:58 Freq: Status: Active Protocol: Document 03/04/22 10:33 SAK (Rec: 03/04/22 11:16 SAK [id number]) Cardio Equipment Treadmill Duration (Minutes) 10 Speed 2.0 Incline 0 Other elastic strap at SI Gym Equipment Shuttle Recovery Bilateral Squats Details cues for neutral LE's, gluteal activation Resistance 50 Shuttle Recovery Platform Stable Reps/Time 10x Sport Cord 1 Exercise Details sideways Cord/Resistance yellow Reps/Duration 5x each side Comments cues for core activation, postural alignment including foot alignment. Therapeutic Exercises Supine Exercises HS stretch Reps/Minutes 2x30 SKTC Reps/Minutes 2x march Supine Exercise Name progressed to leg straightening and lowering Reps/Minutes 10x2, 5sec hold Comments cues for core activation and push down through opp foot Bridge Equipment Used Mat table Reps/Minutes 1x10 10sec hold gluteal set Supine Exercise Name hugo x 5 unil x 10 with push into table one foot Reps/Minutes 10x Comments verbal and tactile cues Sidelying Exercises clamshell Reps/Minutes 10x5 Comments cues for core activation, small movement, don't roll back. Sitting Exercises HS stretch Reps/Minutes 2x30 lumbar stretch Reps/Minutes 2x10 Comments gentle, breathe into the tight spots Ball squeeze Sitting Exercise Name Adductor ball squeeze Equipment Used green ball Reps/Minutes 1x10 5 sec holds Comments Good form, vladimir-cues for core act Standing Exercises shld ext Equipment Used L1 TB Reps/Minutes 10x row Equipment Used L1 TB Reps/Minutes 10x wt shift Standing Exercise Name fwd/bck Reps/Minutes 10x ea Comments cues for gluteal activation glut set Standing Exercise Name hugo and unil Reps/Minutes 10x ea Comments less response on right PT-OP-R Modalities Start: 01/07/22 11:58 Freq: Status: Active Protocol: Document 03/04/22 10:33 SAK (Rec: 03/04/22 16:41 SAK [id number]) Hot Pack/Cold Pack Treatment Hot Pack Location lumbar spine Treatment Duration (minutes) 10 Patient Tolerance Good Comments 90/90 position PT-OP-T Assessment and Plan Start: 01/07/22 11:58 Freq: Status: Active Protocol: Document 03/04/22 10:33 [facility] (Rec: 03/04/22 11:16 [facility] [id number]) Physical Therapy Assessment Goals Three Impairment weakness Impairment weakness core and hip musculature, requires use of UE's for sit to stand Short Term Goal (STG) Instruct patient in progressive HEP for purposes of core and hip muscle strengthening for SI support and improved functional mobility STG Duration 02/25/22 Long-Term Goal (LTG) Patient to be independent and compliant to HEP for purposes of strengthening and core stabilization. Functionally will be able to transition sit to stand x 5 times without use of UE's without an increase in pain LTG Duration 04/04/21 Two Impairment pain Impairment pain right SI and anterior thigh 4/10 consistently taking Tylenol and Alleve Short Term Goal (STG) Improve patient pain to no greater than 2/10 while taking pain medication STG Duration 02/25/22 Long-Term Goal (LTG) Improve patient's pain to no greater than 2/10 without pain medication LTG Duration 04/04/21 One Impairment activity tolerance Impairment Oswestry disability index score 50% Short Term Goal (STG) Oswestry disability index score improved to no greater than 30% as measure of improved activity tolerance STG Duration 02/25/22 Long-Term Goal (LTG) Improve Oswestry disability index score to no greater than 15% as measure of improved activity tolerance and return to prior level of function LTG Duration 04/04/21 Assessment Summary Assessment Increased time on treadmill to 10 min, improving gluteal awareness though still significant dec respnse right vs left. Forgot to wear SI belt as recommended when shopping. Needs moderate cues for performance of exercises and cues to slow down. Physical Therapy Plan Frequency and Duration Frequency of Treatment 2x/Week Duration of treatment (weeks) 12 Plan of Care Start Date 01/07/22 Plan of Care End Date 04/04/22 Therapeutic Interventions Therapeutic Interventions Gait Training,Home Exercise Program,Manual Therapy,Patient /Caregiver Education,Self-Care /Home Management,Soft Tissue Mobilization,Taping, Therapeutic Activities, Therapeutic Exercises Modalities Cold Pack/Ice Massage,Electric Stimulation,Hot Packs, Iontophoresis Next Visit Focus/Plan Next Note Type Treatment Note Next Visit Plan Quadriped cat/cow, poss hip ext if geno. Continue PT for core stabilization and strengtheing, progression of activity tolerance in closed chain. Strategies for improved activity tolerance. Encourage use of SI belt with prolonged standing activities. Consider kinesiotape right SI .
--- NOTE | 2022-03-09 09:00 | PT.OTN ---
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 Stairs allowable at 2 wks post-op PT-OP-B Current Condition Start: 01/07/22 11:58 Freq: Status: Active Protocol: Document 03/04/22 10:33 SAK (Rec: 03/04/22 11:16 SAK [id number]) Current Condition History of Current Condition Onset Date 12/15/21 Current Complaints pain right thigh and SI s/p fusion right SI History of Current Condition fusion right SI in [place], patient reports no pins or screws needed, no op report available. aching right anterior thigh and buttock. No precautions given. Prior to surgery doing HEP, since surgery just walking. Has been doing stairs per doctor approval after 2 weeks, though some soreness Has been using walker today didn't use walker, feels just a little unsteady. Icing several times per day. Has not done any exercises Future Testing and Treatments Planned returns to surgeon for f/u in approx 6 weeks PT-OP-C Subjective Start: 01/07/22 11:58 Freq: Status: Active Protocol: Document 03/09/22 08:17 SP (Rec: 03/09/22 09:03 SP [id number]) OP-PT Subjective Patient Comments Patient Comments Pt reports doing alot better: able to stand cooking and shopping up to 1-2 hrs before needs sit down. Did have an episode of R hip pain thinks when turned not sure picked up feet and had pain more than discomfort and another little off balance so was more cautious for safety. She states is taking Tylenol for assist, forgot to take this am and will see how feels and needed. Patient Questionnaires ABC- Activity Specific Balance Confidence Scale ABC Score 91.25 ABC Functional Impairment 1 to <20% Impaired (Score 81- 99) Oswestry Low Back Index Oswestry Score 18 PT-OP-F Manual Assessment Start: 01/07/22 11:58 Freq: Status: Active Protocol: Document 01/07/22 13:51 [facility] (Rec: 01/11/22 14:57 [facility] [id number]) Manual Assessments Soft Tissue Assessment Soft Tissue Mobility Assessment decrease in soft tissue mobility hugo lumbar paraspinals, right piriformis, incision. PT-OP-G Mobility & Gait Start: 01/07/22 11:58 Freq: Status: Active Protocol: Document 01/07/22 13:51 [facility] (Rec: 01/11/22 14:57 [facility] [id number]) OP Gait Assessment Gait Gait Assistance Required: Independent Assistive Devices Assistive Device Straight Cane,Front Wheeled Walker Orthotic/Prosthetic Devices or Brace: No Gait Deviations General Gait Pattern Antalgic,Decreased Stride Length Factors Limiting Gait Function Factors Limiting Gait Function Decreased Strength,Pain PT-OP-H Neuro Start: 01/07/22 11:58 Freq: Status: Active Protocol: Document 01/07/22 13:51 [facility] (Rec: 01/11/22 14:57 [facility] [id number]) Sensation Evaluation Gross Sensation Gross Sensation Left LE Impaired Sensation Description Paresthesia PT-OP-J Posture/Palpation/Skin Start: 01/07/22 11:58 Freq: Status: Active Protocol: Document 01/07/22 13:51 [facility] (Rec: 01/11/22 14:57 [facility] [id number]) Posture Evaluation Position Standing Head/C-Spine Posture Forward Head T-Spine Posture Flexible Scoliosis on (L), Flexible Scoliosis on (R) L-Spine Posture Decreased Lordosis Shoulder Posture (L) Rounded,(R) Rounded Scapula Posture (L) Protracted,(R) Protracted Arm Posture (L) Internally Rotated,(R) Internally Rotated Pelvis Posture Posterior Tilted Weight Distribution Weight Shifted Left Skin Assessment Incisional Assessment Incision Appearance/Comments as above PT-OP-K Range of Motion Start: 01/07/22 11:58 Freq: Status: Active Protocol: Document 01/07/22 13:51 [facility] (Rec: 01/11/22 14:57 [facility] [id number]) Hip Goniometric Range of Motion Hip ROM Limitations Comments WFL, no formal testing due to recent surgery PT-OP-M Strength Start: 01/07/22 11:58 Freq: Status: Active Protocol: Document 01/07/22 13:51 SAK (Rec: 01/11/22 14:57 SAK [id number]) Trunk Strength Trunk Manual Muscle Testing Comments not assessed due to recent surgery Hip Strength Hip Manual Muscle Testing hugo Comments no MMT due to recent surgery Knee Strength Knee Manual Muscle Testing hugo Comments no MMT due to recent surgery, has full AROM Ankle/Foot Strength Ankle and Foot Manual Muscle Testing hugo Comments has full active ROM, No MMT due to recent surgery PT-OP-Q Treatments Start: 01/07/22 11:58 Freq: Status: Active Protocol: Document 03/09/22 08:17 SP (Rec: 03/09/22 09:03 SP [id number]) Cardio Equipment Treadmill Duration (Minutes) 10 Speed 2.0 Incline 0 Other not wearing SI strap, using 1- 2 UE support Therapeutic Exercises Supine Exercises may Supine Exercise Name HEP reviewed: TA SLR Reps/Minutes 10x2, 5sec hold Comments cues for core activation and push down through opp foot, slow lift/lower ITB Stretch w/ strap Supine Exercise Name HEP reviewed Side bilateral Equipment Used gait belt in PT (TB at home) Reps/Minutes 30sec x2 Comments TB at home- good form/ response stretch HS stretch w/ strap Supine Exercise Name HEP reviewed Side bilateral Reps/Minutes 1x30 Comments no strap, did with ankle df/pf Bridge Supine Exercise Name reviewed HEP Equipment Used Mat table Reps/Minutes 10reps, 10sec hold Comments good form Sidelying Exercises clamshell Sidelying Exercise Name HEP reviewed Side bilateral Reps/Minutes 10x5 sec Comments cues for core activation, small movement, don't roll back. Sitting Exercises sit to stand Sitting Exercise Name reviewed Equipment Used arms across chest, mesh chair Reps/Minutes x10 Comments cues to vary foot position, not always with right LE in front as is habit Standing Exercises step ups Standing Exercise Name added to HEP Equipment Used 4 step Reps/Minutes x10 each LE Comments cued TA, improved stability PT-OP-R Modalities Start: 01/07/22 11:58 Freq: Status: Active Protocol: Document 03/04/22 10:33 SAK (Rec: 03/04/22 16:41 SAK [id number]) Hot Pack/Cold Pack Treatment Hot Pack Location lumbar spine Treatment Duration (minutes) 10 Patient Tolerance Good Comments 90/90 position PT-OP-T Assessment and Plan Start: 01/07/22 11:58 Freq: Status: Active Protocol: Document 03/09/22 08:17 SP (Rec: 03/09/22 09:03 SP [id number]) Physical Therapy Assessment Goals Three Impairment weakness Impairment weakness core and hip musculature, requires use of UE's for sit to stand Short Term Goal (STG) Instruct patient in progressive HEP for purposes of core and hip muscle strengthening for SI support and improved functional mobility 03/09/22: added TA step ups to HEP, STG Duration 02/25/22 progressing 03/09/22 Snf Goal (LTG) Patient to be independent and compliant to HEP for purposes of strengthening and core stabilization. Functionally will be able to transition sit to stand x 5 times without use of UE's without an increase in pain LTG Duration 04/04/21 Two Impairment pain Impairment pain right SI and anterior thigh 4/10 consistently taking Tylenol and Alleve Short Term Goal (STG) Improve patient pain to no greater than 2/10 while taking pain medication STG Duration 02/25/22 Drum Filler Goal (LTG) Improve patient's pain to no greater than 2/10 without pain medication LTG Duration 04/04/21 One Impairment activity tolerance Impairment Oswestry disability index score 50% Short Term Goal (STG) Oswestry disability index score improved to no greater than 30% as measure of improved activity tolerance 03/09/22: pt scored 18 this tx , reduction from 27 at eval. STG Duration 02/25/22 progressing 03/09/22 Snf Goal (LTG) Improve Oswestry disability index score to no greater than 15% as measure of improved activity tolerance and return to prior level of function LTG Duration 04/04/21 Assessment Summary Assessment Pt good response and demonstration of TA HEP supine /side this tx, she is able to complete STS without UE support, added step ups with cues for TA with improved stability. Physical Therapy Plan Frequency and Duration Frequency of Treatment 2x/Week Duration of treatment (weeks) 12 Plan of Care Start Date 01/07/22 Plan of Care End Date 04/04/22 Therapeutic Interventions Therapeutic Interventions Gait Training,Home Exercise Program,Manual Therapy,Patient /Caregiver Education,Self-Care /Home Management,Soft Tissue Mobilization,Taping, Therapeutic Activities, Therapeutic Exercises Modalities Cold Pack/Ice Massage,Electric Stimulation,Hot Packs, Iontophoresis Next Visit Focus/Plan Next Note Type Treatment Note Next Visit Plan REcheck ABCs and LB Oswestry calculations 03/09/22. Progress standing TA balance activities: hurdles, STS on foam, step ups on foam in PT. POC: Quadriped cat/cow, poss hip ext if egno. Continue PT for core stabilization and strengtheing, progression of activity tolerance in closed chain. Strategies for improved activity tolerance. Encourage use of SI belt with prolonged standing activities. Consider kinesiotape right SI .
--- NOTE | 2022-03-15 09:55 | PT.OTN ---
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 Stairs allowable at 2 wks post-op PT-OP-B Current Condition Start: 01/07/22 11:58 Freq: Status: Active Protocol: Document 03/15/22 08:57 SAK (Rec: 03/15/22 09:55 [facility] [id number]) Current Condition History of Current Condition Onset Date 12/15/21 Current Complaints pain right thigh and SI s/p fusion right SI History of Current Condition fusion right SI in [place], patient reports no pins or screws needed, no op report available. aching right anterior thigh and buttock. No precautions given. Prior to surgery doing HEP, since surgery just walking. Has been doing stairs per doctor approval after 2 weeks, though some soreness Has been using walker today didn't use walker, feels just a little unsteady. Icing several times per day. Has not done any exercises Future Testing and Treatments Planned returns to surgeon for f/u in approx 6 weeks PT-OP-C Subjective Start: 01/07/22 11:58 Freq: Status: Active Protocol: Document 03/15/22 08:57 SAK (Rec: 03/15/22 09:55 [facility] [id number]) OP-PT Subjective Patient Comments Patient Comments Sees surgeon April 07. More common now to get out of bed without pain. Impatient and frustrated that continues to have pain. Pacing herself with her baking but hasn't tried sitting for partsof it. PT-OP-F Manual Assessment Start: 01/07/22 11:58 Freq: Status: Active Protocol: Document 01/07/22 13:51 SAK (Rec: 01/11/22 14:57 SAK [id number]) Manual Assessments Soft Tissue Assessment Soft Tissue Mobility Assessment decrease in soft tissue mobility hugo lumbar paraspinals, right piriformis, incision. PT-OP-G Mobility & Gait Start: 01/07/22 11:58 Freq: Status: Active Protocol: Document 01/07/22 13:51 [facility] (Rec: 01/11/22 14:57 [facility] [id number]) OP Gait Assessment Gait Gait Assistance Required: Independent Assistive Devices Assistive Device Straight Cane,Front Wheeled Walker Orthotic/Prosthetic Devices or Brace: No Gait Deviations General Gait Pattern Antalgic,Decreased Stride Length Factors Limiting Gait Function Factors Limiting Gait Function Decreased Strength,Pain PT-OP-H Neuro Start: 01/07/22 11:58 Freq: Status: Active Protocol: Document 01/07/22 13:51 SAK (Rec: 01/11/22 14:57 [facility] [id number]) Sensation Evaluation Gross Sensation Gross Sensation Left LE Impaired Sensation Description Paresthesia PT-OP-J Posture/Palpation/Skin Start: 01/07/22 11:58 Freq: Status: Active Protocol: Document 01/07/22 13:51 SAK (Rec: 01/11/22 14:57 [facility] [id number]) Posture Evaluation Position Standing Head/C-Spine Posture Forward Head T-Spine Posture Flexible Scoliosis on (L), Flexible Scoliosis on (R) L-Spine Posture Decreased Lordosis Shoulder Posture (L) Rounded,(R) Rounded Scapula Posture (L) Protracted,(R) Protracted Arm Posture (L) Internally Rotated,(R) Internally Rotated Pelvis Posture Posterior Tilted Weight Distribution Weight Shifted Left Skin Assessment Incisional Assessment Incision Appearance/Comments as above PT-OP-K Range of Motion Start: 01/07/22 11:58 Freq: Status: Active Protocol: Document 01/07/22 13:51 [facility] (Rec: 01/11/22 14:57 [facility] [id number]) Hip Goniometric Range of Motion Hip ROM Limitations Comments WFL, no formal testing due to recent surgery PT-OP-M Strength Start: 01/07/22 11:58 Freq: Status: Active Protocol: Document 01/07/22 13:51 [facility]AK (Rec: 01/11/22 14:57 [facility] [id number]) Trunk Strength Trunk Manual Muscle Testing Comments not assessed due to recent surgery Hip Strength Hip Manual Muscle Testing hugo Comments no MMT due to recent surgery Knee Strength Knee Manual Muscle Testing hugo Comments no MMT due to recent surgery, has full AROM Ankle/Foot Strength Ankle and Foot Manual Muscle Testing hugo Comments has full active ROM, No MMT due to recent surgery PT-OP-Q Treatments Start: 01/07/22 11:58 Freq: Status: Active Protocol: Document 03/15/22 08:57 [facility] (Rec: 03/15/22 09:55 [facility] [id number]) Cardio Equipment Treadmill Duration (Minutes) 10 Speed 2.0 Incline 0 Other elastic strap at SI Gym Equipment Shuttle Recovery Unilateral Squats Resistance 37 Shuttle Recovery Platform Stable Reps/Time 10x Bilateral Squats Details cues for neutral LE's, gluteal activation Resistance 62 Shuttle Recovery Platform Stable Reps/Time 10x2 Shuttle Balance chains red Details bal and weight shift side to side, front/back Comments min to no UE support, both directions tolerated well Therapeutic Exercises Supine Exercises HS stretch Reps/Minutes 2x30 SKTC Reps/Minutes 2x HS stretch w/ strap Supine Exercise Name HEP reviewed Side bilateral Reps/Minutes 1x30 Comments no strap, did with ankle df/pf Sitting Exercises HS stretch Reps/Minutes 2x30 sit to stand Sitting Exercise Name reviewed Equipment Used arms across chest, mesh chair Reps/Minutes x10 Comments cues to vary foot position, not always with right LE in front as is habit Standing Exercises resisted sidestepping Equipment Used yellow Reps/Minutes 10 ft x 2 step ups Standing Exercise Name added to HEP Equipment Used 4 step Reps/Minutes x10 each LE Comments cued TA, improved stability Self-Care/Home Management Treatment Education Patient Education Body Mechanics,Home Exercise Program,Pain Management, Posture PT-OP-R Modalities Start: 01/07/22 11:58 Freq: Status: Active Protocol: Document 03/04/22 10:33 [facility] (Rec: 03/04/22 16:41 [facility] [id number]) Hot Pack/Cold Pack Treatment Hot Pack Location lumbar spine Treatment Duration (minutes) 10 Patient Tolerance Good Comments 90/90 position PT-OP-T Assessment and Plan Start: 01/07/22 11:58 Freq: Status: Active Protocol: Document 03/15/22 08:57 [facility] (Rec: 03/15/22 09:55 [facility] [id number]) Physical Therapy Assessment Goals Three Impairment weakness Impairment weakness core and hip musculature, requires use of UE's for sit to stand Short Term Goal (STG) Instruct patient in progressive HEP for purposes of core and hip muscle strengthening for SI support and improved functional mobility 03/09/22: added TA step ups to HEP, STG Duration 02/25/22 progressing 03/09/22 Custodial Goal (LTG) Patient to be independent and compliant to HEP for purposes of strengthening and core stabilization. Functionally will be able to transition sit to stand x 5 times without use of UE's without an increase in pain LTG Duration 04/04/21 Two Impairment pain Impairment pain right SI and anterior thigh 4/10 consistently taking Tylenol and Alleve Short Term Goal (STG) Improve patient pain to no greater than 2/10 while taking pain medication STG Duration 02/25/22 Custodial Goal (LTG) Improve patient's pain to no greater than 2/10 without pain medication LTG Duration 04/04/21 One Impairment activity tolerance Impairment Oswestry disability index score 50% Short Term Goal (STG) Oswestry disability index score improved to no greater than 30% as measure of improved activity tolerance 03/09/22: pt scored 18 this tx , reduction from 27 at eval. STG Duration 02/25/22 progressing 03/09/22 Custodial Goal (LTG) Improve Oswestry disability index score to no greater than 15% as measure of improved activity tolerance and return to prior level of function LTG Duration 04/04/21 Assessment Summary Assessment Cues for core and gluteal activation, UE support as needed level pelvis with step- ups due to Trendelenberg. Worked on frequent change in position with exercises today. Encouraged patient that still healing and improving. Improving awareness of glueal activation, including with addition of single leg shuttle leg press. Physical Therapy Plan Frequency and Duration Frequency of Treatment 2x/Week Duration of treatment (weeks) 12 Plan of Care Start Date 01/07/22 Plan of Care End Date 04/04/22 Therapeutic Interventions Therapeutic Interventions Gait Training,Home Exercise Program,Manual Therapy,Patient /Caregiver Education,Self-Care /Home Management,Soft Tissue Mobilization,Taping, Therapeutic Activities, Therapeutic Exercises Modalities Cold Pack/Ice Massage,Electric Stimulation,Hot Packs, Iontophoresis Next Visit Focus/Plan Next Note Type Treatment Note Next Visit Plan Focus on mat exercises for core stab including quadriped as tolerated, step-ups on foam and sit to stand foam. Continue to encourage use of SI belt with prolonged standing and frequent change in positions including some sitting with kitchen activities.
--- NOTE | 2022-03-17 13:00 | PT.OTN ---
Current Diagnoses Sacrococcygeal disorders, not elsewhere classified (03/17/22) Physical Therapy Treatment Note PT-OP-A Visit Information Start: 01/07/22 11:58 Freq: Status: Active Protocol: Document 03/17/22 12:15 SP (Rec: 03/17/22 13:08 SP [id number]) Out-Patient Physical Therapy Visit Information Visit Information Visit Type Treatment Note Visit Start Time 12:15 Visit Stop Time 13:00 Total Visit Minutes 45 Visit Number 14 Number of CLINICAL TRANSPLANT COORDINATOR Visits 1 Evaluation Information Evaluation Date 01/07/22 Precautions Precautions No precautions given by physician, patient reports he said you will know. Stairs allowable at 2 wks post-op PT-OP-B Current Condition Start: 01/07/22 11:58 Freq: Status: Active Protocol: Document 03/15/22 08:57 SAK (Rec: 03/15/22 09:55 SAK [id number]) Current Condition History of Current Condition Onset Date 12/15/21 Current Complaints pain right thigh and SI s/p fusion right SI History of Current Condition fusion right SI in [place], patient reports no pins or screws needed, no op report available. aching right anterior thigh and buttock. No precautions given. Prior to surgery doing HEP, since surgery just walking. Has been doing stairs per doctor approval after 2 weeks, though some soreness Has been using walker today didn't use walker, feels just a little unsteady. Icing several times per day. Has not done any exercises Future Testing and Treatments Planned returns to surgeon for f/u in approx 6 weeks PT-OP-C Subjective Start: 01/07/22 11:58 Freq: Status: Active Protocol: Document 03/17/22 12:15 SP (Rec: 03/17/22 13:08 SP [id number]) OP-PT Subjective Patient Comments Patient Comments Pt reports able to stand longer in kitchen, didn't look how long before R SI being achy and needing to sit. She reports yesterday did have much of any pain but achy today. PT-OP-F Manual Assessment Start: 01/07/22 11:58 Freq: Status: Active Protocol: Document 01/07/22 13:51 SAK (Rec: 01/11/22 14:57 SAK [id number]) Manual Assessments Soft Tissue Assessment Soft Tissue Mobility Assessment decrease in soft tissue mobility hugo lumbar paraspinals, right piriformis, incision. PT-OP-G Mobility & Gait Start: 01/07/22 11:58 Freq: Status: Active Protocol: Document 01/07/22 13:51 [facility] (Rec: 01/11/22 14:57 [facility] [id number]) OP Gait Assessment Gait Gait Assistance Required: Independent Assistive Devices Assistive Device Straight Cane,Front Wheeled Walker Orthotic/Prosthetic Devices or Brace: No Gait Deviations General Gait Pattern Antalgic,Decreased Stride Length Factors Limiting Gait Function Factors Limiting Gait Function Decreased Strength,Pain PT-OP-H Neuro Start: 01/07/22 11:58 Freq: Status: Active Protocol: Document 01/07/22 13:51 [facility] (Rec: 01/11/22 14:57 [facility] [id number]) Sensation Evaluation Gross Sensation Gross Sensation Left LE Impaired Sensation Description Paresthesia PT-OP-J Posture/Palpation/Skin Start: 01/07/22 11:58 Freq: Status: Active Protocol: Document 01/07/22 13:51 [facility] (Rec: 01/11/22 14:57 [facility] [id number]) Posture Evaluation Position Standing Head/C-Spine Posture Forward Head T-Spine Posture Flexible Scoliosis on (L), Flexible Scoliosis on (R) L-Spine Posture Decreased Lordosis Shoulder Posture (L) Rounded,(R) Rounded Scapula Posture (L) Protracted,(R) Protracted Arm Posture (L) Internally Rotated,(R) Internally Rotated Pelvis Posture Posterior Tilted Weight Distribution Weight Shifted Left Skin Assessment Incisional Assessment Incision Appearance/Comments as above PT-OP-K Range of Motion Start: 01/07/22 11:58 Freq: Status: Active Protocol: Document 01/07/22 13:51 [facility] (Rec: 01/11/22 14:57 [facility] [id number]) Hip Goniometric Range of Motion Hip ROM Limitations Comments WFL, no formal testing due to recent surgery PT-OP-M Strength Start: 01/07/22 11:58 Freq: Status: Active Protocol: Document 01/07/22 13:51 [facility] (Rec: 01/11/22 14:57 [facility] [id number]) Trunk Strength Trunk Manual Muscle Testing Comments not assessed due to recent surgery Hip Strength Hip Manual Muscle Testing hugo Comments no MMT due to recent surgery Knee Strength Knee Manual Muscle Testing hugo Comments no MMT due to recent surgery, has full AROM Ankle/Foot Strength Ankle and Foot Manual Muscle Testing hugo Comments has full active ROM, No MMT due to recent surgery PT-OP-Q Treatments Start: 01/07/22 11:58 Freq: Status: Active Protocol: Document 03/17/22 12:15 SP (Rec: 03/17/22 13:08 SP [id number]) Cardio Equipment Treadmill Duration (Minutes) 10 Speed 2> 2.2 mph Incline 0 Other elastic strap at SI Gym Equipment Shuttle Recovery Unilateral Squats Details B Resistance 37 (25# new band) Shuttle Recovery Platform Stable Reps/Time 10x Bilateral Squats Details cues for neutral LE's, gluteal activation Resistance 62 (1- 25# new band) Shuttle Recovery Platform Stable Reps/Time 15 reps, 12 reps Therapeutic Exercises Supine Exercises SKTC Reps/Minutes 2x 10 sec hold on shuttle recovery Sitting Exercises HS stretch Reps/Minutes 2x30 Comments performed between step activity Standing Exercises resisted sidestepping Resistance near rail Equipment Used yellow> red TB loop at ankles Reps/Minutes 10 ft YTB, 10 ft RTB Comments occasional cue for trial LE clearance, step ups Standing Exercise Name reviewed HEP- TA Equipment Used 4 step Reps/Minutes 5 reps then alternate x2 sets each LE repeated Comments cued TA and COG over full foot , improved stability Gait Training Gait Activity stairs Description 4 step Device Used rail PRN, 3# DB Level of Assistance S Distance/Duration 6 stairs, rail PRN if needed Treatment Focus stability stance time AROM, added weight in UE- progress laundry self Comments ascend/descend improved with cues for TA controlled support stance time. AROM> 3# db in BUEs. CUed/ ed for upright posture over full foot to decrease load through back, she states tends to lean forward hand off to last 3 stairs due to no rail that far to contact if needed for safety and back feels it. Less back stress upright posture post cues. - next tx: will bring own laundry basket and work on endurance/ posturing form. Self-Care/Home Management Treatment Education Patient Education Body Mechanics,Home Exercise Program,Pain Management, Posture,Safety Other Education -Extra time spend discussion/ performance body mechanics for posture and carrying laundry basket on stairs, core fac support/ back health support to become more I last few steps at home not needing hand off to. -Ed strategies write time down when enter kitchen then when sits down to allow awareness standing endurance before R hip starts to get ache/ discomfort and need sit/ stretch if needed. PT-OP-R Modalities Start: 01/07/22 11:58 Freq: Status: Active Protocol: Document 03/04/22 10:33 SAK (Rec: 03/04/22 16:41 SAK [id number]) Hot Pack/Cold Pack Treatment Hot Pack Location lumbar spine Treatment Duration (minutes) 10 Patient Tolerance Good Comments 90/90 position PT-OP-T Assessment and Plan Start: 01/07/22 11:58 Freq: Status: Active Protocol: Document 03/17/22 12:15 SP (Rec: 03/17/22 13:08 SP [id number]) Physical Therapy Assessment Goals Three Impairment weakness Impairment weakness core and hip musculature, requires use of UE's for sit to stand Short Term Goal (STG) Instruct patient in progressive HEP for purposes of core and hip muscle strengthening for SI support and improved functional mobility 03/09/22: added TA step ups to HEP 03/17/22: ed for posturing during stairs carrying laundry /items for back and hip health painfree. STG Duration 02/25/22 progressing 03/17/22 [facility] Goal (LTG) Patient to be independent and compliant to HEP for purposes of strengthening and core stabilization. Functionally will be able to transition sit to stand x 5 times without use of UE's without an increase in pain LTG Duration 04/04/21 Two Impairment pain Impairment pain right SI and anterior thigh 4/10 consistently taking Tylenol and Alleve Short Term Goal (STG) Improve patient pain to no greater than 2/10 while taking pain medication STG Duration 02/25/22 Gelatin Dynamite Packing Operator Goal (LTG) Improve patient's pain to no greater than 2/10 without pain medication LTG Duration 04/04/21 One Impairment activity tolerance Impairment Oswestry disability index score 50% Short Term Goal (STG) Oswestry disability index score improved to no greater than 30% as measure of improved activity tolerance 03/09/22: pt scored 18 this tx , reduction from 27 at eval. STG Duration 02/25/22 progressing 03/09/22 Gelatin Dynamite Packing Operator Goal (LTG) Improve Oswestry disability index score to no greater than 15% as measure of improved activity tolerance and return to prior level of function LTG Duration 04/04/21 Physical Therapy Plan Frequency and Duration Frequency of Treatment 2x/Week Duration of treatment (weeks) 12 Plan of Care Start Date 01/07/22 Plan of Care End Date 04/04/22 Therapeutic Interventions Therapeutic Interventions Gait Training,Home Exercise Program,Manual Therapy,Patient /Caregiver Education,Self-Care /Home Management,Soft Tissue Mobilization,Taping, Therapeutic Activities, Therapeutic Exercises Modalities Cold Pack/Ice Massage,Electric Stimulation,Hot Packs, Iontophoresis Next Visit Focus/Plan Next Note Type Treatment Note Next Visit Plan Next tx: assess goal progress, think partial meeting. Continue carrying laundry basket up stairs for I progression. POC: Focus on mat exercises for core stab including quadriped as tolerated, step- ups on foam and sit to stand foam. Continue to encourage use of SI belt with prolonged standing and frequent change in positions including some sitting with kitchen activities.
--- NOTE | 2022-03-31 09:45 | PT.OTN ---
Current Diagnoses Sacrococcygeal disorders, not elsewhere classified (03/31/22) Physical Therapy Treatment Note PT-OP-A Visit Information Start: 01/07/22 11:58 Freq: Status: Active Protocol: Document 03/31/22 09:05 SP (Rec: 03/31/22 09:47 SP [id number]) Out-Patient Physical Therapy Visit Information Visit Information Visit Type Treatment Note Visit Note PN/ POC updated next tx, expires 04/04, sees PT on 04/08 Visit Start Time 09:05 Visit Stop Time 09:45 Total Visit Minutes 40 Visit Number 15 Number of FLATBED OWNER OPERATOR Visits 2 Evaluation Information Evaluation Date 01/07/22 Precautions Precautions No precautions given by physician, patient reports he said you will know. Stairs allowable at 2 wks post-op PT-OP-B Current Condition Start: 01/07/22 11:58 Freq: Status: Active Protocol: Document 03/15/22 08:57 SAK (Rec: 03/15/22 09:55 SAK [id number]) Current Condition History of Current Condition Onset Date 12/15/21 Current Complaints pain right thigh and SI s/p fusion right SI History of Current Condition fusion right SI in [place], patient reports no pins or screws needed, no op report available. aching right anterior thigh and buttock. No precautions given. Prior to surgery doing HEP, since surgery just walking. Has been doing stairs per doctor approval after 2 weeks, though some soreness Has been using walker today didn't use walker, feels just a little unsteady. Icing several times per day. Has not done any exercises Future Testing and Treatments Planned returns to surgeon for f/u in approx 6 weeks PT-OP-C Subjective Start: 01/07/22 11:58 Freq: Status: Active Protocol: Document 03/31/22 09:05 SP (Rec: 03/31/22 09:47 SP [id number]) OP-PT Subjective Patient Comments Patient Comments Pt reported felt ok after last tx. She states is fine walking around house painfree, tried to take a walk only 10 min from house in [place] and not much of incline/decline to talk about and R hip started hurting, had to stop and hang onto something for recovery. She frustrated why still getting discomfort. Sees orthopedic PA follow up next 04/07, wondering if will have addtional xrays to check up on alignment healing. Still gets the nerve pain but much better. PT-OP-F Manual Assessment Start: 01/07/22 11:58 Freq: Status: Active Protocol: Document 01/07/22 13:51 [facility] (Rec: 01/11/22 14:57 [facility] [id number]) Manual Assessments Soft Tissue Assessment Soft Tissue Mobility Assessment decrease in soft tissue mobility hugo lumbar paraspinals, right piriformis, incision. PT-OP-G Mobility & Gait Start: 01/07/22 11:58 Freq: Status: Active Protocol: Document 01/07/22 13:51 [facility] (Rec: 01/11/22 14:57 [facility] [id number]) OP Gait Assessment Gait Gait Assistance Required: Independent Assistive Devices Assistive Device Straight Cane,Front Wheeled Walker Orthotic/Prosthetic Devices or Brace: No Gait Deviations General Gait Pattern Antalgic,Decreased Stride Length Factors Limiting Gait Function Factors Limiting Gait Function Decreased Strength,Pain PT-OP-H Neuro Start: 01/07/22 11:58 Freq: Status: Active Protocol: Document 01/07/22 13:51 [facility] (Rec: 01/11/22 14:57 [facility] [id number]) Sensation Evaluation Gross Sensation Gross Sensation Left LE Impaired Sensation Description Paresthesia PT-OP-J Posture/Palpation/Skin Start: 01/07/22 11:58 Freq: Status: Active Protocol: Document 01/07/22 13:51 [facility] (Rec: 01/11/22 14:57 [facility] [id number]) Posture Evaluation Position Standing Head/C-Spine Posture Forward Head T-Spine Posture Flexible Scoliosis on (L), Flexible Scoliosis on (R) L-Spine Posture Decreased Lordosis Shoulder Posture (L) Rounded,(R) Rounded Scapula Posture (L) Protracted,(R) Protracted Arm Posture (L) Internally Rotated,(R) Internally Rotated Pelvis Posture Posterior Tilted Weight Distribution Weight Shifted Left Skin Assessment Incisional Assessment Incision Appearance/Comments as above PT-OP-K Range of Motion Start: 01/07/22 11:58 Freq: Status: Active Protocol: Document 01/07/22 13:51 [facility] (Rec: 01/11/22 14:57 [facility] [id number]) Hip Goniometric Range of Motion Hip ROM Limitations Comments WFL, no formal testing due to recent surgery PT-OP-M Strength Start: 01/07/22 11:58 Freq: Status: Active Protocol: Document 01/07/22 13:51 SAK (Rec: 01/11/22 14:57 [facility] [id number]) Trunk Strength Trunk Manual Muscle Testing Comments not assessed due to recent surgery Hip Strength Hip Manual Muscle Testing hugo Comments no MMT due to recent surgery Knee Strength Knee Manual Muscle Testing hugo Comments no MMT due to recent surgery, has full AROM Ankle/Foot Strength Ankle and Foot Manual Muscle Testing hugo Comments has full active ROM, No MMT due to recent surgery PT-OP-Q Treatments Start: 01/07/22 11:58 Freq: Status: Active Protocol: Document 03/31/22 09:05 SP (Rec: 03/31/22 09:47 SP [id number]) Cardio Equipment Treadmill Duration (Minutes) 10 Speed 2.4 mph Incline 0 Other No SI belt donned today, painfree- contact B rails Therapeutic Exercises Sitting Exercises hip stretch IR/ ER Sitting Exercise Name Reviewed supine applied in sit Side bilateral Reps/Minutes 30 x2 HS stretch Reps/Minutes 2x30 Comments performed between step activity good form/response Sit to Stands Sitting Exercise Name HEP reviewed Reps/Minutes x10 Comments cued knees apart, slow hip hinge descent, knees flexion all way Hip Abd/ER Side bilateral Equipment Used L>R tight/ less ROM Reps/Minutes 20-30s hold Comments cued contact support LE on opp leg,breath relax then gentle pressure stretc Standing Exercises resisted sidestepping Resistance near rail Equipment Used TB #2 at ankles Reps/Minutes 20 ft x2 laps Comments good form, glut med fac PT-OP-R Modalities Start: 01/07/22 11:58 Freq: Status: Active Protocol: Document 03/04/22 10:33 SAK (Rec: 03/04/22 16:41 [facility] [id number]) Hot Pack/Cold Pack Treatment Hot Pack Location lumbar spine Treatment Duration (minutes) 10 Patient Tolerance Good Comments 90/90 position PT-OP-T Assessment and Plan Start: 01/07/22 11:58 Freq: Status: Active Protocol: Document 03/31/22 09:05 SP (Rec: 03/31/22 09:47 SP [id number]) Physical Therapy Assessment Goals Three Impairment weakness Impairment weakness core and hip musculature, requires use of UE's for sit to stand Short Term Goal (STG) Instruct patient in progressive HEP for purposes of core and hip muscle strengthening for SI support and improved functional mobility 03/09/22: added TA step ups to HEP 03/17/22: ed for posturing during stairs carrying laundry /items for back and hip health painfree. 03/31/22: HEP:supine: resisted clamshell, hip stretches, SLR holds, bridges, LTR LEs over ball, modified crunch (elevate head/little shld holds), cat/ camel, band walk, STS (3x/wk) , resisted shld ext (3x/wk). STG Duration 02/25/22 progressing 03/31/22 [facility] Goal (LTG) Patient to be independent and compliant to HEP for purposes of strengthening and core stabilization. Functionally will be able to transition sit to stand x 5 times without use of UE's without an increase in pain LTG Duration 04/04/21 Two Impairment pain Impairment pain right SI and anterior thigh 4/10 consistently taking Tylenol and Alleve Short Term Goal (STG) Improve patient pain to no greater than 2/10 while taking pain medication 03/31/22: almost met: not needing take pain med most of the time 1-2/10, but 2 nights ago was alot by end day and took 1/2 pain pill. STG Duration 02/25/22 almost met: 03/31/22 Financial Service Professional Goal (LTG) Improve patient's pain to no greater than 2/10 without pain medication 03/31/22: almost met: not needing take pain med most of the time 1-2/10, but 2 nights ago was alot by end day and took 1/2 pain pill. LTG Duration 04/04/21 progressing 03/31/22 One Impairment activity tolerance Impairment Oswestry disability index score 50% Short Term Goal (STG) Oswestry disability index score improved to no greater than 30% as measure of improved activity tolerance 03/09/22: pt scored 18 this tx , reduction from 27 at eval. STG Duration 02/25/22 progressing 03/09/22 Financial Service Professional Goal (LTG) Improve Oswestry disability index score to no greater than 15% as measure of improved activity tolerance and return to prior level of function LTG Duration 04/04/21 Assessment Summary Assessment Pt reports R hip little achy end tx but will be able to do grocery shopping after leaving . Pt demontrates good form stretch and HEP performed today. Updated goals. Physical Therapy Plan Frequency and Duration Frequency of Treatment 2x/Week Duration of treatment (weeks) 12 Plan of Care Start Date 01/07/22 Plan of Care End Date 04/04/22 Therapeutic Interventions Therapeutic Interventions Gait Training,Home Exercise Program,Manual Therapy,Patient /Caregiver Education,Self-Care /Home Management,Soft Tissue Mobilization,Taping, Therapeutic Activities, Therapeutic Exercises Modalities Cold Pack/Ice Massage,Electric Stimulation,Hot Packs, Iontophoresis Next Visit Focus/Plan Next Note Type Treatment Note Next Visit Plan Ask how ortho appt went Next tx: continue flexibility/ strength. POC: Continue carrying laundry basket up stairs for I progression. POC: Focus on mat exercises for core stab including quadriped as tolerated, step- ups on foam and sit to stand foam. Continue to encourage use of SI belt with prolonged standing and frequent change in positions including some sitting with kitchen activities.
--- NOTE | 2022-04-08 09:39 | PT.OTRE ---
Current Diagnoses Sacrococcygeal disorders, not elsewhere classified (04/08/22) Past Medical History (Last Reviewed 08/03/21 @ 09:49 by Rasta Acosta DO) Facet arthropathy, lumbar Surgical History (Last Reviewed 08/03/21 @ 09:49 by Rasta Acosta DO) Status post surgery (04/13/10) Visit Care Team Role Provider Type SONDRA Santacruz Attending Provider Advanced Clinical Advisor Family Provider Primary Care Provider Referring Provider Specialty: Family Practice Address: [address] [place] [address] [place], [facility] Email: [email or web address] Physical Therapy Re-Evaluation PT-OP-A Visit Information Start: 01/07/22 11:58 Freq: Status: Active Protocol: Document 04/08/22 08:10 SAK (Rec: 04/08/22 09:03 [facility] [id number]) Out-Patient Physical Therapy Visit Information Visit Information Visit Type Re-Evaluation Visit Start Time 08:15 Evaluation Information Evaluation Date 01/07/22 Precautions Precautions No precautions given by physician, patient reports he said you will know. Stairs allowable at 2 wks post-op PT-OP-B Current Condition Start: 01/07/22 11:58 Freq: Status: Active Protocol: Document 03/15/22 08:57 SAK (Rec: 03/15/22 09:55 [facility] [id number]) Current Condition History of Current Condition Onset Date 12/15/21 Current Complaints pain right thigh and SI s/p fusion right SI History of Current Condition fusion right SI in [place], patient reports no pins or screws needed, no op report available. aching right anterior thigh and buttock. No precautions given. Prior to surgery doing HEP, since surgery just walking. Has been doing stairs per doctor approval after 2 weeks, though some soreness Has been using walker today didn't use walker, feels just a little unsteady. Icing several times per day. Has not done any exercises Future Testing and Treatments Planned returns to surgeon for f/u in approx 6 weeks PT-OP-C Subjective Start: 01/07/22 11:58 Freq: Status: Active Protocol: Document 04/08/22 08:10 SAK (Rec: 04/08/22 09:03 [facility]AK [id number]) OP-PT Subjective Patient Comments Patient Comments Saw PA 2 days ago, expections were another x-ray but has to wait 2 more months for imaging . Asked about nerve pain that she continues to have. Feels like low back starting to act up again. Pain variable, depends on day and time of day . Yesterday at surgery site and low back both hurt all day , only thing that helped was laying down. States doesn't think she has ever done self- massage with tennis ball. Frustrated by variability of pain often with no apparent reason. PT-OP-F Manual Assessment Start: 01/07/22 11:58 Freq: Status: Active Protocol: Document 01/07/22 13:51 [facility] (Rec: 01/11/22 14:57 [facility] [id number]) Manual Assessments Soft Tissue Assessment Soft Tissue Mobility Assessment decrease in soft tissue mobility hugo lumbar paraspinals, right piriformis, incision. PT-OP-G Mobility & Gait Start: 01/07/22 11:58 Freq: Status: Active Protocol: Document 01/07/22 13:51 [facility] (Rec: 01/11/22 14:57 [facility] [id number]) OP Gait Assessment Gait Gait Assistance Required: Independent Assistive Devices Assistive Device Straight Cane,Front Wheeled Walker Orthotic/Prosthetic Devices or Brace: No Gait Deviations General Gait Pattern Antalgic,Decreased Stride Length Factors Limiting Gait Function Factors Limiting Gait Function Decreased Strength,Pain PT-OP-H Neuro Start: 01/07/22 11:58 Freq: Status: Active Protocol: Document 01/07/22 13:51 [facility] (Rec: 01/11/22 14:57 [facility] [id number]) Sensation Evaluation Gross Sensation Gross Sensation Left LE Impaired Sensation Description Paresthesia PT-OP-J Posture/Palpation/Skin Start: 01/07/22 11:58 Freq: Status: Active Protocol: Document 01/07/22 13:51 [facility] (Rec: 01/11/22 14:57 [facility] [id number]) Posture Evaluation Position Standing Head/C-Spine Posture Forward Head T-Spine Posture Flexible Scoliosis on (L), Flexible Scoliosis on (R) L-Spine Posture Decreased Lordosis Shoulder Posture (L) Rounded,(R) Rounded Scapula Posture (L) Protracted,(R) Protracted Arm Posture (L) Internally Rotated,(R) Internally Rotated Pelvis Posture Posterior Tilted Weight Distribution Weight Shifted Left Skin Assessment Incisional Assessment Incision Appearance/Comments as above PT-OP-K Range of Motion Start: 01/07/22 11:58 Freq: Status: Active Protocol: Document 01/07/22 13:51 [facility] (Rec: 01/11/22 14:57 [facility] [id number]) Hip Goniometric Range of Motion Hip ROM Limitations Comments WFL, no formal testing due to recent surgery PT-OP-M Strength Start: 01/07/22 11:58 Freq: Status: Active Protocol: Document 01/07/22 13:51 [facility] (Rec: 01/11/22 14:57 [facility] [id number]) Trunk Strength Trunk Manual Muscle Testing Comments not assessed due to recent surgery Hip Strength Hip Manual Muscle Testing hugo Comments no MMT due to recent surgery Knee Strength Knee Manual Muscle Testing hugo Comments no MMT due to recent surgery, has full AROM Ankle/Foot Strength Ankle and Foot Manual Muscle Testing hugo Comments has full active ROM, No MMT due to recent surgery PT-OP-Q Treatments Start: 01/07/22 11:58 Freq: Status: Active Protocol: Document 04/08/22 08:10 [facility] (Rec: 04/08/22 09:03 [facility] [id number]) Cardio Equipment Treadmill Duration (Minutes) 10 Speed 2.4 mph Incline 0 Other No SI belt donned today, contact B rails. Cues for posture, core and glutea Gym Equipment Sport Cord 1 Exercise Details fwd Cord/Resistance green Reps/Duration 5x each side Comments cues for core and gluteal activation Therapeutic Exercises Sitting Exercises hip stretch IR/ ER Sitting Exercise Name HEP review Reps/Minutes 30x2 HS stretch Reps/Minutes 2x30 Hip Abd/ER Side bilateral Equipment Used L>R tight/ less ROM Reps/Minutes 20-30s hold Comments cued contact support LE on opp leg,breath relax then gentle pressure stretc Standing Exercises resisted sidestepping Resistance near rail Equipment Used TB #2 at ankles Reps/Minutes 20 ft x2 laps Comments good form, glut med fac Gait Training Gait Activity stairs Description 4 step Device Used rail PRN, bolster to simulate laundry basket on stairs Level of Assistance S Distance/Duration 6 stairs, rail PRN if needed Treatment Focus stability stance time AROM, progress laundry self, spinal protection Comments ascend/descend improved with cues for TA controlled support stance time. CUed/ ed for upright posture over full foot to decrease load through backupright posture p. - next tx. Patient to consider obtaining smaller laundry basket or bagfor improved safety on stairs Self-Care/Home Management Treatment Education Other Education reviewed safe lifting mechanics, reviewing what to do when in pain(ex, stretch, heat, SI belt, med, change position). Review of potential contributions of habitual positions and movements. Wear SI belt with walking or prolonged standing activity. Instructed in self-massage with tennis ball and rolling pin. PT-OP-R Modalities Start: 01/07/22 11:58 Freq: Status: Active Protocol: Document 04/08/22 08:10 [facility]AK (Rec: 04/08/22 09:03 [facility] [id number]) Hot Pack/Cold Pack Treatment Hot Pack Location lumbar spine Treatment Duration (minutes) 10 Patient Tolerance Good Comments 90/90 position PT-OP-T Assessment and Plan Start: 01/07/22 11:58 Freq: Status: Active Protocol: Document 04/08/22 08:10 SAK (Rec: 04/08/22 09:03 [facility] [id number]) Physical Therapy Assessment Goals Three Impairment weakness Impairment weakness core and hip musculature, requires use of UE's for sit to stand Short Term Goal (STG) Instruct patient in progressive HEP for purposes of core and hip muscle strengthening for SI support and improved functional mobility 03/09/22: added TA step ups to HEP 03/17/22: ed for posturing during stairs carrying laundry /items for back and hip health painfree. 03/31/22: HEP:supine: resisted clamshell, hip stretches, SLR holds, bridges, LTR LEs over ball, modified crunch (elevate head/little shld holds), cat/ camel, band walk, STS (3x/wk) , resisted shld ext (3x/wk). 04/08/22: ongoing progression STG Duration 05/09/22 Sheriffs Detective Goal (LTG) Patient to be independent and compliant to HEP for purposes of strengthening and core stabilization. Functionally will be able to transition sit to stand x 5 times without use of UE's without an increase in pain 04/08/22: good progress, cont to modify and progress HEP, some pain still with sit to stand without UE's LTG Duration 06/06/22 Two Impairment pain Impairment pain right SI and anterior thigh 4/10 consistently taking Tylenol and Alleve Short Term Goal (STG) Improve patient pain to no greater than 2/10 while taking pain medication 03/31/22: almost met: not needing take pain med most of the time 1-2, but 2 nights ago was alot by end day and took 1/2 pain pill. 04/08/22: varies 1-5, overall goal progress STG Duration 05/09/22 Sheriffs Detective Goal (LTG) Improve patient's pain to no greater than 2/10 without pain medication 03/31/22: almost met: not needing take pain med most of the time 1-2, but 2 nights ago was alot by end day and took 1/2 pain pill. 04/08/22: reports yesterday feeling need for pain meds, possibly after inc sitting time in car and doctor's office day before LTG Duration 06/06/22 One Impairment activity tolerance Impairment Oswestry disability index score 50% Short Term Goal (STG) Oswestry disability index score improved to no greater than 30% as measure of improved activity tolerance 03/09/22: pt scored 18 this tx , reduction from 27 at eval. 04/08/22: inc to 36% today after trip to see doctor STG Duration 05/09/22 Sheriffs Detective Goal (LTG) Improve Oswestry disability index score to no greater than 15% as measure of improved activity tolerance and return to prior level of function LTG Duration 06/06/22 Assessment Summary Assessment Patient reports she felt pretty good day she saw PA but yesterday was bad day. Frustrated by SI pain and some recent LB pain; demonstrated understanding of need for spinal stab due to potential for inc stress areas above and below fusion. Good understanding of self-massage. Physical Therapy Plan Frequency and Duration Frequency of Treatment 2x/Week Duration of treatment (weeks) 8 Plan of Care Start Date 04/08/22 Plan of Care End Date 06/06/22 Therapeutic Interventions Therapeutic Interventions Gait Training,Home Exercise Program,Manual Therapy,Patient /Caregiver Education,Self-Care /Home Management,Soft Tissue Mobilization,Taping, Therapeutic Activities, Therapeutic Exercises Modalities Cold Pack/Ice Massage,Electric Stimulation,Hot Packs, Iontophoresis Next Visit Focus/Plan Next Note Type Treatment Note Next Visit Plan REview self-massage with tennis ball and rolling pin, stairs holding simulated laundry basket. Ther ex emphasis on mat exercises for stab and strengthening all positions as tolerated. Consider DTM to piriformis, gluteals as indicated. Sit to stand and step-ups on foam.
--- NOTE | 2022-04-08 09:39 | PT.OPPOC ---
Physical, Occupational & Speech Therapy At [facility] Current Diagnoses Sacrococcygeal disorders, not elsewhere classified (04/08/22) Visit Care Team Role Provider Type SONDRA Santacruz Attending Provider Advanced Clay Shop Supervisor Family Provider Primary Care Provider Referring Provider Specialty: Family Practice Address: [address] [place] [address], [id number] Email: Plan Of Care PT-OP-T Assessment and Plan Start: 01/07/22 11:58 Freq: Status: Active Protocol: Document 04/08/22 08:10 MARY (Rec: 04/08/22 09:03 SAK [id number]) Physical Therapy Assessment Goals Three Impairment weakness Impairment weakness core and hip musculature, requires use of UE's for sit to stand Short Term Goal (STG) Instruct patient in progressive HEP for purposes of core and hip muscle strengthening for SI support and improved functional mobility 03/09/22: added TA step ups to HEP 03/17/22: ed for posturing during stairs carrying laundry /items for back and hip health painfree. 03/31/22: HEP:supine: resisted clamshell, hip stretches, SLR holds, bridges, LTR LEs over ball, modified crunch (elevate head/little shld holds), cat/ camel, band walk, STS (3x/wk) , resisted shld ext (3x/wk). 04/08/22: ongoing progression STG Duration 05/09/22 Slate Cutter Goal (LTG) Patient to be independent and compliant to HEP for purposes of strengthening and core stabilization. Functionally will be able to transition sit to stand x 5 times without use of UE's without an increase in pain 04/08/22: good progress, cont to modify and progress HEP, some pain still with sit to stand without UE's LTG Duration 06/06/22 Two Impairment pain Impairment pain right SI and anterior thigh 07/05 consistently taking Tylenol and Alleve Short Term Goal (STG) Improve patient pain to no greater than 2/10 while taking pain medication 03/31/22: almost met: not needing take pain med most of the time 1-2, but 2 nights ago was alot by end day and took 1/2 pain pill. 04/08/22: varies 1-5, overall goal progress STG Duration 05/09/22 Halfway Goal (LTG) Improve patient's pain to no greater than 2/10 without pain medication 03/31/22: almost met: not needing take pain med most of the time 1-05/07, but 2 nights ago was alot by end day and took 1/2 pain pill. 04/08/22: reports yesterday feeling need for pain meds, possibly after inc sitting time in car and doctor's office day before LTG Duration 06/06/22 One Impairment activity tolerance Impairment Oswestry disability index score 50% Short Term Goal (STG) Oswestry disability index score improved to no greater than 30% as measure of improved activity tolerance 03/09/22: pt scored 18 this tx , reduction from 27 at eval. 04/08/22: inc to 36% today after trip to see doctor STG Duration 05/09/22 Slate Cutter Goal (LTG) Improve Oswestry disability index score to no greater than 15% as measure of improved activity tolerance and return to prior level of function LTG Duration 06/06/22 Assessment Summary Assessment Patient reports she felt pretty good day she saw PA but yesterday was bad day. Frustrated by SI pain and some recent LB pain; demonstrated understanding of need for spinal stab due to potential for inc stress areas above and below fusion. Good understanding of self-massage. Physical Therapy Plan Frequency and Duration Frequency of Treatment 2x/Week Duration of treatment (weeks) 8 Plan of Care Start Date 04/08/22 Plan of Care End Date 06/06/22 Therapeutic Interventions Therapeutic Interventions Gait Training,Home Exercise Program,Manual Therapy,Patient /Caregiver Education,Self-Care /Home Management,Soft Tissue Mobilization,Taping, Therapeutic Activities, Therapeutic Exercises Modalities Cold Pack/Ice Massage,Electric Stimulation,Hot Packs, Iontophoresis Next Visit Focus/Plan Next Note Type Treatment Note Next Visit Plan REview self-massage with tennis ball and rolling pin, stairs holding simulated laundry basket. Ther ex emphasis on mat exercises for stab and strengthening all positions as tolerated. Consider DTM to piriformis, gluteals as indicated. Sit to stand and step-ups on foam. Plan of Care Dates Plan of Care Start Date 04/08/22 Plan of Care End Date 06/06/22 Electronically Signed by: Lisa Gonzalez, PT 04/08/22 0939 If you are in agreement with this Plan of Care, please return a signed and dated copy. I have reviewed this Plan of Care and certify that the skilled therapy services above are required to meet the patient?s needs. Physician Signature Date Printed Name and Credentials Clinical Instructor Signature Printed Name and Credentials
--- NOTE | 2022-04-20 17:10 | PT.OTN ---
Current Diagnoses Sacrococcygeal disorders, not elsewhere classified (04/20/22) Physical Therapy Treatment Note PT-OP-A Visit Information Start: 01/07/22 11:58 Freq: Status: Active Protocol: Document 04/20/22 09:03 [facility] (Rec: 04/20/22 09:46 [facility] [id number]) Out-Patient Physical Therapy Visit Information Visit Information Visit Type Treatment Note Visit Start Time 09:03 Visit Stop Time 10:03 Total Visit Minutes 60 Visit Number 17 Evaluation Information Evaluation Date 01/07/22 Precautions Precautions No precautions given by physician, patient reports he said you will know. Stairs allowable at 2 wks post-op PT-OP-B Current Condition Start: 01/07/22 11:58 Freq: Status: Active Protocol: Document 03/15/22 08:57 [facility] (Rec: 03/15/22 09:55 [facility] [id number]) Current Condition History of Current Condition Onset Date 12/15/21 Current Complaints pain right thigh and SI s/p fusion right SI History of Current Condition fusion right SI in [place], patient reports no pins or screws needed, no op report available. aching right anterior thigh and buttock. No precautions given. Prior to surgery doing HEP, since surgery just walking. Has been doing stairs per doctor approval after 2 weeks, though some soreness Has been using walker today didn't use walker, feels just a little unsteady. Icing several times per day. Has not done any exercises Future Testing and Treatments Planned returns to surgeon for f/u in approx 6 weeks PT-OP-C Subjective Start: 01/07/22 11:58 Freq: Status: Active Protocol: Document 04/20/22 09:03 [facility] (Rec: 04/20/22 09:46 [facility] [id number]) OP-PT Subjective Patient Comments Patient Comments 45 min shopping, 1/2 hour gardening, walked 10 min didn' t wear SI belt. Day after 3 1 /2 hrs sitting didn't bother her plus some shopping, 3rd day pretty good. Still having nerve pain. Tuesday couldn't push drawer on stove in, took out, pain inc . More sitting 2 days ago had a great day, better than previously; using a pillow bhind her back which is helpful. Sees improvement. PT-OP-F Manual Assessment Start: 01/07/22 11:58 Freq: Status: Active Protocol: Document 01/07/22 13:51 [facility] (Rec: 01/11/22 14:57 [facility] [id number]) Manual Assessments Soft Tissue Assessment Soft Tissue Mobility Assessment decrease in soft tissue mobility hugo lumbar paraspinals, right piriformis, incision. PT-OP-G Mobility & Gait Start: 01/07/22 11:58 Freq: Status: Active Protocol: Document 01/07/22 13:51 [facility] (Rec: 01/11/22 14:57 [facility] [id number]) OP Gait Assessment Gait Gait Assistance Required: Independent Assistive Devices Assistive Device Straight Cane,Front Wheeled Walker Orthotic/Prosthetic Devices or Brace: No Gait Deviations General Gait Pattern Antalgic,Decreased Stride Length Factors Limiting Gait Function Factors Limiting Gait Function Decreased Strength,Pain PT-OP-H Neuro Start: 01/07/22 11:58 Freq: Status: Active Protocol: Document 01/07/22 13:51 [facility] (Rec: 01/11/22 14:57 [facility] [id number]) Sensation Evaluation Gross Sensation Gross Sensation Left LE Impaired Sensation Description Paresthesia PT-OP-J Posture/Palpation/Skin Start: 01/07/22 11:58 Freq: Status: Active Protocol: Document 01/07/22 13:51 [facility] (Rec: 01/11/22 14:57 [facility] [id number]) Posture Evaluation Position Standing Head/C-Spine Posture Forward Head T-Spine Posture Flexible Scoliosis on (L), Flexible Scoliosis on (R) L-Spine Posture Decreased Lordosis Shoulder Posture (L) Rounded,(R) Rounded Scapula Posture (L) Protracted,(R) Protracted Arm Posture (L) Internally Rotated,(R) Internally Rotated Pelvis Posture Posterior Tilted Weight Distribution Weight Shifted Left Skin Assessment Incisional Assessment Incision Appearance/Comments as above PT-OP-K Range of Motion Start: 01/07/22 11:58 Freq: Status: Active Protocol: Document 01/07/22 13:51 [facility] (Rec: 01/11/22 14:57 [facility] [id number]) Hip Goniometric Range of Motion Hip ROM Limitations Comments WFL, no formal testing due to recent surgery PT-OP-M Strength Start: 01/07/22 11:58 Freq: Status: Active Protocol: Document 01/07/22 13:51 [facility] (Rec: 01/11/22 14:57 [facility] [id number]) Trunk Strength Trunk Manual Muscle Testing Comments not assessed due to recent surgery Hip Strength Hip Manual Muscle Testing hugo Comments no MMT due to recent surgery Knee Strength Knee Manual Muscle Testing hugo Comments no MMT due to recent surgery, has full AROM Ankle/Foot Strength Ankle and Foot Manual Muscle Testing hugo Comments has full active ROM, No MMT due to recent surgery PT-OP-Q Treatments Start: 01/07/22 11:58 Freq: Status: Active Protocol: Document 04/20/22 09:03 [facility] (Rec: 04/20/22 09:46 [facility] [id number]) Cardio Equipment Treadmill Duration (Minutes) 10 Speed 2.4 mph Incline 0 Other No SI belt donned today, contact B rails. Cues for posture, core and glutea Gym Equipment Shuttle Recovery Unilateral Squats Details B Resistance 37 (25# new band) Shuttle Recovery Platform Stable Reps/Time 10x Bilateral Squats Details cues for neutral LE's, gluteal activation Resistance 62 (1- 25# new band) Shuttle Recovery Platform Stable Reps/Time 10x2 Therapeutic Exercises Prone Exercises child's pose Reps/Minutes 3x10 Comments 2 pillows under bottom Sidelying Exercises hip abd Reps/Minutes 10x5 clamshell Sidelying Exercise Name HEP reviewed Side bilateral Reps/Minutes 10x10 sec Comments cues for core activation, small movement, don't roll back. Sitting Exercises HS stretch Reps/Minutes 2x30 Standing Exercises resisted sidestepping Resistance near rail Equipment Used TB #2 at ankles Reps/Minutes 20 ft x2 laps Comments good form, glut med fac Other Exercises Cat Camel Equipment Used mat table Reps/Minutes 1x10 Comments cues for segmental movement Self-Care/Home Management Treatment Education Patient Education Body Mechanics,Home Exercise Program,Pain Management, Posture,Safety PT-OP-R Modalities Start: 01/07/22 11:58 Freq: Status: Active Protocol: Document 04/08/22 08:10 [facility] (Rec: 04/08/22 09:03 [facility] [id number]) Hot Pack/Cold Pack Treatment Hot Pack Location lumbar spine Treatment Duration (minutes) 10 Patient Tolerance Good Comments 90/90 position PT-OP-T Assessment and Plan Start: 01/07/22 11:58 Freq: Status: Active Protocol: Document 04/20/22 09:03 [facility] (Rec: 04/20/22 09:46 [facility] [id number]) Physical Therapy Assessment Goals Three Impairment weakness Impairment weakness core and hip musculature, requires use of UE's for sit to stand Short Term Goal (STG) Instruct patient in progressive HEP for purposes of core and hip muscle strengthening for SI support and improved functional mobility 03/09/22: added TA step ups to HEP 03/17/22: ed for posturing during stairs carrying laundry /items for back and hip health painfree. 03/31/22: HEP:supine: resisted clamshell, hip stretches, SLR holds, bridges, LTR LEs over ball, modified crunch (elevate head/little shld holds), cat/ camel, band walk, STS (3x/wk) , resisted shld ext (3x/wk). 04/08/22: ongoing progression STG Duration 05/09/22 Halfway Goal (LTG) Patient to be independent and compliant to HEP for purposes of strengthening and core stabilization. Functionally will be able to transition sit to stand x 5 times without use of UE's without an increase in pain 04/08/22: good progress, cont to modify and progress HEP, some pain still with sit to stand without UE's LTG Duration 06/06/22 Two Impairment pain Impairment pain right SI and anterior thigh 07/05 consistently taking Tylenol and Alleve Short Term Goal (STG) Improve patient pain to no greater than 2/10 while taking pain medication 03/31/22: almost met: not needing take pain med most of the time 1-2, but 2 nights ago was alot by end day and took 1/2 pain pill. 04/08/22: varies 1-5, overall goal progress STG Duration 05/09/22 Sal[place] Gillnet Vessel Operator Goal (LTG) Improve patient's pain to no greater than 2/10 without pain medication 03/31/22: almost met: not needing take pain med most of the time 1-2, but 2 nights ago was alot by end day and took 1/2 pain pill. 04/08/22: reports yesterday feeling need for pain meds, possibly after inc sitting time in car and doctor's office day before LTG Duration 06/06/22 One Impairment activity tolerance Impairment Oswestry disability index score 50% Short Term Goal (STG) Oswestry disability index score improved to no greater than 30% as measure of improved activity tolerance 03/09/22: pt scored 18 this tx , reduction from 27 at eval. 04/08/22: inc to 36% today after trip to see doctor STG Duration 05/09/22 Salmon Gillnet Vessel Operator Goal (LTG) Improve Oswestry disability index score to no greater than 15% as measure of improved activity tolerance and return to prior level of function LTG Duration 06/06/22 Assessment Summary Assessment Improved activity tolerance since last seen, continues with HEP, feeling more hopeful with noted improvement. Still some good and bad days. Able to progress ther ex including shuttle leg press with continued cues for muscle activation sequencing, core stab Physical Therapy Plan Frequency and Duration Frequency of Treatment 2x/Week Duration of treatment (weeks) 8 Plan of Care Start Date 04/08/22 Plan of Care End Date 06/06/22 Therapeutic Interventions Therapeutic Interventions Gait Training,Home Exercise Program,Manual Therapy,Patient /Caregiver Education,Self-Care /Home Management,Soft Tissue Mobilization,Taping, Therapeutic Activities, Therapeutic Exercises Modalities Cold Pack/Ice Massage,Electric Stimulation,Hot Packs, Iontophoresis Next Visit Focus/Plan Next Note Type Treatment Note Next Visit Plan REview self-massage with tennis ball and rolling pin, stairs holding simulated laundry basket. Ther ex emphasis on mat exercises for stab and strengthening all positions as tolerated. Consider DTM to piriformis, gluteals as indicated. Sit to stand and step-ups on foam.
--- NOTE | 2022-04-27 17:04 | PT.OTN ---
Current Diagnoses Sacrococcygeal disorders, not elsewhere classified (04/27/22) Physical Therapy Treatment Note PT-OP-A Visit Information Start: 01/07/22 11:58 Freq: Status: Active Protocol: Document 04/27/22 09:48 [facility] (Rec: 04/27/22 10:32 [facility] [id number]) Out-Patient Physical Therapy Visit Information Visit Information Visit Type Treatment Note Visit Start Time 09:48 Visit Stop Time 10:30 Total Visit Minutes 42 Visit Number 19 Evaluation Information Evaluation Date 01/07/22 Precautions Precautions No precautions given by physician, patient reports he said you will know. Stairs allowable at 2 wks post-op PT-OP-B Current Condition Start: 01/07/22 11:58 Freq: Status: Active Protocol: Document 03/15/22 08:57 [facility] (Rec: 03/15/22 09:55 [facility] [id number]) Current Condition History of Current Condition Onset Date 12/15/21 Current Complaints pain right thigh and SI s/p fusion right SI History of Current Condition fusion right SI in [place], patient reports no pins or screws needed, no op report available. aching right anterior thigh and buttock. No precautions given. Prior to surgery doing HEP, since surgery just walking. Has been doing stairs per doctor approval after 2 weeks, though some soreness Has been using walker today didn't use walker, feels just a little unsteady. Icing several times per day. Has not done any exercises Future Testing and Treatments Planned returns to surgeon for f/u in approx 6 weeks PT-OP-C Subjective Start: 01/07/22 11:58 Freq: Status: Active Protocol: Document 04/27/22 09:48 [facility] (Rec: 04/27/22 10:32 [facility] [id number]) OP-PT Subjective Patient Comments Patient Comments Didn't feel good after last session, not sure why. [place] good the next day despite lots of sitting, able to do treadmill. hard day. Tuesday [employer] and [employer]. Nerve pain persists, has appoiintment with Dr. Acosta 05/06/22. Has questions about doing, posture press, cat/cow correctly, realized hasn't been doing SLR needs to review. PT-OP-F Manual Assessment Start: 01/07/22 11:58 Freq: Status: Active Protocol: Document 01/07/22 13:51 [facility] (Rec: 01/11/22 14:57 [facility] [id number]) Manual Assessments Soft Tissue Assessment Soft Tissue Mobility Assessment decrease in soft tissue mobility hugo lumbar paraspinals, right piriformis, incision. PT-OP-G Mobility & Gait Start: 01/07/22 11:58 Freq: Status: Active Protocol: Document 01/07/22 13:51 [facility] (Rec: 01/11/22 14:57 [facility] [id number]) OP Gait Assessment Gait Gait Assistance Required: Independent Assistive Devices Assistive Device Straight Cane,Front Wheeled Walker Orthotic/Prosthetic Devices or Brace: No Gait Deviations General Gait Pattern Antalgic,Decreased Stride Length Factors Limiting Gait Function Factors Limiting Gait Function Decreased Strength,Pain PT-OP-H Neuro Start: 01/07/22 11:58 Freq: Status: Active Protocol: Document 01/07/22 13:51 [facility] (Rec: 01/11/22 14:57 [facility] [id number]) Sensation Evaluation Gross Sensation Gross Sensation Left LE Impaired Sensation Description Paresthesia PT-OP-J Posture/Palpation/Skin Start: 01/07/22 11:58 Freq: Status: Active Protocol: Document 01/07/22 13:51 [facility] (Rec: 01/11/22 14:57 [facility] [id number]) Posture Evaluation Position Standing Head/C-Spine Posture Forward Head T-Spine Posture Flexible Scoliosis on (L), Flexible Scoliosis on (R) L-Spine Posture Decreased Lordosis Shoulder Posture (L) Rounded,(R) Rounded Scapula Posture (L) Protracted,(R) Protracted Arm Posture (L) Internally Rotated,(R) Internally Rotated Pelvis Posture Posterior Tilted Weight Distribution Weight Shifted Left Skin Assessment Incisional Assessment Incision Appearance/Comments as above PT-OP-K Range of Motion Start: 01/07/22 11:58 Freq: Status: Active Protocol: Document 01/07/22 13:51 [facility] (Rec: 01/11/22 14:57 [facility] [id number]) Hip Goniometric Range of Motion Hip ROM Limitations Comments WFL, no formal testing due to recent surgery PT-OP-M Strength Start: 01/07/22 11:58 Freq: Status: Active Protocol: Document 01/07/22 13:51 [facility] (Rec: 01/11/22 14:57 [facility] [id number]) Trunk Strength Trunk Manual Muscle Testing Comments not assessed due to recent surgery Hip Strength Hip Manual Muscle Testing hugo Comments no MMT due to recent surgery Knee Strength Knee Manual Muscle Testing hugo Comments no MMT due to recent surgery, has full AROM Ankle/Foot Strength Ankle and Foot Manual Muscle Testing hugo Comments has full active ROM, No MMT due to recent surgery PT-OP-Q Treatments Start: 01/07/22 11:58 Freq: Status: Active Protocol: Document 04/27/22 09:48 [facility] (Rec: 04/27/22 10:32 [facility] [id number]) Therapeutic Exercises Supine Exercises HS stretch Reps/Minutes 2x30 may Reps/Minutes 10x2, 5sec hold Comments cues for core activation and push down through opp foot, slow lift/lower ITB Stretch w/ strap Supine Exercise Name HEP reviewed Side bilateral Equipment Used gait belt in PT (TB at home) Reps/Minutes 30sec x2 Comments TB at home- good form/ response stretch HS stretch w/ strap Supine Exercise Name HEP reviewed Side bilateral Reps/Minutes 1x30 Comments no strap, did with ankle df/pf Bridge Supine Exercise Name reviewed HEP Equipment Used Mat table Reps/Minutes 10reps, 10sec hold Comments good form posture press Equipment Used mat table Reps/Minutes 10x Comments cues for knitting lower ribcage down Sidelying Exercises hip abd Reps/Minutes 10x5 Comments small lift Other Exercises Cat Camel Equipment Used mat table Reps/Minutes 1x10 Comments cues for segmental movement, new HO issued for improved understanding Manual Therapy Treatment Soft Tissue Mobilization piriformis Mobilization Type Strumming,Sustained Pressure Intensity/Depth Moderate Body Position Sidelying surgical scar Body Location right SI Mobilization Type Myofascial Release,Rolling, Strumming Intensity/Depth Moderate Body Position Sidelying Self-Care/Home Management Treatment Education Patient Education Body Mechanics,Home Exercise Program,Pain Management, Posture,Safety PT-OP-R Modalities Start: 01/07/22 11:58 Freq: Status: Active Protocol: Document 04/27/22 09:48 [facility] (Rec: 04/27/22 17:03 [facility] [id number]) Hot Pack/Cold Pack Treatment Hot Pack Location right buttock Patient Position Sidelying Treatment Duration (minutes) 15 Patient Tolerance Good Comments pillow between knees PT-OP-T Assessment and Plan Start: 01/07/22 11:58 Freq: Status: Active Protocol: Document 04/27/22 09:48 [facility] (Rec: 04/27/22 10:32 [facility] [id number]) Physical Therapy Assessment Goals Three Impairment weakness Impairment weakness core and hip musculature, requires use of UE's for sit to stand Short Term Goal (STG) Instruct patient in progressive HEP for purposes of core and hip muscle strengthening for SI support and improved functional mobility 03/09/22: added TA step ups to HEP 03/17/22: ed for posturing during stairs carrying laundry /items for back and hip health painfree. 03/31/22: HEP:supine: resisted clamshell, hip stretches, SLR holds, bridges, LTR LEs over ball, modified crunch (elevate head/little shld holds), cat/ camel, band walk, STS (3x/wk) , resisted shld ext (3x/wk). 04/08/22: ongoing progression STG Duration 05/09/22 Radio Interference Trouble Shooter Goal (LTG) Patient to be independent and compliant to HEP for purposes of strengthening and core stabilization. Functionally will be able to transition sit to stand x 5 times without use of UE's without an increase in pain 04/08/22: good progress, cont to modify and progress HEP, some pain still with sit to stand without UE's LTG Duration 06/06/22 Two Impairment pain Impairment pain right SI and anterior thigh 4/10 consistently taking Tylenol and Alleve Short Term Goal (STG) Improve patient pain to no greater than 2/10 while taking pain medication 03/31/22: almost met: not needing take pain med most of the time 1-2, but 2 nights ago was alot by end day and took 1/2 pain pill. 04/08/22: varies 1-5, overall goal progress STG Duration 05/09/22 Halfway Goal (LTG) Improve patient's pain to no greater than 2/10 without pain medication 03/31/22: almost met: not needing take pain med most of the time 1-210, but 2 nights ago was alot by end day and took 1/2 pain pill. 04/08/22: reports yesterday feeling need for pain meds, possibly after inc sitting time in car and doctor's office day before LTG Duration 06/06/22 One Impairment activity tolerance Impairment Oswestry disability index score 50% Short Term Goal (STG) Oswestry disability index score improved to no greater than 30% as measure of improved activity tolerance 03/09/22: pt scored 18 this tx , reduction from 27 at eval. 04/08/22: inc to 36% today after trip to see doctor STG Duration 05/09/22 Halfway Goal (LTG) Improve Oswestry disability index score to no greater than 15% as measure of improved activity tolerance and return to prior level of function LTG Duration 06/06/22 Progress Towards Goals Progress Towards Goals Progressing Toward Goals Assessment Summary Assessment Problem-solving HEP performance with patient demonstrating improved understanding after review. Continued nerve pain right LE, patient considering requesting injection. Trial soft tissue mobilization surgical scar, piriformis, tensor with fair tolerance followed by moist heat. Physical Therapy Plan Frequency and Duration Frequency of Treatment 2x/Week Duration of treatment (weeks) 8 Plan of Care Start Date 04/08/22 Plan of Care End Date 06/06/22 Therapeutic Interventions Therapeutic Interventions Gait Training,Home Exercise Program,Manual Therapy,Patient /Caregiver Education,Self-Care /Home Management,Soft Tissue Mobilization,Taping, Therapeutic Activities, Therapeutic Exercises Modalities Cold Pack/Ice Massage,Electric Stimulation,Hot Packs, Iontophoresis Next Visit Focus/Plan Next Note Type Treatment Note Next Visit Plan REview self-massage with tennis ball and rolling pin, do gait stairs holding simulated laundry basket. Ther ex emphasis on mat exercises for stab and strengthening all positions as tolerated. Sit to stand and step-ups on foam.
--- NOTE | 2022-05-05 09:00 | PT.OTN ---
Current Diagnoses Sacrococcygeal disorders, not elsewhere classified (05/05/22) Physical Therapy Treatment Note PT-OP-A Visit Information Start: 01/07/22 11:58 Freq: Status: Active Protocol: Document 05/05/22 08:17 SP (Rec: 05/05/22 09:07 SP [id number]) Out-Patient Physical Therapy Visit Information Visit Information Visit Type Treatment Note Visit Start Time 08:17 Visit Stop Time 09:00 Total Visit Minutes 43 Visit Number 21 Number of CIVIL ENGINEER Visits 1 Evaluation Information Evaluation Date 01/07/22 Precautions Precautions No precautions given by physician, patient reports he said you will know. Stairs allowable at 2 wks post-op PT-OP-B Current Condition Start: 01/07/22 11:58 Freq: Status: Active Protocol: Document 03/15/22 08:57 SAK (Rec: 03/15/22 09:55 SAK [id number]) Current Condition History of Current Condition Onset Date 12/15/21 Current Complaints pain right thigh and SI s/p fusion right SI History of Current Condition fusion right SI in [place], patient reports no pins or screws needed, no op report available. aching right anterior thigh and buttock. No precautions given. Prior to surgery doing HEP, since surgery just walking. Has been doing stairs per doctor approval after 2 weeks, though some soreness Has been using walker today didn't use walker, feels just a little unsteady. Icing several times per day. Has not done any exercises Future Testing and Treatments Planned returns to surgeon for f/u in approx 6 weeks PT-OP-C Subjective Start: 01/07/22 11:58 Freq: Status: Active Protocol: Document 05/05/22 08:17 SP (Rec: 05/05/22 09:07 SP [id number]) OP-PT Subjective Patient Comments Patient Comments Pt reports feels pretty good today painfree. Pt stated later in day after last tx felt achy and discomfort can't ignore. Did some core SLR and made felt better. Discomfort went away then later evening did again. Pt reports quadruped not sure coordinated todo home, try assess if time . PT-OP-F Manual Assessment Start: 01/07/22 11:58 Freq: Status: Active Protocol: Document 01/07/22 13:51 SAK (Rec: 01/11/22 14:57 SAK [id number]) Manual Assessments Soft Tissue Assessment Soft Tissue Mobility Assessment decrease in soft tissue mobility hugo lumbar paraspinals, right piriformis, incision. PT-OP-G Mobility & Gait Start: 01/07/22 11:58 Freq: Status: Active Protocol: Document 01/07/22 13:51 [facility] (Rec: 01/11/22 14:57 [facility] [id number]) OP Gait Assessment Gait Gait Assistance Required: Independent Assistive Devices Assistive Device Straight Cane,Front Wheeled Walker Orthotic/Prosthetic Devices or Brace: No Gait Deviations General Gait Pattern Antalgic,Decreased Stride Length Factors Limiting Gait Function Factors Limiting Gait Function Decreased Strength,Pain PT-OP-H Neuro Start: 01/07/22 11:58 Freq: Status: Active Protocol: Document 01/07/22 13:51 [facility] (Rec: 01/11/22 14:57 [facility] [id number]) Sensation Evaluation Gross Sensation Gross Sensation Left LE Impaired Sensation Description Paresthesia PT-OP-J Posture/Palpation/Skin Start: 01/07/22 11:58 Freq: Status: Active Protocol: Document 01/07/22 13:51 [facility] (Rec: 01/11/22 14:57 [facility] [id number]) Posture Evaluation Position Standing Head/C-Spine Posture Forward Head T-Spine Posture Flexible Scoliosis on (L), Flexible Scoliosis on (R) L-Spine Posture Decreased Lordosis Shoulder Posture (L) Rounded,(R) Rounded Scapula Posture (L) Protracted,(R) Protracted Arm Posture (L) Internally Rotated,(R) Internally Rotated Pelvis Posture Posterior Tilted Weight Distribution Weight Shifted Left Skin Assessment Incisional Assessment Incision Appearance/Comments as above PT-OP-K Range of Motion Start: 01/07/22 11:58 Freq: Status: Active Protocol: Document 01/07/22 13:51 [facility] (Rec: 01/11/22 14:57 [facility] [id number]) Hip Goniometric Range of Motion Hip ROM Limitations Comments WFL, no formal testing due to recent surgery PT-OP-M Strength Start: 01/07/22 11:58 Freq: Status: Active Protocol: Document 01/07/22 13:51 [facility] (Rec: 01/11/22 14:57 [facility] [id number]) Trunk Strength Trunk Manual Muscle Testing Comments not assessed due to recent surgery Hip Strength Hip Manual Muscle Testing hugo Comments no MMT due to recent surgery Knee Strength Knee Manual Muscle Testing hugo Comments no MMT due to recent surgery, has full AROM Ankle/Foot Strength Ankle and Foot Manual Muscle Testing hugo Comments has full active ROM, No MMT due to recent surgery PT-OP-Q Treatments Start: 01/07/22 11:58 Freq: Status: Active Protocol: Document 05/05/22 08:17 SP (Rec: 05/05/22 09:07 SP [id number]) Therapeutic Exercises Supine Exercises fig 4 Supine Exercise Name added to HEP Side right Reps/Minutes 10SH x3 Comments cued PPT/ TA and level pelvis awareness ball roll out Supine Exercise Name heel press into ball, hip/knee flex/ext Equipment Used feet on 55 cm ball Reps/Minutes 10x Comments cues for core stab neutral pelvis/LS hamstring isometric Supine Exercise Name heel dig into ball Equipment Used 55 cm ball under feet, 90/90 position Reps/Minutes 5 SH x10 Comments cues for core stab neutral pelvis/LS crunch Supine Exercise Name hands clasped behind head, shld small lift Reps/Minutes 10x Comments cues for core activation small lift hip ab/ER Supine Exercise Name HEP- resisted clamshell Resistance RTB Reps/Minutes x10 Comments good form painfree Sidelying Exercises hip abd Side bilateral Resistance RTB Reps/Minutes L x10, R x8 Comments small lift, good long stacked alignment Manual Therapy Treatment Soft Tissue Mobilization piriformis Body Location R PF, glut med, TFL Mobilization Type Myofascial Release,Strumming Intensity/Depth Superficial Body Position Sidelying Comments gentle STM and ed self surgical scar Body Location R SI scar Mobilization Type Myofascial Release Intensity/Depth Superficial Body Position Sidelying Comments gentle STM and ed self PT-OP-R Modalities Start: 01/07/22 11:58 Freq: Status: Active Protocol: Document 05/03/22 14:32 SAK (Rec: 05/03/22 15:35 SAK [id number]) Hot Pack/Cold Pack Treatment Hot Pack Location right buttock Patient Position Sidelying Treatment Duration (minutes) 15 Patient Tolerance Good Comments pillow between knees PT-OP-T Assessment and Plan Start: 01/07/22 11:58 Freq: Status: Active Protocol: Document 05/05/22 08:17 SP (Rec: 05/05/22 09:07 SP [id number]) Physical Therapy Assessment Goals Three Impairment weakness Impairment weakness core and hip musculature, requires use of UE's for sit to stand Short Term Goal (STG) Instruct patient in progressive HEP for purposes of core and hip muscle strengthening for SI support and improved functional mobility 03/09/22: added TA step ups to HEP 03/17/22: ed for posturing during stairs carrying laundry /items for back and hip health painfree. 03/31/22: HEP:supine: resisted clamshell, hip stretches, SLR holds, bridges, LTR LEs over ball, modified crunch (elevate head/little shld holds), cat/ camel, band walk, STS (3x/wk) , resisted shld ext (3x/wk). 04/08/22: ongoing progression STG Duration 05/09/22 Scientific Advisor Goal (LTG) Patient to be independent and compliant to HEP for purposes of strengthening and core stabilization. Functionally will be able to transition sit to stand x 5 times without use of UE's without an increase in pain 04/08/22: good progress, cont to modify and progress HEP, some pain still with sit to stand without UE's LTG Duration 06/06/22 Two Impairment pain Impairment pain right SI and anterior thigh 4/10 consistently taking Tylenol and Alleve Short Term Goal (STG) Improve patient pain to no greater than 2/10 while taking pain medication 03/31/22: almost met: not needing take pain med most of the time 1-2, but 2 nights ago was alot by end day and took 1/2 pain pill. 04/08/22: varies 1-5, overall goal progress STG Duration 05/09/22 Nursing Home Goal (LTG) Improve patient's pain to no greater than 2/10 without pain medication 03/31/22: almost met: not needing take pain med most of the time 1-2, but 2 nights ago was alot by end day and took 1/2 pain pill. 04/08/22: reports yesterday feeling need for pain meds, possibly after inc sitting time in car and doctor's office day before LTG Duration 06/06/22 One Impairment activity tolerance Impairment Oswestry disability index score 50% Short Term Goal (STG) Oswestry disability index score improved to no greater than 30% as measure of improved activity tolerance 03/09/22: pt scored 18 this tx , reduction from 27 at eval. 04/08/22: inc to 36% today after trip to see doctor STG Duration 05/09/22 Scientific Advisor Goal (LTG) Improve Oswestry disability index score to no greater than 15% as measure of improved activity tolerance and return to prior level of function LTG Duration 06/06/22 Assessment Summary Assessment Pt improved understanding core /hip abd fac support discomfort stability during tx and home. Cues for set up and for w/ Tball, provided HOs for carryover athome. Added fig 4 stretchf for adductor stretch trying to get athome, good response. Physical Therapy Plan Frequency and Duration Frequency of Treatment 2x/Week Duration of treatment (weeks) 8 Plan of Care Start Date 04/08/22 Plan of Care End Date 06/06/22 Therapeutic Interventions Therapeutic Interventions Gait Training,Home Exercise Program,Manual Therapy,Patient /Caregiver Education,Self-Care /Home Management,Soft Tissue Mobilization,Taping, Therapeutic Activities, Therapeutic Exercises Modalities Cold Pack/Ice Massage,Electric Stimulation,Hot Packs, Iontophoresis Next Visit Focus/Plan Next Note Type Treatment Note Next Visit Plan recheck I tball core and quad UE/ LE ext. Ther ex with emphsis on mat exercise for stab and strengthening all positions as tolerated. REview and issue HO for meliton HS , and ball roll outs with therapy ball emphasis core stab.
--- NOTE | 2022-05-12 14:43 | PT.OTN ---
Current Diagnoses Sacrococcygeal disorders, not elsewhere classified (05/12/22) Physical Therapy Treatment Note PT-OP-A Visit Information Start: 01/07/22 11:58 Freq: Status: Active Protocol: Document 05/12/22 08:58 SAK (Rec: 05/12/22 09:48 [facility] [id number]) Out-Patient Physical Therapy Visit Information Visit Information Visit Type Treatment Note Visit Start Time 09:00 Visit Stop Time 09:45 Total Visit Minutes 45 Visit Number 22 Number of DIESEL LUBE TECH Visits 0 Evaluation Information Evaluation Date 01/07/22 Precautions Precautions No precautions given by physician, patient reports he said you will know. Stairs allowable at 2 wks post-op PT-OP-B Current Condition Start: 01/07/22 11:58 Freq: Status: Active Protocol: Document 03/15/22 08:57 SAK (Rec: 03/15/22 09:55 SAK [id number]) Current Condition History of Current Condition Onset Date 12/15/21 Current Complaints pain right thigh and SI s/p fusion right SI History of Current Condition fusion right SI in [place], patient reports no pins or screws needed, no op report available. aching right anterior thigh and buttock. No precautions given. Prior to surgery doing HEP, since surgery just walking. Has been doing stairs per doctor approval after 2 weeks, though some soreness Has been using walker today didn't use walker, feels just a little unsteady. Icing several times per day. Has not done any exercises Future Testing and Treatments Planned returns to surgeon for f/u in approx 6 weeks PT-OP-C Subjective Start: 01/07/22 11:58 Freq: Status: Active Protocol: Document 05/12/22 08:58 SAK (Rec: 05/12/22 09:48 [facility] [id number]) OP-PT Subjective Patient Comments Patient Comments ok after PT last session, did treadmill 15 min with inc pain , did heat dec pain. Vacuumed ; inc pain. Saw Dr. Acosta last week, nerve pinched L4, going to have injection L4. Has difficulty identifying what exacerbates her pain at times. Thinks may have irritated SI and LB one day when carrying and managing large laundry detergent PT-OP-F Manual Assessment Start: 01/07/22 11:58 Freq: Status: Active Protocol: Document 01/07/22 13:51 SAK (Rec: 01/11/22 14:57 [facility] [id number]) Manual Assessments Soft Tissue Assessment Soft Tissue Mobility Assessment decrease in soft tissue mobility hugo lumbar paraspinals, right piriformis, incision. PT-OP-G Mobility & Gait Start: 01/07/22 11:58 Freq: Status: Active Protocol: Document 01/07/22 13:51 SAK (Rec: 01/11/22 14:57 [facility] [id number]) OP Gait Assessment Gait Gait Assistance Required: Independent Assistive Devices Assistive Device Straight Cane,Front Wheeled Walker Orthotic/Prosthetic Devices or Brace: No Gait Deviations General Gait Pattern Antalgic,Decreased Stride Length Factors Limiting Gait Function Factors Limiting Gait Function Decreased Strength,Pain PT-OP-H Neuro Start: 01/07/22 11:58 Freq: Status: Active Protocol: Document 01/07/22 13:51 [facility] (Rec: 01/11/22 14:57 [facility] [id number]) Sensation Evaluation Gross Sensation Gross Sensation Left LE Impaired Sensation Description Paresthesia PT-OP-J Posture/Palpation/Skin Start: 01/07/22 11:58 Freq: Status: Active Protocol: Document 01/07/22 13:51 [facility] (Rec: 01/11/22 14:57 [facility] [id number]) Posture Evaluation Position Standing Head/C-Spine Posture Forward Head T-Spine Posture Flexible Scoliosis on (L), Flexible Scoliosis on (R) L-Spine Posture Decreased Lordosis Shoulder Posture (L) Rounded,(R) Rounded Scapula Posture (L) Protracted,(R) Protracted Arm Posture (L) Internally Rotated,(R) Internally Rotated Pelvis Posture Posterior Tilted Weight Distribution Weight Shifted Left Skin Assessment Incisional Assessment Incision Appearance/Comments as above PT-OP-K Range of Motion Start: 01/07/22 11:58 Freq: Status: Active Protocol: Document 01/07/22 13:51 [facility] (Rec: 01/11/22 14:57 [facility] [id number]) Hip Goniometric Range of Motion Hip ROM Limitations Comments WFL, no formal testing due to recent surgery PT-OP-M Strength Start: 01/07/22 11:58 Freq: Status: Active Protocol: Document 01/07/22 13:51 [facility] (Rec: 01/11/22 14:57 [facility] [id number]) Trunk Strength Trunk Manual Muscle Testing Comments not assessed due to recent surgery Hip Strength Hip Manual Muscle Testing hugo Comments no MMT due to recent surgery Knee Strength Knee Manual Muscle Testing hugo Comments no MMT due to recent surgery, has full AROM Ankle/Foot Strength Ankle and Foot Manual Muscle Testing hugo Comments has full active ROM, No MMT due to recent surgery PT-OP-Q Treatments Start: 01/07/22 11:58 Freq: Status: Active Protocol: Document 05/12/22 08:58 [facility] (Rec: 05/12/22 09:48 [facility] [id number]) Therapeutic Exercises Supine Exercises butterfly stretch Reps/Minutes 5x5 ball roll out Supine Exercise Name heel press into ball, hip/knee flex/ext Equipment Used feet on 55 cm ball Reps/Minutes 10x Comments cues for core stab neutral pelvis/LS hamstring isometric Supine Exercise Name heel dig into ball Equipment Used 55 cm ball under feet, 90/90 position Reps/Minutes 5 SH x10 Comments cues for core stab neutral pelvis/LS LTR Supine Exercise Name knees apart, hip IR/ER Reps/Minutes 10x Comments cues for core activation, small motion crunch Supine Exercise Name hands clasped behind head, shld small lift Reps/Minutes 10x Comments cues for core activation small lift hip ab/ER Supine Exercise Name HEP- resisted clamshell Prone Exercises child's pose Reps/Minutes 3x10 Comments 2 pillows under bottom Sidelying Exercises hip abd Side bilateral Resistance RTB Reps/Minutes L x10, R x8 Comments small lift, good long stacked alignment Other Exercises wag the tail Reps/Minutes 3x hugo Cat Camel Equipment Used mat table Reps/Minutes 1x10 Comments improved form Self-Care/Home Management Treatment Education Patient Education Body Mechanics,Home Exercise Program,Pain Management, Posture,Safety Other Education body mechanics regarding vacuuming and lifting PT-OP-R Modalities Start: 01/07/22 11:58 Freq: Status: Active Protocol: Document 05/03/22 14:32 SAK (Rec: 05/03/22 15:35 [facility] [id number]) Hot Pack/Cold Pack Treatment Hot Pack Location right buttock Patient Position Sidelying Treatment Duration (minutes) 15 Patient Tolerance Good Comments pillow between knees PT-OP-T Assessment and Plan Start: 01/07/22 11:58 Freq: Status: Active Protocol: Document 05/12/22 08:58 [facility] (Rec: 05/12/22 09:48 SAK [id number]) Physical Therapy Assessment Goals Three Impairment weakness Impairment weakness core and hip musculature, requires use of UE's for sit to stand Short Term Goal (STG) Instruct patient in progressive HEP for purposes of core and hip muscle strengthening for SI support and improved functional mobility 03/09/22: added TA step ups to HEP 03/17/22: ed for posturing during stairs carrying laundry /items for back and hip health painfree. 03/31/22: HEP:supine: resisted clamshell, hip stretches, SLR holds, bridges, LTR LEs over ball, modified crunch (elevate head/little shld holds), cat/ camel, band walk, STS (3x/wk) , resisted shld ext (3x/wk). 04/08/22: ongoing progression STG Duration 05/09/22 Shelter Goal (LTG) Patient to be independent and compliant to HEP for purposes of strengthening and core stabilization. Functionally will be able to transition sit to stand x 5 times without use of UE's without an increase in pain 04/08/22: good progress, cont to modify and progress HEP, some pain still with sit to stand without UE's LTG Duration 06/06/22 Two Impairment pain Impairment pain right SI and anterior thigh 07/05 consistently taking Tylenol and Alleve Short Term Goal (STG) Improve patient pain to no greater than 2/10 while taking pain medication 03/31/22: almost met: not needing take pain med most of the time 1-2, but 2 nights ago was alot by end day and took 1/2 pain pill. 04/08/22: varies 1-5, overall goal progress STG Duration 05/09/22 Visitor Services Representative Goal (LTG) Improve patient's pain to no greater than 2/10 without pain medication 03/31/22: almost met: not needing take pain med most of the time 1-2, but 2 nights ago was alot by end day and took 1/2 pain pill. 04/08/22: reports yesterday feeling need for pain meds, possibly after inc sitting time in car and doctor's office day before LTG Duration 06/06/22 One Impairment activity tolerance Impairment Oswestry disability index score 50% Short Term Goal (STG) Oswestry disability index score improved to no greater than 30% as measure of improved activity tolerance 03/09/22: pt scored 18 this tx , reduction from 27 at eval. 04/08/22: inc to 36% today after trip to see doctor STG Duration 05/09/22 Visitor Services Representative Goal (LTG) Improve Oswestry disability index score to no greater than 15% as measure of improved activity tolerance and return to prior level of function LTG Duration 06/06/22 Assessment Summary Assessment Patient overall continues to improve but pain variable. More guidance needed with body mechanics. Good compliance to HEP. Having difficulty progressing activity level standing. Physical Therapy Plan Frequency and Duration Frequency of Treatment 2x/Week Duration of treatment (weeks) 8 Plan of Care Start Date 04/08/22 Plan of Care End Date 06/06/22 Therapeutic Interventions Therapeutic Interventions Gait Training,Home Exercise Program,Manual Therapy,Patient /Caregiver Education,Self-Care /Home Management,Soft Tissue Mobilization,Taping, Therapeutic Activities, Therapeutic Exercises Modalities Cold Pack/Ice Massage,Electric Stimulation,Hot Packs, Iontophoresis Next Visit Focus/Plan Next Note Type Treatment Note Next Visit Plan educate in use of trekking poles. Finalize HEP. Review vacuuming body mechanics. Progress standing exercises as tolerated.
--- NOTE | 2022-05-17 09:45 | PT.OTN ---
Current Diagnoses Sacrococcygeal disorders, not elsewhere classified (05/17/22) Physical Therapy Treatment Note PT-OP-A Visit Information Start: 01/07/22 11:58 Freq: Status: Active Protocol: Document 05/17/22 08:56 [facility] (Rec: 05/17/22 09:45 [facility] [id number]) Out-Patient Physical Therapy Visit Information Visit Information Visit Type Treatment Note Visit Start Time 09:00 Visit Stop Time 10:00 Total Visit Minutes 60 Visit Number 23 Number of NEWSPAPER DELIVERER Visits 0 Evaluation Information Evaluation Date 01/07/22 Precautions Precautions No precautions given by physician, patient reports he said you will know. Stairs allowable at 2 wks post-op PT-OP-B Current Condition Start: 01/07/22 11:58 Freq: Status: Active Protocol: Document 03/15/22 08:57 SAK (Rec: 03/15/22 09:55 [facility] [id number]) Current Condition History of Current Condition Onset Date 12/15/21 Current Complaints pain right thigh and SI s/p fusion right SI History of Current Condition fusion right SI in [place], patient reports no pins or screws needed, no op report available. aching right anterior thigh and buttock. No precautions given. Prior to surgery doing HEP, since surgery just walking. Has been doing stairs per doctor approval after 2 weeks, though some soreness Has been using walker today didn't use walker, feels just a little unsteady. Icing several times per day. Has not done any exercises Future Testing and Treatments Planned returns to surgeon for f/u in approx 6 weeks PT-OP-C Subjective Start: 01/07/22 11:58 Freq: Status: Active Protocol: Document 05/17/22 08:56 [facility] (Rec: 05/17/22 09:45 [facility] [id number]) OP-PT Subjective Patient Comments Patient Comments After PT felt ok, walked 6 min after PT, tried wearing SI belt, but still had to stop after 6 min. Ok when lays down. Tuesday 3 hours in am were great, went shopping at grocery store 30 min, inc pain to 6/10, had to use heat, cried due to pain. Treadmill a couple times 5-6 min taking break in between PT-OP-F Manual Assessment Start: 01/07/22 11:58 Freq: Status: Active Protocol: Document 01/07/22 13:51 SAK (Rec: 01/11/22 14:57 [facility] [id number]) Manual Assessments Soft Tissue Assessment Soft Tissue Mobility Assessment decrease in soft tissue mobility hugo lumbar paraspinals, right piriformis, incision. PT-OP-G Mobility & Gait Start: 01/07/22 11:58 Freq: Status: Active Protocol: Document 01/07/22 13:51 SAK (Rec: 01/11/22 14:57 [facility] [id number]) OP Gait Assessment Gait Gait Assistance Required: Independent Assistive Devices Assistive Device Straight Cane,Front Wheeled Walker Orthotic/Prosthetic Devices or Brace: No Gait Deviations General Gait Pattern Antalgic,Decreased Stride Length Factors Limiting Gait Function Factors Limiting Gait Function Decreased Strength,Pain PT-OP-H Neuro Start: 01/07/22 11:58 Freq: Status: Active Protocol: Document 01/07/22 13:51 [facility] (Rec: 01/11/22 14:57 [facility] [id number]) Sensation Evaluation Gross Sensation Gross Sensation Left LE Impaired Sensation Description Paresthesia PT-OP-J Posture/Palpation/Skin Start: 01/07/22 11:58 Freq: Status: Active Protocol: Document 01/07/22 13:51 [facility] (Rec: 01/11/22 14:57 [facility] [id number]) Posture Evaluation Position Standing Head/C-Spine Posture Forward Head T-Spine Posture Flexible Scoliosis on (L), Flexible Scoliosis on (R) L-Spine Posture Decreased Lordosis Shoulder Posture (L) Rounded,(R) Rounded Scapula Posture (L) Protracted,(R) Protracted Arm Posture (L) Internally Rotated,(R) Internally Rotated Pelvis Posture Posterior Tilted Weight Distribution Weight Shifted Left Skin Assessment Incisional Assessment Incision Appearance/Comments as above PT-OP-K Range of Motion Start: 01/07/22 11:58 Freq: Status: Active Protocol: Document 01/07/22 13:51 [facility] (Rec: 01/11/22 14:57 [facility] [id number]) Hip Goniometric Range of Motion Hip ROM Limitations Comments WFL, no formal testing due to recent surgery PT-OP-M Strength Start: 01/07/22 11:58 Freq: Status: Active Protocol: Document 01/07/22 13:51 [facility] (Rec: 01/11/22 14:57 [facility] [id number]) Trunk Strength Trunk Manual Muscle Testing Comments not assessed due to recent surgery Hip Strength Hip Manual Muscle Testing hugo Comments no MMT due to recent surgery Knee Strength Knee Manual Muscle Testing hugo Comments no MMT due to recent surgery, has full AROM Ankle/Foot Strength Ankle and Foot Manual Muscle Testing hugo Comments has full active ROM, No MMT due to recent surgery PT-OP-Q Treatments Start: 01/07/22 11:58 Freq: Status: Active Protocol: Document 05/17/22 08:56 [facility] (Rec: 05/17/22 09:45 [facility] [id number]) Cardio Equipment Recumbent Stepper (Sci-Fit) Duration (Minutes) 8 Resistance 2 Seat Position 10 Other stopped due to ache Therapeutic Exercises Supine Exercises hamstring isometric Supine Exercise Name heel dig into ball Equipment Used 55 cm ball under feet, 90/90 position Reps/Minutes 5 SH x10 Comments cues for core stab neutral pelvis/LS LTR Supine Exercise Name knees apart, hip IR/ER Reps/Minutes 10x Comments cues for core activation, small motion crunch Supine Exercise Name hands clasped behind head, shld small lift Reps/Minutes 10x Comments cues for core activation small lift Manual Therapy Treatment Soft Tissue Mobilization piriformis Body Location R PF, glut med, TFL Mobilization Type Myofascial Release,Strumming Intensity/Depth Moderate Body Position Sidelying Comments gentle STM and ed self surgical scar Body Location R SI scar Mobilization Type Myofascial Release Intensity/Depth Moderate Body Position Sidelying Comments gentle STM Self-Care/Home Management Treatment Education Patient Education Body Mechanics,Home Exercise Program,Pain Management, Posture,Safety PT-OP-R Modalities Start: 01/07/22 11:58 Freq: Status: Active Protocol: Document 05/03/22 14:32 [facility] (Rec: 05/03/22 15:35 [facility] [id number]) Hot Pack/Cold Pack Treatment Hot Pack Location right buttock Patient Position Sidelying Treatment Duration (minutes) 15 Patient Tolerance Good Comments pillow between knees PT-OP-T Assessment and Plan Start: 01/07/22 11:58 Freq: Status: Active Protocol: Document 05/17/22 08:56 [facility] (Rec: 05/17/22 09:45 [facility] [id number]) Physical Therapy Assessment Goals Three Impairment weakness Impairment weakness core and hip musculature, requires use of UE's for sit to stand Short Term Goal (STG) Instruct patient in progressive HEP for purposes of core and hip muscle strengthening for SI support and improved functional mobility 03/09/22: added TA step ups to HEP 03/17/22: ed for posturing during stairs carrying laundry /items for back and hip health painfree. 03/31/22: HEP:supine: resisted clamshell, hip stretches, SLR holds, bridges, LTR LEs over ball, modified crunch (elevate head/little shld holds), cat/ camel, band walk, STS (3x/wk) , resisted shld ext (3x/wk). 04/08/22: ongoing progression STG Duration 05/09/22 Take Out Waiter/Waitress Goal (LTG) Patient to be independent and compliant to HEP for purposes of strengthening and core stabilization. Functionally will be able to transition sit to stand x 5 times without use of UE's without an increase in pain 04/08/22: good progress, cont to modify and progress HEP, some pain still with sit to stand without UE's LTG Duration 06/06/22 Two Impairment pain Impairment pain right SI and anterior thigh 4 consistently taking Tylenol and Alleve Short Term Goal (STG) Improve patient pain to no greater than 2/10 while taking pain medication 03/31/22: almost met: not needing take pain med most of the time 1-2, but 2 nights ago was alot by end day and took 1/2 pain pill. 04/08/22: varies 1-5, overall goal progress STG Duration 05/09/22 Take Out Waiter/Waitress Goal (LTG) Improve patient's pain to no greater than 2/10 without pain medication 03/31/22: almost met: not needing take pain med most of the time 1-210, but 2 nights ago was alot by end day and took 1/2 pain pill. 04/08/22: reports yesterday feeling need for pain meds, possibly after inc sitting time in car and doctor's office day before LTG Duration 06/06/22 One Impairment activity tolerance Impairment Oswestry disability index score 50% Short Term Goal (STG) Oswestry disability index score improved to no greater than 30% as measure of improved activity tolerance 03/09/22: pt scored 18 this tx , reduction from 27 at eval. 04/08/22: inc to 36% today after trip to see doctor STG Duration 05/09/22 Nursing Home Goal (LTG) Improve Oswestry disability index score to no greater than 15% as measure of improved activity tolerance and return to prior level of function LTG Duration 06/06/22 Assessment Summary Assessment Improving independence with less cues for HEP. Palpable trigger points and soft tissue tightness scar and piriformis dec with STM. Patient didn't bring trekking poles today. Physical Therapy Plan Frequency and Duration Frequency of Treatment 2x/Week Duration of treatment (weeks) 8 Plan of Care Start Date 04/08/22 Plan of Care End Date 06/06/22 Therapeutic Interventions Therapeutic Interventions Gait Training,Home Exercise Program,Manual Therapy,Patient /Caregiver Education,Self-Care /Home Management,Soft Tissue Mobilization,Taping, Therapeutic Activities, Therapeutic Exercises Modalities Cold Pack/Ice Massage,Electric Stimulation,Hot Packs, Iontophoresis Next Visit Focus/Plan Next Note Type Treatment Note Next Visit Plan educate in use of trekking poles. Finalize HEP. Review vacuuming body mechanics.
--- NOTE | 2022-05-19 16:50 | PT.OTN ---
Current Diagnoses Sacrococcygeal disorders, not elsewhere classified (05/19/22) Physical Therapy Treatment Note PT-OP-A Visit Information Start: 01/07/22 11:58 Freq: Status: Active Protocol: Document 05/19/22 09:00 [facility] (Rec: 05/19/22 09:49 [facility] [id number]) Out-Patient Physical Therapy Visit Information Visit Information Visit Type Treatment Note Visit Start Time 09:00 Visit Stop Time 09:45 Total Visit Minutes 45 Visit Number 24 Number of VARSITY BASEBALL COACH Visits 0 Evaluation Information Evaluation Date 01/07/22 Precautions Precautions No precautions given by physician, patient reports he said you will know. Stairs allowable at 2 wks post-op PT-OP-B Current Condition Start: 01/07/22 11:58 Freq: Status: Active Protocol: Document 03/15/22 08:57 [facility] (Rec: 03/15/22 09:55 [facility] [id number]) Current Condition History of Current Condition Onset Date 12/15/21 Current Complaints pain right thigh and SI s/p fusion right SI History of Current Condition fusion right SI in [place], patient reports no pins or screws needed, no op report available. aching right anterior thigh and buttock. No precautions given. Prior to surgery doing HEP, since surgery just walking. Has been doing stairs per doctor approval after 2 weeks, though some soreness Has been using walker today didn't use walker, feels just a little unsteady. Icing several times per day. Has not done any exercises Future Testing and Treatments Planned returns to surgeon for f/u in approx 6 weeks PT-OP-C Subjective Start: 01/07/22 11:58 Freq: Status: Active Protocol: Document 05/19/22 09:00 [facility] (Rec: 05/19/22 09:49 [facility] [id number]) OP-PT Subjective Patient Comments Patient Comments Tuesday after PT didn't do very much, felt wonderful up until bed. Yesterday grocery store , walked 7 minutes around [place]. Moderate pain after, hair appointment, hurt all rest of the day, couldn't get pain under control. Feels going backward. Gets injection L4 tomorrow. PT-OP-F Manual Assessment Start: 01/07/22 11:58 Freq: Status: Active Protocol: Document 01/07/22 13:51 [facility] (Rec: 01/11/22 14:57 [facility] [id number]) Manual Assessments Soft Tissue Assessment Soft Tissue Mobility Assessment decrease in soft tissue mobility hugo lumbar paraspinals, right piriformis, incision. PT-OP-G Mobility & Gait Start: 01/07/22 11:58 Freq: Status: Active Protocol: Document 01/07/22 13:51 [facility] (Rec: 01/11/22 14:57 [facility] [id number]) OP Gait Assessment Gait Gait Assistance Required: Independent Assistive Devices Assistive Device Straight Cane,Front Wheeled Walker Orthotic/Prosthetic Devices or Brace: No Gait Deviations General Gait Pattern Antalgic,Decreased Stride Length Factors Limiting Gait Function Factors Limiting Gait Function Decreased Strength,Pain PT-OP-H Neuro Start: 01/07/22 11:58 Freq: Status: Active Protocol: Document 01/07/22 13:51 [facility] (Rec: 01/11/22 14:57 [facility] [id number]) Sensation Evaluation Gross Sensation Gross Sensation Left LE Impaired Sensation Description Paresthesia PT-OP-J Posture/Palpation/Skin Start: 01/07/22 11:58 Freq: Status: Active Protocol: Document 01/07/22 13:51 [facility] (Rec: 01/11/22 14:57 [facility] [id number]) Posture Evaluation Position Standing Head/C-Spine Posture Forward Head T-Spine Posture Flexible Scoliosis on (L), Flexible Scoliosis on (R) L-Spine Posture Decreased Lordosis Shoulder Posture (L) Rounded,(R) Rounded Scapula Posture (L) Protracted,(R) Protracted Arm Posture (L) Internally Rotated,(R) Internally Rotated Pelvis Posture Posterior Tilted Weight Distribution Weight Shifted Left Skin Assessment Incisional Assessment Incision Appearance/Comments as above PT-OP-K Range of Motion Start: 01/07/22 11:58 Freq: Status: Active Protocol: Document 01/07/22 13:51 [facility] (Rec: 01/11/22 14:57 [facility] [id number]) Hip Goniometric Range of Motion Hip ROM Limitations Comments WFL, no formal testing due to recent surgery PT-OP-M Strength Start: 01/07/22 11:58 Freq: Status: Active Protocol: Document 01/07/22 13:51 [facility] (Rec: 01/11/22 14:57 [facility] [id number]) Trunk Strength Trunk Manual Muscle Testing Comments not assessed due to recent surgery Hip Strength Hip Manual Muscle Testing hugo Comments no MMT due to recent surgery Knee Strength Knee Manual Muscle Testing hugo Comments no MMT due to recent surgery, has full AROM Ankle/Foot Strength Ankle and Foot Manual Muscle Testing hugo Comments has full active ROM, No MMT due to recent surgery PT-OP-Q Treatments Start: 01/07/22 11:58 Freq: Status: Active Protocol: Document 05/19/22 09:00 [facility] (Rec: 05/19/22 09:49 [facility] [id number]) Self-Care/Home Management Treatment Education Patient Education Body Mechanics,Home Exercise Program,Pain Management, Posture,Safety Other Education HEP review Added handout for self-massage with tennis ball Gait training with trekking poles and cane as options for gait aid to offload SI PT-OP-R Modalities Start: 01/07/22 11:58 Freq: Status: Active Protocol: Document 05/03/22 14:32 [facility] (Rec: 05/03/22 15:35 [facility] [id number]) Hot Pack/Cold Pack Treatment Hot Pack Location right buttock Patient Position Sidelying Treatment Duration (minutes) 15 Patient Tolerance Good Comments pillow between knees PT-OP-T Assessment and Plan Start: 01/07/22 11:58 Freq: Status: Active Protocol: Document 05/19/22 09:00 [facility] (Rec: 05/19/22 09:49 [facility] [id number]) Physical Therapy Assessment Goals Three Impairment weakness Impairment weakness core and hip musculature, requires use of UE's for sit to stand Short Term Goal (STG) Instruct patient in progressive HEP for purposes of core and hip muscle strengthening for SI support and improved functional mobility 03/09/22: added TA step ups to HEP 03/17/22: ed for posturing during stairs carrying laundry /items for back and hip health painfree. 03/31/22: HEP:supine: resisted clamshell, hip stretches, SLR holds, bridges, LTR LEs over ball, modified crunch (elevate head/little shld holds), cat/ camel, band walk, STS (3x/wk) , resisted shld ext (3x/wk). 04/08/22: ongoing progression 05/19/22: goal met STG Duration goal met; ongoing progression Manager Strategic Partnerships Goal (LTG) Patient to be independent and compliant to HEP for purposes of strengthening and core stabilization. Functionally will be able to transition sit to stand x 5 times without use of UE's without an increase in pain 04/08/22: good progress, cont to modify and progress HEP, some pain still with sit to stand without UE's 05/19/22: can transition sit to stand 5x with min to no use of hands LTG Duration 06/06/22 Two Impairment pain Impairment pain right SI and anterior thigh 07/05 consistently taking Tylenol and Alleve Short Term Goal (STG) Improve patient pain to no greater than 2/10 while taking pain medication 03/31/22: almost met: not needing take pain med most of the time 1-05/07, but 2 nights ago was alot by end day and took 1/2 pain pill. 04/08/22: varies 1-5, overall goal progress 05/17/22:varies 1-5/10 STG Duration 05/09/22 Mcfp Goal (LTG) Improve patient's pain to no greater than 2/10 without pain medication 03/31/22: almost met: not needing take pain med most of the time -05/07, but 2 nights ago was alot by end day and took 1/2 pain pill. 04/08/22: reports yesterday feeling need for pain meds, possibly after inc sitting time in car and doctor's office day before 05/19/22: no further progress LTG Duration 06/06/22 One Impairment activity tolerance Impairment Oswestry disability index score 50% Short Term Goal (STG) Oswestry disability index score improved to no greater than 30% as measure of improved activity tolerance 03/09/22: pt scored 18 this tx , reduction from 27 at eval. 04/08/22: inc to 36% today after trip to see doctor 05/19/22: 42% STG Duration 05/09/22 Manager Strategic Partnerships Goal (LTG) Improve Oswestry disability index score to no greater than 15% as measure of improved activity tolerance and return to prior level of function LTG Duration 06/06/22 Progress Towards Goals Progress Towards Goals Slow Progress due to Activity Tolerance Assessment Summary Assessment Patient has good days and bad days. Demonstrating improved body mechanics, improved HEP performance shown with review today. Better self-management and modification of activities but frustrated by continued pain and limited activity tolerance. Having injection tomorrow. Will continue with HEP and return in approx 30 days for follow- up appointment. Physical Therapy Plan Frequency and Duration Frequency of Treatment 2x/Week Duration of treatment (weeks) 8 Plan of Care Start Date 04/08/22 Plan of Care End Date 06/06/22 Therapeutic Interventions Therapeutic Interventions Gait Training,Home Exercise Program,Manual Therapy,Patient /Caregiver Education,Self-Care /Home Management,Soft Tissue Mobilization,Taping, Therapeutic Activities, Therapeutic Exercises Modalities Cold Pack/Ice Massage,Electric Stimulation,Hot Packs, Iontophoresis Next Visit Focus/Plan Next Note Type Re-Evaluation Next Visit Plan Follow up in 1 month. Review and progress HEP as indicated.
--- NOTE | 2022-06-30 11:14 | PT.OTN ---
Current Diagnoses Sacrococcygeal disorders, not elsewhere classified (06/30/22) Physical Therapy Treatment Note PT-OP-A Visit Information Start: 01/07/22 11:58 Freq: Status: Active Protocol: Document 06/30/22 09:03 [facility] (Rec: 06/30/22 09:45 [facility] [id number]) Out-Patient Physical Therapy Visit Information Visit Information Visit Type Treatment Note Visit Start Time 09:03 Visit Stop Time 09:45 Total Visit Minutes 42 Visit Number 25 Number of MANAGER RENTAL Visits 0 Evaluation Information Evaluation Date 01/07/22 Precautions Precautions No precautions given by physician, patient reports he said you will know. Stairs allowable at 2 wks post-op PT-OP-B Current Condition Start: 01/07/22 11:58 Freq: Status: Active Protocol: Document 03/15/22 08:57 [facility] (Rec: 03/15/22 09:55 [facility] [id number]) Current Condition History of Current Condition Onset Date 12/15/21 Current Complaints pain right thigh and SI s/p fusion right SI History of Current Condition fusion right SI in [place], patient reports no pins or screws needed, no op report available. aching right anterior thigh and buttock. No precautions given. Prior to surgery doing HEP, since surgery just walking. Has been doing stairs per doctor approval after 2 weeks, though some soreness Has been using walker today didn't use walker, feels just a little unsteady. Icing several times per day. Has not done any exercises Future Testing and Treatments Planned returns to surgeon for f/u in approx 6 weeks PT-OP-C Subjective Start: 01/07/22 11:58 Freq: Status: Active Protocol: Document 06/30/22 09:03 [facility] (Rec: 06/30/22 09:45 [facility] [id number]) OP-PT Subjective Patient Comments Patient Comments Saw PA last week, x-ray looked good. Able to walk more, has been doing teadmill, 1day able to do 15 min without pain, other days has to. Has questions about gardening and HEP. PT-OP-F Manual Assessment Start: 01/07/22 11:58 Freq: Status: Active Protocol: Document 01/07/22 13:51 [facility] (Rec: 01/11/22 14:57 [facility] [id number]) Manual Assessments Soft Tissue Assessment Soft Tissue Mobility Assessment decrease in soft tissue mobility hugo lumbar paraspinals, right piriformis, incision. PT-OP-G Mobility & Gait Start: 01/07/22 11:58 Freq: Status: Active Protocol: Document 01/07/22 13:51 [facility] (Rec: 01/11/22 14:57 [facility] [id number]) OP Gait Assessment Gait Gait Assistance Required: Independent Assistive Devices Assistive Device Straight Cane,Front Wheeled Walker Orthotic/Prosthetic Devices or Brace: No Gait Deviations General Gait Pattern Antalgic,Decreased Stride Length Factors Limiting Gait Function Factors Limiting Gait Function Decreased Strength,Pain PT-OP-H Neuro Start: 01/07/22 11:58 Freq: Status: Active Protocol: Document 01/07/22 13:51 [facility] (Rec: 01/11/22 14:57 [facility] [id number]) Sensation Evaluation Gross Sensation Gross Sensation Left LE Impaired Sensation Description Paresthesia PT-OP-J Posture/Palpation/Skin Start: 01/07/22 11:58 Freq: Status: Active Protocol: Document 01/07/22 13:51 [facility] (Rec: 01/11/22 14:57 [facility] [id number]) Posture Evaluation Position Standing Head/C-Spine Posture Forward Head T-Spine Posture Flexible Scoliosis on (L), Flexible Scoliosis on (R) L-Spine Posture Decreased Lordosis Shoulder Posture (L) Rounded,(R) Rounded Scapula Posture (L) Protracted,(R) Protracted Arm Posture (L) Internally Rotated,(R) Internally Rotated Pelvis Posture Posterior Tilted Weight Distribution Weight Shifted Left Skin Assessment Incisional Assessment Incision Appearance/Comments as above PT-OP-K Range of Motion Start: 01/07/22 11:58 Freq: Status: Active Protocol: Document 01/07/22 13:51 [facility] (Rec: 01/11/22 14:57 [facility] [id number]) Hip Goniometric Range of Motion Hip ROM Limitations Comments WFL, no formal testing due to recent surgery PT-OP-M Strength Start: 01/07/22 11:58 Freq: Status: Active Protocol: Document 01/07/22 13:51 [facility] (Rec: 01/11/22 14:57 [facility] [id number]) Trunk Strength Trunk Manual Muscle Testing Comments not assessed due to recent surgery Hip Strength Hip Manual Muscle Testing hugo Comments no MMT due to recent surgery Knee Strength Knee Manual Muscle Testing hugo Comments no MMT due to recent surgery, has full AROM Ankle/Foot Strength Ankle and Foot Manual Muscle Testing hugo Comments has full active ROM, No MMT due to recent surgery PT-OP-Q Treatments Start: 01/07/22 11:58 Freq: Status: Active Protocol: Document 06/30/22 09:03 [facility] (Rec: 06/30/22 09:45 [facility] [id number]) Neuro Re-Education Treatment Movement Re-Education Movement Re-education Activities body mechanics with gardening, sitting Self-Care/Home Management Treatment Education Patient Education Body Mechanics,Home Exercise Program,Pain Management, Posture,Safety Other Education Body mechanics regarding gardening activities, hoeing, hands and knees, etc. REview HEP, modifications and further cues for best performance, review useof TENS unit, placement for use at home, postural correction. Added figure 4 and Leonel stretch PT-OP-R Modalities Start: 01/07/22 11:58 Freq: Status: Active Protocol: Document 05/03/22 14:32 [facility] (Rec: 05/03/22 15:35 [facility] [id number]) Hot Pack/Cold Pack Treatment Hot Pack Location right buttock Patient Position Sidelying Treatment Duration (minutes) 15 Patient Tolerance Good Comments pillow between knees PT-OP-T Assessment and Plan Start: 01/07/22 11:58 Freq: Status: Active Protocol: Document 06/30/22 09:03 [facility] (Rec: 06/30/22 09:45 [facility] [id number]) Physical Therapy Assessment Goals Three Impairment weakness Impairment weakness core and hip musculature, requires use of UE's for sit to stand Short Term Goal (STG) Instruct patient in progressive HEP for purposes of core and hip muscle strengthening for SI support and improved functional mobility 03/09/22: added TA step ups to HEP 03/17/22: ed for posturing during stairs carrying laundry /items for back and hip health painfree. 03/31/22: HEP:supine: resisted clamshell, hip stretches, SLR holds, bridges, LTR LEs over ball, modified crunch (elevate head/little shld holds), cat/ camel, band walk, STS (3x/wk) , resisted shld ext (3x/wk). 04/08/22: ongoing progression 05/19/22: goal met STG Duration goal met; ongoing progression Forensic Specialist Goal (LTG) Patient to be independent and compliant to HEP for purposes of strengthening and core stabilization. Functionally will be able to transition sit to stand x 5 times without use of UE's without an increase in pain 04/08/22: good progress, cont to modify and progress HEP, some pain still with sit to stand without UE's 05/19/22: can transition sit to stand 5x with min to no use of hands LTG Duration goal met Two Impairment pain Impairment pain right SI and anterior thigh 07/05 consistently taking Tylenol and Alleve Short Term Goal (STG) Improve patient pain to no greater than 2/10 while taking pain medication 03/31/22: almost met: not needing take pain med most of the time -05/07, but 2 nights ago was alot by end day and took 1/2 pain pill. 04/08/22: varies 1-5, overall goal progress 05/17/22:varies 1-5/10 STG Duration 05/09/22 Intermediate Goal (LTG) Improve patient's pain to no greater than 2/10 without pain medication 03/31/22: almost met: not needing take pain med most of the time -05/07, but 2 nights ago was alot by end day and took 1/2 pain pill. 04/08/22: reports yesterday feeling need for pain meds, possibly after inc sitting time in car and doctor's office day before 05/19/22: no further progress 06/30/22: 2, occasional 06/04, goal met LTG Duration goal met One Impairment activity tolerance Impairment Oswestry disability index score 50% Short Term Goal (STG) Oswestry disability index score improved to no greater than 30% as measure of improved activity tolerance 03/09/22: pt scored 18 this tx , reduction from 27 at eval. 04/08/22: inc to 36% today after trip to see doctor 05/19/22: 42% STG Duration 05/09/22 Forensic Specialist Goal (LTG) Improve Oswestry disability index score to no greater than 15% as measure of improved activity tolerance and return to prior level of function 06/30/22: mostly met LTG Duration mostly met Progress Towards Goals Progress Towards Goals Goals Met Assessment Summary Assessment Goals met, final review and modification of HEP, progression of piriformis stretch and addition of Leonel stretch with good understanding. No further need for PT at this time. Physical Therapy Plan Discharge Physical Therapy Discharge Reasons Goals Met
--- NOTE | 2022-06-30 12:12 | PT.OTRE ---
Current Diagnoses Sacrococcygeal disorders, not elsewhere classified (06/30/22) Past Medical History (Last Updated 05/06/22 @ 15:00 by Rasta Aocsta DO) Facet arthropathy, lumbar Fusion of sacral region of spine Herniated nucleus pulposus, L3-4 right Surgical History (Last Reviewed 05/06/22 @ 14:58 by Rasta Acosta DO) Status post surgery (04/13/10) Visit Care Team Role Provider Type SONDRA Santacruz Attending Provider Advanced Button Clamper Family Provider Primary Care Provider Referring Provider [place]ty[place] [facility] Address: [address] [place] [address], [facility] Email: Physical Therapy Re-Evaluation PT-OP-A Visit Information Start: 01/07/22 11:58 Freq: Status: Active Protocol: Document 06/30/22 09:03 [facility] (Rec: 06/30/22 09:45 [facility] [id number]) Out-Patient Physical Therapy Visit Information Visit Information Visit Type Treatment Note Visit Start Time 09:03 Visit Stop Time 09:45 Total Visit Minutes 42 Visit Number 25 Number of HOT BRAIDER Visits 0 Evaluation Information Evaluation Date 01/07/22 Precautions Precautions No precautions given by physician, patient reports he said you will know. Stairs allowable at 2 wks post-op PT-OP-B Current Condition Start: 01/07/22 11:58 Freq: Status: Active Protocol: Document 03/15/22 08:57 [facility] (Rec: 03/15/22 09:55 [facility] [id number]) Current Condition History of Current Condition Onset Date 12/15/21 Current Complaints pain right thigh and SI s/p fusion right SI History of Current Condition fusion right SI in [place], patient reports no pins or screws needed, no op report available. aching right anterior thigh and buttock. No precautions given. Prior to surgery doing HEP, since surgery just walking. Has been doing stairs per doctor approval after 2 weeks, though some soreness Has been using walker today didn't use walker, feels just a little unsteady. Icing several times per day. Has not done any exercises Future Testing and Treatments Planned returns to surgeon for f/u in approx 6 weeks PT-OP-C Subjective Start: 01/07/22 11:58 Freq: Status: Active Protocol: Document 06/30/22 09:03 [facility] (Rec: 06/30/22 09:45 [facility] [id number]) OP-PT Subjective Patient Comments Patient Comments Saw PA last week, x-ray looked good. Able to walk more, has been doing teadmill, 1day able to do 15 min without pain, other days has to. Has questions about gardening and HEP. PT-OP-F Manual Assessment Start: 01/07/22 11:58 Freq: Status: Active Protocol: Document 01/07/22 13:51 [facility] (Rec: 01/11/22 14:57 [facility] [id number]) Manual Assessments Soft Tissue Assessment Soft Tissue Mobility Assessment decrease in soft tissue mobility hugo lumbar paraspinals, right piriformis, incision. PT-OP-G Mobility & Gait Start: 01/07/22 11:58 Freq: Status: Active Protocol: Document 01/07/22 13:51 [facility] (Rec: 01/11/22 14:57 [facility] [id number]) OP Gait Assessment Gait Gait Assistance Required: Independent Assistive Devices Assistive Device Straight Cane,Front Wheeled Walker Orthotic/Prosthetic Devices or Brace: No Gait Deviations General Gait Pattern Antalgic,Decreased Stride Length Factors Limiting Gait Function Factors Limiting Gait Function Decreased Strength,Pain PT-OP-H Neuro Start: 01/07/22 11:58 Freq: Status: Active Protocol: Document 01/07/22 13:51 [facility] (Rec: 01/11/22 14:57 [facility] [id number]) Sensation Evaluation Gross Sensation Gross Sensation Left LE Impaired Sensation Description Paresthesia PT-OP-J Posture/Palpation/Skin Start: 01/07/22 11:58 Freq: Status: Active Protocol: Document 01/07/22 13:51 [facility] (Rec: 01/11/22 14:57 [facility] [id number]) Posture Evaluation Position Standing Head/C-Spine Posture Forward Head T-Spine Posture Flexible Scoliosis on (L), Flexible Scoliosis on (R) L-Spine Posture Decreased Lordosis Shoulder Posture (L) Rounded,(R) Rounded Scapula Posture (L) Protracted,(R) Protracted Arm Posture (L) Internally Rotated,(R) Internally Rotated Pelvis Posture Posterior Tilted Weight Distribution Weight Shifted Left Skin Assessment Incisional Assessment Incision Appearance/Comments as above PT-OP-K Range of Motion Start: 01/07/22 11:58 Freq: Status: Active Protocol: Document 01/07/22 13:51 [facility] (Rec: 01/11/22 14:57 [facility] [id number]) Hip Goniometric Range of Motion Hip ROM Limitations Comments WFL, no formal testing due to recent surgery PT-OP-M Strength Start: 01/07/22 11:58 Freq: Status: Active Protocol: Document 01/07/22 13:51 [facility] (Rec: 01/11/22 14:57 [facility] [id number]) Trunk Strength Trunk Manual Muscle Testing Comments not assessed due to recent surgery Hip Strength Hip Manual Muscle Testing hugo Comments no MMT due to recent surgery Knee Strength Knee Manual Muscle Testing hugo Comments no MMT due to recent surgery, has full AROM Ankle/Foot Strength Ankle and Foot Manual Muscle Testing hugo Comments has full active ROM, No MMT due to recent surgery PT-OP-Q Treatments Start: 01/07/22 11:58 Freq: Status: Active Protocol: Document 06/30/22 09:03 [facility] (Rec: 06/30/22 09:45 [facility] [id number]) Neuro Re-Education Treatment Movement Re-Education Movement Re-education Activities body mechanics with gardening, sitting Self-Care/Home Management Treatment Education Patient Education Body Mechanics,Home Exercise Program,Pain Management, Posture,Safety Other Education Body mechanics regarding gardening activities, hoeing, hands and knees, etc. REview HEP, modifications and further cues for best performance, review useof TENS unit, placement for use at home, postural correction. Added figure 4 and Leonel stretch PT-OP-R Modalities Start: 01/07/22 11:58 Freq: Status: Active Protocol: Document 05/03/22 14:32 [facility] (Rec: 05/03/22 15:35 [facility] [id number]) Hot Pack/Cold Pack Treatment Hot Pack Location right buttock Patient Position Sidelying Treatment Duration (minutes) 15 Patient Tolerance Good Comments pillow between knees PT-OP-T Assessment and Plan Start: 01/07/22 11:58 Freq: Status: Active Protocol: Document 06/30/22 09:03 [facility] (Rec: 06/30/22 09:45 [facility] [id number]) Physical Therapy Assessment Goals Three Impairment weakness Impairment weakness core and hip musculature, requires use of UE's for sit to stand Short Term Goal (STG) Instruct patient in progressive HEP for purposes of core and hip muscle strengthening for SI support and improved functional mobility 03/09/22: added TA step ups to HEP 03/17/22: ed for posturing during stairs carrying laundry /items for back and hip health painfree. 03/31/22: HEP:supine: resisted clamshell, hip stretches, SLR holds, bridges, LTR LEs over ball, modified crunch (elevate head/little shld holds), cat/ camel, band walk, STS (3x/wk) , resisted shld ext (3x/wk). 04/08/22: ongoing progression 05/19/22: goal met STG Duration goal met; ongoing progression Oriental Rug Stretcher Goal (LTG) Patient to be independent and compliant to HEP for purposes of strengthening and core stabilization. Functionally will be able to transition sit to stand x 5 times without use of UE's without an increase in pain 04/08/22: good progress, cont to modify and progress HEP, some pain still with sit to stand without UE's 05/19/22: can transition sit to stand 5x with min to no use of hands LTG Duration goal met Two Impairment pain Impairment pain right SI and anterior thigh 07/05 consistently taking Tylenol and Alleve Short Term Goal (STG) Improve patient pain to no greater than 2/10 while taking pain medication 03/31/22: almost met: not needing take pain med most of the time 1-05/07, but 2 nights ago was alot by end day and took 1/2 pain pill. 04/08/22: varies 1-5, overall goal progress 05/17/22:varies 1-5/10 STG Duration 05/09/22 Oriental Rug Stretcher Goal (LTG) Improve patient's pain to no greater than 2/10 without pain medication 03/31/22: almost met: not needing take pain med most of the time 1-05/07, but 2 nights ago was alot by end day and took 1/2 pain pill. 04/08/22: reports yesterday feeling need for pain meds, possibly after inc sitting time in car and doctor's office day before 05/19/22: no further progress 06/30/22: 2/10, occasional 06/04, goal met LTG Duration goal met One Impairment activity tolerance Impairment Oswestry disability index score 50% Short Term Goal (STG) Oswestry disability index score improved to no greater than 30% as measure of improved activity tolerance 03/09/22: pt scored 18 this tx , reduction from 27 at eval. 04/08/22: inc to 36% today after trip to see doctor 05/19/22: 42% STG Duration 05/09/22 Oriental Rug Stretcher Goal (LTG) Improve Oswestry disability index score to no greater than 15% as measure of improved activity tolerance and return to prior level of function 06/30/22: mostly met LTG Duration mostly met Progress Towards Goals Progress Towards Goals Goals Met Assessment Summary Assessment Goals met, final review and modification of HEP, progression of piriformis stretch and addition of Leonel stretch with good understanding. No further need for PT at this time. Physical Therapy Plan Frequency and Duration Frequency of Treatment 1 visit Duration of treatment (weeks) 4 Plan of Care Start Date 06/06/22 Plan of Care End Date 07/07/22 Discharge Physical Therapy Discharge Reasons Goals Met
--- NOTE | 2022-06-30 12:12 | PT.OPPOC ---
Physical, Occupational & Speech Therapy At [facility] Current Diagnoses Sacrococcygeal disorders, not elsewhere classified (06/30/22) Visit Care Team Role Provider Type SONDRA Santacruz Attending Provider Advanced Manager Of Finance Family Provider Primary Care Provider Referring Provider Specialty: Family Practice Address: [address] [place] [address], [id number] Email: [email or web address] Plan Of Care PT-OP-T Assessment and Plan Start: 01/07/22 11:58 Freq: Status: Active Protocol: Document 06/30/22 09:03 [facility] (Rec: 06/30/22 09:45 [facility] [id number]) Physical Therapy Assessment Goals Three Impairment weakness Impairment weakness core and hip musculature, requires use of UE's for sit to stand Short Term Goal (STG) Instruct patient in progressive HEP for purposes of core and hip muscle strengthening for SI support and improved functional mobility 03/09/22: added TA step ups to HEP 03/17/22: ed for posturing during stairs carrying laundry /items for back and hip health painfree. 03/31/22: HEP:supine: resisted clamshell, hip stretches, SLR holds, bridges, LTR LEs over ball, modified crunch (elevate head/little shld holds), cat/ camel, band walk, STS (3x/wk) , resisted shld ext (3x/wk). 04/08/22: ongoing progression 05/19/22: goal met STG Duration goal met; ongoing progression Lithographic Etcher Goal (LTG) Patient to be independent and compliant to HEP for purposes of strengthening and core stabilization. Functionally will be able to transition sit to stand x 5 times without use of UE's without an increase in pain 04/08/22: good progress, cont to modify and progress HEP, some pain still with sit to stand without UE's 05/19/22: can transition sit to stand 5x with min to no use of hands LTG Duration goal met Two Impairment pain Impairment pain right SI and anterior thigh 4/10 consistently taking Tylenol and Alleve Short Term Goal (STG) Improve patient pain to no greater than 2/10 while taking pain medication 03/31/22: almost met: not needing take pain med most of the time -05/07, but 2 nights ago was alot by end day and took 1/2 pain pill. 04/08/22: varies 1-5, overall goal progress 05/17/22:varies 1-08/04 STG Duration 05/09/22 Lithographic Etcher Goal (LTG) Improve patient's pain to no greater than 2/10 without pain medication 03/31/22: almost met: not needing take pain med most of the time 1-05/07, but 2 nights ago was alot by end day and took 1/2 pain pill. 04/08/22: reports yesterday feeling need for pain meds, possibly after inc sitting time in car and doctor's office day before 05/19/22: no further progress 06/30/22: 2, occasional 06/04, goal met LTG Duration goal met One Impairment activity tolerance Impairment Oswestry disability index score 50% Short Term Goal (STG) Oswestry disability index score improved to no greater than 30% as measure of improved activity tolerance 03/09/22: pt scored 18 this tx , reduction from 27 at eval. 04/08/22: inc to 36% today after trip to see doctor 05/19/22: 42% STG Duration 05/09/22 Lithographic Etcher Goal (LTG) Improve Oswestry disability index score to no greater than 15% as measure of improved activity tolerance and return to prior level of function 06/30/22: mostly met LTG Duration mostly met Progress Towards Goals Progress Towards Goals Goals Met Assessment Summary Assessment Goals met, final review and modification of HEP, progression of piriformis stretch and addition of Leonel stretch with good understanding. No further need for PT at this time. Physical Therapy Plan Frequency and Duration Frequency of Treatment 1 visit Duration of treatment (weeks) 4 Plan of Care Start Date 06/06/22 Plan of Care End Date 07/07/22 Discharge Physical Therapy Discharge Reasons Goals Met Plan of Care Dates Plan of Care Start Date 06/06/22 Plan of Care End Date 07/07/22 Electronically Signed by: Lisa Gonzalez, PT 06/30/22 [id number] If you are in agreement with this Plan of Care, please return a signed and dated copy. I have reviewed this Plan of Care and certify that the skilled therapy services above are required to meet the patient?s needs. Physician Signature Date Printed Name and Credentials Clinical Instructor Signature Printed Name and Credentials
== END 2022-07-01 11:34 | disposition home or self-care (01) ==
LOC: PHYS 09:00
PROVIDERS: Family Provider Internal Medicine; PCP Internal Medicine; Referring Provider Internal Medicine; Visit Provider Internal Medicine
DX: M53.3 Sacrococcygeal disorders, not elsewhere classified (principal)
CPT/HCPCS: 97110; 97116; 97140; 97162; 97530; 97535

== ENCOUNTER → 2022-10-14 15:16 | Outpatient (CLI) | payer MEDICARE, OTHER, SELFPAY ==
--- NOTE | 2022-10-14 | DI.CT.S_ITS ---
PROCEDURE: CT LUMBAR SPINE WO CON INDICATIONS: SCOLIOSIS TECHNIQUE: Noncontrast 3 mm thick sections acquired from the T12 level to the sacrum. Sagittal and coronal reformats were constructed. For radiation dose reduction, the following was used: automated exposure control. COMPARISON: None. FINDINGS: Image quality: Excellent. Bones: No acute vertebral body compression fractures. No suspicious lytic or blastic bony lesions. No pars defects. There is approximately 32? of dextroconvex lumbar scoliosis seen. No focal AP alignment abnormality is seen. T12-L1: Within normal limits. L1-L2: Unremarkable. L2-L3: Moderate to severe loss of disc height is seen on the left, with associated endplate irregularity and sclerosis. Partially bridging endplate osteophytes are seen on the left. Vacuum disc phenomenon is seen at this level. At least moderate disc bulge is seen at this level. There is at least moderate right-sided and [id number]-bb-[id number] left-sided facet hypertrophy. There is at least moderate bilateral neural foraminal narrowing. Moderate to severe central canal narrowing is seen, as on series 6, image 37. L3-L4: At least moderate loss of disc height is seen on the right. Vacuum disc phenomenon is seen at this level. At least moderate disc bulge is seen. There is a superimposed central disc protrusion. There is at least moderate right-sided and moderate left-sided facet hypertrophy. There is moderate to severe right-sided and at least moderate left-sided neural foraminal narrowing. Moderate to severe central canal narrowing is seen at this level, as on series 6, image 44. L4-L5: Zmvk-oe-vgzktzdq loss of disc height is seen on the right-side. Vacuum disc phenomenon is seen at this level. Moderate disc bulge is seen, which is eccentric to the right. There is at least moderate facet hypertrophy seen, right worse than left. There is moderate to severe right-sided and at least moderate left-sided neural foraminal narrowing. At least moderate central canal narrowing is seen at this level, as on series 6, image 52. L5-S1: The disc height is well preserved. Mild generalized disc bulge is seen. At least moderate facet hypertrophy is seen at this level. Mild bilateral neural foraminal narrowing is seen. Mild central canal narrowing is seen. Right sacroiliac joint fusion devices are seen. Soft tissues: No retroperitoneal masses or hematomas. Visualized aorta is normal in caliber. Atherosclerotic calcification is noted. IMPRESSION: Dextroconvex lumbar scoliosis. Multiple levels of degenerative change can be seen, which are overall worst at the L3-L4 level. Dictated by: Roberto Steele M.D. on 10/14/2022 at 16:44 Approved by: Roberto Steele M.D. on 10/14/2022 at 16:49
--- NOTE | 2022-10-14 | DI.CT.S_ITS ---
PROCEDURE: CT THORACIC SPINE WO CON INDICATIONS: SCOLIOSIS TECHNIQUE: Noncontrast 3 mm thick sections acquired through the region of interest in the thoracic spine. Sagittal and coronal reformats were then constructed. For radiation dose reduction, the following was used: automated exposure control. COMPARISON: [facility], CT, CT LUMBAR SPINE WO CON, 10/14/2022, 15:37. FINDINGS: Image quality: Excellent. Bones: Mild dextroconvex lumbar scoliosis is seen, which is better demonstrated on the accompanying lumbar CT. No acute vertebral body compression fractures. Several mild anterior wedge deformities are seen, which are worst at the T7 level, with approximately 20% loss of height anteriorly. No suspicious sclerotic or lytic bony lesions. Central spinal canal is of normal overall caliber. Posteriorly directed osteophytes can be seen at T5-T6 and at T6-T7. At T6-T7, there is at least moderate central canal narrowing seen, with mass effect upon the ventral spinal cord. Milder degenerative changes are seen elsewhere. Soft tissues: No paravertebral masses or hematomas. Visualized posteromedial lungs appear clear. Density calcified mediastinal lymph nodes are seen. IMPRESSION: Mild dextroconvex scoliotic curvature is seen. Posteriorly acted endplate osteophytes seen at T6-T7, with at least moderate central canal narrowing and associated mass effect upon the ventral spinal cord. Additional findings: Prior granulomatous exposure. Remote T7 anterior wedge deformity Dictated by: Roberto Steele M.D. on 10/14/2022 at 16:41 Approved by: Roberto Steele M.D. on 10/14/2022 at 16:44
== END ==
PROVIDERS: Family Provider Internal Medicine; PCP Internal Medicine; Referring Provider Neurological Surgery; Visit Provider Neurological Surgery
DX: M47.816 Spondylosis without myelopathy or radiculopathy, lumbar region (principal); M47.817 Spondylosis without myelopathy or radiculopathy, lumbosacral region; M48.04 Spinal stenosis, thoracic region; M25.78 Osteophyte, vertebrae; M43.8X4 Other specified deforming dorsopathies, thoracic region; M41.9 Scoliosis, unspecified; Z98.1 Arthrodesis status
CPT/HCPCS: 72128; 72131

== ENCOUNTER → 2022-11-06 09:03 | Outpatient (CLI) | payer MEDICARE, OTHER, SELFPAY ==
[2022-11-06 11:26] LABS: Alanine Aminotransferase 24 IU/L (<35); Albumin 3.9 g/dL (3.5-5.0); Albumin Globulin Ratio 1.6 (1.0-2.8); Alkaline Phosphatase 117 U/L (38-126); Aspartate Aminotransferase 31 IU/L (14-36); BUN Creatinine Ratio 31.1 (6-22); Blood Urea Nitrogen 19 mg/dL (7-17); Calcium 9.7 mg/dL (8.4-10.2); Carbon Dioxide 31 mmol/L (22-32); Chloride 103 mmol/L (98-107); Cholesterol 174 mg/dL (140-199); Estimated Glomerular Filt Rate > 60 mL/min (>60); Globulin 2.4 g/dL (1.7-4.1); Glucose 91 mg/dL (80-110); HDL Cholesterol 54 mg/dL (40-60); HEMOLYSIS < 15 (0-50); LDL Cholesterol Calculated 103 mg/dL (<100); Sodium 139 mmol/L (137-145); Total Protein 6.3 g/dL (6.3-8.2); Triglycerides 86 mg/dL (35-150)
[2022-11-06 11:38] LABS: LDL Cholesterol Direct 98 mg/dL (<100)
[2022-11-08 01:04] LABS: x Labcorp Estim. Avg Glu (eAG) 117 mg/dL (.); x Labcorp Hemoglobin A1c 5.7 % (4.8-5.6)
== END ==
PROVIDERS: Family Provider Internal Medicine; PCP Internal Medicine; Referring Provider Internal Medicine; Visit Provider Internal Medicine
DX: E78.5 Hyperlipidemia, unspecified (principal); R73.03 Prediabetes
CPT/HCPCS: 36415; 80053; 80061; 83036; 83721

== ENCOUNTER → 2022-11-30 16:03 | Outpatient (CLI) | payer MEDICARE, OTHER, SELFPAY ==
--- NOTE | 2022-11-30 16:05 | DI.MG.S_ITS ---
BILATERAL DIGITAL SCREENING MAMMOGRAM 3D/2D WITH CAD: 11/30/2022 CLINICAL: Routine screening. Comparison is made to exams dated: 11/26/2021 mammogram, 11/15/2020 mammogram, and 07/19/2018 mammogram - [facility]. Both breasts are heterogeneously dense, which may obscure small masses (category c / 51-75% glandular tissue). Current study was also evaluated with a Computer Aided Detection (CAD) system. No significant masses, calcifications, or other findings are seen in either breast. There has been no significant interval change. IMPRESSION: NEGATIVE There is no mammographic evidence of malignancy. A 1 year screening mammogram is recommended. Based on the Tyrer Cuzick model (a risk assessment model) the patient's lifetime risk is 6.6% and her 10 year risk is 5.9%. According to the ACR, ACS, and NCCN guidelines, an annual breast MRI exam along with mammogram is recommended if the patient's lifetime risk is 20% or greater. This exam was interpreted at Station ID: [id number]. NOTE: For mammograms, a report in lay terms will be sent to the patient. Approximately 15% of breast malignancies will not be visualized mammographically. In the management of a palpable breast mass, a negative mammogram must not discourage biopsy of a clinically suspicious lesion. Electronically Signed By: Matthew Morales M.D. aty/:12/05/2022 14:17:05 letter sent: Normal Exam ACR BI-RADS Category 1: Negative [id number]
== END ==
PROVIDERS: Family Provider Internal Medicine; PCP Internal Medicine; Referring Provider Internal Medicine; Visit Provider Internal Medicine
DX: Z12.31 Encounter for screening mammogram for malignant neoplasm of breast (principal)
CPT/HCPCS: 77063; 77067

== ENCOUNTER → 2023-02-01 10:49 | Outpatient (CLI) | payer MEDICARE, OTHER, SELFPAY ==
--- NOTE | 2023-02-01 | DI.RAD.S_ITS ---
Bone Density Report Name: KATHY COOK Age: 72 Sex: Female Ethnicity: White Date of : 1950 Indication: osteopenia; Referring Provider: SHREYAS LEWIS Study: Bone densitometry was performed. Exam Date: February 01, 2023 Accession number: [id number] Bone Density: Region BMD T-score Z-score Classification AP Spine(L1, L4) 0.979 -0.5 1.8 Normal Femoral Neck (Left) 0.579 -2.4 -0.4 Osteopenia Total Hip (Left) 0.705 -1.9 -0.2 Osteopenia Femoral Neck (Right) 0.553 -2.7 -0.6 Osteoporosis Total Hip (Right) 0.685 -2.1 -0.4 Osteopenia Total Hip Mean 0.695 -2.0 -0.3 Osteopenia World Health Organization criteria for BMD impression classify patients as: Normal (T-score at or above -1.0), Osteopenia (T-score between -1.0 and -2.5), or Osteoporosis (T-score at or below -2.5). 10-year Fracture Risk: FRAX not reported because: Some T-score for Spine Total or Hip Total or Femoral Neck at or below -2.5 Previous Exams: -- Region Exam Age BMD T-score BMD Change BMD Change Date g/cm2 vs Baseline vs Previous -- AP Spine (L1,L4) 02/01/2023 72 0.979 -0.5 -0.167 (-14.6%)# -0.207 (-17.5%)# 07/03/2013 62 1.186 1.4 0.040 (3.5%)* 0.008 (0.7%) 03/11/2008 57 1.178 1.3 0.032 (2.8%)* 0.032 (2.8%)* 01/01/2005 54 1.146 1.0 Total Hip(Left) 02/01/2023 72 0.705 -1.9 -0.240 (-25.4%)# -0.075 (-9.6%)# 10/15/2020 70 0.780 -1.3 -0.165 (-17.5%)* -0.138 (-15.0%)* 10/05/2016 66 0.917 -0.2 -0.028 (-2.9%)* 0.026 (3.0%) 07/03/2013 62 0.891 -0.4 -0.054 (-5.7%)* -0.037 (-3.9%)* 03/11/2008 57 0.928 -0.1 -0.017 (-1.8%) -0.017 (-1.8%) 01/01/2005 54 0.945 0.0 Total Hip(Right) 02/01/2023 72 0.685 -2.1 -0.178 (-20.6%)# -0.039 (-5.3%)# 10/15/2020 70 0.724 -1.8 -0.139 (-16.1%)* -0.117 (-13.9%)* 10/05/2016 66 0.840 -0.8 -0.023 (-2.6%) 0.009 (1.0%) 07/03/2013 62 0.832 -0.9 -0.031 (-3.6%)* -0.025 (-2.9%) 03/11/2008 57 0.857 -0.7 -0.006 (-0.7%) -0.006 (-0.7%) 01/01/2005 54 0.863 -0.6 -- *Denotes significance at 95% confidence level, LSC for AP Spine = 0.022 g/cm2, LSC for Total Hip = 0.027 g/cm2 Rate of change results reflect vertebral levels common to all scans # Denotes dissimilar scan types or analysis methods Impression: The patient has osteoporosis, based on the Right Femoral Neck T-score. No significant bone loss was observed. Discussion: INCREASED RISK OF FRACTURE. BONE DENSITY IS UNDESIRABLY LOW AT ONE OR MORE SKELETAL SITES, CONSISTENT WITH POSTMENOPAUSAL OSTEOPOROSIS. This patient's lowest T-score meets the World Health Organization's (WHO) criteria for osteoporosis at one or more sites (T-score -2.5 or below). In untreated patients, the risk of osteoporotic fracture increases approximately two-fold for each 1.0 SD decrease in T-score. Low bone density is not the only risk factor for fracture; also consider factors such as patient's age, frailty or poor health, risk of falling, risk of injury, previous osteoporotic fracture, family history of osteoporosis, cigarette smoking, low body weight, etc. Not everyone with low bone mineral density has osteoporosis; osteomalacia and other metabolic bone disorders should also be considered. Patients who have osteoporosis should be evaluated for specific diseases and conditions (secondary causes) that may cause or contribute to bone loss. The [place] Association of Clinical Endocrinologists (AACE) and National Osteoporosis Foundation (NOF) recommend pharmacologic intervention for all postmenopausal women whose T-score is in this range. The patient should follow a healthful lifestyle (good nutrition with adequate calcium and vitamin D, and appropriate weight-bearing exercise). Follow-Up: Consider a repeat BMD and Vertebral Fracture Assessment (VFA) exam in 2 years or sooner if medically necessary, to reassess this patient's status. Reported by: BOBBY GARCIA M.D. on 02/01/2023 11:23:00 AM.
== END ==
PROVIDERS: Family Provider Internal Medicine; PCP Internal Medicine; Referring Provider Internal Medicine; Visit Provider Internal Medicine
DX: Z78.0 Asymptomatic menopausal state (principal); M81.0 Age-related osteoporosis without current pathological fracture
CPT/HCPCS: 77080

== ENCOUNTER → 2023-05-05 11:38 | Outpatient (CLI) | payer MEDICARE, OTHER, SELFPAY ==
[2023-05-05 12:03] LABS: Add Manual Diff / Slide Review NO; Basophils Absolute Auto 0 /uL (0-100); Basophils Percent Auto 0.5 % (0-2); Eosinophils Absolute Auto 100 /uL (0-450); Hematocrit 40.6 % (36-46); Hemoglobin 13.7 g/dL (12.0-16.0); Lymphocytes Absolute Auto 900 /uL (1100-4500); Lymphocytes Percent Auto 26.9 % (25-40); Mean Corpuscular HGB Conc 33.6 % (30-36); Mean Corpuscular Hemoglobin 30.9 PG (26-34); Monocytes Absolute Auto 400 /uL (0-900); Monocytes Percent Auto 10.7 % (3-14); Neutrophils Absolute Auto 2000 /uL (1500-7000); Neutrophils Percent Auto 59.9 % (50-75); Platelet Count 179 X10^3/uL (150-400); Red Blood Cell Count 4.41 X10^6/uL (4.0-5.2); Red Cell Distribution Width 13.6 % (11.6-14.8); White Blood Cell Count 3.4 X10^3/uL (4.5-11.0)
[2023-05-05 12:13] LABS: Prothrombin Time 11.4 SECONDS (9.4-12.5)
[2023-05-05 12:16] LABS: PTT Partial Thromboplastin Tim 33 SECONDS (25.1-36.5)
[2023-05-05 12:26] LABS: BUN Creatinine Ratio 30.2 (6-22); Blood Urea Nitrogen 19 mg/dL (7-17); Calcium 10.1 mg/dL (8.4-10.2); Carbon Dioxide 27 mmol/L (22-32); Chloride 102 mmol/L (98-107); Estimated Glomerular Filt Rate > 60 mL/min (>60); Glucose 89 mg/dL (80-110); HEMOLYSIS < 15 (0-50); Sodium 137 mmol/L (137-145)
== END ==
LOC: LAB 11:40
PROVIDERS: Family Provider Internal Medicine; PCP Internal Medicine; Referring Provider Physical Medicine & Rehabilitation; Visit Provider Physical Medicine & Rehabilitation
DX: Z01.818 Encounter for other preprocedural examination (principal); Z51.81 Encounter for therapeutic drug level monitoring; Z01.812 Encounter for preprocedural laboratory examination
CPT/HCPCS: 36415; 80048; 85025; 85610; 85730; 93005; 93010

== ENCOUNTER 2023-08-16 14:30 | Outpatient (CLI) | payer MEDICARE, OTHER, SELFPAY ==
[2023-08-16] VITALS (9 sets, daily range): BP systolic 124–142; BP diastolic 61–73; PULSE 84–97; RESP 10–20; TEMP 37; O2SAT 96–100
--- NOTE | 2023-08-16 15:00 | DI.RAD.S_ITS ---
PROCEDURE: PAIN L/S TRANSFORAMINAL INJECT INDICATIONS: Right L3-4 and L4-5 transforaminal MARLON COMPARISON: [facility], , PAIN L/S TRANSFORAMINAL INJECT, 05/20/2022, 9:23. FINDINGS: Fluoroscopic spot filming was performed to verify placement of spinal needles at the right L3-L4 and L4-L5 level(s), as labeled on the films. Appropriate location(s) of the needle tip(s) was confirmed by injection of iodinated contrast. IMPRESSION: Intraoperative guidance provided. Dictated by: Jordin Iqbal M.D. on 08/17/2023 at 9:45 Approved by: Jordin Iqbal M.D. on 08/17/2023 at 9:46
[2023-08-16] MEDS: MIDAZOLAM 2 MG/2 ML VIAL IV (15:39)
[2023-08-16] MEDS: DEXAMETHASONE 10 MG/ML VIAL 20 MG INJ (15:45)
[2023-08-16] MEDS: iopamidoL 15 ML VIAL 3 ML INJ (15:45)
[2023-08-16] MEDS: BETAMETHASONE 30 MG/5 ML MDV 12 MG INJ (15:45)
[2023-08-16] MEDS: BUPIVACAINE 0.25% (PF) VIAL 2 ML INJ (15:45)
--- NOTE | 2023-08-16 16:01 | P.PCN_ITS ---
Date/Time/Diagnoses Date of procedure: 08/16/23 Time of procedure: 16:01 Pre-procedure diagnosis: 1. FORAMINAL STENOSIS WITH LE SYMPTOMS Post-procedure diagnosis: same Procedure Notes Procedure: 1. FLUOROSCOPICALLY GUIDED CONTRAST CONTROLLED TRANSFORAMINAL EPIDURAL STEROID INJECTION - RIGHT L4/5 TFESI Indications: nEe is referred by SONDRA Nguyen for treatment of Foraminal Stenosis with Right LE Symptoms Physician: Rasta Acosta Total Fluoroscopy time (seconds): 14 Total sedation minutes: 19 Complications: none Procedure in detail & Post-procedure care: FINDINGS Foraminal Nerve Root Compression secondary to disc disease and facet hypertrophy DESCRIPTION OF PROCEDURE Following review of allergy and review of potential side effects and complications, including, but not necessarily limited to, infection, allergic reaction, local tissue breakdown, stroke, temporary or permanent nerve injury, paralysis, and possible , the patient indicated that the patient understood and agreed to proceed. An informed consent document was signed by the patient, witnessed by a nurse, and placed in the patient's chart. Additionally, other treatment options including medications, modalities, and physical therapy were reviewed with the patient. After review of previous anaesthesic history and IV conscious sedation the patient was deemed safe to proceed with today?s procedure with IV conscious sedation as ASA class II designation. Safety time-out was performed to confirm patient ID, procedure to be performed and site of procedure. IV sedation was accomplished with a combination of 2mg of Versed was administered by the RN after DO order, titrated to patient comfort during the course of the procedure while the patient remained responsive to all verbal commands In the prone position following sterile prep and drape of the lumbar region, the right L4/5 posterior neuroforamen was identified fluoroscopically. The skin was anesthetized via a 25-gauge 1.5-inch needle with 1% lidocaine solution. At this point, a 25-gauge 3.5-inch spinal needle was atraumatically introduced and advanced under fluoroscopic guidance through the posterior right L4/5 neuroforamen to approximately the anterior aspect of the canal. Depth was confirmed on lateral view. Following negative aspiration, injection of approximately 1.5cc of Isovue 200 under live fluoroscopy in the AP view confirmed excellent flow along the nerve root, into the epidural space without vascular or intrathecal uptake observed Radiological data, including multiple fluoroscopic views of the lumbosacral s pine, reveal a spinal needle at the right L4/5 posterior neuroforamen. Subsequent views show flow of contrast material flowing superiorly and inferiorly along the nerve root confirming epidural flow. Subsequently, a test dose of 1.5 cc of 1% lidocaine solution was administered and patient was observed for two minutes for signs or symptoms of complications, including abdominal pain, shortness of breath, bilateral upper or lower extremity weakness, nausea and vomiting, prior to steroid injection. At this point, a total of 2cc or 10mg of dexamethasone and 6mg of betamethasone was injected without incident. The procedure tolerated the procedure well without signs or symptoms of complications prior to transfer to the recovery area continued monitoring without incident. The patient was then transferred to the recovery area where they were observed for an appropriate time after the injection. The patient reported a VAS score of 7 prior to the procedure and a post- procedure VAS of 0. POST OP INSTRUCTIONS The patient was provided a Pain Log to continue to record their response to the target-specific procedure prior to follow-up visit with their referring physician. Additionally, specific post-injection care instructions and a contact number to our office were provided if concerns arise regarding possible complications associated with the procedure are suspected.
--- NOTE | 2023-08-16 16:02 | P.PCN_ITS ---
Date/Time/Diagnoses Date of procedure: 08/16/23 Time of procedure: 16:02 Pre-procedure diagnosis: 1. FORAMINAL STENOSIS WITH LE SYMPTOMS Post-procedure diagnosis: same Procedure Notes Procedure: 1. FLUOROSCOPICALLY GUIDED CONTRAST CONTROLLED TRANSFORAMINAL EPIDURAL STEROID INJECTION - RIGHT L3/4 TFESI Indications: Ene is referred by SONDRA Ernst for treatment of Foraminal Stenosis with right LE Symptoms Physician: Rasta Acosta Total Fluoroscopy time (seconds): 14 Total sedation minutes: 19 Complications: none Procedure in detail & Post-procedure care: FINDINGS Foraminal Nerve Root Compression secondary to disc disease and facet hypertrophy DESCRIPTION OF PROCEDURE Following review of allergy and review of potential side effects and complications, including, but not necessarily limited to, infection, allergic reaction, local tissue breakdown, stroke, temporary or permanent nerve injury, paralysis, and possible , the patient indicated that the patient understood and agreed to proceed. An informed consent document was signed by the patient, witnessed by a nurse, and placed in the patient's chart. Additionally, other treatment options including medications, modalities, and physical therapy were reviewed with the patient. After review of previous anaesthesic history and IV conscious sedation the patient was deemed safe to proceed with today?s procedure with IV conscious sedation as ASA class II designation. Safety time-out was performed to confirm patient ID, procedure to be performed and site of procedure. IV sedation was accomplished with a combination of 2mg of Versed was administered by the RN after DO order, titrated to patient comfort during the course of the procedure while the patient remained responsive to all verbal commands In the prone position following sterile prep and drape of the lumbar region, the right L3/4 posterior neuroforamen was identified fluoroscopically. The skin was anesthetized via a 25-gauge 1.5-inch needle with 1% lidocaine solution. At this point, a 25-gauge 3.5-inch spinal needle was atraumatically introduced and advanced under fluoroscopic guidance through the posterior right L3/4 neuroforamen to approximately the anterior aspect of the canal. Depth was confirmed on lateral view. Following negative aspiration, injection of approximately 1.5 cc of Isovue 200 under live fluoroscopy in the AP view c onfirmed excellent flow along the nerve root, into the epidural space without vascular or intrathecal uptake observed Radiological data, including multiple fluoroscopic views of the lumbosacral spi ne, reveal a spinal needle at the right L3/4 posterior neuroforamen. Subsequent views show flow of contrast material flowing superiorly and inferiorly along the nerve root confirming epidural flow. Subsequently, a test dose of 1.5 cc of 1% lidocaine solution was administered and patient was observed for two minutes for signs or symptoms of complications, including abdominal pain, shortness of breath, bilateral upper or lower extremity weakness, nausea and vomiting, prior to steroid injection. At this point, a total of 2cc or 10mg of dexamethasone and 6mg of betamethasone was injected without incident. The patient tolerated the procedure well without signs or symptoms of complications prior to transfer to the recovery area continued monitoring without incident. The patient was then transferred to the recovery area where they were observed for an appropriate time after the injection. The patient reported a VAS score of 7 prior to the procedure and a post-procedure VAS of 0. POST OP INSTRUCTIONS The patient was provided a Pain Log to continue to record their response to the target-specific procedure prior to follow-up visit with their referring physician. Additionally, specific post-injection care instructions and a contact number to our office were provided if concerns arise regarding possible complications associated with the procedure are suspected.
== END 2023-08-16 16:14 | disposition home or self-care (01) ==
PROVIDERS: Family Provider Internal Medicine; PCP Internal Medicine; Referring Provider Physical Medicine & Rehabilitation; Visit Provider Physical Medicine & Rehabilitation
DX: M48.061 Spinal stenosis, lumbar region without neurogenic claudication (principal); M51.16 Intervertebral disc disorders with radiculopathy, lumbar region; M47.26 Other spondylosis with radiculopathy, lumbar region
CPT/HCPCS: 64483; 64484; 99152; J0702; J1100; J2250; J3490

== ENCOUNTER → 2024-01-06 08:03 | Outpatient (CLI) | payer OTHER, SELFPAY ==
--- NOTE | 2024-01-06 | DI.MG.S_ITS ---
BILATERAL DIGITAL SCREENING MAMMOGRAM 3D/2D WITH CAD: 01/06/2024 CLINICAL: Routine screening. Comparison is made to exams dated: 11/30/2022 mammogram, 11/26/2021 mammogram, and 11/15/2020 mammogram - [facility]. The breasts are heterogeneously dense, which may obscure small masses (category c / 51-75% glandular tissue). Current study was also evaluated with a Computer Aided Detection (CAD) system. There is an asymmetry in the left breast middle depth central to the nipple seen on the craniocaudal view only. This is more prominent. No other significant masses, calcifications, or other findings are seen in either breast. IMPRESSION: INCOMPLETE: NEED ADDITIONAL IMAGING EVALUATION The asymmetry in the left breast is indeterminate. Additional views with possible ultrasound are recommended. Based on the Tyrer Cuzick model (a risk assessment model) the patient's lifetime risk is 6.1% and her 10 year risk is 6.1%. According to the ACR, ACS, and NCCN guidelines, an annual breast MRI exam along with mammogram is recommended if the patient's lifetime risk is 20% or greater. This exam was interpreted at Station ID: [id number]. NOTE: For mammograms, a report in lay terms will be sent to the patient. Approximately 15% of breast malignancies will not be visualized mammographically. In the management of a palpable breast mass, a negative mammogram must not discourage biopsy of a clinically suspicious lesion. Electronically Signed By: Jordin Iqbal M.D. [facility] [place]/:01/06/2024 10:34:56 letter sent: Additional Imaging Needed ACR BI-RADS Category 0: Incomplete: Need Additional Imaging Evaluation
== END ==
PROVIDERS: Family Provider Internal Medicine; PCP Internal Medicine; Referring Provider Internal Medicine; Visit Provider Internal Medicine
DX: Z12.31 Encounter for screening mammogram for malignant neoplasm of breast (principal); R92.333 Mammographic heterogeneous density, bilateral breasts
CPT/HCPCS: 77063; 77067

== ENCOUNTER → 2024-01-24 08:48 | Outpatient (CLI) | payer OTHER, SELFPAY ==
--- NOTE | 2024-01-24 | DI.MG.S_ITS ---
UNILATERAL LEFT DIGITAL DIAGNOSTIC MAMMOGRAM 3D/2D WITH ADDITIONAL VIEWS: 01/24/2024 CLINICAL: Additional evaluation requested from prior study. Comparison is made to exams dated: 01/06/2024 mammogram, 11/30/2022 mammogram, and 11/26/20[address] mammogram - [facility]. The breasts are heterogeneously dense, which may obscure small masses (category c / 51-75% glandular tissue). Prior asymmetry in the left breast, posterior depth central to the nipple seen on the CC view only, is not reproducible with spot compression or lateral view. This is consistent with overlapping fibroglandular tissue. No significant masses, calcifications, or other findings are seen in the breast. IMPRESSION: NEGATIVE Resolution of left breast screening mammography abnormality with additional views. Return to annual mammogram screening schedule is recommended. Findings and recommendations were conveyed to the patient at time of exam. Based on the Tyrer Cuzick model (a risk assessment model) the patient's lifetime risk is 6.1% and her 10 year risk is 6.1%. According to the ACR, ACS, and NCCN guidelines, an annual breast MRI exam along with mammogram is recommended if the patient's lifetime risk is 20% or greater. This exam was interpreted at Station ID: [id number]. NOTE: For mammograms, a report in lay terms will be sent to the patient. Approximately 15% of breast malignancies will not be visualized mammographically. In the management of a palpable breast mass, a negative mammogram must not discourage biopsy of a clinically suspicious lesion. Electronically Signed By: Shari spaulding/:01/24/2024 09:17:42 letter sent: Normal Exam ACR BI-RADS Category 1: Negative
== END ==
PROVIDERS: Family Provider Internal Medicine; PCP Internal Medicine; Referring Provider Internal Medicine; Visit Provider Internal Medicine
DX: R92.8 Other abnormal and inconclusive findings on diagnostic imaging of breast (principal); R92.333 Mammographic heterogeneous density, bilateral breasts
CPT/HCPCS: 77065; G0279

== ENCOUNTER → 2025-01-14 12:47 | Outpatient (CLI) | payer MEDICARE, OTHER, SELFPAY ==
--- NOTE | 2025-01-14 12:50 | DI.MG.S_ITS ---
MM screening mammo BI: 01/14/2025. BI-RADS: 1 CLINICAL: 74-year old female for bilateral screening mammogram. Tyrer-Cuzick lifetime risk of 4.0%. No personal or first-degree family history of breast cancer. PRIOR EXAMS 01/24/2024, 01/06/2024, 11/30/2022, 11/26/2021, MAMMOGRAPHY TECHNIQUE: 2D and 3D (tomosynthesis) digital mammographic views obtained, with additional images as needed for full coverage. Current study was also evaluated with a Computer Aided Detection (CAD) system. DENSITY D. The breasts are extremely dense, which lowers the sensitivity of mammography. MAMMOGRAPHY FINDINGS Bilateral: No suspicious mass, asymmetry, microcalcification, or other abnormality seen. IMPRESSION: * No evidence of malignancy. RECOMMENDATIONS Bilateral * Annual screening mammography. OVERALL ASSESSMENT CATEGORY BI-RADS-1: Negative. The [employer] recommends annual screening mammography beginning at age 40 for women with average risk of breast cancer. ELECTRONICALLY SIGNED: Matthew Morales M.D. on 01/14/2025 at 05:19:02 PM PT Interpreting Station ID: [id number]
== END ==
LOC: MAMMO 12:50
PROVIDERS: Family Provider Internal Medicine; PCP Family Medicine; Referring Provider Family Medicine; Visit Provider Family Medicine
DX: Z12.31 Encounter for screening mammogram for malignant neoplasm of breast (principal); R92.333 Mammographic heterogeneous density, bilateral breasts
CPT/HCPCS: 77063; 77067

== ENCOUNTER → 2025-02-28 10:11 | Outpatient (CLI) | payer MEDICARE, OTHER, SELFPAY ==
--- NOTE | 2025-02-28 10:14 | DI.RAD.S_ITS ---
PROCEDURE: XR DEXA AXIAL SKELETON INDICATIONS: Osteoporosis screening COMPARISON: [facility], CR, XR DEXA AXIAL SKELETON, 02/01/2023, 11:12. FINDINGS: Lumbar Spine, L1, L3-L4: Bone mineral density 1.042 g/cm2, T score -0.1, normal, change from previous-20.8%. Left Femoral Neck: Bone mineral density 0.548 g/cm2, T score -2.7, osteoporosis, change from previous-5.4%. Left Hip: Bone mineral density 0.678 g/cm2, T score -2.2 osteopenia, change from previous-3.8%. Fracture Risk Calculation (when applicable): 10-year fracture risk of a major osteoporotic fracture 17 percent and of a hip fracture 6.2 percent. This FRAX score is not valid due to presence of osteoporosis. (T score greater or equal to -1.0 to: NORMAL) (T score from -1.1 to -2.4: OSTEOPENIA) (T score less than or equal to -2.5: OSTEOPOROSIS) IMPRESSION: Overall decrease in bone mineral density compared to prior. Osteoporosis. The patient is at a high risk of fracture. Follow-up guidelines as follows: Osteoporosis: Consider a repeat DEXA and Vertebral Fracture Assessment (VFA) exam in 2 years or sooner if medically necessary, to reassess this patient's status. Osteopenia: Consider a repeat DEXA in 2-3 years to reassess this patient's status, or if there is a new clinical indication. Normal: Consider a repeat DEXA in 5 years or sooner, or if there is a new clinical indication. All treatment decisions require clinical judgment and consideration of individual patient factors, including patient preferences, comorbidities, previous drug use, risk factors not captured in the FRAX model (e.g., frailty, falls, vitamin D deficiency, increased bone turnover, interval significant decline in bone density ) and possible under- or over-estimation of fracture risk by FRAX. In addition, the NOF Guide recommends that FDA-approved medical therapies be considered in postmenopausal women and men age >= 50 years with a: * Hip or vertebral (clinical or morphometric) fracture * T-score of <=-2.5 at the spine or hip * Ten-year fracture probability by FRAX of >= 3% for hip fracture or >=20% for major osteoporotic fracture. Dictated by: Shari Blanco M.D. on 02/28/2025 at 13:06 Approved by: Shari Blanco M.D. on 02/28/2025 at 13:08
== END ==
LOC: RAD 10:13
PROVIDERS: PCP Family Medicine; Referring Provider Family Medicine; Visit Provider Family Medicine
DX: M81.0 Age-related osteoporosis without current pathological fracture (principal)
CPT/HCPCS: 77080